=== PATIENT | male | born 1945 | race African-American/Black ===

== ENCOUNTER 2016-07-01 05:28 | Emergency (ER) | payer OTHER ==
[~2016-07-01] VITALS: Ht 172.7 cm; Wt 101.2 kg
[~2016-07-01 05:28] MED LIST: AMLO5TAB2 PO; ASPI-482 PO; CARV25TA PO; DIGO125T PO; DOXY100T PO; HYDR-2762 PO; LOSA100T6 PO; NABU500T PO; PRED20TA PO; SIMV20TA3 PO; TRIA15CR3 TP; WARF5TAB7 PO
[2016-07-01 05:38] VITALS: BP 167/79
--- NOTE | 2016-07-01 06:39 | PHYS DOC ---
Past Medical History Past Medical History: A-Fib, CAD, CHF, COPD, Diabetes-Type II, High Cholesterol , Hypertension, Other Additional Past Medical Histor: BENIGN TUMOR LEFT EYE Past Surgical History: Coronary Bypass Surgery, Other Additional Past Surgical Histo: R lower leg skin biopsy, L knee dislocation repair Alcohol Use: None Drug Use: None Adult General Chief Complaint Chief Complaint: EYE PROBLEMS HPI HPI 71-year-old male presenting to the emergency department with chemosis of the lower part of his right conjunctiva. He reports this started approximately 24 hours ago. He denies any new foods. He does report scratching the bottom part of his eye. He reports his vision being the same. He has a benign tumor his left eye reports no changes in his left eye. Location right eye. Duration constant. No alleviating factors present. He does use a CPAP at night and reports the masks fits correctly. Review of systems is negative for chest pain shortness of breath nausea vomiting. All other review of systems is negative unless otherwise noted in history of present illness. Review of Systems Review of Systems SEE ABOVE. Allergies Allergies Allergies Coded Allergies Type Severity Reaction Last Updated Verified Iodinated Contrast Media - Oral and Adverse Reaction Intermediate "bumps on skin around IV site" 03/27/16 Yes Physical Exam Physical Exam Constitutional: Well developed, well nourished, no acute distress, non-toxic appearance. HENT: Normocephalic, atraumatic, bilateral external ears normal, oropharynx moist, no oral exudates, nose normal. [] Left eye shows what the patient reports to be chronic swelling of a benign tumor. Right Eye Exam Visual acuity: nl (subjective pt reports no changes) Visual meredith: nl External exam: no lacerations, erythema, swelling, exophthalmos, hordeolum, or blepharitis EOMI Pupil: Equal round and reactive to light Lids nl no edema, laceration, foreign bodies Conjunctiva patient has chemosis of the bottom part of the conjunctiva. Mild injection of the rest of the conjunctiva. Cornea, no foreign bodies Cardiovascular:Heart rate regular rhythm, no murmur [] Lungs & Thorax: Bilateral breath sounds clear to auscultation [] Abdomen: Bowel sounds normal, soft, no tenderness, no masses, no pulsatile masses. Skin: Warm, dry, no erythema, no rash. [] Back: No tenderness, no CVA tenderness. Extremities: No tenderness, no cyanosis, no clubbing, ROM intact, no edema. [] Neurologic: Alert and oriented X 3, normal motor function, normal sensory function, no focal deficits noted. [] Psychologic: Affect normal, judgement normal, mood normal. [] Current Patient Data Vital Signs Vital Signs Date Time Temp Pulse Resp B/P Pulse Ox O2 Delivery O2 Flow Rate FiO2 07/01/16 05:38 97.9 74 20 93 Room Air 97.9 EKG EKG [] Radiology/Procedures Radiology/Procedures [] Course & Med Decision Making Course & Med Decision Making Pertinent Labs and Imaging studies reviewed. (See chart for details) 71-year-old male presenting the emergency department with right eye chemosis. Patient reported visual acuity within normal limits. Otherwise normal exam. Likely chemosis secondary to his scratching of the eye however possible that his noninvasive positive pressure at night causing irritation to the inferior part of his conjunctiva. I recommend the patient be referred to our eye doctors for further evaluation workup and care in the outpatient setting. I recommend referral over the next 2-3 days. Dragon Disclaimer Dragon Disclaimer This electronic medical record was generated, in whole or in part, using a voice recognition dictation system. Departure Departure Impression: Primary Impression: Chemosis of conjunctiva Disposition: 01 HOME, SELF-CARE Condition: STABLE Referrals: CAROLANN PLATA Jr, MD (PCP) HERACLIO CEDEÑO MD 4-5 days eye doctor Patient Instructions: Eyedrops Additional Instructions: Thank you for allowing us to participate in your care today. Followup with our eye doctor Dr. Cedeño in 4-5 days if your symptoms do not improve. If you do not have a primary care provider you can ask for a list of our primary care providers. Return to the emergency department you have any new or concerning findings. This should be evaluated by the primary care physician and any necessary consulting services for continued management within a few days after discharge. Return to emergency room if you have any new or concerning symptoms including but not limited to fever, chills, nausea, vomiting, intractable pain, any new rashes, chest pain, shortness of air, uncontrolled bleeding, difficulty breathing, and/or vision loss. JORGE ALBERTO GUZMAN MD Jul 01, 2016 06:39
[2016-07-01] MEDS ORDERED: EYE-STREAM OPHTH SOLUTION 120 ML BOTTLE. ONE (06:52)
[2016-07-01] MEDS ORDERED: EYE-STREAM OPHTH SOLUTION 120 ML BOTTLE. OD ONE (07:15)
== END 2016-07-01 07:10 | disposition home or self-care (01) ==
LOC: ER 05:28
DX: H11.421 Conjunctival edema, right eye (principal); I25.10 Atherosclerotic heart disease of native coronary artery without angina pectoris; I11.0 Hypertensive heart disease with heart failure; I50.9 Heart failure, unspecified; E78.00 Pure hypercholesterolemia, unspecified; E11.9 Type 2 diabetes mellitus without complications; J44.9 Chronic obstructive pulmonary disease, unspecified; Z95.1 Presence of aortocoronary bypass graft; Z91.041 Radiographic dye allergy status
CPT/HCPCS: 99282

== ENCOUNTER → 2016-11-27 | Outpatient (CLI) | payer OTHER ==
--- NOTE | 2016-11-27 17:07 | RAD ---
PA and lateral chest radiographs 11/27/2016 Clinical history: CHF and hypertension. Diabetes. Coronary artery disease. PA and two lateral digital radiographs of the chest were obtained. Comparison study is dated 03/27/2016. The patient is status post CABG procedure. The cardiac silhouette is mildly enlarged. The thoracic aorta is tortuous. No acute pulmonary infiltrate is seen. No pneumothorax is noted. Blunting of both costophrenic angles is seen which could reflect very small bilateral pleural effusions. Degenerative changes are seen involving the thoracic spine. Impression: Cardiomegaly with probable very small bilateral pleural effusions. No acute pulmonary infiltrate is seen.
== END | disposition home or self-care (01) ==
LOC: RAD 16:06
PROVIDERS: ATTEND Internal Medicine Cardiovascular Disease
DX: I11.0 Hypertensive heart disease with heart failure (principal); I50.9 Heart failure, unspecified; E11.9 Type 2 diabetes mellitus without complications; I25.10 Atherosclerotic heart disease of native coronary artery without angina pectoris
CPT/HCPCS: 71020

== ENCOUNTER 2017-01-22 18:07 | Inpatient (IN) | payer OTHER, MEDICARE ==
[~2017-01-22] VITALS: Ht 172.7 cm; Wt 101.2 kg
[2017-01-22] MEDS ORDERED: FUROSEMIDE 40 MG/4 ML VIAL. IVP ONE (18:30)
--- NOTE | 2017-01-22 18:32 | EKG ---
[facility] [address] [place] [address] Test Date: 2017-01-22 Test Time: 18:16:42 Pat Name: SUDHIR NICOLE Department: Room: Gender: M Psychology Intern: : 1945 Requested By: DAVIDSON MILES Order Number: [id number] Reading MD: Measurements Intervals [place] Rate: 73 P: AL: QRS: -62 QRSD: 126 T: 148 QT: 410 QTc: 456 Interpretive Statements ATRIAL FIBRILLATION VENTRICULAR PREMATURE COMPLEX(ES) ABNORMAL LEFT AXIS DEVIATION LOW LIMB LEAD VOLTAGE LEFT BUNDLE BRANCH BLOCK RI6.01 Unconfirmed report No previous ECG available for comparison
[2017-01-22 18:42] LABS: BASO % 1 % (0-3); EOS % 3 % (0-3); HEMATOCRIT 46.8 % (39.0-53.0); HEMOGLOBIN 14.8 g/dL (13.0-17.5); LYMPH # 0.9 x10^3/uL (1.0-4.8); LYMPH % 12 % (24-48); MEAN CORPUSCULAR HEMOGLOBIN 28 pg (25-35); MEAN CORPUSCULAR HGB CONC 32 g/dL (31-37); MEAN CORPUSCULAR VOLUME 87 fL (79-100); MONO % 8 % (0-9); NEUT % 76 % (31-73); PLATELET COUNT 146 x10^3/uL (140-400); RED BLOOD COUNT 5.37 x10^6/uL (4.30-5.70); RED CELL DISTRIBUTION WIDTH 16.3 % (11.5-14.5); WHITE BLOOD COUNT 6.9 x10^3/uL (4.0-11.0)
[2017-01-22 18:52] LABS: PROTHROMBIN TIME PATIENT 40.2 SEC (11.7-14.0)
[2017-01-22 18:58] LABS: CREATININE 0.9 mg/dL (0.7-1.3); GFR 101.2; POTASSIUM 3.7 mmol/L (3.5-5.1)
[2017-01-22 19:04] LABS: ALBUMIN 3.8 g/dL (3.4-5.0); ALBUMIN/GLOBULIN RATIO 0.8 (1.0-1.7); MAGNESIUM 2.1 mg/dL (1.8-2.4); TOTAL BILIRUBIN 1.3 mg/dL (0.2-1.0); TOTAL PROTEIN 8.3 g/dL (6.4-8.2)
[2017-01-22 19:22] LABS: INR 4.5 (0.8-1.1)
--- NOTE | 2017-01-22 20:31 | PHYS DOC ---
Past Medical History Past Medical History: A-Fib, CAD, CHF, COPD, Diabetes-Type II, High Cholesterol , Hypertension, MT, Other Additional Past Medical Histor: BENIGN TUMOR LEFT EYE,SLEEP APNEA Past Surgical History: Coronary Bypass Surgery, Other Additional Past Surgical Histo: R lower leg skin biopsy, L knee dislocation repair Additional Information: 0.5 PPD Alcohol Use: None Drug Use: None Adult General Chief Complaint Chief Complaint: SHORTNESS OF BREATH HPI HPI Patient is a 71 year old male presenting to the emergency department for evaluation of worsening shortness of breath and weight gain and not feeling well over the past several weeks. Reportedly he has gained approximately 22 pounds and he is feeling much more short of breath even at his baseline oxygen of 3 L he is hypoxic. He went to the urgent care and reportedly his oxygen tank was out of oxygen. Denies any pain fevers chills nausea vomiting but he does admit that his legs are quite swollen. He is nontoxic mildly short of breath with normal vital signs except for his hypoxia. Review of Systems Review of Systems Constitutional: Denies fever or chills [] Eyes: Denies change in visual acuity, redness, or eye pain [] HENT: Denies nasal congestion or sore throat [] Respiratory: Denies cough. + shortness of breath [] Cardiovascular: No additional information not addressed in HPI [] GI: Denies abdominal pain, nausea, vomiting, bloody stools or diarrhea [] : Denies dysuria or hematuria [] Musculoskeletal: Denies back pain or joint pain [] Integument: Denies rash or skin lesions [] Neurologic: Denies headache, focal weakness or sensory changes [] Current Medications Current Medications Current Medications Medications (Trade) Dose Ordered Sig/[facility] Start Time Stop Time Status Last Admin Dose Admin Furosemide (Lasix) 40 mg 1X ONCE 01/22/17 18:30 01/22/17 18:31 DC 01/22/17 19:12 40 MG Allergies Allergies Allergies Coded Allergies Type Severity Reaction Last Updated Verified Iodinated Contrast- Oral and IV Dye Adverse Reaction Intermediate "bumps on skin around IV site" 03/27/16 Yes Physical Exam Physical Exam Constitutional: Well developed, well nourished, no acute distress, non-toxic appearance. [] HENT: Normocephalic, atraumatic, bilateral external ears normal, oropharynx moist, no oral exudates, nose normal. [] Eyes: PERRLA, EOMI, conjunctiva normal, no discharge. [] Neck: Normal range of motion, no tenderness, supple, no stridor. [] Cardiovascular:Heart rate regular rhythm, no murmur [] Lungs & Thorax: Bilateral breath sounds diminished with crackles at the bases Abdomen: Bowel sounds normal, soft, no tenderness, no masses, no pulsatile masses. [] Skin: Warm, dry, no erythema, no rash. [] Back: No tenderness, no CVA tenderness. [] Extremities: No tenderness, no cyanosis, no clubbing, ROM intact, 3+ edema. [] Neurologic: Alert and oriented X 3, normal motor function, normal sensory function, no focal deficits noted. [] Current Patient Data Vital Signs Vital Signs Date Time Temp Pulse Resp B/P (MAP) Pulse Ox O2 Delivery O2 Flow Rate FiO2 01/22/17 18:20 98.4 67 26 134/67 (89) 88 Nasal Cannula 3.0 98.4 Lab Values Laboratory Tests Test 01/22/17 18:30 White Blood Count 6.9 x10^3/uL (4.0-11.0) Red Blood Count 5.37 x10^6/uL (4.30-5.70) Hemoglobin 14.8 g/dL (13.0-17.5) Hematocrit 46.8 % (39.0-53.0) Mean Corpuscular Volume 87 fL (79-100) Mean Corpuscular Hemoglobin 28 pg (25-35) Mean Corpuscular Hemoglobin Concent 32 g/dL (31-37) Red Cell Distribution Width 16.3 % (11.5-14.5) H Platelet Count 146 x10^3/uL (140-400) Neutrophils (%) (Auto) 76 % (31-73) H Lymphocytes (%) (Auto) 12 % (24-48) L Monocytes (%) (Auto) 8 % (0-9) Eosinophils (%) (Auto) 3 % (0-3) Basophils (%) (Auto) 1 % (0-3) Neutrophils # (Auto) 5.3 x10^3uL (1.8-7.7) Lymphocytes # (Auto) 0.9 x10^3/uL (1.0-4.8) L Monocytes # (Auto) 0.6 x10^3/uL (0.0-1.1) Eosinophils # (Auto) 0.2 x10^3/uL (0.0-0.7) Basophils # (Auto) 0.0 x10^3/uL (0.0-0.2) Prothrombin Time 40.2 SEC (11.7-14.0) H Prothrombin Time INR 4.5 (0.8-1.1) *H PTT 72 SEC (24-38) H Sodium Level 139 mmol/L (136-145) Potassium Level 3.7 mmol/L (3.5-5.1) Chloride Level 104 mmol/L (98-107) Carbon Dioxide Level 30 mmol/L (21-32) Anion Gap 5 (6-14) L Blood Urea Nitrogen 11 mg/dL (8-26) Creatinine 0.9 mg/dL (0.7-1.3) Estimated GFR (Cockcroft-Gault) 101.2 BUN/Creatinine Ratio 12 (6-20) Glucose Level 88 mg/dL (70-99) Calcium Level 9.0 mg/dL (8.5-10.1) Magnesium Level 2.1 mg/dL (1.8-2.4) Total Bilirubin 1.3 mg/dL (0.2-1.0) H Aspartate Amino Transferase (AST) 22 U/L (15-37) Alanine Aminotransferase (ALT) 21 U/L (16-63) Alkaline Phosphatase 93 U/L (46-116) Troponin I Quantitative 0.018 ng/mL (0.000-0.055) ZV-Hoz-Z-Type Natriuretic Peptide 2125 pg/mL (0-124) H Total Protein 8.3 g/dL (6.4-8.2) H Albumin 3.8 g/dL (3.4-5.0) Albumin/Globulin Ratio 0.8 (1.0-1.7) L Laboratory Tests 01/22/17 18:30 Laboratory Tests 01/22/17 18:30 EKG EKG Atrial fibrillation at a rate of 73 with left axis deviation no obvious ST elevation or depression and flattened T waves diffusely. Radiology/Procedures Radiology/Procedures Chest x-ray shows normal mediastinum, large heart size with no obvious free air pneumothorax or opacity but does appear to have some vascular congestion. Course & Med Decision Making Course & Med Decision Making Patient is suffering from a CHF exacerbation. He is nontoxic-appearing but is hypoxic and likely needs some further treatment and evaluation along with diuresis. Will admit for further treatment. Dragon Disclaimer Dragon Disclaimer This electronic medical record was generated, in whole or in part, using a voice recognition dictation system. Departure Departure Impression: Primary Impression: CHF exacerbation Additional Impression: Respiratory failure with hypoxia Disposition: ADMITTED INPATIENT Admitting Physician: Rajani Amezcua Condition: STABLE Referrals: CAROLANN PLATA Jr, MD (PCP) Problem Qualifiers Primary Impression: CHF exacerbation Congestive heart failure type: unspecified congestive heart failure type Qualified Codes: I50.9 - Heart failure, unspecified DAVIDSON MILES DO Jan 22, 2017 20:31
[2017-01-22 21:07] VITALS: BP 132/63
[2017-01-22] MEDS ORDERED: ALBUTEROL SULFATE 2.5 MG/3 ML NEBU. NEB PRN (21:30)
[2017-01-22] MEDS ORDERED: DEXTROSE 50% 25 GM / 50ML DISP.SYRIN. IV PRN (21:30)
[2017-01-22 23:00] VITALS: BP 137/62
[2017-01-23 03:00] VITALS: BP 153/61
[2017-01-23 07:00] VITALS: BP 139/76
[2017-01-23] MEDS: IPRATRPIUM/ALBUTEROL 0.5/2.5MG 3 ML NEBU. NEB SCH ×4 (07:17→19:30)
[2017-01-23] MEDS: INSULIN ASPART 300 UNITS/3 ML INSULN.PEN SQ SCH ×3 (08:00→17:00)
--- NOTE | 2017-01-23 08:16 | RAD ---
PORTABLE CHEST 1V Clinical Indication: SOA Comparison: Chest radiograph dated 11/27/2016 Findings: Stable lung volume. Bibasilar heterogenous air space opacities. Pulmonary vascular indistinctness. Small bilateral pleural effusions. No pneumothorax. Stable cardiomegaly. The great vessels of the thorax are stable. CABG. Prior median sternotomy. No acute osseous abnormality. IMPRESSION: 1. Bibasilar heterogenous air space opacities. Although findings could relate to atelectasis, pulmonary edema or an infectious process cannot be excluded. Recommend continued radiographic follow-up to resolution. 2. Small bilateral pleural effusions. 3. Stable cardiomegaly.
[2017-01-23] MEDS ORDERED: INFLUENZA VAX SCREEN BY RX. MC ONE (09:00)
[2017-01-23] MEDS ORDERED: FLU VACC QS2017-18 (36MOS+)/PF 0.5 ML SYRINGE. VAX IM ONE (09:00)
[2017-01-23 11:00] VITALS: BP 100/47
[2017-01-23] MEDS ORDERED: DEXTROSE 50% 25 GM / 50ML DISP.SYRIN. IV PRN (12:15)
[2017-01-23] MEDS ORDERED: HYDROcodone/APAP 7.5/325MG 1 TAB TABLET PO PRN (12:15)
[2017-01-23] MEDS ORDERED: LOSARTAN POTASSIUM 50 MG TABLET. PO SCH (13:00)
[2017-01-23] MEDS ORDERED: amLODIPine BESYLATE 5 MG TABLET PO SCH (13:00)
[2017-01-23] MEDS ORDERED: DIGOXIN 125 MCG TABLET. PO SCH (13:00)
[2017-01-23] MEDS ORDERED: ASPIRIN ENTERIC COATED 81 MG TABLET.DR. PO SCH (13:00)
[2017-01-23] MEDS ORDERED: FUROSEMIDE 40 MG TABLET. PO SCH (14:00)
--- NOTE | 2017-01-23 14:58 | PDOC2 ---
CARDIAC CONSULT DATE OF CONSULT Date of Consult DATE: 01/23/17 TIME: 14:45 REASON FOR CONSULT Reason for Consult: CHF REFERRING PHYSICIAN Referring Physician: Dr. Amezcua SOURCE Source: Chart review, Patient HISTORY OF PRESENT ILLNESS HISTORY OF PRESENT ILLNESS This is a 71 yo male, with a history of CAD s/p CABG and chronic systolic/ diastolic HF, who presented with complaints of shortness of breath. Patient reports SOA has been present the last couple of weeks; progressively worsening. Associated with LE edema. Has had significant [place] with limited distances. Approximately 2 months ago, had LE edema and "water on his lungs." Was started on diuretic therapy by PCP, Dr. Lazcano, which improved symptoms for a period of time. Continues to take Lasix but fluid has begun to re-accumulate. PAST MEDICAL HISTORY Past Medical History Cardiovascular: AFIB, CAD (s/p CABG), CHF, HTN, NC, Hyperlipidemia Pulmonary: COPD, Pneumonia, Other ([place] with CPAP) GI: No pertinent hx Heme/Onc: No pertinent hx Hepatobiliary: No pertinent hx Psych: No pertinent hx Musculoskeletal: Osteoarthritis Infectious disease: No pertinent hx ENT: No pertinent hx Renal/: No pertinent hx Endocrine: Diabetes PAST SURGICAL HISTORY Past Surgical History CABG, Other (left knee surgery) FAMILY HISTORY Family History: Diabetes, Heart Disease, Hypertension SOCIAL HISTORY Smoke: <1 pack per day ALCOHOL: none Drugs: None Lives: Alone CURRENT MEDICATIONS CURRENT MEDICATIONS Current Medications Medications (Trade) Dose Ordered Sig/[place]obi Route PRN Reason Start Time Stop Time Status Last Admin Dose Admin Furosemide (Lasix) 40 mg 1X ONCE IVP 01/22/17 18:30 01/22/17 18:31 DC 01/22/17 19:12 Albuterol/ Ipratropium (Duoneb) 3 ml RTQID NEB 01/23/17 08:00 01/23/17 11:12 Albuterol Sulfate (Ventolin Neb Soln) 2.5 mg PRN Q2HRS PRN NEB SHORTNESS OF BREATH 01/22/17 21:30 01/22/17 21:51 Influenza Virus Vaccine Quadrival (Fluarix Quad [id number] Syringe) 0.5 ml ONCE ONCE VAX IM 01/23/17 09:00 01/23/17 09:04 DC 01/23/17 10:31 Warfarin Sodium (Coumadin Per Pharmacy) 1 each PRN DAILY PRN MC SEE COMMENTS 01/23/17 12:15 01/23/17 13:25 ALLERGIES ALLERGIES: Coded Allergies: Iodinated Contrast- Oral and IV Dye (Verified Adverse Reaction, Intermediate, "bumps on skin around IV site", 03/27/16) ROS Review of System 14 point ROS conducted with pertinent positives noted above in HPI. PHYSICAL EXAM PHYSICAL EXAM General: Alert, Oriented X3, Cooperative HEENT: Atraumatic, Mucous membr. moist/pink Lungs: Clear to auscultation, Other (bibasilar crackles) Heart: Normal S1, Normal S2, Other (IRR, tele AFIB) Abdomen: Soft, non-tender. distended Extremities: Other (1-2+ bilateral LE edema) Skin: No breakdown, No significant lesion, Other (chronic venous stasis changes of bilateral LE) Neuro: Normal speech, Sensation intact Psych/Mental Status: Mental status NL, Mood NL MUSCULOSKELETAL: Osteoarthritic changes both hands VITALS VITALS Vital Signs Date Time Temp Pulse Resp B/P (MAP) Pulse Ox O2 Delivery O2 Flow Rate FiO2 01/23/17 11:13 Nasal Cannula 3.0 01/23/17 11:00 96.6 76 22 100/47 (64) 91 96.6 LABS Lab: Laboratory Tests Test 01/22/17 18:30 01/22/17 21:23 01/23/17 07:11 01/23/17 10:57 White Blood Count 6.9 x10^3/uL (4.0-11.0) Red Blood Count 5.37 x10^6/uL (4.30-5.70) Hemoglobin 14.8 g/dL (13.0-17.5) Hematocrit 46.8 % (39.0-53.0) Mean Corpuscular Volume 87 fL (79-100) Mean Corpuscular Hemoglobin 28 pg (25-35) Mean Corpuscular Hemoglobin Concent 32 g/dL (31-37) Red Cell Distribution Width 16.3 % (11.5-14.5) Platelet Count 146 x10^3/uL (140-400) Neutrophils (%) (Auto) 76 % (31-73) Lymphocytes (%) (Auto) 12 % (24-48) Monocytes (%) (Auto) 8 % (0-9) Eosinophils (%) (Auto) 3 % (0-3) Basophils (%) (Auto) 1 % (0-3) Neutrophils # (Auto) 5.3 x10^3uL (1.8-7.7) Lymphocytes # (Auto) 0.9 x10^3/uL (1.0-4.8) Monocytes # (Auto) 0.6 x10^3/uL (0.0-1.1) Eosinophils # (Auto) 0.2 x10^3/uL (0.0-0.7) Basophils # (Auto) 0.0 x10^3/uL (0.0-0.2) Prothrombin Time 40.2 SEC (11.7-14.0) Prothromb Time International Ratio 4.5 (0.8-1.1) Activated Partial Thromboplast Time 72 SEC (24-38) Sodium Level 139 mmol/L (136-145) Potassium Level 3.7 mmol/L (3.5-5.1) Chloride Level 104 mmol/L (98-107) Carbon Dioxide Level 30 mmol/L (21-32) Anion Gap 5 (6-14) Blood Urea Nitrogen 11 mg/dL (8-26) Creatinine 0.9 mg/dL (0.7-1.3) Estimated GFR (Cockcroft-Gault) 101.2 BUN/Creatinine Ratio 12 (6-20) Glucose Level 88 mg/dL (70-99) Calcium Level 9.0 mg/dL (8.5-10.1) Magnesium Level 2.1 mg/dL (1.8-2.4) Total Bilirubin 1.3 mg/dL (0.2-1.0) Aspartate Amino Transf (AST/SGOT) 22 U/L (15-37) Alanine Aminotransferase (ALT/SGPT) 21 U/L (16-63) Alkaline Phosphatase 93 U/L (46-116) Troponin I Quantitative 0.018 ng/mL (0.000-0.055) QA-Yim-K-Type Natriuretic Peptide 2125 pg/mL (0-124) Total Protein 8.3 g/dL (6.4-8.2) Albumin 3.8 g/dL (3.4-5.0) Albumin/Globulin Ratio 0.8 (1.0-1.7) Glucose (Fingerstick) 76 mg/dL (70-99) 67 mg/dL (70-99) 105 mg/dL (70-99) ECHOCARDIOGRAM ECHOCARDIOGRAM <Conclusion> The Ejection Fraction is 45-50%. There is mild global hypokinesis of the left ventricle. Septal motion consistent with conduction abnormality. Tissue Doppler imaging reveals moderate left ventricular diastolic dysfunction. Doppler and Color-flow revealed mild mitral regurgitation. Doppler and Color Flow revealed mild tricuspid regurgitation. There is moderate- severe pulmonary hypertension. The PA pressure was estimated at 60 mmHg. DATE: 03/28/16 0957 STRESS TEST STRESS TEST 1. Regadenoson cardioisotope stress test showed moderate sized inferior and inferoapical wall infarction without any significant ischemia. 2. Inferior wall hypokinesis with ejection fraction calculated at 42%. 3. Low to intermediate risk for cardiac events. DATE: 03/31/16920 ASSESSMENT/PLAN ASSESSMENT/PLAN 1. Acute on chronic systolic/diastolic HF; LVEF 45-50% 03/2016 2. CAD s/p CABG (2004) 3. Chronic AFIB; chronic anticoagulation with warfarin; INR 4.5 4. Hypertension; controlled 5. Hyperlipidemia 6. Diabetes, II 7. Tobaccoism Recommendations Check lipids Continue diuresis with monitoring of renal function. Add potassium Obtain echo to assess LV function/presence of new WMA Resume secondary prevention measures Rate controlled with BB and dig. Hold warfarin given supratherapeutic INR Discussed/encouraged smoking cessation Consider further ischemic evaluation Further recommendations pending diagnostics Problems: GREGG SAM APRN Jan 23, 2017 14:58
[2017-01-23 15:00] VITALS: BP 138/76
[2017-01-23] MEDS ORDERED: DOCUSATE SODIUM 100 MG CAPSULE. PO PRN (15:15)
[2017-01-23] MEDS ORDERED: ONDANSETRON PF 4 MG/2 ML VIAL. IV PRN (15:15)
[2017-01-23] MEDS ORDERED: hydrALAZINE 20 MG/ML VIAL. IVP PRN (15:15)
[2017-01-23] MEDS ORDERED: ACETAMINOPHEN 325 MG TABLET. PO PRN (15:15)
[2017-01-23] MEDS ORDERED: MORPHINE SULFATE 2 MG/ML DISP.SYRIN. IV PRN (15:15)
[2017-01-23] MEDS ORDERED: traMADol 50 MG TABLET PO PRN (15:15)
--- NOTE | 2017-01-23 15:16 | PDOC1 ---
History and Physical Date of Admission Date of Admission 01/23/17 Identification/Chief Complaint Chief Complaint sob Problems: Source Source: Chart review, Patient History of Present Illness History of Present Illness HPI HPI Patient is a 71 year old male presenting to the emergency department for evaluation of worsening shortness of breath and weight gain x1 month. pt was here 03/2016 , was found EF 42%, MPI ok. he had h/o CAD POST CABG. he said he was on diuretics recently, lasix 40mg daily, but cont having bl leg edema, and weight gain 25 lbs within a month. Exertional sob, when walking from bedroom to living room, ok to lie in bed flat sleeping. only home o2 at night at 3L. on CPAP. cough more, with white sputum ,sometimes yellowish. no fever, chills, chest pain, N/V, diarrhea. got lasix x1 in ER, bl leg edema better. on NC 3 L now. Past Medical History Cardiovascular: AFIB, CAD, CHF, HTN, ME, Hyperlipidemia Pulmonary: COPD, Pneumonia, Other GI: No pertinent hx Heme/Onc: No pertinent hx Hepatobiliary: No pertinent hx Psych: No pertinent hx Infectious disease: No pertinent hx Renal/: No pertinent hx Endocrine: Diabetes Past Surgical History Past Surgical History: CABG, Other Family History Family History: Diabetes, Heart Disease, Hypertension Social History Smoke: <1 pack per day ALCOHOL: none Drugs: None Current Problem List Problem List Problems Medical Problems: (1) Respiratory failure with hypoxia Status: Acute Current Medications Current Medications Current Medications Medications (Trade) Dose Ordered Sig/Tobi Start Time Stop Time Status Last Admin Dose Admin Acetaminophen/ Hydrocodone Bitart (Lortab 7.5/325) 1 tab PRN BID PRN 01/23/17 12:15 Albuterol Sulfate (Ventolin Neb Soln) 2.5 mg PRN Q2HRS PRN 01/22/17 21:30 01/22/17 21:51 2.5 MG Albuterol/ Ipratropium (Duoneb) 3 ml RTQID 01/23/17 08:00 01/23/17 14:53 3 ML Amlodipine Besylate (Norvasc) 5 mg DAILY@1800 01/23/17 18:00 Aspirin (Ecotrin) 81 mg DAILY@1800 01/23/17 18:00 Carvedilol (Coreg) 25 mg BIDWMEALS@0600,1800 10/6/17 18:00 Dextrose (Dextrose 50%-Water Syringe) 12.5 gm PRN Q15MIN PRN 01/23/17 12:15 Cancel Digoxin (Lanoxin) 125 mcg DAILY@1800 01/23/17 18:00 Furosemide (Lasix) 40 mg Q12H 01/23/17 18:00 Influenza Virus Vaccine Quadrival (Fluarix Quad [id number] Syringe) 0.5 ml ONCE ONCE 01/23/17 09:00 01/23/17 09:04 DC 01/23/17 10:31 0.5 ML Info (Do NOT chart on this placeholder) 1 each 1X ONCE 01/23/17 09:00 01/23/17 09:01 UNV Insulin Aspart (NovoLOG) 0-9 UNITS TIDWMEALS 01/23/17 17:00 Cancel Losartan Potassium (Cozaar) 100 mg DAILY@1800 01/23/17 18:00 Simvastatin (Zocor) 20 mg DAILY@1800 01/23/17 18:00 Warfarin Sodium (Coumadin - No Dose Today) 1 each 1X WARF ONCE 01/23/17 16:00 01/23/17 16:01 Warfarin Sodium (Coumadin Per Pharmacy) 1 each PRN DAILY PRN 01/23/17 12:15 01/23/17 13:25 1 EACH Warfarin Sodium (Coumadin) 7.5 mg DAILY16 01/23/17 16:00 UNV Allergies Allergies Allergies Coded Allergies Type Severity Reaction Last Updated Verified Iodinated Contrast- Oral and IV Dye Adverse Reaction Intermediate "bumps on skin around IV site" 03/27/16 Yes ROS Review of System CONSTITUTIONAL: No fever or chills EYES: No recent changes SKIN: No rash or itching CARDIOVASCULAR: No chest pain, syncope, palpitations, or edema RESPIRATORY: No SOB or cough GASTROINTESTINAL: No nausea, vomiting or abdominal pain NEUROLOGICAL: No headaches or weakness ENDOCRINE: No cold or heat intolerance GENITOURINARY: No urgency or frequency of urination MUSCULOSKELETAL: No back pain or joint pain LYMPHATICS: No enlarged lymph nodes PSYCHIATRIC: No anxiety or depression Physical Exam Physical Exam GEN.: No apparent distress. Alert and oriented. HEENT: Head is normocephalic, atraumatic NECK: Supple. LUNGS: bl mild crackles HEART: RRR, S1, S2 present. Peripheral pulses intact ABDOMEN: Soft, nontender. Positive bowel sounds. EXTREMITIES: Without any cyanosis. bl leg 1+ edema NEUROLOGIC: Normal speech, normal tone PSYCHIATRIC: Normal affect, normal mood. SKIN: No ulcerations Vitals Vitals Vital Signs Date Time Temp Pulse Resp B/P (MAP) Pulse Ox O2 Delivery O2 Flow Rate FiO2 01/23/17 14:54 Nasal Cannula 3.0 01/23/17 11:00 96.6 76 22 100/47 (64) 91 96.6 Labs Labs Laboratory Tests Test 01/22/17 18:30 01/22/17 21:23 01/23/17 07:11 01/23/17 10:57 White Blood Count 6.9 x10^3/uL (4.0-11.0) Red Blood Count 5.37 x10^6/uL (4.30-5.70) Hemoglobin 14.8 g/dL (13.0-17.5) Hematocrit 46.8 % (39.0-53.0) Mean Corpuscular Volume 87 fL (79-100) Mean Corpuscular Hemoglobin 28 pg (25-35) Mean Corpuscular Hemoglobin Concent 32 g/dL (31-37) Red Cell Distribution Width 16.3 % (11.5-14.5) Platelet Count 146 x10^3/uL (140-400) Neutrophils (%) (Auto) 76 % (31-73) Lymphocytes (%) (Auto) 12 % (24-48) Monocytes (%) (Auto) 8 % (0-9) Eosinophils (%) (Auto) 3 % (0-3) Basophils (%) (Auto) 1 % (0-3) Neutrophils # (Auto) 5.3 x10^3uL (1.8-7.7) Lymphocytes # (Auto) 0.9 x10^3/uL (1.0-4.8) Monocytes # (Auto) 0.6 x10^3/uL (0.0-1.1) Eosinophils # (Auto) 0.2 x10^3/uL (0.0-0.7) Basophils # (Auto) 0.0 x10^3/uL (0.0-0.2) Prothrombin Time 40.2 SEC (11.7-14.0) Prothromb Time International Ratio 4.5 (0.8-1.1) Activated Partial Thromboplast Time 72 SEC (24-38) Sodium Level 139 mmol/L (136-145) Potassium Level 3.7 mmol/L (3.5-5.1) Chloride Level 104 mmol/L (98-107) Carbon Dioxide Level 30 mmol/L (21-32) Anion Gap 5 (6-14) Blood Urea Nitrogen 11 mg/dL (8-26) Creatinine 0.9 mg/dL (0.7-1.3) Estimated GFR (Cockcroft-Gault) 101.2 BUN/Creatinine Ratio 12 (6-20) Glucose Level 88 mg/dL (70-99) Calcium Level 9.0 mg/dL (8.5-10.1) Magnesium Level 2.1 mg/dL (1.8-2.4) Total Bilirubin 1.3 mg/dL (0.2-1.0) Aspartate Amino Transf (AST/SGOT) 22 U/L (15-37) Alanine Aminotransferase (ALT/SGPT) 21 U/L (16-63) Alkaline Phosphatase 93 U/L (46-116) Troponin I Quantitative 0.018 ng/mL (0.000-0.055) ZF-Wdf-B-Type Natriuretic Peptide 2125 pg/mL (0-124) Total Protein 8.3 g/dL (6.4-8.2) Albumin 3.8 g/dL (3.4-5.0) Albumin/Globulin Ratio 0.8 (1.0-1.7) Glucose (Fingerstick) 76 mg/dL (70-99) 67 mg/dL (70-99) 105 mg/dL (70-99) Laboratory Tests Test 01/22/17 18:30 01/22/17 21:23 01/23/17 07:11 01/23/17 10:57 White Blood Count 6.9 x10^3/uL (4.0-11.0) Red Blood Count 5.37 x10^6/uL (4.30-5.70) Hemoglobin 14.8 g/dL (13.0-17.5) Hematocrit 46.8 % (39.0-53.0) Mean Corpuscular Volume 87 fL (79-100) Mean Corpuscular Hemoglobin 28 pg (25-35) Mean Corpuscular Hemoglobin Concent 32 g/dL (31-37) Red Cell Distribution Width 16.3 % (11.5-14.5) Platelet Count 146 x10^3/uL (140-400) Neutrophils (%) (Auto) 76 % (31-73) Lymphocytes (%) (Auto) 12 % (24-48) Monocytes (%) (Auto) 8 % (0-9) Eosinophils (%) (Auto) 3 % (0-3) Basophils (%) (Auto) 1 % (0-3) Neutrophils # (Auto) 5.3 x10^3uL (1.8-7.7) Lymphocytes # (Auto) 0.9 x10^3/uL (1.0-4.8) Monocytes # (Auto) 0.6 x10^3/uL (0.0-1.1) Eosinophils # (Auto) 0.2 x10^3/uL (0.0-0.7) Basophils # (Auto) 0.0 x10^3/uL (0.0-0.2) Prothrombin Time 40.2 SEC (11.7-14.0) Prothromb Time International Ratio 4.5 (0.8-1.1) Activated Partial Thromboplast Time 72 SEC (24-38) Sodium Level 139 mmol/L (136-145) Potassium Level 3.7 mmol/L (3.5-5.1) Chloride Level 104 mmol/L (98-107) Carbon Dioxide Level 30 mmol/L (21-32) Anion Gap 5 (6-14) Blood Urea Nitrogen 11 mg/dL (8-26) Creatinine 0.9 mg/dL (0.7-1.3) Estimated GFR (Cockcroft-Gault) 101.2 BUN/Creatinine Ratio 12 (6-20) Glucose Level 88 mg/dL (70-99) Calcium Level 9.0 mg/dL (8.5-10.1) Magnesium Level 2.1 mg/dL (1.8-2.4) Total Bilirubin 1.3 mg/dL (0.2-1.0) Aspartate Amino Transf (AST/SGOT) 22 U/L (15-37) Alanine Aminotransferase (ALT/SGPT) 21 U/L (16-63) Alkaline Phosphatase 93 U/L (46-116) Troponin I Quantitative 0.018 ng/mL (0.000-0.055) SW-Zyo-E-Type Natriuretic Peptide 2125 pg/mL (0-124) Total Protein 8.3 g/dL (6.4-8.2) Albumin 3.8 g/dL (3.4-5.0) Albumin/Globulin Ratio 0.8 (1.0-1.7) Glucose (Fingerstick) 76 mg/dL (70-99) 67 mg/dL (70-99) 105 mg/dL (70-99) VTE Prophylaxis Ordered VTE Prophylaxis Devices: Yes VTE Pharmacological Prophylaxi: No Assessment/Plan Assessment/Plan dyspnea with acute hypoxic resp failure systolic CHF EXAcerbation copd with smoking PAFIB , chronic on warfarin h/o CAD post CABG DM2 HLD HTN 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
--- NOTE | 2017-01-23 15:34 | CARD ---
APPROVED REPORT EXAM: Two-dimensional and M-mode echocardiogram with Doppler and color Doppler. Other Information Quality : Good INDICATION Congestive Heart Failure 2D DIMENSIONS RVDd4.6 (2.9-3.5cm)Left Atrium(2D)6.2 (1.6-4.0cm) IVSd1.2 (0.7-1.1cm)Aortic Root(2D)2.7 (2.0-3.7cm) LVDd5.8 (3.9-5.9cm)LVOT Diameter2.2 (1.8-2.4cm) PWd1.1 (0.7-1.1cm)LVDs4.7 (2.5-4.0cm) FS (%) 18.9 %SV64.0 ml Aortic Valve AoV Peak Frederick.134.6cm/sAoV VTI29.0cm AO Peak GR.7.2mmHgLVOT Peak Frederick.82.1cm/s AO Mean GR.4mmHgAVA (VMAX)2.38cm2 SANTA (VTI)2.40cm2 Mitral Valve MV E Fkqtrfea403.3cm/sMV DECEL RDCH35sh MV A Iicgkesh70.6cm/sE/A Ratio2.6 Tricuspid Valve TR P. Ubxntpgo158nq/sRAP [id number] TR Peak Gr.09geScAKGO27lxLj Pulmonary Vein S1 Gphjucep68.1cm/sD2 Kaefmaip02.0cm/s LEFT VENTRICLE The Left Ventricle is borderline dilated. There is mild concentric left ventricular hypertrophy. Left ventricle systolic function is severely impaired. The Ejection Fraction is 25-30%. There is global h ypokinesis of the left ventricle. Transmitral Doppler flow pattern is a restrictive diastolic dysfunc tion. RIGHT VENTRICLE The right ventricle is mildly dilated. The right ventricular systolic function is normal. ATRIA The left atrium is moderately dilated. The right atrium is moderately dilated. The interatrial septum is intact with no evidence for an atrial septal defect or patent foramen ovale as noted on 2-D or Do ppler imaging. AORTIC VALVE The aortic valve is calcified but opens well. Doppler and Color Flow revealed no significant aortic r egurgitation. There is no significant aortic valvular stenosis. MITRAL VALVE The mitral valve is normal in structure and function. There is no evidence of mitral valve prolapse. There is no mitral valve stenosis. Doppler and Color-flow revealed mild mitral regurgitation. TRICUSPID VALVE The tricuspid valve is normal in structure and function. Doppler and Color Flow revealed mild tricusp id regurgitation. There is moderate pulmonary hypertension. The PA pressure was estimated at 50 mmHg. There is no tricuspid valve stenosis. PULMONIC VALVE The pulmonary valve is normal in structure and function. Doppler and Color Flow revealed trace to mil d pulmonic valvular regurgitation. There is no pulmonic valvular stenosis. GREAT VESSELS The aortic root is normal in size. The ascending aorta is normal in size. The IVC is dilated and katy apses >50% with inspiration. PERICARDIAL EFFUSION There is no evidence of significant pericardial effusion. Critical Notification Critical Value: No <Conclusion> The Left Ventricle is borderline dilated. Left ventricle systolic function is severely impaired. The Ejection Fraction is 25-30%. There is global hypokinesis of the left ventricle. There is mild concentric left ventricular hypertrophy. There is no significant aortic valvular stenosis. Doppler and Color Flow revealed no significant aortic regurgitation. Doppler and Color-flow revealed mild mitral regurgitation. Doppler and Color Flow revealed mild tricuspid regurgitation. There is moderate pulmonary hypertension. The PA pressure was estimated at 50 mmHg.
[2017-01-23] MEDS ORDERED: WARFARIN 7.5 MG TABLET. PO SCH (16:00)
[2017-01-23] MEDS ORDERED: POTASSIUM CHLORIDE 20 MEQ TABLET.ER. PO SCH (16:30)
[2017-01-23] MEDS ORDERED: INSULIN ASPART 300 UNITS/3 ML INSULN.PEN SQ SCH (17:00)
[2017-01-23] MEDS: DIGOXIN 125 MCG TABLET. PO SCH (17:44)
[2017-01-23] MEDS: amLODIPine BESYLATE 5 MG TABLET PO SCH (17:44)
[2017-01-23] MEDS: LOSARTAN POTASSIUM 50 MG TABLET. PO SCH (17:45)
[2017-01-23] MEDS: FUROSEMIDE 40 MG TABLET. PO SCH (17:45)
[2017-01-23] MEDS: ASPIRIN ENTERIC COATED 81 MG TABLET.DR. PO SCH (17:45)
[2017-01-23] MEDS: CARVEDILOL 12.5 MG TABLET. PO SCH (17:46)
[2017-01-23] MEDS ORDERED: SIMVASTATIN 20 MG TABLET PO SCH (18:00)
[2017-01-23 19:00] VITALS: BP 134/66
[2017-01-23] MEDS: SIMVASTATIN 20 MG TABLET PO SCH (21:04)
[2017-01-23 23:00] VITALS: BP 131/67
[2017-01-24 03:03] VITALS: BP 117/65
[2017-01-24] MEDS: CARVEDILOL 12.5 MG TABLET. PO SCH ×2 (05:46→17:33)
[2017-01-24] MEDS: FUROSEMIDE 40 MG TABLET. PO SCH (05:49)
[2017-01-24 06:23] LABS: BASO % 0 % (0-3); EOS % 3 % (0-3); HEMATOCRIT 45.2 % (39.0-53.0); HEMOGLOBIN 14.3 g/dL (13.0-17.5); LYMPH # 0.9 x10^3/uL (1.0-4.8); LYMPH % 16 % (24-48); MEAN CORPUSCULAR HEMOGLOBIN 28 pg (25-35); MEAN CORPUSCULAR HGB CONC 32 g/dL (31-37); MEAN CORPUSCULAR VOLUME 87 fL (79-100); MONO % 10 % (0-9); NEUT % 71 % (31-73); PLATELET COUNT 138 x10^3/uL (140-400); RED BLOOD COUNT 5.21 x10^6/uL (4.30-5.70); RED CELL DISTRIBUTION WIDTH 16.3 % (11.5-14.5); WHITE BLOOD COUNT 5.8 x10^3/uL (4.0-11.0)
[2017-01-24 07:00] VITALS: BP 116/57
[2017-01-24 07:09] LABS: CALCIUM 9.3 mg/dL (8.5-10.1); CREATININE 0.8 mg/dL (0.7-1.3); POTASSIUM 3.9 mmol/L (3.5-5.1)
[2017-01-24 07:14] LABS: PROTHROMBIN TIME PATIENT 36.3 SEC (11.7-14.0)
[2017-01-24 07:15] LABS: CHOLESTEROL/HDL RATIO 2.5
[2017-01-24] MEDS: IPRATRPIUM/ALBUTEROL 0.5/2.5MG 3 ML NEBU. NEB SCH ×4 (07:28→19:20)
[2017-01-24] MEDS: INSULIN ASPART 300 UNITS/3 ML INSULN.PEN SQ SCH ×3 (08:00→17:00)
[2017-01-24] MEDS ORDERED: POTASSIUM CHLORIDE 20 MEQ TABLET.ER. PO SCH (09:00)
--- NOTE | 2017-01-24 09:21 | PDOC ---
ELIAS HERNANDEZ EXPORT TRAFFIC DEPARTMENT MANAGER 01/24/17 0921: PROGRESS NOTES Subjective Subjective Denies dyspnea at rest, orthopnea or PND, denies chest pain. edema getting better. Objective Objective tele - atrial fibrillation with CVR, occasional prolonged R-R of up to 3 seconds noted last evening. Vital Signs Date Time Temp Pulse Resp B/P (MAP) Pulse Ox O2 Delivery O2 Flow Rate FiO2 01/24/17 07:37 Nasal Cannula 3.0 01/24/17 07:28 95 01/24/17 05:46 68 118/61 01/24/17 03:03 97.5 24 97.5 Physical Exam Abdomen: Normal bowel sounds, Soft, No tenderness Heart: Other (irregular rhythm, no gallops, clicks or rubs) Extremities: No cyanosis, Normal pulses, Other (trace to 1+ edema) Lungs: Other (decreased bases L>R) Neuro: Normal speech, Strength at 5/5 X4 ext Psych/Mental Status: Mental status NL, Mood NL Assessment Assessment Problems Medical Problems: (1) Respiratory failure with hypoxia Status: Acute 1. Acute on chronic systolic/diastolic HF; LVEF 45-50% 03/2016- continue beta wai, ARB and diuretic. good diuresis. clinically improved. 2. CAD s/p CABG (2004) - angina free. continue beta wai, aspirin, statin. 3. Chronic AFIB; chronic anticoagulation with warfarin; INR 4.0 today. CVR with occasional prolonged R-R up to 3.0 seconds. Check dig level, may need to decrease beta wai. Warfarin on hold. suggest 6 min walk for chronotropic response. Bradycardia may be contributing to HILLIARD. 4. Hypertension; controlled 5. Hyperlipidemia - continue statin, lipids controlled. 6. Diabetes, II - per PCP 7. Tobaccoism - cessation encouraged. Comment Review of Relevant I have reviewed the following items cynthia (where applicable) has been applied. Labs Laboratory Tests Test 01/22/17 18:30 01/22/17 21:23 01/23/17 07:11 01/23/17 10:57 White Blood Count 6.9 x10^3/uL (4.0-11.0) Red Blood Count 5.37 x10^6/uL (4.30-5.70) Hemoglobin 14.8 g/dL (13.0-17.5) Hematocrit 46.8 % (39.0-53.0) Mean Corpuscular Volume 87 fL (79-100) Mean Corpuscular Hemoglobin 28 pg (25-35) Mean Corpuscular Hemoglobin Concent 32 g/dL (31-37) Red Cell Distribution Width 16.3 % (11.5-14.5) Platelet Count 146 x10^3/uL (140-400) Neutrophils (%) (Auto) 76 % (31-73) Lymphocytes (%) (Auto) 12 % (24-48) Monocytes (%) (Auto) 8 % (0-9) Eosinophils (%) (Auto) 3 % (0-3) Basophils (%) (Auto) 1 % (0-3) Neutrophils # (Auto) 5.3 x10^3uL (1.8-7.7) Lymphocytes # (Auto) 0.9 x10^3/uL (1.0-4.8) Monocytes # (Auto) 0.6 x10^3/uL (0.0-1.1) Eosinophils # (Auto) 0.2 x10^3/uL (0.0-0.7) Basophils # (Auto) 0.0 x10^3/uL (0.0-0.2) Prothrombin Time 40.2 SEC (11.7-14.0) Prothromb Time International Ratio 4.5 (0.8-1.1) Activated Partial Thromboplast Time 72 SEC (24-38) Sodium Level 139 mmol/L (136-145) Potassium Level 3.7 mmol/L (3.5-5.1) Chloride Level 104 mmol/L (98-107) Carbon Dioxide Level 30 mmol/L (21-32) Anion Gap 5 (6-14) Blood Urea Nitrogen 11 mg/dL (8-26) Creatinine 0.9 mg/dL (0.7-1.3) Estimated GFR (Cockcroft-Gault) 101.2 BUN/Creatinine Ratio 12 (6-20) Glucose Level 88 mg/dL (70-99) Calcium Level 9.0 mg/dL (8.5-10.1) Magnesium Level 2.1 mg/dL (1.8-2.4) Total Bilirubin 1.3 mg/dL (0.2-1.0) Aspartate Amino Transf (AST/SGOT) 22 U/L (15-37) Alanine Aminotransferase (ALT/SGPT) 21 U/L (16-63) Alkaline Phosphatase 93 U/L (46-116) Troponin I Quantitative 0.018 ng/mL (0.000-0.055) IG-Ren-B-Type Natriuretic Peptide 2125 pg/mL (0-124) Total Protein 8.3 g/dL (6.4-8.2) Albumin 3.8 g/dL (3.4-5.0) Albumin/Globulin Ratio 0.8 (1.0-1.7) Glucose (Fingerstick) 76 mg/dL (70-99) 67 mg/dL (70-99) 105 mg/dL (70-99) Test 01/23/17 16:15 01/23/17 20:56 01/24/17 05:17 01/24/17 08:50 Glucose (Fingerstick) 89 mg/dL (70-99) 101 mg/dL (70-99) 116 mg/dL (70-99) White Blood Count 5.8 x10^3/uL (4.0-11.0) Red Blood Count 5.21 x10^6/uL (4.30-5.70) Hemoglobin 14.3 g/dL (13.0-17.5) Hematocrit 45.2 % (39.0-53.0) Mean Corpuscular Volume 87 fL (79-100) Mean Corpuscular Hemoglobin 28 pg (25-35) Mean Corpuscular Hemoglobin Concent 32 g/dL (31-37) Red Cell Distribution Width 16.3 % (11.5-14.5) Platelet Count 138 x10^3/uL (140-400) Neutrophils (%) (Auto) 71 % (31-73) Lymphocytes (%) (Auto) 16 % (24-48) Monocytes (%) (Auto) 10 % (0-9) Eosinophils (%) (Auto) 3 % (0-3) Basophils (%) (Auto) 0 % (0-3) Neutrophils # (Auto) 4.1 x10^3uL (1.8-7.7) Lymphocytes # (Auto) 0.9 x10^3/uL (1.0-4.8) Monocytes # (Auto) 0.6 x10^3/uL (0.0-1.1) Eosinophils # (Auto) 0.2 x10^3/uL (0.0-0.7) Basophils # (Auto) 0.0 x10^3/uL (0.0-0.2) Prothrombin Time 36.3 SEC (11.7-14.0) Prothromb Time International Ratio 4.0 (0.8-1.1) Sodium Level 146 mmol/L (136-145) Potassium Level 3.9 mmol/L (3.5-5.1) Chloride Level 106 mmol/L (98-107) Carbon Dioxide Level 35 mmol/L (21-32) Anion Gap 5 (6-14) Blood Urea Nitrogen 9 mg/dL (8-26) Creatinine 0.8 mg/dL (0.7-1.3) Estimated GFR (Cockcroft-Gault) 116.0 Glucose Level 90 mg/dL (70-99) Calcium Level 9.3 mg/dL (8.5-10.1) Triglycerides Level 52 mg/dL (0-150) Cholesterol Level 96 mg/dL (0-200) LDL Cholesterol, Calculated 48 mg/dL (0-100) VLDL Cholesterol, Calculated 10 mg/dL (0-40) Non-HDL Cholesterol Calculated 58 mg/dL (0-129) HDL Cholesterol 38 mg/dL (40-60) Cholesterol/HDL Ratio 2.5 Laboratory Tests Test 01/23/17 10:57 01/23/17 16:15 01/23/17 20:56 01/24/17 05:17 Glucose (Fingerstick) 105 mg/dL (70-99) 89 mg/dL (70-99) 101 mg/dL (70-99) White Blood Count 5.8 x10^3/uL (4.0-11.0) Red Blood Count 5.21 x10^6/uL (4.30-5.70) Hemoglobin 14.3 g/dL (13.0-17.5) Hematocrit 45.2 % (39.0-53.0) Mean Corpuscular Volume 87 fL (79-100) Mean Corpuscular Hemoglobin 28 pg (25-35) Mean Corpuscular Hemoglobin Concent 32 g/dL (31-37) Red Cell Distribution Width 16.3 % (11.5-14.5) Platelet Count 138 x10^3/uL (140-400) Neutrophils (%) (Auto) 71 % (31-73) Lymphocytes (%) (Auto) 16 % (24-48) Monocytes (%) (Auto) 10 % (0-9) Eosinophils (%) (Auto) 3 % (0-3) Basophils (%) (Auto) 0 % (0-3) Neutrophils # (Auto) 4.1 x10^3uL (1.8-7.7) Lymphocytes # (Auto) 0.9 x10^3/uL (1.0-4.8) Monocytes # (Auto) 0.6 x10^3/uL (0.0-1.1) Eosinophils # (Auto) 0.2 x10^3/uL (0.0-0.7) Basophils # (Auto) 0.0 x10^3/uL (0.0-0.2) Prothrombin Time 36.3 SEC (11.7-14.0) Prothromb Time International Ratio 4.0 (0.8-1.1) Sodium Level 146 mmol/L (136-145) Potassium Level 3.9 mmol/L (3.5-5.1) Chloride Level 106 mmol/L (98-107) Carbon Dioxide Level 35 mmol/L (21-32) Anion Gap 5 (6-14) Blood Urea Nitrogen 9 mg/dL (8-26) Creatinine 0.8 mg/dL (0.7-1.3) Estimated GFR (Cockcroft-Gault) 116.0 Glucose Level 90 mg/dL (70-99) Calcium Level 9.3 mg/dL (8.5-10.1) Triglycerides Level 52 mg/dL (0-150) Cholesterol Level 96 mg/dL (0-200) LDL Cholesterol, Calculated 48 mg/dL (0-100) VLDL Cholesterol, Calculated 10 mg/dL (0-40) Non-HDL Cholesterol Calculated 58 mg/dL (0-129) HDL Cholesterol 38 mg/dL (40-60) Cholesterol/HDL Ratio 2.5 Test 01/24/17 08:50 Glucose (Fingerstick) 116 mg/dL (70-99) Medications Current Medications Furosemide (Lasix) 40 mg 1X ONCE IVP Last administered on 01/22/17t 19:12; Start 01/22/17 at 18:30; Stop 01/22/17 at 18:31; Status DC Albuterol/ Ipratropium (Duoneb) 3 ml RTQID NEB Last administered on 01/24/17 07:28; Start 01/23/17 at 08:00 Albuterol Sulfate (Ventolin Neb Soln) 2.5 mg PRN Q2HRS PRN NEB SHORTNESS OF BREATH Last administered on 01/22/17 21:51; Start 01/22/17 at 21:30 Insulin Aspart (NovoLOG) 0-9 UNITS TIDWMEALS SQ ; Start 01/23/17 at 08:00 Dextrose (Dextrose 50%-Water Syringe) 12.5 gm PRN Q15MIN PRN IV SEE COMMENTS; Start 01/22/17 at 21:30 Info (Do NOT chart on this placeholder) 1 each 1X ONCE MC ; Start 01/23/17 at 09:00; Stop 01/23/17 at 09:01; Status UNV Influenza Virus Vaccine Quadrival (Fluarix Quad [id number] Syringe) 0.5 ml ONCE ONCE VAX IM Last administered on 01/23/17 10:31; Start 01/23/17 at 09:00; Stop 01/23/17 at 09:04; Status DC Amlodipine Besylate (Norvasc) 5 mg DAILY PO ; Start 01/23/17 at 13:00; Status Cancel Aspirin (Ecotrin) 81 mg DAILY PO ; Start 01/23/17 at 13:00; Status Cancel Digoxin (Lanoxin) 125 mcg DAILY PO ; Start 01/23/17 at 13:00; Status Cancel Acetaminophen/ Hydrocodone Bitart (Lortab 7.5/325) 1 tab PRN BID PRN PO PAIN; Start 01/23/17 at 12:15 Simvastatin (Zocor) 20 mg DAILY@1800 PO ; Start 01/23/17 at 18:00; Stop at 18:35; Status DC Warfarin Sodium (Coumadin) 7.5 mg DAILY16 PO ; Start 01/23/17 at 16:00; Status UNV Carvedilol (Coreg) 25 mg BIDWMEALS@0600,1800 PO Last administered on 01/24/17 05:46; Start 01/23/17 at 18:00 Losartan Potassium (Cozaar) 100 mg DAILY PO ; Start 01/23/17 at 13:00; Status Cancel Furosemide (Lasix) 40 mg BID92 PO ; Start 01/23/17 at 14:00; Status Cancel Warfarin Sodium (Coumadin Per Pharmacy) 1 each PRN DAILY PRN MC SEE COMMENTS Last administered on 01/23/17 13:25; Start 01/23/17 at 12:15 Insulin Aspart (NovoLOG) 0-9 UNITS TIDWMEALS SQ ; Start 01/23/17 at 17:00; Status Cancel Dextrose (Dextrose 50%-Water Syringe) 12.5 gm PRN Q15MIN PRN IV SEE COMMENTS; Start 01/23/17 at 12:15; Status Cancel Warfarin Sodium (Coumadin - No Dose Today) 1 each 1X WARF ONCE MC Last administered on 01/23/17 16:00; Start 01/23/17 at 16:00; Stop 01/23/17 at 16:01 ; Status DC Amlodipine Besylate (Norvasc) 5 mg DAILY@1800 PO Last administered on 17:44; Start 01/23/17 at 18:00 Aspirin (Ecotrin) 81 mg DAILY@1800 PO Last administered on 01/23/17 17:45; Start 01/23/17 at 18:00 Digoxin (Lanoxin) 125 mcg DAILY@1800 PO Last administered on 01/23/17 17:44; Start 01/23/17 at 18:00 Losartan Potassium (Cozaar) 100 mg DAILY@1800 PO Last administered on 17:45; Start 01/23/17 at 18:00 Furosemide (Lasix) 40 mg Q12H PO Last administered on 01/23/17 17:45; Start 01/23/17 at 18:00 Acetaminophen (Tylenol) 650 mg PRN Q6HRS PRN PO FEVER; Start 01/23/17 at 15:15 Ondansetron HCl (Zofran) 4 mg PRN Q6HRS PRN IV NAUSEA/VOMITING 1ST CHOICE; Start 01/23/17 at 15:15 Morphine Sulfate 2 mg PRN Q2HR PRN IV PAIN SEVERE; Start 01/23/17 at 15:15 Tramadol HCl (Ultram) 50 mg PRN Q6HRS PRN PO PAIN MILD TO MOD; Start 01/23/17 at 15:15 Hydralazine HCl (Apresoline) 10 mg PRN Q4HRS PRN IVP ELEVATED BP, SEE COMMENTS ; Start 01/23/17 at 15:15 Docusate Sodium (Colace) 100 mg PRN DAILY PRN PO CONSTIPATION; Start 01/23/17 at 15:15 Potassium Chloride (Klor-Con) 20 meq DAILYWBKFT PO Last administered on 17:43; Start 01/23/17 at 16:30; Stop 01/24/17 at 09:05; Status DC Simvastatin (Zocor) 20 mg QHS PO Last administered on 01/23/17 21:04; Start 01/23/17 at 21:00 Potassium Chloride (Klor-Con) 20 meq DAILY PO ; Start 01/24/17 at 18:00; Status UNV Active Scripts Active Reported Amlodipine Besylate 5 Mg Tablet 5 Mg PO DAILY Digoxin 125 Mcg Tablet 125 Mcg PO DAILY Losartan Potassium 100 Mg Tablet 100 Mg PO DAILY Warfarin Sodium 5 Mg Tablet 7.5 Mg PO DAILY EXCEPT TUES & SAT: 5 mg Coreg (Carvedilol) 25 Mg Tablet 25 Mg PO BIDWMEALS Hydrocodone-Apap 7.5-325 (Hydrocodone Bit/Acetaminophen) 1 Each Tablet 1 Tab PO BID PRN Simvastatin 20 Mg Tablet 20 Mg PO HS Aspir 81 (Aspirin) 81 Mg Tablet.dr 81 Mg PO DAILY Vitals/I & O Vital Sign - Last 24 Hours 01/23/17 01/23/17 01/23/17 01/23/17 11:00 11:13 14:54 15:00 Temp 96.6 97.7 96.6 97.7 Pulse 76 96 Resp 22 20 B/P (MAP) 100/47 (64) 138/76 (96) Pulse Ox 91 91 O2 Delivery Nasal Cannula Nasal Cannula Nasal Cannula Room Air O2 Flow Rate 3.0 3.0 3.0 01/23/17 01/23/17 01/23/17 01/23/17 17:44 17:44 17:45 17:46 Pulse 96 96 96 96 B/P (MAP) 138/76 138/76 138/76 138/76 01/23/17 01/23/17 01/23/17 01/23/17 19:00 19:31 19:32 22:37 Temp 98.1 98.1 Pulse 66 Resp 24 B/P (MAP) 134/66 (88) Pulse Ox 90 92 91 O2 Delivery Room Air Nasal Cannula Nasal Cannula BiPAP/CPAP O2 Flow Rate 3.0 3.0 01/23/17 01/24/17 01/24/17 01/24/17 23:00 03:03 05:46 07:28 Temp 96.4 97.5 96.4 97.5 Pulse 57 63 68 Resp 24 24 B/P (MAP) 131/67 (88) 117/65 (82) 118/61 Pulse Ox 91 92 95 O2 Delivery Room Air Room Air Nasal Cannula O2 Flow Rate 3.0 01/24/17 07:37 O2 Delivery Nasal Cannula O2 Flow Rate 3.0 MARCELINA BLANCO MD 01/24/17 1836: PROGRESS NOTES Comment Review of Relevant Pt. seen and examined. Agree with above [employer] note Will follow. ELIAS HERNANDEZ APRN Jan 24, 2017 09:21 MARCELINA BLANCO MD Jan 24, 2017 18:36
[2017-01-24 10:45] VITALS: BP 119/53
--- NOTE | 2017-01-24 14:45 | PDOC ---
PROGRESS NOTES Chief Complaint Chief Complaint SOB, weight gain ASSESSMENT AND PLAN 1. CHF exacerbation: systolic (EF 42%). declines bid PO or IV. discussed with him need for add.l dosing as his home dose is clearly not sufficient at this time. he agrees. 2. CAD: hx CABG 3. PAF: currently rate controlled, on eva side 4. OAF: on warferin 5. DM2: well controlled off meds, ISS only 6. COPD: nebs, suppl O2 7. CAMERON: on CPAP at [facility] 8. Tobaccoism: 9. Morbid obesity: BMI 38 10. L eye tumor: benign, congenital History of Present Illness History of Present Illness feels ok, but still some SOB. declined lasix PO and IV Vitals Vitals Vital Signs Date Time Temp Pulse Resp B/P (MAP) Pulse Ox O2 Delivery O2 Flow Rate FiO2 01/24/17 11:05 93 Nasal Cannula 3.0 01/24/17 10:45 98.0 65 19 119/53 (75) 98.0 Physical Exam General: Alert, Oriented X3, Cooperative, No acute distress Heart: Regular rate, Other (irregular rhythm, no gallops, clicks or rubs) Lungs: Wheezing, Other Abdomen: Normal bowel sounds, Soft, No tenderness Extremities: No edema Skin: No rashes Labs LABS Laboratory Tests Test 01/23/17 16:15 01/23/17 20:56 01/24/17 05:00 01/24/17 05:17 Glucose (Fingerstick) 89 mg/dL (70-99) 101 mg/dL (70-99) Digoxin Level 0.7 ng/mL (0.9-2.0) Digoxin Last Dose Date 01/23/17 Digoxin Last Dose Time 1800 White Blood Count 5.8 x10^3/uL (4.0-11.0) Red Blood Count 5.21 x10^6/uL (4.30-5.70) Hemoglobin 14.3 g/dL (13.0-17.5) Hematocrit 45.2 % (39.0-53.0) Mean Corpuscular Volume 87 fL (79-100) Mean Corpuscular Hemoglobin 28 pg (25-35) Mean Corpuscular Hemoglobin Concent 32 g/dL (31-37) Red Cell Distribution Width 16.3 % (11.5-14.5) Platelet Count 138 x10^3/uL (140-400) Neutrophils (%) (Auto) 71 % (31-73) Lymphocytes (%) (Auto) 16 % (24-48) Monocytes (%) (Auto) 10 % (0-9) Eosinophils (%) (Auto) 3 % (0-3) Basophils (%) (Auto) 0 % (0-3) Neutrophils # (Auto) 4.1 x10^3uL (1.8-7.7) Lymphocytes # (Auto) 0.9 x10^3/uL (1.0-4.8) Monocytes # (Auto) 0.6 x10^3/uL (0.0-1.1) Eosinophils # (Auto) 0.2 x10^3/uL (0.0-0.7) Basophils # (Auto) 0.0 x10^3/uL (0.0-0.2) Prothrombin Time 36.3 SEC (11.7-14.0) Prothromb Time International Ratio 4.0 (0.8-1.1) Sodium Level 146 mmol/L (136-145) Potassium Level 3.9 mmol/L (3.5-5.1) Chloride Level 106 mmol/L (98-107) Carbon Dioxide Level 35 mmol/L (21-32) Anion Gap 5 (6-14) Blood Urea Nitrogen 9 mg/dL (8-26) Creatinine 0.8 mg/dL (0.7-1.3) Estimated GFR (Cockcroft-Gault) 116.0 Glucose Level 90 mg/dL (70-99) Calcium Level 9.3 mg/dL (8.5-10.1) Triglycerides Level 52 mg/dL (0-150) Cholesterol Level 96 mg/dL (0-200) LDL Cholesterol, Calculated 48 mg/dL (0-100) VLDL Cholesterol, Calculated 10 mg/dL (0-40) Non-HDL Cholesterol Calculated 58 mg/dL (0-129) HDL Cholesterol 38 mg/dL (40-60) Cholesterol/HDL Ratio 2.5 Test 01/24/17 08:50 01/24/17 11:30 Glucose (Fingerstick) 116 mg/dL (70-99) 92 mg/dL (70-99) LESLIE GALLEGOS MD Jan 24, 2017 14:45
[2017-01-24 15:00] VITALS: BP 125/67
[2017-01-24] MEDS: FUROSEMIDE 20 MG/2 ML VIAL. IVP SCH (15:00)
[2017-01-24] MEDS: DIGOXIN 125 MCG TABLET. PO SCH (17:33)
[2017-01-24] MEDS: LOSARTAN POTASSIUM 50 MG TABLET. PO SCH (17:34)
[2017-01-24] MEDS: ASPIRIN ENTERIC COATED 81 MG TABLET.DR. PO SCH (17:34)
[2017-01-24] MEDS: POTASSIUM CHLORIDE 20 MEQ TABLET.ER. PO SCH (17:35)
[2017-01-24] MEDS: amLODIPine BESYLATE 5 MG TABLET PO SCH (17:35)
[2017-01-24 19:00] VITALS: BP 140/56
[2017-01-24] MEDS: SIMVASTATIN 20 MG TABLET PO SCH (20:46)
[2017-01-24 23:00] VITALS: BP 135/70
[2017-01-25 03:00] VITALS: BP 140/78
[2017-01-25] MEDS: CARVEDILOL 12.5 MG TABLET. PO SCH ×2 (05:13→17:10)
[2017-01-25 07:00] VITALS: BP 122/64
[2017-01-25] MEDS: INSULIN ASPART 300 UNITS/3 ML INSULN.PEN SQ SCH ×3 (08:00→17:00)
[2017-01-25] MEDS: FUROSEMIDE 20 MG/2 ML VIAL. IVP SCH ×2 (08:14→13:53)
[2017-01-25] MEDS: IPRATRPIUM/ALBUTEROL 0.5/2.5MG 3 ML NEBU. NEB SCH ×5 (08:56→20:29)
--- NOTE | 2017-01-25 09:07 | PDOC ---
PROGRESS NOTES Chief Complaint Chief Complaint SOB, weight gain ASSESSMENT AND PLAN 1. CHF exacerbation: systolic (EF 42%). improving. D/w Dr Berman. prob diet induced (eats predominantly fast food). rpt CXR in AM 2. CAD: hx CABG 3. PAF: currently rate controlled, on eva side 4. OAF: on warferin 5. DM2: well controlled off meds, ISS only 6. COPD: nebs, suppl O2 7. CAMERON: on CPAP at [facility] 8. Tobaccoism: encouraged to stop 9. Morbid obesity: BMI 38 10. L eye tumor: benign, congenital History of Present Illness History of Present Illness feels better, breathing easier. no pain Vitals Vitals Vital Signs Date Time Temp Pulse Resp B/P (MAP) Pulse Ox O2 Delivery O2 Flow Rate FiO2 01/25/17 08:59 98 Nasal Cannula 3.0 01/25/17 07:00 97.9 73 18 122/64 (83) 97.9 Physical Exam General: Alert, Oriented X3, Cooperative, No acute distress Heart: Regular rate (irreg rhythm) Lungs: Clear, Other Abdomen: Normal bowel sounds, Soft, No tenderness Extremities: No edema Skin: No rashes Labs LABS Laboratory Tests Test 01/24/17 11:30 01/24/17 17:11 01/24/17 20:38 01/25/17 07:31 Glucose (Fingerstick) 92 mg/dL (70-99) 109 mg/dL (70-99) 91 mg/dL (70-99) 74 mg/dL (70-99) LESLIE GALLEGOS MD Jan 25, 2017 09:07
--- NOTE | 2017-01-25 10:45 | PDOC ---
CARDIOLOGY PROGRESS NOTE SUBJECTIVE: No chest pain. mild dyspnea today. Denies any syncope or palpitations OBJECTIVE: Vital SIgns: Vital Signs Date Time Temp Pulse Resp B/P (MAP) Pulse Ox O2 Delivery O2 Flow Rate FiO2 01/25/17 08:59 98 Nasal Cannula 3.0 01/25/17 07:00 97.9 73 18 122/64 (83) 97.9 I & O -2.3 L Objective: GEN.: No apparent distress. Alert and oriented. HEENT: Head is normocephalic, atraumatic NECK: Supple. LUNGS: much improved in aeration. HEART: RRR, S1, S2 present. Peripheral pulses intact ABDOMEN: Soft, nontender. Positive bowel sounds. EXTREMITIES: Without any cyanosis. NEUROLOGIC: Normal speech, normal tone PSYCHIATRIC: Normal affect, normal mood. SKIN: No ulcerations CURRENT MEDICATIONS: Current Medications Medications (Trade) Dose Ordered Sig/Tobi Start Time Stop Time Status Last Admin Dose Admin Acetaminophen (Tylenol) 650 mg PRN Q6HRS PRN 01/23/17 15:15 Acetaminophen/ Hydrocodone Bitart (Lortab 7.5/325) 1 tab PRN BID PRN 01/23/17 12:15 Albuterol Sulfate (Ventolin Neb Soln) 2.5 mg PRN Q2HRS PRN 01/22/17 21:30 01/22/17 21:51 2.5 MG Albuterol/ Ipratropium (Duoneb) 3 ml RTQID 01/23/17 08:00 01/25/17 08:56 3 ML Amlodipine Besylate (Norvasc) 5 mg DAILY@1800 01/23/17 18:00 01/24/17 17:35 5 MG Aspirin (Ecotrin) 81 mg DAILY@1800 01/23/17 18:00 01/24/17 17:34 81 MG Carvedilol (Coreg) 25 mg BIDWMEALS@0600,1800 01/23/17 18:00 01/25/17 05:13 25 MG Dextrose (Dextrose 50%-Water Syringe) 12.5 gm PRN Q15MIN PRN 01/23/17 12:15 Cancel Digoxin (Lanoxin) 125 mcg DAILY@1800 01/23/17 18:00 01/23/17 17:44 125 MCG Docusate Sodium (Colace) 100 mg PRN DAILY PRN 01/23/17 15:15 Furosemide (Lasix) 20 mg BID92 01/24/17 15:00 01/25/17 08:14 20 MG Hydralazine HCl (Apresoline) 10 mg PRN Q4HRS PRN 01/23/17 15:15 Influenza Virus Vaccine Quadrival (Fluarix Quad [id number] Syringe) 0.5 ml ONCE ONCE 01/23/17 09:00 01/23/17 09:04 DC 01/23/17 10:31 0.5 ML Info (Do NOT chart on this placeholder) 1 each 1X ONCE 01/23/17 09:00 01/23/17 09:01 UNV Insulin Aspart (NovoLOG) 0-9 UNITS TIDWMEALS 01/23/17 17:00 Cancel Losartan Potassium (Cozaar) 100 mg DAILY@1800 01/23/17 18:00 01/24/17 17:34 100 MG Morphine Sulfate 2 mg PRN Q2HR PRN 01/23/17 15:15 Ondansetron HCl (Zofran) 4 mg PRN Q6HRS PRN 01/23/17 15:15 Potassium Chloride (Klor-Con) 20 meq DAILYWSUP 01/24/17 18:00 01/24/17 17:35 20 MEQ Simvastatin (Zocor) 20 mg QHS 01/23/17 21:00 01/24/17 20:46 20 MG Tramadol HCl (Ultram) 50 mg PRN Q6HRS PRN 01/23/17 15:15 Warfarin Sodium (Coumadin - No Dose Today) 1 each 1X WARF ONCE 01/24/17 16:00 01/24/17 16:01 DC 01/24/17 16:00 1 EACH Warfarin Sodium (Coumadin Per Pharmacy) 1 each PRN DAILY PRN 01/23/17 12:15 01/24/17 13:00 1 EACH Warfarin Sodium (Coumadin) 7.5 mg DAILY16 01/23/17 16:00 UNV ASSESSMENT: 1. Chronic atrial fibrillation 2. Diastolic and systolic heart failure - acute on chronic - compensated now 3. HTN 4. Dyslipidemia Problems: PLAN: 1. Continue present medical therapy. Nuc scan last year with fixed defect, echo on 01/2017 with moderate LV dysfunction. 2. Check BMP, if Na ok, then give afternoon lasix, otherwise hold. Continue present meds otherwise. Will follow. MARCELINA BLANCO MD Jan 25, 2017 10:45
[2017-01-25 11:00] VITALS: BP 116/60
[2017-01-25 11:33] LABS: INR 2.5 (0.8-1.1); PROTHROMBIN TIME PATIENT 25.1 SEC (11.7-14.0)
[2017-01-25 15:00] VITALS: BP 131/78
[2017-01-25] MEDS ORDERED: WARFARIN 5 MG TABLET. PO ONE (16:00)
[2017-01-25] MEDS: LOSARTAN POTASSIUM 50 MG TABLET. PO SCH (17:09)
[2017-01-25] MEDS: DIGOXIN 125 MCG TABLET. PO SCH (17:09)
[2017-01-25] MEDS: POTASSIUM CHLORIDE 20 MEQ TABLET.ER. PO SCH (17:11)
[2017-01-25] MEDS: ASPIRIN ENTERIC COATED 81 MG TABLET.DR. PO SCH (17:12)
[2017-01-25] MEDS: amLODIPine BESYLATE 5 MG TABLET PO SCH (17:12)
[2017-01-25 19:00] VITALS: BP 113/54
[2017-01-25] MEDS: SIMVASTATIN 20 MG TABLET PO SCH (20:23)
[2017-01-25 23:00] VITALS: BP 122/70
[2017-01-26 03:00] VITALS: BP 138/81
[2017-01-26 03:51] LABS: BASO # 0.1 x10^3/uL (0.0-0.2); BASO % 1 % (0-3); EOS % 4 % (0-3); HEMATOCRIT 45.6 % (39.0-53.0); HEMOGLOBIN 14.3 g/dL (13.0-17.5); LYMPH # 0.8 x10^3/uL (1.0-4.8); LYMPH % 13 % (24-48); MEAN CORPUSCULAR HEMOGLOBIN 28 pg (25-35); MEAN CORPUSCULAR HGB CONC 32 g/dL (31-37); MEAN CORPUSCULAR VOLUME 87 fL (79-100); MONO % 11 % (0-9); NEUT % 72 % (31-73); PLATELET COUNT 131 x10^3/uL (140-400); RED BLOOD COUNT 5.22 x10^6/uL (4.30-5.70); RED CELL DISTRIBUTION WIDTH 16.4 % (11.5-14.5); WHITE BLOOD COUNT 6.5 x10^3/uL (4.0-11.0)
[2017-01-26 03:57] LABS: PROTHROMBIN TIME PATIENT 21.6 SEC (11.7-14.0)
[2017-01-26 04:05] LABS: CALCIUM 9.4 mg/dL (8.5-10.1); CREATININE 0.9 mg/dL (0.7-1.3); GFR 101.2; MAGNESIUM 2.1 mg/dL (1.8-2.4); POTASSIUM 3.7 mmol/L (3.5-5.1)
[2017-01-26] MEDS: CARVEDILOL 12.5 MG TABLET. PO SCH ×2 (06:00→17:55)
[2017-01-26 07:00] VITALS: BP 125/62
[2017-01-26] MEDS: IPRATRPIUM/ALBUTEROL 0.5/2.5MG 3 ML NEBU. NEB SCH ×4 (07:46→19:24)
[2017-01-26] MEDS: INSULIN ASPART 300 UNITS/3 ML INSULN.PEN SQ SCH ×3 (08:00→17:00)
--- NOTE | 2017-01-26 09:04 | RAD ---
Indication difficulty breathing. Cough. A single view of the chest was obtained and is compared to an examination 4 days earlier. There is unchanged mild cardiomegaly. Patchy opacities in the lungs, seen on the previous examination, suggesting congestive heart failure appear minimally improved. There is volume loss at the left lung base likely reflecting atelectasis. This finding is unchanged. There is a small left pleural effusion appearing similar. A new finding in the chest is not seen. IMPRESSION: Stable enlargement of the cardiac silhouette. Changes of mild congestive heart failure, seen previously, appear minimally improved. Volume loss at the left lung base likely reflecting atelectasis appears similar. Small left pleural effusion appearing similar
[2017-01-26] MEDS: FUROSEMIDE 20 MG/2 ML VIAL. IVP SCH ×2 (09:05→14:28)
[2017-01-26 11:00] VITALS: BP 139/75
--- NOTE | 2017-01-26 12:38 | PDOC ---
PROGRESS NOTES Chief Complaint Chief Complaint SOB, weight gain ASSESSMENT AND PLAN 1. CHF exacerbation: systolic (EF 42%). improving. prob diet induced ( eats predominantly fast food). rpt CXR with minimal improvement. O2 needs by 6 min walk still above baseline. cont current trgimen. monitor labs 2. CAD: hx CABG 3. PAF: currently rate controlled, on eva side 4. OAF: on warferin 5. DM2: well controlled off meds, ISS only 6. COPD: nebs, suppl O2 7. CAMERON: on CPAP at [facility] 8. Tobaccoism: encouraged to stop 9. Morbid obesity: BMI 38 10. L eye tumor: benign, congenital History of Present Illness History of Present Illness feels better, breathing easier. no pain Vitals Vitals Vital Signs Date Time Temp Pulse Resp B/P (MAP) Pulse Ox O2 Delivery O2 Flow Rate FiO2 01/26/17 12:27 90 Nasal Cannula 3.0 01/26/17 11:00 98.1 62 20 139/75 (96) 98.1 Physical Exam General: Alert, Oriented X3, Cooperative, No acute distress Heart: Regular rate (irreg rhythm) Lungs: Crackles (R), Other Abdomen: Normal bowel sounds, Soft, No tenderness Extremities: No edema Skin: No rashes Labs LABS Laboratory Tests Test 01/25/17 16:37 01/25/17 20:10 01/26/17 03:20 01/26/17 07:42 Glucose (Fingerstick) 94 mg/dL (70-99) 111 mg/dL (70-99) 83 mg/dL (70-99) White Blood Count 6.5 x10^3/uL (4.0-11.0) Red Blood Count 5.22 x10^6/uL (4.30-5.70) Hemoglobin 14.3 g/dL (13.0-17.5) Hematocrit 45.6 % (39.0-53.0) Mean Corpuscular Volume 87 fL (79-100) Mean Corpuscular Hemoglobin 28 pg (25-35) Mean Corpuscular Hemoglobin Concent 32 g/dL (31-37) Red Cell Distribution Width 16.4 % (11.5-14.5) Platelet Count 131 x10^3/uL (140-400) Neutrophils (%) (Auto) 72 % (31-73) Lymphocytes (%) (Auto) 13 % (24-48) Monocytes (%) (Auto) 11 % (0-9) Eosinophils (%) (Auto) 4 % (0-3) Basophils (%) (Auto) 1 % (0-3) Neutrophils # (Auto) 4.7 x10^3uL (1.8-7.7) Lymphocytes # (Auto) 0.8 x10^3/uL (1.0-4.8) Monocytes # (Auto) 0.7 x10^3/uL (0.0-1.1) Eosinophils # (Auto) 0.2 x10^3/uL (0.0-0.7) Basophils # (Auto) 0.1 x10^3/uL (0.0-0.2) Prothrombin Time 21.6 SEC (11.7-14.0) Prothromb Time International Ratio 2.0 (0.8-1.1) Sodium Level 143 mmol/L (136-145) Potassium Level 3.7 mmol/L (3.5-5.1) Chloride Level 105 mmol/L (98-107) Carbon Dioxide Level 34 mmol/L (21-32) Anion Gap 4 (6-14) Blood Urea Nitrogen 13 mg/dL (8-26) Creatinine 0.9 mg/dL (0.7-1.3) Estimated GFR (Cockcroft-Gault) 101.2 Glucose Level 99 mg/dL (70-99) Calcium Level 9.4 mg/dL (8.5-10.1) Magnesium Level 2.1 mg/dL (1.8-2.4) Test 01/26/17 12:11 Glucose (Fingerstick) 80 mg/dL (70-99) LESLIE GALLEGOS MD Jan 26, 2017 12:38
[2017-01-26 15:21] VITALS: BP 134/61
[2017-01-26] MEDS ORDERED: WARFARIN 5 MG TABLET. PO ONE (16:00)
[2017-01-26] MEDS: LOSARTAN POTASSIUM 50 MG TABLET. PO SCH (17:55)
[2017-01-26] MEDS: POTASSIUM CHLORIDE 20 MEQ TABLET.ER. PO SCH (17:56)
[2017-01-26] MEDS: amLODIPine BESYLATE 5 MG TABLET PO SCH (17:56)
[2017-01-26] MEDS: ASPIRIN ENTERIC COATED 81 MG TABLET.DR. PO SCH (17:56)
[2017-01-26] MEDS: DIGOXIN 125 MCG TABLET. PO SCH (17:57)
--- NOTE | 2017-01-26 18:09 | PDOC ---
PROGRESS NOTES Subjective Subjective The patient is feeling mildly better. Objective Objective Vital Signs Date Time Temp Pulse Resp B/P (MAP) Pulse Ox O2 Delivery O2 Flow Rate FiO2 01/26/17 17:57 64 134/61 01/26/17 16:05 Nasal Cannula 3.0 01/26/17 15:21 97.8 91 97.8 01/26/17 11:00 20 Intake and Output 01/27/17 07:00 Output Total 1200 ml Balance -1200 ml Output Urine Total 1200 ml Physical Exam Abdomen: Normal bowel sounds Heart: Other (irregularly irregular) General: mild distress Lungs: Other (mildly decreased breath sounds) Assessment Assessment ASSESSMENT: 1. Chronic atrial fibrillation. Rate control medications and monitoring. 2. Diastolic and systolic heart failure - acute on chronic - compensated now. Continue medical treatment. 3. HTN. Better control. 4. Dyslipidemia. Statin medications. Comment Review of Relevant I have reviewed the following items cynthia (where applicable) has been applied. Labs Laboratory Tests Test 01/24/17 20:38 01/25/17 07:31 01/25/17 11:06 01/25/17 11:23 Glucose (Fingerstick) 91 mg/dL (70-99) 74 mg/dL (70-99) 91 mg/dL (70-99) Prothrombin Time 25.1 SEC (11.7-14.0) Prothromb Time International Ratio 2.5 (0.8-1.1) Test 01/25/17 16:37 01/25/17 20:10 01/26/17 03:20 01/26/17 07:42 Glucose (Fingerstick) 94 mg/dL (70-99) 111 mg/dL (70-99) 83 mg/dL (70-99) White Blood Count 6.5 x10^3/uL (4.0-11.0) Red Blood Count 5.22 x10^6/uL (4.30-5.70) Hemoglobin 14.3 g/dL (13.0-17.5) Hematocrit 45.6 % (39.0-53.0) Mean Corpuscular Volume 87 fL (79-100) Mean Corpuscular Hemoglobin 28 pg (25-35) Mean Corpuscular Hemoglobin Concent 32 g/dL (31-37) Red Cell Distribution Width 16.4 % (11.5-14.5) Platelet Count 131 x10^3/uL (140-400) Neutrophils (%) (Auto) 72 % (31-73) Lymphocytes (%) (Auto) 13 % (24-48) Monocytes (%) (Auto) 11 % (0-9) Eosinophils (%) (Auto) 4 % (0-3) Basophils (%) (Auto) 1 % (0-3) Neutrophils # (Auto) 4.7 x10^3uL (1.8-7.7) Lymphocytes # (Auto) 0.8 x10^3/uL (1.0-4.8) Monocytes # (Auto) 0.7 x10^3/uL (0.0-1.1) Eosinophils # (Auto) 0.2 x10^3/uL (0.0-0.7) Basophils # (Auto) 0.1 x10^3/uL (0.0-0.2) Prothrombin Time 21.6 SEC (11.7-14.0) Prothromb Time International Ratio 2.0 (0.8-1.1) Sodium Level 143 mmol/L (136-145) Potassium Level 3.7 mmol/L (3.5-5.1) Chloride Level 105 mmol/L (98-107) Carbon Dioxide Level 34 mmol/L (21-32) Anion Gap 4 (6-14) Blood Urea Nitrogen 13 mg/dL (8-26) Creatinine 0.9 mg/dL (0.7-1.3) Estimated GFR (Cockcroft-Gault) 101.2 Glucose Level 99 mg/dL (70-99) Calcium Level 9.4 mg/dL (8.5-10.1) Magnesium Level 2.1 mg/dL (1.8-2.4) Test 01/26/17 12:11 01/26/17 17:36 Glucose (Fingerstick) 80 mg/dL (70-99) 109 mg/dL (70-99) Laboratory Tests Test 01/25/17 20:10 01/26/17 03:20 01/26/17 07:42 01/26/17 12:11 Glucose (Fingerstick) 111 mg/dL (70-99) 83 mg/dL (70-99) 80 mg/dL (70-99) White Blood Count 6.5 x10^3/uL (4.0-11.0) Red Blood Count 5.22 x10^6/uL (4.30-5.70) Hemoglobin 14.3 g/dL (13.0-17.5) Hematocrit 45.6 % (39.0-53.0) Mean Corpuscular Volume 87 fL (79-100) Mean Corpuscular Hemoglobin 28 pg (25-35) Mean Corpuscular Hemoglobin Concent 32 g/dL (31-37) Red Cell Distribution Width 16.4 % (11.5-14.5) Platelet Count 131 x10^3/uL (140-400) Neutrophils (%) (Auto) 72 % (31-73) Lymphocytes (%) (Auto) 13 % (24-48) Monocytes (%) (Auto) 11 % (0-9) Eosinophils (%) (Auto) 4 % (0-3) Basophils (%) (Auto) 1 % (0-3) Neutrophils # (Auto) 4.7 x10^3uL (1.8-7.7) Lymphocytes # (Auto) 0.8 x10^3/uL (1.0-4.8) Monocytes # (Auto) 0.7 x10^3/uL (0.0-1.1) Eosinophils # (Auto) 0.2 x10^3/uL (0.0-0.7) Basophils # (Auto) 0.1 x10^3/uL (0.0-0.2) Prothrombin Time 21.6 SEC (11.7-14.0) Prothromb Time International Ratio 2.0 (0.8-1.1) Sodium Level 143 mmol/L (136-145) Potassium Level 3.7 mmol/L (3.5-5.1) Chloride Level 105 mmol/L (98-107) Carbon Dioxide Level 34 mmol/L (21-32) Anion Gap 4 (6-14) Blood Urea Nitrogen 13 mg/dL (8-26) Creatinine 0.9 mg/dL (0.7-1.3) Estimated GFR (Cockcroft-Gault) 101.2 Glucose Level 99 mg/dL (70-99) Calcium Level 9.4 mg/dL (8.5-10.1) Magnesium Level 2.1 mg/dL (1.8-2.4) Test 01/26/17 17:36 Glucose (Fingerstick) 109 mg/dL (70-99) Medications Current Medications Furosemide (Lasix) 40 mg 1X ONCE IVP Last administered on 01/22/17 19:12; Start 01/22/17 at 18:30; Stop 01/22/17 at 18:31; Status DC Albuterol/ Ipratropium (Duoneb) 3 ml RTQID NEB Last administered on 01/26/17 16:04; Start 01/23/17 at 08:00 Albuterol Sulfate (Ventolin Neb Soln) 2.5 mg PRN Q2HRS PRN NEB SHORTNESS OF BREATH Last administered on 01/22/17 21:51; Start 01/22/17 at 21:30 Insulin Aspart (NovoLOG) 0-9 UNITS TIDWMEALS SQ ; Start 01/23/17 at 08:00 Dextrose (Dextrose 50%-Water Syringe) 12.5 gm PRN Q15MIN PRN IV SEE COMMENTS; Start 01/22/17 at 21:30 Info (Do NOT chart on this placeholder) 1 each 1X ONCE MC ; Start 01/23/17 at 09:00; Stop 01/23/17 at 09:01; Status UNV Influenza Virus Vaccine Quadrival (Fluarix Quad [id number] Syringe) 0.5 ml ONCE ONCE VAX IM Last administered on 01/23/17 10:31; Start 01/23/17 at 09:00; Stop 01/23/17 at 09:04; Status DC Amlodipine Besylate (Norvasc) 5 mg DAILY PO ; Start 01/23/17 at 13:00; Status Cancel Aspirin (Ecotrin) 81 mg DAILY PO ; Start 01/23/17 at 13:00; Status Cancel Digoxin (Lanoxin) 125 mcg DAILY PO ; Start 01/23/17 at 13:00; Status Cancel Acetaminophen/ Hydrocodone Bitart (Lortab 7.5/325) 1 tab PRN BID PRN PO PAIN; Start 01/23/17 at 12:15 Simvastatin (Zocor) 20 mg DAILY@1800 PO ; Start 01/23/17 at 18:00; Stop at 18:35; Status DC Warfarin Sodium (Coumadin) 7.5 mg DAILY16 PO ; Start 01/23/17 at 16:00; Status UNV Carvedilol (Coreg) 25 mg BIDWMEALS@0600,1800 PO Last administered on 01/26/17 17:55; Start 01/23/17 at 18:00 Losartan Potassium (Cozaar) 100 mg DAILY PO ; Start 01/23/17 at 13:00; Status Cancel Furosemide (Lasix) 40 mg BID92 PO ; Start 01/23/17 at 14:00; Status Cancel Warfarin Sodium (Coumadin Per Pharmacy) 1 each PRN DAILY PRN MC SEE COMMENTS Last administered on 01/26/17 12:09; Start 01/23/17 at 12:15 Insulin Aspart (NovoLOG) 0-9 UNITS TIDWMEALS SQ ; Start 01/23/17 at 17:00; Status Cancel Dextrose (Dextrose 50%-Water Syringe) 12.5 gm PRN Q15MIN PRN IV SEE COMMENTS; Start 01/23/17 at 12:15; Status Cancel Warfarin Sodium (Coumadin - No Dose Today) 1 each 1X WARF ONCE MC Last administered on 01/23/17 16:00; Start 01/23/17 at 16:00; Stop 01/23/17 at 16:01 ; Status DC Amlodipine Besylate (Norvasc) 5 mg DAILY@1800 PO Last administered on 17:56; Start 01/23/17 at 18:00 Aspirin (Ecotrin) 81 mg DAILY@1800 PO Last administered on 01/26/17 17:56; Start 01/23/17 at 18:00 Digoxin (Lanoxin) 125 mcg DAILY@1800 PO Last administered on 01/26/17 17:57; Start 01/23/17 at 18:00 Losartan Potassium (Cozaar) 100 mg DAILY@1800 PO Last administered on 17:55; Start 01/23/17 at 18:00 Furosemide (Lasix) 40 mg Q12H PO Last administered on 01/23/17 17:45; Start 01/23/17 at 18:00; Stop 01/24/17 at 14:47; Status DC Acetaminophen (Tylenol) 650 mg PRN Q6HRS PRN PO FEVER; Start 01/23/17 at 15:15 Ondansetron HCl (Zofran) 4 mg PRN Q6HRS PRN IV NAUSEA/VOMITING 1ST CHOICE; Start 01/23/17 at 15:15 Morphine Sulfate 2 mg PRN Q2HR PRN IV PAIN SEVERE; Start 01/23/17 at 15:15 Tramadol HCl (Ultram) 50 mg PRN Q6HRS PRN PO PAIN MILD TO MOD; Start 01/23/17 at 15:15 Hydralazine HCl (Apresoline) 10 mg PRN Q4HRS PRN IVP ELEVATED BP, SEE COMMENTS ; Start 01/23/17 at 15:15 Docusate Sodium (Colace) 100 mg PRN DAILY PRN PO CONSTIPATION; Start 01/23/17 at 15:15 Potassium Chloride (Klor-Con) 20 meq DAILYWBKFT PO Last administered on 17:43; Start 01/23/17 at 16:30; Stop 01/24/17 at 09:05; Status DC Simvastatin (Zocor) 20 mg QHS PO Last administered on 01/25/17 20:23; Start 01/23/17 at 21:00 Potassium Chloride (Klor-Con) 20 meq DAILY PO ; Start 01/24/17 at 09:00; Stop 01/24/17 at 09:32; Status DC Potassium Chloride (Klor-Con) 20 meq DAILYWSUP PO Last administered on 17:56; Start 01/24/17 at 18:00 Warfarin Sodium (Coumadin - No Dose Today) 1 each 1X WARF ONCE MC Last administered on 01/24/17 16:00; Start 01/24/17 at 16:00; Stop 01/24/17 at 16:01 ; Status DC Furosemide (Lasix) 20 mg BID92 IVP Last administered on 01/26/17 14:28; Start 01/24/17 at 15:00 Warfarin Sodium (Coumadin - No Dose Today) 1 each 1X WARF ONCE MC ; Start 01/25 at 16:00; Stop 01/25/17 at 16:01; Status Cancel Warfarin Sodium (Coumadin) 5 mg 1X WARF ONCE PO Last administered on 17:11; Start 01/25/17 at 16:00; Stop 01/25/17 at 16:01; Status DC Warfarin Sodium (Coumadin) 5 mg 1X WARF ONCE PO Last administered on 17:56; Start 01/26/17 at 16:00; Stop 01/26/17 at 16:01; Status DC Active Scripts Active Reported Amlodipine Besylate 5 Mg Tablet 5 Mg PO DAILY Digoxin 125 Mcg Tablet 125 Mcg PO DAILY Losartan Potassium 100 Mg Tablet 100 Mg PO DAILY Warfarin Sodium 5 Mg Tablet 7.5 Mg PO DAILY EXCEPT TUES & SAT: 5 mg Coreg (Carvedilol) 25 Mg Tablet 25 Mg PO BIDWMEALS Hydrocodone-Apap 7.5-325 (Hydrocodone Bit/Acetaminophen) 1 Each Tablet 1 Tab PO BID PRN Simvastatin 20 Mg Tablet 20 Mg PO HS Aspir 81 (Aspirin) 81 Mg Tablet.dr 81 Mg PO DAILY Vitals/I & O Vital Sign - Last 24 Hours 01/25/17 01/25/17 01/25/17 01/25/17 19:00 20:00 20:30 23:00 Temp 98.2 98.5 98.2 98.5 Pulse 74 67 Resp 18 21 B/P (MAP) 113/54 (73) 122/70 (87) Pulse Ox 97 88 O2 Delivery Nasal Cannula Nasal Cannula Nasal Cannula Nasal Cannula O2 Flow Rate 3.0 3.0 3.0 3.0 01/26/17 01/26/17 01/26/17 01/26/17 03:00 06:00 07:00 07:39 Temp 98.5 98.6 98.5 98.6 Pulse 58 54 60 Resp 21 18 B/P (MAP) 138/81 (100) 125/62 (83) Pulse Ox 90 90 90 O2 Delivery Nasal Cannula Nasal Cannula Nasal Cannula O2 Flow Rate 3.0 3.0 3.0 01/26/17 01/26/17 01/26/17 01/26/17 08:10 11:00 12:27 15:21 Temp 98.1 97.8 98.1 97.8 Pulse 62 64 Resp 20 B/P (MAP) 139/75 (96) 134/61 (85) Pulse Ox 95 90 91 O2 Delivery Nasal Cannula Nasal Cannula Nasal Cannula Room Air O2 Flow Rate 3.0 3.0 3.0 01/26/17 01/26/17 01/26/17 01/26/17 16:05 17:55 17:55 17:56 Pulse 64 64 64 B/P (MAP) 134/61 134/61 134/61 O2 Delivery Nasal Cannula O2 Flow Rate 3.0 01/26/17 17:57 Pulse 64 B/P (MAP) 134/61 Intake and Output 01/26/17 01/26/17 01/27/17 15:00 23:00 07:00 Output Total 1200 ml Balance -1200 ml HIREN ROMAN MD Jan 26, 2017 18:09
[2017-01-26 19:00] VITALS: BP 110/61
[2017-01-26] MEDS: SIMVASTATIN 20 MG TABLET PO SCH (22:19)
[2017-01-26 23:00] VITALS: BP 115/54
[2017-01-27 03:00] VITALS: BP 123/70
[2017-01-27 04:53] LABS: BASO % 1 % (0-3); EOS % 4 % (0-3); HEMATOCRIT 44.1 % (39.0-53.0); LYMPH # 1.1 x10^3/uL (1.0-4.8); LYMPH % 18 % (24-48); MEAN CORPUSCULAR HEMOGLOBIN 27 pg (25-35); MEAN CORPUSCULAR HGB CONC 32 g/dL (31-37); MEAN CORPUSCULAR VOLUME 86 fL (79-100); MONO % 12 % (0-9); NEUT % 66 % (31-73); PLATELET COUNT 123 x10^3/uL (140-400); RED BLOOD COUNT 5.11 x10^6/uL (4.30-5.70); WHITE BLOOD COUNT 6.2 x10^3/uL (4.0-11.0)
[2017-01-27 05:11] LABS: INR 1.9 (0.8-1.1); PROTHROMBIN TIME PATIENT 20.3 SEC (11.7-14.0)
[2017-01-27 05:55] LABS: CALCIUM 9.8 mg/dL (8.5-10.1); CREATININE 0.8 mg/dL (0.7-1.3); MAGNESIUM 2.3 mg/dL (1.8-2.4); POTASSIUM 3.9 mmol/L (3.5-5.1)
[2017-01-27] MEDS: CARVEDILOL 12.5 MG TABLET. PO SCH ×2 (06:04→17:29)
[2017-01-27 06:05] VITALS: BP 119/52
[2017-01-27] MEDS: INSULIN ASPART 300 UNITS/3 ML INSULN.PEN SQ SCH ×3 (08:00→17:00)
[2017-01-27] MEDS: FUROSEMIDE 20 MG/2 ML VIAL. IVP SCH ×2 (08:47→17:32)
[2017-01-27] MEDS: IPRATRPIUM/ALBUTEROL 0.5/2.5MG 3 ML NEBU. NEB SCH ×3 (09:32→15:11)
[2017-01-27 11:00] VITALS: BP 112/55
--- NOTE | 2017-01-27 13:37 | PDOC ---
ANASTACIA PARR PATENT EXAMINER 01/27/17 1337: CARDIO Progress Notes Date and Time Date of Service 01/27/2017 Time of Evaluation 1310 Vitals Vitals Vital Signs Date Time Temp Pulse Resp B/P (MAP) Pulse Ox O2 Delivery O2 Flow Rate FiO2 01/27/17 11:20 92 Nasal Cannula 3.0 01/27/17 11:00 98.0 56 20 112/55 (74) 98.0 Weight Weight [ ] Input and Output Intake and Output Intake and Output 01/28/17 07:00 Intake Total 740 ml Balance 740 ml Intake Oral 740 ml Laboratory Labs Laboratory Tests Test 01/26/17 17:36 01/26/17 21:30 01/27/17 04:30 01/27/17 07:28 Glucose (Fingerstick) 109 mg/dL (70-99) 110 mg/dL (70-99) 93 mg/dL (70-99) White Blood Count 6.2 x10^3/uL (4.0-11.0) Red Blood Count 5.11 x10^6/uL (4.30-5.70) Hemoglobin 14.0 g/dL (13.0-17.5) Hematocrit 44.1 % (39.0-53.0) Mean Corpuscular Volume 86 fL (79-100) Mean Corpuscular Hemoglobin 27 pg (25-35) Mean Corpuscular Hemoglobin Concent 32 g/dL (31-37) Red Cell Distribution Width 16.0 % (11.5-14.5) Platelet Count 123 x10^3/uL (140-400) Neutrophils (%) (Auto) 66 % (31-73) Lymphocytes (%) (Auto) 18 % (24-48) Monocytes (%) (Auto) 12 % (0-9) Eosinophils (%) (Auto) 4 % (0-3) Basophils (%) (Auto) 1 % (0-3) Neutrophils # (Auto) 4.1 x10^3uL (1.8-7.7) Lymphocytes # (Auto) 1.1 x10^3/uL (1.0-4.8) Monocytes # (Auto) 0.7 x10^3/uL (0.0-1.1) Eosinophils # (Auto) 0.3 x10^3/uL (0.0-0.7) Basophils # (Auto) 0.0 x10^3/uL (0.0-0.2) Prothrombin Time 20.3 SEC (11.7-14.0) Prothromb Time International Ratio 1.9 (0.8-1.1) Sodium Level 143 mmol/L (136-145) Potassium Level 3.9 mmol/L (3.5-5.1) Chloride Level 105 mmol/L (98-107) Carbon Dioxide Level 33 mmol/L (21-32) Anion Gap 5 (6-14) Blood Urea Nitrogen 16 mg/dL (8-26) Creatinine 0.8 mg/dL (0.7-1.3) Estimated GFR (Cockcroft-Gault) 116.0 Glucose Level 102 mg/dL (70-99) Calcium Level 9.8 mg/dL (8.5-10.1) Magnesium Level 2.3 mg/dL (1.8-2.4) Test 01/27/17 11:08 Glucose (Fingerstick) 92 mg/dL (70-99) Physical Exam HEENT: Neck Supple W Full Motion Chest: Symmetric LUNGS: Other (basilar crackles) Heart: S1S2, irregularly irregular (AFIB) Abdomen: Soft N/T Extremities: No Calf Tenderness Neurology: alert, oriented, follow commands Assessment Assessment 1. Chronic atrial fibrillation. Rate control medications and monitoring. HR lowest in the 40s. Consistent 50-60s. 2. Acute on chronic systolic/diastolic CHF: EF now at 25-30% 3. HTN. controlled 4. HLP 5. CAD: CABG in the past. CP free Recommendations 1. Possible tachy-eva syndrome. No pauses. Will arrange for event monitor. 2. Decrease coreg and DC Dig. Continue with coumadin for stroke prevention. 3. Will consider for ischemic w/u with significant changes to his EF. 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 HIREN ROMAN MD 01/27/17 5356: CARDIO Progress Notes Assessment Assessment Patient seen and examined Chronic atrial fibrillation. Episodes of decreased heart rate overnight. We will decrease Coreg and hold digoxin as noted above. We'll consider outpatient monitoring. Possibly early sick sinus syndrome. Acute on chronic systolic heart failure. Ejection fraction of 25-30%. Improved on diuresis. Controlled hypertension. History of coronary artery bypass surgery. No chest pain. Decreased ejection fraction as above. We'll continue present medications. Probable future ischemic evaluation probably with MPI testing. ANASTACIA PARR APRN Jan 27, 2017 13:37 HIREN ROMAN MD Jan 27, 2017 17:11
--- NOTE | 2017-01-27 14:32 | PDOC ---
PROGRESS NOTES Chief Complaint Chief Complaint SOB, weight gain ASSESSMENT AND PLAN 1. CHF exacerbation: systolic (EF 42%). improving. prob diet induced ( eats predominantly fast food). rpt CXR with minimal improvement. O2 needs by 6 min walk still above baseline. cont current regimen. monitor labs 2. CAD: hx CABG 3. PAF: currently rate controlled, on eva side. meds adjusted as per cardiology 4. OAF: on warferin 5. DM2: well controlled off meds, ISS only 6. COPD: nebs, suppl O2 7. CAMERON: on CPAP at [facility] 8. Tobaccoism: encouraged to stop 9. Morbid obesity: BMI 38 10. L eye tumor: benign, congenital 11. DISPO: home today History of Present Illness History of Present Illness feels better, breathing easier. no pain Vitals Vitals Vital Signs Date Time Temp Pulse Resp B/P (MAP) Pulse Ox O2 Delivery O2 Flow Rate FiO2 01/27/17 11:20 92 Nasal Cannula 3.0 01/27/17 11:00 98.0 56 20 112/55 (74) 98.0 Physical Exam General: Alert, Oriented X3, Cooperative, No acute distress Heart: Other (irregularly irregular) Lungs: Clear Abdomen: Normal bowel sounds, Soft, No tenderness Extremities: No edema Skin: No rashes Labs LABS Laboratory Tests Test 01/26/17 17:36 01/26/17 21:30 01/27/17 04:30 01/27/17 07:28 Glucose (Fingerstick) 109 mg/dL (70-99) 110 mg/dL (70-99) 93 mg/dL (70-99) White Blood Count 6.2 x10^3/uL (4.0-11.0) Red Blood Count 5.11 x10^6/uL (4.30-5.70) Hemoglobin 14.0 g/dL (13.0-17.5) Hematocrit 44.1 % (39.0-53.0) Mean Corpuscular Volume 86 fL (79-100) Mean Corpuscular Hemoglobin 27 pg (25-35) Mean Corpuscular Hemoglobin Concent 32 g/dL (31-37) Red Cell Distribution Width 16.0 % (11.5-14.5) Platelet Count 123 x10^3/uL (140-400) Neutrophils (%) (Auto) 66 % (31-73) Lymphocytes (%) (Auto) 18 % (24-48) Monocytes (%) (Auto) 12 % (0-9) Eosinophils (%) (Auto) 4 % (0-3) Basophils (%) (Auto) 1 % (0-3) Neutrophils # (Auto) 4.1 x10^3uL (1.8-7.7) Lymphocytes # (Auto) 1.1 x10^3/uL (1.0-4.8) Monocytes # (Auto) 0.7 x10^3/uL (0.0-1.1) Eosinophils # (Auto) 0.3 x10^3/uL (0.0-0.7) Basophils # (Auto) 0.0 x10^3/uL (0.0-0.2) Prothrombin Time 20.3 SEC (11.7-14.0) Prothromb Time International Ratio 1.9 (0.8-1.1) Sodium Level 143 mmol/L (136-145) Potassium Level 3.9 mmol/L (3.5-5.1) Chloride Level 105 mmol/L (98-107) Carbon Dioxide Level 33 mmol/L (21-32) Anion Gap 5 (6-14) Blood Urea Nitrogen 16 mg/dL (8-26) Creatinine 0.8 mg/dL (0.7-1.3) Estimated GFR (Cockcroft-Gault) 116.0 Glucose Level 102 mg/dL (70-99) Calcium Level 9.8 mg/dL (8.5-10.1) Magnesium Level 2.3 mg/dL (1.8-2.4) Test 01/27/17 11:08 Glucose (Fingerstick) 92 mg/dL (70-99) LESLIE GALLEGOS MD Jan 27, 2017 14:32
[2017-01-27 15:00] VITALS: BP 100/56
[2017-01-27] MEDS ORDERED: WARFARIN 6 MG TABLET. PO ONE (16:00)
[2017-01-27] MEDS: POTASSIUM CHLORIDE 20 MEQ TABLET.ER. PO SCH (17:27)
[2017-01-27] MEDS: ASPIRIN ENTERIC COATED 81 MG TABLET.DR. PO SCH (17:28)
[2017-01-27] MEDS: amLODIPine BESYLATE 5 MG TABLET PO SCH (17:28)
[2017-01-27 17:30] VITALS: BP 100/56
[2017-01-27] MEDS: DIGOXIN 125 MCG TABLET. PO SCH (17:30)
[2017-01-27] MEDS: LOSARTAN POTASSIUM 50 MG TABLET. PO SCH (17:30)
--- NOTE | 2017-01-29 00:22 | DS ---
DATE OF DISCHARGE: 01/27/2017 CHIEF COMPLAINT: Shortness of breath. HOSPITAL COURSE: The patient is a 71-year-old gentleman who presented to the Emergency Room with worsening shortness of breath and weight gain over the past month. He had a previous history of systolic CHF with workup in March 2016 and he was therefore admitted with CHF exacerbation. This was treated with IV Lasix with excellent diuresis. Renal function remained completely stable during his admission. Cardiology was following as well and recommendations for followup on an outpatient basis were given. He was discharged on the with stable labs and improved respiratory effort although still hypoxic and O2 dependent by a 6-minute walk. The patient does have home oxygen at home, which he typically uses at night. DISCHARGE DIAGNOSIS: Congestive heart failure exacerbation. DISCHARGE DISPOSITION: To home. DISCHARGE CONDITION: Improved. DISCHARGE MEDICATIONS: Please refer to MAR. DISCHARGE INSTRUCTIONS: The patient will follow up with Cardiology and his PCP within the next month. LESLIE GALLEGOS MD DR: TOM/nts JOB#: [id number] / [id number] CAROLANN Arredondo MD
== END 2017-01-27 19:41 | disposition home or self-care (01) | DRG 291 ==
LOC: ER 18:07 → 5 NORTH 19:00 → 5 SOUTH 01-25 10:33
PROVIDERS: ADMIT Internal Medicine; ATTEND Internal Medicine
DX: I11.0 Hypertensive heart disease with heart failure (principal); J96.01 Acute respiratory failure with hypoxia; I50.43 Acute on chronic combined systolic (congestive) and diastolic (congestive) heart failure; E66.01 Morbid (severe) obesity due to excess calories; G47.33 Obstructive sleep apnea (adult) (pediatric); Z68.38 Body mass index [BMI] 38.0-38.9, adult; M19.90 Unspecified osteoarthritis, unspecified site; E11.9 Type 2 diabetes mellitus without complications; E78.00 Pure hypercholesterolemia, unspecified; E78.5 Hyperlipidemia, unspecified; F17.210 Nicotine dependence, cigarettes, uncomplicated; I25.10 Atherosclerotic heart disease of native coronary artery without angina pectoris; I48.0 Paroxysmal atrial fibrillation; I48.2 Chronic atrial fibrillation; J44.9 Chronic obstructive pulmonary disease, unspecified; R79.1 Abnormal coagulation profile; Z79.01 Long term (current) use of anticoagulants; Z95.1 Presence of aortocoronary bypass graft; Z82.49 Family history of ischemic heart disease and other diseases of the circulatory system; Z83.3 Family history of diabetes mellitus; Z91.041 Radiographic dye allergy status
CPT/HCPCS: 36415; 71010; 71020; 80048; 80053; 80061; 80162; 82962; 83735; 83880; 84484; 85025; 85610; 85730; 90686; 93005; 93306; 94250; 94620; 94640; 94660; 94760; J1940; J7613; J7620; 99285-25

== ENCOUNTER → 2018-09-15 | Outpatient (CLI) | payer OTHER ==
[~2018-09-15] MED LIST changes: +AMLO5TAB10 PO; -AMLO5TAB2 PO; -HYDR-2762 PO; +HYDR-2765 PO; +LOSA100T14 PO; -LOSA100T6 PO; +WARF-31 PO; -WARF5TAB7 PO
--- NOTE | 2018-09-15 15:45 | RAD ---
Low-dose CT of the chest, 09/15/2018: HISTORY: Lung cancer screening, 50 pack-year smoker Noncontrast scans were obtained utilizing a low-dose technique. Emphysematous changes are present in the lungs. There are scattered linear parenchymal scars. There is mild streaky and reticular dependent pulmonary opacities in both lungs compatible with atelectasis and/or scarring. A calcified granuloma is present medially in the right apex. There is a 7 mm noncalcified pulmonary nodule in the lingular region of the left upper lobe. It lies adjacent to what appears to be a partial accessory fissure. It is best demonstrated on image 163 of series #2. No other pulmonary mass or dense consolidation is seen. There is no evidence of pleural fluid. There has been a previous median sternotomy. There is moderate calcific plaquing of the thoracic aorta and its branches without evidence of aneurysm. Moderate coronary artery calcifications are present. The heart is generally enlarged. No mediastinal adenopathy is seen. Moderate multilevel degenerative changes are present in the spine. IMPRESSION: 1. Emphysema with parenchymal scarring. 2. 7 mm noncalcified left upper lobe pulmonary nodule. Six-month CT follow-up is suggested. Lung RADS category 3. 3. Cardiomegaly with moderate coronary artery disease. PQRS Compliance Statement: One or more of the following individualized dose reduction techniques were utilized for this examination: 1. Automated exposure control 2. Adjustment of the mA and/or kV according to patient size 3. Use of iterative reconstruction technique Electronically signed by: Anthony Corbin MD (09/15/2018 3:42 PM) [facility]
== END | disposition home or self-care (01) ==
LOC: CT 14:12
PROVIDERS: ATTEND Internal Medicine
DX: Z12.2 Encounter for screening for malignant neoplasm of respiratory organs (principal); J43.9 Emphysema, unspecified; J98.4 Other disorders of lung; J84.10 Pulmonary fibrosis, unspecified; R91.1 Solitary pulmonary nodule; I70.0 Atherosclerosis of aorta; I25.10 Atherosclerotic heart disease of native coronary artery without angina pectoris; I51.7 Cardiomegaly; F17.210 Nicotine dependence, cigarettes, uncomplicated
CPT/HCPCS: G0297

== ENCOUNTER → 2019-06-27 | Outpatient (CLI) | payer MEDICARE, OTHER ==
[2019-03-18 14:19] VITALS: BP 139/80
[~2019-06-27] MED LIST changes: -DIGO125T PO; +DIGO125T3 PO; +FURO40TA4 PO; +IPRA3AMP29 NEB; +METO-239 PO; +SACU1TAB PO; +SIMV20TA18 PO; -SIMV20TA3 PO; +WARF7.5T45 PO
--- NOTE | 2019-06-27 14:28 | CARD ---
MR#: [id number] Date of Study: 06/27/2019 Ordering Physician: HIREN ROMAN, Referring Physician: HIREN ROMAN, Tech: Katt Stroud [facility] APPROVED REPORT EXAM: Two-dimensional and M-mode echocardiogram with Doppler and color Doppler. Other Information Quality : Good INDICATION Ischemic Cardiomyopathy, Hx: CABG 2D DIMENSIONS RVDd3.3 (2.9-3.5cm)Left Atrium(2D)6.2 (1.6-4.0cm) IVSd1.3 (0.7-1.1cm)Aortic Root(2D)2.6 (2.0-3.7cm) LVDd5.6 (3.9-5.9cm)LVOT Diameter2.3 (1.8-2.4cm) PWd1.2 (0.7-1.1cm)LVDs4.9 (2.5-4.0cm) FS (%) 13.7 %SV44.8 ml LVEF(%)28.8 (>50%) Aortic Valve AoV Peak Frederick.106.1cm/sAoV VTI22.7cm AO Peak GR.4.5mmHgLVOT Peak Frederick.62.0cm/s AO Mean GR.3mmHgAVA (VMAX)2.35cm2 SANTA (VTI)2.40cm2 Mitral Valve MV E Zpitdsoa970.1cm/sMV DECEL RNUH261dz MV A Scljhwkp84.2cm/sE/A Ratio5.5 Tricuspid Valve TR P. Hsqimlzt879gp/sRAP ZLLBCGVD8aiJf TR Peak Gr.20xsVzKIDV21ahJp Pulmonary Vein S1 Mtgomtkq58.9cm/sD2 Fjsukgui29.4cm/s LEFT VENTRICLE The left ventricle is normal size. There is mild to moderate concentric left ventricular hypertrophy. Left ventricle systolic function is severely impaired. The Ejection Fraction is 20-25%. There is sev ere global hypokinesis of the left ventricle. Septal motion consistent with post-operative state. RIGHT VENTRICLE The right ventricle is moderately dilated. Systolic function is mildly reduced. ATRIA The left atrium is severely dilated. The interatrial septum is intact with no evidence for an atrial septal defect or patent foramen ovale as noted on 2-D or Doppler imaging. AORTIC VALVE The aortic valve is mildly thickened but opens well. Doppler and Color Flow revealed no significant a ortic regurgitation. There is no significant aortic valvular stenosis. MITRAL VALVE The mitral valve is calcified but opens well. There is no evidence of mitral valve prolapse. There is no mitral valve stenosis. Doppler and Color-flow revealed trace mitral regurgitation. TRICUSPID VALVE The tricuspid valve is normal in structure and function. Doppler and Color Flow revealed mild tricusp id regurgitation. There is moderate-severe pulmonary hypertension. The PA pressure was estimated at 6 3 mmHg. There is no tricuspid valve stenosis. PULMONIC VALVE The pulmonary valve is normal in structure and function. Doppler and Color Flow revealed trace pulmon ic valvular regurgitation. There is no pulmonic valvular stenosis. GREAT VESSELS The aortic root is normal in size. The ascending aorta is normal in size. The IVC is normal in size a nd collapses >50% with inspiration. PERICARDIAL EFFUSION There is no evidence of significant pericardial effusion. Critical Notification Critical Value: No <Conclusion> Left ventricle systolic function is severely impaired. The Ejection Fraction is 20-25%. The left atrium is severely dilated. Trace mitral regurgitation. Mild tricuspid regurgitation. The PA pressure was estimated at 63 mmHg. There is no evidence of significant pericardial effusion. Signed by : Calixto Matson, Electronically Approved : 06/27/2019 14:27:53
== END ==
LOC: ECHO 13:02
PROVIDERS: ATTEND Internal Medicine Cardiovascular Disease
DX: I08.1 Rheumatic disorders of both mitral and tricuspid valves (principal); I11.9 Hypertensive heart disease without heart failure; I25.5 Ischemic cardiomyopathy
CPT/HCPCS: 93306

== ENCOUNTER → 2020-05-17 | Outpatient (CLI) | payer OTHER ==
[2019-03-18 14:19] VITALS: BP 139/80
[~2020-05-17] MED LIST changes: +AMLO-186 PO; -AMLO5TAB10 PO; -NABU500T PO; +NABU500T7 PO
--- NOTE | 2020-05-17 18:08 | KCIC ---
CLINICAL HISTORY: Reason: Lung cancer screening, smoker of 50 yrs. COPD / Spl. Instructions: / Histo ry: COMPARISON: 09/15/2018 TECHNIQUE: Noncontrast helical low-dose CT chest per standard departmental prot ocol. PQRS compliance statement - One or more of the following individualized dose reduction techniques wer e utilized for this study: 1. Automated exposure control 2. Adjustment of the mA and/or kV according to patient size 3. Use of iterative reconstruction technique FINDINGS: Lung screening specific (LUNG-RADS): 7 mm left lower lobe lung nodule (series 4 image 165), stable. C alcified granuloma right upper lobe. A few 2-to 3 mm right upper lobe and middle lobe lung nodules ar e stable. Potentially significant incidental findings (LUNG-RADS category S): Coronary artery calcifications ar e seen. Heart is mildly enlarged. Emphysematous changes are seen bilaterally. Other incidental findings: No pleural effusion or pneumothorax. Mild bilateral gynecomastia. RECOMMENDATIONS/ IMPRESSION: 1. LUNG-RADS category: 2. Recommend 12 month low-dose CT per ACR guidelines. 7 mm left lower lobe wyatt g nodule. 2. LUNG-RADS category S: Coronary artery calcifications. Emphysematous changes bilaterally. 3. Other incidental findings as above. Electronically signed by: Rj Villafuerte MD (05/17/2020 6:06 PM) [facility]
--- NOTE | 2020-05-17 23:50 | KCIC ---
CT abdomen and pelvis without contrast: Reason for examination: Generalized abdominal pain and bloating for 4 to 5 months. Helical images were obtained through the abdomen pelvis with no intravenous or oral contrast administ ered. Reconstruction was performed in sagittal and coronal planes. Exposure: One or more of the following individualized dose reduction techniques were utilized for thi s examination: 1. Automated exposure control 2. Adjustment of the mA and/or kV according to patient size 3. Use of iterative reconstruction technique. There is some linear atelectasis at the right lung base. The heart size is enlarged with no pericardi al effusion. No abnormality seen at the liver, spleen, adrenal glands or pancreas. There is cholelithiasis. The ab dominal aorta and inferior vena cava show no acute abnormality. No abnormality seen at the appendix. The colon shows no diverticulosis, diverticulitis or colitis. The small intestinal tract shows no abn ormal dilatation, wall thickening or obstruction. There is a small hiatal hernia. The stomach shows n o other abnormalities. No abnormality seen at the duodenum. The kidneys show a small 4 mm nonobstruct ing calculus at the upper pole of the right kidney. There vascular calcifications in the renal arteri es. No renal masses or hydronephrosis are seen. There is no obstructive uropathy. No abnormality seen at the bladder, prostate gland or seminal vesicles. No free fluid or free air see n in the abdomen or pelvis. There are degenerative changes in the spine. There is also vacuum phenome non at the sacroiliac joints bilaterally. No acute bony abnormality seen. IMPRESSION: Linear atelectasis at the right lung base. Stable cardiomegaly. Cholelithiasis. Small hiatal hernia. 4 mm nonobstructing calculus at the upper pole of the right kidney. Bilateral renal arterial calcification. Degenerative spondylosis. Electronically signed by: Shannon Solo MD (05/17/2020 11:48 PM) [facility]
== END ==
LOC: KCIC CT 12:17
PROVIDERS: ATTEND Family Medicine
DX: Z12.2 Encounter for screening for malignant neoplasm of respiratory organs (principal); R91.1 Solitary pulmonary nodule; R14.0 Abdominal distension (gaseous); N20.0 Calculus of kidney; J98.11 Atelectasis; I51.7 Cardiomegaly; K80.20 Calculus of gallbladder without cholecystitis without obstruction; K46.9 Unspecified abdominal hernia without obstruction or gangrene; N62 Hypertrophy of breast; F17.210 Nicotine dependence, cigarettes, uncomplicated
CPT/HCPCS: 71271; 74176

== ENCOUNTER 2021-07-15 13:11 | Inpatient (IN) | payer MEDICARE, BC ==
[~2021-07-15] VITALS: Ht 172.7 cm; Wt 101.4 kg
[~2021-07-15 13:11] MED LIST changes: +NABU500T11 PO; -NABU500T7 PO
[2021-07-15] MEDS ORDERED: FUROSEMIDE 40 MG/4 ML VIAL. IVP ONE ×2 (13:30→18:00)
[2021-07-15] MEDS ORDERED: NITROGLYCERIN OINT 1 GM PACKET. TP ONE (13:30)
--- NOTE | 2021-07-15 14:03 | RAD ---
EXAMINATION: Chest radiograph. VIEWS: Single AP view of the chest COMPARISON: CT chest from 05/09/2020 and chest radiograph dating back to 03/14/2019 INDICATION:76 years, Male, congestive heart failure. FINDINGS: Enlarged cardiomediastinal silhouette with poststernotomy changes. Slightly increased interstitial re ticulations Similar prominent central pulmonary vasculature. Patchy left perihilar and bibasilar opac ities, left greater than right. No pneumothorax. Possible small left pleural effusion. No pneumothora x. No acute osseous process. IMPRESSION: 1. Similar enlarged cardiomediastinal silhouette. 2. Pulmonary findings favor moderate interstitial pulmonary edema. Superimposed infiltrate cannot be excluded. 3. Possible small left pleural effusion. Electronically signed by: Joe Albert DO (07/15/2021 2:00 PM) [id number]
[2021-07-15 14:04] LABS: BASO % 1 % (0-3); EOS # 0.1 x10^3/uL (0.0-0.7); EOS % 2 % (0-3); HEMOGLOBIN 15.2 g/dL (13.0-17.5); LYMPH # 0.9 x10^3/uL (1.0-4.8); LYMPH % 17 % (24-48); MEAN CORPUSCULAR HEMOGLOBIN 27 pg (25-35); MEAN CORPUSCULAR HGB CONC 32 g/dL (31-37); MEAN CORPUSCULAR VOLUME 87 fL (79-100); MONO # 0.4 x10^3/uL (0.0-1.1); MONO % 7 % (0-9); NEUT % 74 % (31-73); PLATELET COUNT 123 x10^3/uL (140-400); RED BLOOD COUNT 5.54 x10^6/uL (4.30-5.70); RED CELL DISTRIBUTION WIDTH 16.1 % (11.5-14.5); WHITE BLOOD COUNT 5.4 x10^3/uL (4.0-11.0)
[2021-07-15 14:12] LABS: PROTHROMBIN TIME PATIENT 52.7 SEC (11.7-14.0)
[2021-07-15 14:13] LABS: BASE EXCESS ABG 4 mmol/L (-3-3); HCO3 ABG 31 mmol/L (21-28); PCO2 ABG 58 mmHg (35-46); PO2 ABG 68 mmHg (65-108); SAT O2 ABG 92 % (92-99)
[2021-07-15 14:21] LABS: FIO2 ABG 40
--- NOTE | 2021-07-15 15:41 | EKG ---
[facility] [address] [place] [address] Test Date: 2021-07-15 Test Time: 13:18:18 Pat Name: SUDHIR NICOLE Department: Room: Gender: M Publicity Person: : 1945 Requested By: ALEX MATHIAS Order Number: [id number] Reading MD: Calixto Matson Measurements Intervals Varina Rate: 95 P: DE: QRS: -94 QRSD: 134 T: 146 QT: 392 QTc: 496 Interpretive Statements ATRIAL FIBRILLATION VENTRICULAR PREMATURE COMPLEX(ES) LOW LIMB LEAD VOLTAGE NON SPECIFIC INTRAVENTRICULAR BLOCK Electronically Signed On 07-20-2021 21:51:54 CDT by Calixto Matson
[2021-07-15 15:46] LABS: CREATININE 1.1 mg/dL (0.7-1.3); GFR 79.2
[2021-07-15 15:51] LABS: ALBUMIN 3.5 g/dL (3.4-5.0); ALBUMIN/GLOBULIN RATIO 0.8 (1.0-1.7); MAGNESIUM 1.6 mg/dL (1.8-2.4); TOTAL BILIRUBIN 1.2 mg/dL (0.2-1.0)
[2021-07-15] MEDS ORDERED: ACETAMINOPHEN 325 MG TABLET. PO PRN (16:15)
[2021-07-15] MEDS ORDERED: fentaNYL PF VIAL 100 MCG/2 ML VIAL IVP PRN (16:15)
[2021-07-15] MEDS ORDERED: ONDANSETRON PF 4 MG/2 ML VIAL. IVP PRN ×2 (16:15→16:45)
[2021-07-15] MEDS ORDERED: POTASSIUM CHLORIDE 20 MEQ TABLET.ER. PO ONE (16:45)
[2021-07-15] MEDS ORDERED: 0.9 % SODIUM CHLORIDE 10 ML DISP.SYRIN. IV PRN (16:45)
[2021-07-15] MEDS ORDERED: CALCIUM CARBONATE 500 MG TAB.CHEW PO PRN (16:45)
[2021-07-15] MEDS ORDERED: oxyCODONE/APAP 5/325 1 TAB TABLET PO PRN (16:45)
[2021-07-15] MEDS ORDERED: MAGNESIUM SULFATE 2GM 50 ML IV ONE (17:00)
--- NOTE | 2021-07-15 17:17 | ED.ADGEN ---
Past Medical History Past Medical History: A-Fib, CAD, CHF, COPD, Diabetes-Type II, High Cholesterol, Hypertension, OR, Other Additional Past Medical Histor: BENIGN TUMOR LEFT EYE,SLEEP APNEA;CPAP @ 10L O2 AT [facility],[place] Past Surgical History: Coronary Bypass Surgery, Other Additional Past Surgical Histo: R lower leg skin biopsy, L knee dislocation repair Smoking Status: Current Every Day Smoker Additional Information: 0.5 PPD Alcohol Use: None Drug Use: None General Adult EDM: Chief Complaint: SHORTNESS OF BREATH HPI: HPI: Patient is a 76 year old male brought in by EMS from his primary care physician's office. Patient was going to see them because he had worsening shortness of breath over the past month with increased cough. On arrival there he was noted to be 74% on room air. Patient wears CPAP at night but does not w ear oxygen during the day. Patient has a history of CHF, COPD, and still smokes cigarettes. He was given a DuoNeb and a IM shot of Solu-Medrol in the office prior to arrival. Patient is currently satting in the mid 90s on 4 L nasal cannula. Review of Systems: Review of Systems: All other systems within normal limits except for as noted in the HPI Current Medications: Current Medications Medications (Trade) Dose Ordered Sig/Tobi Start Time Stop Time Status Last Admin Dose Admin Acetaminophen (Tylenol) 650 mg PRN Q6HRS PRN 07/15/21 16:45 Albuterol/ Ipratropium (Duoneb) 3 ml RTQID 07/15/21 20:00 Calcium Carbonate/ Glycine (Tums) 500 mg PRN Q3HRS PRN 07/15/21 16:45 Fentanyl Citrate (Fentanyl 2ml Vial) 50 mcg PRN Q1HR PRN 07/15/21 16:15 07/16/21 16:14 Furosemide (Lasix) 40 mg DAILY 07/16/21 09:00 Magnesium Sulfate 50 ml @ 25 mls/hr 1X ONCE 07/15/21 17:00 07/15/21 18:59 Metoprolol Succinate (Toprol Xl) 25 mg DAILY 07/16/21 09:00 Nitroglycerin (Nitro-Bid Oint) 1 inch 1X ONCE 07/15/21 13:30 07/15/21 13:31 DC 07/15/21 14:46 1 INCH Ondansetron HCl (Zofran) 4 mg PRN Q6HRS PRN 07/15/21 16:45 Oxycodone/ Acetaminophen (Percocet 5/325) 2 tab PRN Q4HRS PRN 07/15/21 16:45 Potassium Chloride (Klor-Con) 40 meq 1X ONCE 07/15/21 16:45 07/15/21 16:46 DC Sacubitril/ Valsartan (Entresto 24 Mg-26 Mg) 1 tab BID 07/15/21 21:00 Senna/Docusate Sodium (Senna Plus) 1 tab BID 07/15/21 21:00 Simvastatin (Zocor) 20 mg HS 07/15/21 21:00 Sodium Chloride (Normal Saline Flush) 3 ml QSHIFT PRN 07/15/21 16:45 Warfarin Sodium (Coumadin - No Dose Today) 1 each 1X WARF ONCE 07/16/21 16:00 07/16/21 16:01 Warfarin Sodium (Coumadin Per Pharmacy) 1 each PRN DAILY PRN 07/15/21 16:45 Allergies: Allergies: Allergies Coded Allergies Type Severity Reaction Last Updated Verified Iodinated Contrast Media Adverse Reaction Intermediate "bumps on skin around IV site" 03/27/16 Yes Physical Exam: PE: Constitutional: Well developed, well nourished, no acute distress, non-toxic appearance. [] HENT: Normocephalic, atraumatic, bilateral external ears normal, nose normal. [] Eyes: Right pupil equal reactive, blind in left eye Neck: No rigidity, supple, no stridor. [] Cardiovascular: Regular rhythm rhythm, brisk cap refill [] Lungs & Thorax: Bilateral diffuse crackles, mild tachypnea, no accessory muscle Abdomen: Soft, nondistended. Skin: Warm, dry, no erythema, no rash. [] Back: Unremarkable Extremities: No deformities, range of motion grossly intact, no lower extremity edema [] Neurologic: Alert and oriented X 3, no focal deficits noted. [] Psychologic: Affect normal, judgement normal, mood normal. [] Current Patient Data: Labs: Laboratory Tests Test 07/15/21 13:19 07/15/21 13:34 07/15/21 15:10 O2 Saturation 92 % (92-99) Arterial Blood pH 7.35 (7.35-7.45) Arterial Blood pCO2 at Patient Temp 58 mmHg (35-46) H Arterial Blood pO2 at Patient Temp 68 mmHg (65-108) Arterial Blood HCO3 31 mmol/L (21-28) H Arterial Blood Base Excess 4 mmol/L (-3-3) H FiO2 40 White Blood Count 5.4 x10^3/uL (4.0-11.0) Red Blood Count 5.54 x10^6/uL (4.30-5.70) Hemoglobin 15.2 g/dL (13.0-17.5) Hematocrit 48.0 % (39.0-53.0) Mean Corpuscular Volume 87 fL (79-100) Mean Corpuscular Hemoglobin 27 pg (25-35) Mean Corpuscular Hemoglobin Concent 32 g/dL (31-37) Red Cell Distribution Width 16.1 % (11.5-14.5) H Platelet Count 123 x10^3/uL (140-400) L Neutrophils (%) (Auto) 74 % (31-73) H Lymphocytes (%) (Auto) 17 % (24-48) L Monocytes (%) (Auto) 7 % (0-9) Eosinophils (%) (Auto) 2 % (0-3) Basophils (%) (Auto) 1 % (0-3) Neutrophils # (Auto) 4.0 x10^3/uL (1.8-7.7) Lymphocytes # (Auto) 0.9 x10^3/uL (1.0-4.8) L Monocytes # (Auto) 0.4 x10^3/uL (0.0-1.1) Eosinophils # (Auto) 0.1 x10^3/uL (0.0-0.7) Basophils # (Auto) 0.0 x10^3/uL (0.0-0.2) Prothrombin Time 52.7 SEC (11.7-14.0) H Prothrombin Time INR 6.1 (0.8-1.1) *H Sodium Level 142 mmol/L (136-145) Potassium Level 3.0 mmol/L (3.5-5.1) L Chloride Level 102 mmol/L (98-107) Carbon Dioxide Level 28 mmol/L (21-32) Anion Gap 12 (6-14) Blood Urea Nitrogen 15 mg/dL (8-26) Creatinine 1.1 mg/dL (0.7-1.3) Estimated GFR (Cockcroft-Gault) 79.2 BUN/Creatinine Ratio 14 (6-20) Glucose Level 94 mg/dL (70-99) Lactic Acid Level 1.2 mmol/L (0.4-2.0) Calcium Level 9.0 mg/dL (8.5-10.1) Phosphorus Level 3.0 mg/dL (2.6-4.7) Magnesium Level 1.6 mg/dL (1.8-2.4) L Total Bilirubin 1.2 mg/dL (0.2-1.0) H Aspartate Amino Transferase (AST) 16 U/L (15-37) Alanine Aminotransferase (ALT) 8 U/L (16-63) L Alkaline Phosphatase 68 U/L (46-116) Troponin I High Sensitivity 27 ng/L (4-75) ZK-Are-E-Type Natriuretic Peptide 7180 pg/mL (0-124) H Total Protein 8.0 g/dL (6.4-8.2) Albumin 3.5 g/dL (3.4-5.0) Albumin/Globulin Ratio 0.8 (1.0-1.7) L Laboratory Tests 07/15/21 13:34 Laboratory Tests 07/15/21 15:10 Vital Signs: Vital Signs Date Time Temp Pulse Resp B/P (MAP) Pulse Ox O2 Delivery O2 Flow Rate FiO2 07/15/21 16:33 94 07/15/21 15:48 86 124/78 (93) BiPAP/CPAP 07/15/21 13:11 97.1 24 4.0 97.1 EKG: EKG: Irregularly irregular rhythm, heart rate 95 bpm, no STEMI [] Heart Score: C/O Chest Pain: No HEART Score for Chest Pain: HEART Score for Chest Pain Response (Comments) Value History Moderately Suspicious 1 ECG Nonspecific Repolarizatio 1 Age > 65 2 Risk Factors >3 Risk Factors or Hx CAD 2 Troponin < Normal Limit 0 Total 6 Risk Factors: Risk Factors: DM, Current or recent (<one month) smoker, HTN, HLP, family hist ory of CAD, obesity. Risk Scores: Score 0 - 3: 2.5% MACE over next 6 weeks - Discharge Home Score 4 - 6: 20.3% MACE over next 6 weeks - Admit for Clinical Observation Score 7 - 10: 72.7% MACE over next 6 weeks - Early Invasive Strategies Radiology/Procedures: Radiology/Procedures: [facility] [address] [place] [address] IMAGING REPORT Signed PATIENT: SUDHIR NICOLE ACCOUNT: [id number] : 1945 LOCATION: ER AGE: 76 SEX: M EXAM STATUS: PRE ER ORD. PHYSICIAN: ALEX MATHIAS MD REASON: chf PROCEDURE: CHEST AP ONLY EXAMINATION: Chest radiograph. VIEWS: Single AP view of the chest COMPARISON: CT chest from 05/09/2020 and chest radiograph dating back to 03/14/2019 INDICATION:76 years, Male, congestive heart failure. FINDINGS: Enlarged cardiomediastinal silhouette with poststernotomy changes. Slightly increased interstitial reticulations Similar prominent central pulmonary vasculature. Patchy left perihilar and bibasilar opacities, left greater than right. No pneumothorax. Possible small left pleural effusion. No pneumothorax. No acute osseous process. IMPRESSION: 1. Similar enlarged cardiomediastinal silhouette. 2. Pulmonary findings favor moderate interstitial pulmonary edema. Superimposed infiltrate cannot be excluded. 3. Possible small left pleural effusion. Electronically signed by: Babatunde Albert DO (07/15/2021 2:00 PM) [id number] DICTATED and SIGNED BY: BABATUNDE ALBERT DO DATE: 07/15/21 1351 [] Course & Med Decision Making: Course & Med Decision Making Pertinent Labs and Imaging studies reviewed. (See chart for details) [] Dragon Disclaimer: Rosmery Disclaimer: This electronic medical record was generated, in whole or in part, using a voice recognition dictation system. Departure Departure Impression: Primary Impression: CHF exacerbation Disposition: HOME / SELF CARE / HOMELESS Admitting Physician: STEPH Condition: GUARDED Referrals: DUNIA SHRESTHA MD (PCP) ALEX MATHIAS MD Jul 15, 2021 17:17
--- NOTE | 2021-07-15 17:54 | PDOC1 ---
History and Physical Date of Service: DOS: DATE: 07/15/21 TIME: 17:45 Chief Complaint: Chief Complain: Shortness of breath History of Present Illness: HPI: Patient is 76-year-old -Citizen Of [place] male who presented to the emergency room today due to worsening shortness of breath. Patient was at his PCP today and was found to be saturating 74% on room air. States that has been having worsening shortness of breath for the past month or so. Also having cough nonproductive. He was given a breathing treatment IV steroids and sent here On presentation here he required being placed on BiPAP due to hypoxia. When I was able to evaluate him in the emergency room he was resting in bed definitely appears fluid overloaded. Previous echo shows 20-25% EF. 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 Will try to obtain these records. Given 40 IV Lasix in ER with good response. Will give another dose tonight. He is on home warfarin for A. fib but INR notably elevated Patient was denying any sort of headache chest pain abdominal pain dysuria. He does have a benign left eye tumor that has had his entire life Past Medical/Surgical History: PMH/PSH: Past Medical History: A-Fib, CAD, CHF, COPD, Diabetes-Type II, High Cholesterol, Hypertension, SC Additional Past Medical Histor: BENIGN TUMOR LEFT EYE,SLEEP APNEA;CPAP @ 10L O2 AT [facility], Past Surgical History: Coronary Bypass Surgery Additional Past Surgical Histo: R lower leg skin biopsy, L knee dislocation repair Smoking Status: Current Every Day Smoker Additional Information: 0.5 PPD Alcohol Use: None Drug Use: None Allergies: Allergies: Coded Allergies: Iodinated Contrast Media (Verified Adverse Reaction, Intermediate, "bumps on skin around IV site", 03/27/16) Family History: Family History: Hypertension Current Medications: Current Medications Current Medications Furosemide (Lasix) 40 mg 1X ONCE IVP Last administered on 07/15/21at 14:49; Start 07/15/21 at 13:30; Stop 07/15/21 at 13:31; Status DC Nitroglycerin (Nitro-Bid Oint) 1 inch 1X ONCE TP Last administered on 07/15/21at 14:46; Start 07/15/21 at 13:30; Stop 07/15/21 at 13:31; Status DC Ondansetron HCl (Zofran) 4 mg PRN Q8HRS PRN IVP NAUSEA/VOMITING; Start 07/15/21 at 16:15; Stop 07/15/21 at 16:49; Status DC Fentanyl Citrate (Fentanyl 2ml Vial) 50 mcg PRN Q1HR PRN IVP PAIN; Start 07/15/21 at 16:15; Stop 07/16/21 at 16:14 Acetaminophen (Tylenol) 650 mg PRN Q4HRS PRN PO FEVER > 100.3'F; Start 07/15/21 at 16:15; Stop 07/16/21 at 16:14 Potassium Chloride (Klor-Con) 40 meq 1X ONCE PO ; Start 07/15/21 at 16:45; Stop 07/15/21 at 16:46; Status DC Magnesium Sulfate 50 ml @ 25 mls/hr 1X ONCE IV ; Start 07/15/21 at 17:00; Stop 07/15/21 at 18:59 Acetaminophen (Tylenol) 650 mg PRN Q6HRS PRN PO Headaches, Temp > 101.5'; Start 07/15/21 at 16:45 Ondansetron HCl (Zofran) 4 mg PRN Q6HRS PRN IVP NAUSEA/VOMITING; Start 07/15/21 at 16:45 Calcium Carbonate/ Glycine (Tums) 500 mg PRN Q3HRS PRN PO HEARTBURN / GAS; Start 07/15/21 at 16:45 Sodium Chloride (Normal Saline Flush) 3 ml QSHIFT PRN IV AFTER MEDS AND BLOOD DRAWS; Start 07/15/21 at 16:45 Oxycodone/ Acetaminophen (Percocet 5/325) 1 tab PRN Q4HRS PRN PO MILD PAIN, 1ST CHOICE; Start 07/15/21 at 16:45 Oxycodone/ Acetaminophen (Percocet 5/325) 2 tab PRN Q4HRS PRN PO MODERATE PAIN, SEVERE PAIN; Start 07/15/21 at 16:45 Senna/Docusate Sodium (Senna Plus) 1 tab BID PO ; Start 07/15/21 at 21:00 Furosemide (Lasix) 40 mg DAILY PO ; Start 07/16/21 at 09:00 Albuterol/ Ipratropium (Duoneb) 3 ml RTQID NEB ; Start 07/15/21 at 20:00 Metoprolol Succinate (Toprol Xl) 25 mg DAILY PO ; Start 07/16/21 at 09:00 Sacubitril/ Valsartan (Entresto 24 Mg-26 Mg) 1 tab BID PO ; Start 07/15/21 at 21:00 Simvastatin (Zocor) 20 mg HS PO ; Start 07/15/21 at 21:00 Warfarin Sodium (Coumadin Per Pharmacy) 1 each PRN DAILY PRN MC SEE COMMENTS; Start 07/15/21 at 16:45 Warfarin Sodium (Coumadin - No Dose Today) 1 each 1X WARF ONCE MC ; Start at 16:00; Stop 07/16/21 at 16:01 Active Scripts Active Entresto 24 mg-26 mg Tablet (Sacubitril/Valsartan) 1 Each Tablet 1 Tab PO BID 30 Days Metoprolol Succinate ( Xl ) (Metoprolol Succinate) 25 Mg Tab.er.24h 25 Mg PO DAILY 30 Days Doxycycline Hyclate 100 Mg Tablet 100 Mg PO BID 4 Days Duoneb 0.5-3(2.5) Mg/3 Ml (Albuterol/Ipratropium) 3 Ml Ampul.neb 3 Ml NEB RTQID 30 Days Reported Warfarin Sodium 7.5 Mg Tablet 7.5 Mg PO [id number] Warfarin Sodium 5 Mg Tablet 5 Mg PO [id number] Furosemide 40 Mg Tablet 40 Mg PO DAILY Simvastatin 20 Mg Tablet 20 Mg PO HS Aspir 81 (Aspirin) 81 Mg Tablet.dr 81 Mg PO DAILY ROS: Review of Systems Review of System Unless noted in HPI 14 point review of systems was negative Physical Exam: Vital Signs: Vital Signs Date Time Temp Pulse Resp B/P (MAP) Pulse Ox O2 Delivery O2 Flow Rate FiO2 07/15/21 16:33 94 07/15/21 15:48 86 124/78 (93) BiPAP/CPAP 07/15/21 13:11 97.1 24 4.0 97.1 Physcial Exam: GEN: No apparent distress. Alert and oriented HEENT: Normal cephalic, atraumatic, external auditory canals are patent EYES: Left eye with ptosis due to tumor MUSCULOSKELETAL: Well developed , well nourished, good range of motion ENDOCRINE: No thyromegaly was palpated LYMPHATICS: No cervical chain or axillary nodes were noted HEMATOPOIETIC: No bruising NECK: Supple, no JVD, no thyromegaly was noted LUNGS: Clear to auscultation in all lung meredith without rhonchi or wheezing HEART: RRR, S!, S2 present. Peripheral pulses intact, no obvious murmurs noted ABDOMEN: Soft, nontender. Positive bowel sounds, no organomegaly, normal bowel sounds EXTREMITIES: Bilateral lower extremity pitting edema NEUROLOGIC: Normal speech and tone. A&O x 3, moves all extremities, no obvious focal deficits PSYCHIATRIC: Normal affect, normal mood. Stable SKIN: No ulcerations or rashes, good skin turgor, no jaundice VASCULAR: Good capillary refill, neurovascular bundle appears to be intact Labs: Labs: Laboratory Tests Test 07/15/21 13:19 07/15/21 13:34 07/15/21 15:10 07/15/21 16:25 O2 Saturation 92 % (92-99) Arterial Blood pH 7.35 (7.35-7.45) Arterial Blood pCO2 at Patient Temp 58 mmHg (35-46) Arterial Blood pO2 at Patient Temp 68 mmHg (65-108) Arterial Blood HCO3 31 mmol/L (21-28) Arterial Blood Base Excess 4 mmol/L (-3-3) FiO2 40 White Blood Count 5.4 x10^3/uL (4.0-11.0) Red Blood Count 5.54 x10^6/uL (4.30-5.70) Hemoglobin 15.2 g/dL (13.0-17.5) Hematocrit 48.0 % (39.0-53.0) Mean Corpuscular Volume 87 fL (79-100) Mean Corpuscular Hemoglobin 27 pg (25-35) Mean Corpuscular Hemoglobin Concent 32 g/dL (31-37) Red Cell Distribution Width 16.1 % (11.5-14.5) Platelet Count 123 x10^3/uL (140-400) Neutrophils (%) (Auto) 74 % (31-73) Lymphocytes (%) (Auto) 17 % (24-48) Monocytes (%) (Auto) 7 % (0-9) Eosinophils (%) (Auto) 2 % (0-3) Basophils (%) (Auto) 1 % (0-3) Neutrophils # (Auto) 4.0 x10^3/uL (1.8-7.7) Lymphocytes # (Auto) 0.9 x10^3/uL (1.0-4.8) Monocytes # (Auto) 0.4 x10^3/uL (0.0-1.1) Eosinophils # (Auto) 0.1 x10^3/uL (0.0-0.7) Basophils # (Auto) 0.0 x10^3/uL (0.0-0.2) Prothrombin Time 52.7 SEC (11.7-14.0) Prothromb Time International Ratio 6.1 (0.8-1.1) Sodium Level 142 mmol/L (136-145) Potassium Level 3.0 mmol/L (3.5-5.1) Chloride Level 102 mmol/L (98-107) Carbon Dioxide Level 28 mmol/L (21-32) Anion Gap 12 (6-14) Blood Urea Nitrogen 15 mg/dL (8-26) Creatinine 1.1 mg/dL (0.7-1.3) Estimated GFR (Cockcroft-Gault) 79.2 BUN/Creatinine Ratio 14 (6-20) Glucose Level 94 mg/dL (70-99) Lactic Acid Level 1.2 mmol/L (0.4-2.0) Calcium Level 9.0 mg/dL (8.5-10.1) Phosphorus Level 3.0 mg/dL (2.6-4.7) Magnesium Level 1.6 mg/dL (1.8-2.4) Total Bilirubin 1.2 mg/dL (0.2-1.0) Aspartate Amino Transf (AST/SGOT) 16 U/L (15-37) Alanine Aminotransferase (ALT/SGPT) 8 U/L (16-63) Alkaline Phosphatase 68 U/L (46-116) Troponin I High Sensitivity 27 ng/L (4-75) 24 ng/L (4-75) VN-Uxk-C-Type Natriuretic Peptide 7180 pg/mL (0-124) Total Protein 8.0 g/dL (6.4-8.2) Albumin 3.5 g/dL (3.4-5.0) Albumin/Globulin Ratio 0.8 (1.0-1.7) Laboratory Tests Test 07/15/21 13:19 07/15/21 13:34 07/15/21 15:10 07/15/21 16:25 O2 Saturation 92 % (92-99) Arterial Blood pH 7.35 (7.35-7.45) Arterial Blood pCO2 at Patient Temp 58 mmHg (35-46) Arterial Blood pO2 at Patient Temp 68 mmHg (65-108) Arterial Blood HCO3 31 mmol/L (21-28) Arterial Blood Base Excess 4 mmol/L (-3-3) FiO2 40 White Blood Count 5.4 x10^3/uL (4.0-11.0) Red Blood Count 5.54 x10^6/uL (4.30-5.70) Hemoglobin 15.2 g/dL (13.0-17.5) Hematocrit 48.0 % (39.0-53.0) Mean Corpuscular Volume 87 fL (79-100) Mean Corpuscular Hemoglobin 27 pg (25-35) Mean Corpuscular Hemoglobin Concent 32 g/dL (31-37) Red Cell Distribution Width 16.1 % (11.5-14.5) Platelet Count 123 x10^3/uL (140-400) Neutrophils (%) (Auto) 74 % (31-73) Lymphocytes (%) (Auto) 17 % (24-48) Monocytes (%) (Auto) 7 % (0-9) Eosinophils (%) (Auto) 2 % (0-3) Basophils (%) (Auto) 1 % (0-3) Neutrophils # (Auto) 4.0 x10^3/uL (1.8-7.7) Lymphocytes # (Auto) 0.9 x10^3/uL (1.0-4.8) Monocytes # (Auto) 0.4 x10^3/uL (0.0-1.1) Eosinophils # (Auto) 0.1 x10^3/uL (0.0-0.7) Basophils # (Auto) 0.0 x10^3/uL (0.0-0.2) Prothrombin Time 52.7 SEC (11.7-14.0) Prothromb Time International Ratio 6.1 (0.8-1.1) Sodium Level 142 mmol/L (136-145) Potassium Level 3.0 mmol/L (3.5-5.1) Chloride Level 102 mmol/L (98-107) Carbon Dioxide Level 28 mmol/L (21-32) Anion Gap 12 (6-14) Blood Urea Nitrogen 15 mg/dL (8-26) Creatinine 1.1 mg/dL (0.7-1.3) Estimated GFR (Cockcroft-Gault) 79.2 BUN/Creatinine Ratio 14 (6-20) Glucose Level 94 mg/dL (70-99) Lactic Acid Level 1.2 mmol/L (0.4-2.0) Calcium Level 9.0 mg/dL (8.5-10.1) Phosphorus Level 3.0 mg/dL (2.6-4.7) Magnesium Level 1.6 mg/dL (1.8-2.4) Total Bilirubin 1.2 mg/dL (0.2-1.0) Aspartate Amino Transf (AST/SGOT) 16 U/L (15-37) Alanine Aminotransferase (ALT/SGPT) 8 U/L (16-63) Alkaline Phosphatase 68 U/L (46-116) Troponin I High Sensitivity 27 ng/L (4-75) 24 ng/L (4-75) UA-Nxb-M-Type Natriuretic Peptide 7180 pg/mL (0-124) Total Protein 8.0 g/dL (6.4-8.2) Albumin 3.5 g/dL (3.4-5.0) Albumin/Globulin Ratio 0.8 (1.0-1.7) Assessment/Plan Assessment/Plan Acute on chronic systolic congestive heart failure exacerbation. History A. fib CAD type 2 diabetes hypertension hyperlipidemia -Presented with a month long history worsening shortness of breath. Hypoxic at PCPs office today sent here for further work-up -Good response with 40 IV Lasix in ER. Give another dose tonight and have it scheduled for the morning -Cardiology consult due to severe heart failure. Most recent echo in 2019 shows 20 to 25% EF -Echo ordered -Continue BiPAP and wean as tolerated. He is on CPAP overnight -INR of 6. Warfarin per pharmacy -Other home meds resumed as indicated -Cardiac diet fluid restriction. 25 minutes advance care planning Justifications for Admission Other Justification LIILYA OLIVA MD Jul 15, 2021 17:54
[2021-07-15 18:04] LABS: HYALINE CASTS, URINE MODERATE /HPF
[2021-07-15 18:05] LABS: BACTERIA,URINE 0 /HPF (0-FEW)
[2021-07-15] MEDS: IPRATRPIUM/ALBUTEROL 0.5/2.5MG 3 ML NEBU. NEB SCH (19:40)
[2021-07-15 22:00] VITALS: BP 114/74
[2021-07-15] MEDS: SENNOSIDES/DOCUSATE 8.6/50MG TABLET. PO SCH (22:18)
[2021-07-15] MEDS: SACUBITRIL/VALSARTAN 24/26MG TABLET. PO SCH (22:19)
[2021-07-15] MEDS: SIMVASTATIN 20 MG TABLET PO SCH (22:19)
--- NOTE | 2021-07-15 22:59 | NUR ---
Admit from ER Hold to [facility] room 662 via [facility]. Transferred from [facility] to bed with 3 person lift. A/O x 4. Reports he drove self to Doctor's office for c/o SOA x 1 month. Transferred from office to ER via EMS. Lasix 40mg x 2 given in ER. SOA much better. BiPap at bedside. Patient on 3L NC on admit to the floor. Able to speak in full sentences. Orientated to room and call light. Reviewed POC. Verbalized understanding. Patient's compliant with BiPap. Wears c-pap at home.
[2021-07-16 03:05] VITALS: BP 115/68
[2021-07-16 05:57] LABS: BASO % 0 % (0-3); EOS % 0 % (0-3); HEMATOCRIT 49.7 % (39.0-53.0); HEMOGLOBIN 15.6 g/dL (13.0-17.5); LYMPH # 0.5 x10^3/uL (1.0-4.8); LYMPH % 16 % (24-48); MEAN CORPUSCULAR HEMOGLOBIN 27 pg (25-35); MEAN CORPUSCULAR HGB CONC 31 g/dL (31-37); MEAN CORPUSCULAR VOLUME 87 fL (79-100); MONO % 1 % (0-9); NEUT # 2.8 x10^3/uL (1.8-7.7); NEUT % 82 % (31-73); PLATELET COUNT 122 x10^3/uL (140-400); RED BLOOD COUNT 5.69 x10^6/uL (4.30-5.70); RED CELL DISTRIBUTION WIDTH 16.2 % (11.5-14.5); WHITE BLOOD COUNT 3.4 x10^3/uL (4.0-11.0)
[2021-07-16 06:12] LABS: ALBUMIN/GLOBULIN RATIO 0.7 (1.0-1.7); CALCIUM 8.7 mg/dL (8.5-10.1); CREATININE 1.1 mg/dL (0.7-1.3); GFR 79.2; POTASSIUM 3.6 mmol/L (3.5-5.1); TOTAL BILIRUBIN 1.1 mg/dL (0.2-1.0); TOTAL PROTEIN 7.3 g/dL (6.4-8.2)
[2021-07-16 07:00] VITALS: BP 112/70
[2021-07-16] MEDS ORDERED: PERFLUTREN PROTEIN-A MICROSPHR 0.22 MG/ML 3 ML VIAL. IV ONE (07:00)
[2021-07-16] MEDS: IPRATRPIUM/ALBUTEROL 0.5/2.5MG 3 ML NEBU. NEB SCH ×4 (07:32→20:00)
[2021-07-16] MEDS: SENNOSIDES/DOCUSATE 8.6/50MG TABLET. PO SCH ×2 (09:00→19:54)
[2021-07-16] MEDS ORDERED: METOPROLOL SUCC 24HR ER 25 MG TAB.ER.24H. PO SCH (09:00)
[2021-07-16] MEDS: FUROSEMIDE 40 MG TABLET. PO SCH (09:37)
[2021-07-16] MEDS: SACUBITRIL/VALSARTAN 24/26MG TABLET. PO SCH ×2 (09:37→19:53)
[2021-07-16] MEDS ORDERED: FUROSEMIDE 40 MG/4 ML VIAL. IVP ONE (10:45)
[2021-07-16] MEDS ORDERED: DIGOXIN IV 500 MCG/2 ML AMPUL. IV ONE (10:45)
--- NOTE | 2021-07-16 10:52 | PDOC2 ---
ANASTACIA PARR ASSISTANT RESEARCH SCIENTIST 07/16/21 1052: CARDIAC CONSULT DATE OF CONSULT Date of Consult DATE: 07/16/21 TIME: 10:13 REASON FOR CONSULT Reason for Consult: CHF REFERRING PHYSICIAN Referring Physician: macho SOURCE Source: Chart review, Patient HISTORY OF PRESENT ILLNESS HISTORY OF PRESENT ILLNESS This is a pleasant 76 yo male admitted for complains of shortness of breath particularly with exertion.. No chest pain or palpitations. He went to his PCPs office and was told to go to ED. No nausea vomiting or diarrhea and no recent antibiotics. He has been having bloated. Reports compliance with his meds and has not ran out of medications and he does takes lasix at home. He has been compliant with fluid restriction but he does not cook and eat processed foods. He has not been using his CPAP regularly because it makes his nose stuff up. Denies any dizziness or any recent injury. No orthopnea or significnat leg swelling. Upon admission he was in AFIB RVR and exacerbated CHF. 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 Renal/: No pertinent hx Endocrine: Diabetes PAST SURGICAL HISTORY Past Surgical History CABG, Other (left knee surgery) FAMILY HISTORY Family History Diabetes, Heart Disease, Hypertension SOCIAL HISTORY Social History Smoke: <1 pack per day ALCOHOL: none Drugs: None Lives: with Family CURRENT MEDICATIONS CURRENT MEDICATIONS Current Medications Medications (Trade) Dose Ordered Sig/Tobi Route PRN Reason Start Time Stop Time Status Last Admin Dose Admin Furosemide (Lasix) 40 mg 1X ONCE IVP 07/15/21 13:30 07/15/21 13:31 DC 07/15/21 14:49 Nitroglycerin (Nitro-Bid Oint) 1 inch 1X ONCE TP 07/15/21 13:30 07/15/21 13:31 DC 07/15/21 14:46 Potassium Chloride (Klor-Con) 40 meq 1X ONCE PO 07/15/21 16:45 07/15/21 16:46 DC 07/15/21 18:03 Magnesium Sulfate 50 ml @ 25 mls/hr 1X ONCE IV 07/15/21 17:00 07/15/21 18:59 DC 07/15/21 18:03 Senna/Docusate Sodium (Senna Plus) 1 tab BID PO 07/15/21 21:00 07/15/21 22:18 Furosemide (Lasix) 40 mg DAILY PO 07/16/21 09:00 07/16/21 09:37 Albuterol/ Ipratropium (Duoneb) 3 ml RTQID NEB 07/15/21 20:00 07/16/21 07:32 Metoprolol Succinate (Toprol Xl) 25 mg DAILY PO 07/16/21 09:00 07/16/21 09:37 Sacubitril/ Valsartan (Entresto 24 Mg-26 Mg) 1 tab BID PO 07/15/21 21:00 07/16/21 09:37 Simvastatin (Zocor) 20 mg HS PO 07/15/21 21:00 07/15/21 22:19 Furosemide (Lasix) 40 mg 1X ONCE IVP 07/15/21 18:00 07/15/21 18:01 DC 07/15/21 18:08 ALLERGIES ALLERGIES: Coded Allergies: Iodinated Contrast Media (Verified Adverse Reaction, Intermediate, "bumps on skin around IV site", 03/27/16) ROS Review of System 14 point ROS evaluated with pertinent positives noted per HPI PHYSICAL EXAM General: Alert, Oriented X3, Cooperative, No acute distress HEENT: Atraumatic, Mucous membr. moist/pink, Other (blind left eye) Lungs: Other (basilar crackles) Heart: Other (AFIB RVR, distant heart sounds) Abdomen: Soft, Other (obese) Extremities: No cyanosis, Other (trace LE edema) Skin: No breakdown, No significant lesion Neuro: Normal speech, Sensation intact Psych/Mental Status: Mental status NL, Mood NL MUSCULOSKELETAL: Osteoarthritic changes both hands VITALS/I&O VITALS/I&O: Vital Signs Date Time Temp Pulse Resp B/P (MAP) Pulse Ox O2 Delivery O2 Flow Rate FiO2 07/16/21 09:37 98 112/70 07/16/21 08:00 Nasal Cannula 3.0 07/16/21 07:32 95 07/16/21 07:00 97.1 20 97.1 I & O 3/07/15/21 07/16/21 15:00 23:00 07:00 Intake Total 0 ml 0 ml Output Total 0 ml 0 ml Balance 0 ml 0 ml LABS Lab: Laboratory Tests Test 07/15/21 13:19 07/15/21 13:34 07/15/21 15:10 07/15/21 16:25 O2 Saturation 92 % (92-99) Arterial Blood pH 7.35 (7.35-7.45) Arterial Blood pCO2 at Patient Temp 58 mmHg (35-46) H Arterial Blood pO2 at Patient Temp 68 mmHg (65-108) Arterial Blood HCO3 31 mmol/L (21-28) H Arterial Blood Base Excess 4 mmol/L (-3-3) H FiO2 40 White Blood Count 5.4 x10^3/uL (4.0-11.0) Red Blood Count 5.54 x10^6/uL (4.30-5.70) Hemoglobin 15.2 g/dL (13.0-17.5) Hematocrit 48.0 % (39.0-53.0) Mean Corpuscular Volume 87 fL (79-100) Mean Corpuscular Hemoglobin 27 pg (25-35) Mean Corpuscular Hemoglobin Concent 32 g/dL (31-37) Red Cell Distribution Width 16.1 % (11.5-14.5) H Platelet Count 123 x10^3/uL (140-400) L Neutrophils (%) (Auto) 74 % (31-73) H Lymphocytes (%) (Auto) 17 % (24-48) L Monocytes (%) (Auto) 7 % (0-9) Eosinophils (%) (Auto) 2 % (0-3) Basophils (%) (Auto) 1 % (0-3) Neutrophils # (Auto) 4.0 x10^3/uL (1.8-7.7) Lymphocytes # (Auto) 0.9 x10^3/uL (1.0-4.8) L Monocytes # (Auto) 0.4 x10^3/uL (0.0-1.1) Eosinophils # (Auto) 0.1 x10^3/uL (0.0-0.7) Basophils # (Auto) 0.0 x10^3/uL (0.0-0.2) Prothrombin Time 52.7 SEC (11.7-14.0) H Prothrombin Time INR 6.1 (0.8-1.1) *H Sodium Level 142 mmol/L (136-145) Potassium Level 3.0 mmol/L (3.5-5.1) L Chloride Level 102 mmol/L (98-107) Carbon Dioxide Level 28 mmol/L (21-32) Anion Gap 12 (6-14) Blood Urea Nitrogen 15 mg/dL (8-26) Creatinine 1.1 mg/dL (0.7-1.3) Estimated GFR (Cockcroft-Gault) 79.2 BUN/Creatinine Ratio 14 (6-20) Glucose Level 94 mg/dL (70-99) Lactic Acid Level 1.2 mmol/L (0.4-2.0) Calcium Level 9.0 mg/dL (8.5-10.1) Phosphorus Level 3.0 mg/dL (2.6-4.7) Magnesium Level 1.6 mg/dL (1.8-2.4) L Total Bilirubin 1.2 mg/dL (0.2-1.0) H Aspartate Amino Transferase (AST) 16 U/L (15-37) Alanine Aminotransferase (ALT) 8 U/L (16-63) L Alkaline Phosphatase 68 U/L (46-116) Troponin I High Sensitivity 27 ng/L (4-75) 24 ng/L (4-75) UT-Dvm-T-Type Natriuretic Peptide 7180 pg/mL (0-124) H Total Protein 8.0 g/dL (6.4-8.2) Albumin 3.5 g/dL (3.4-5.0) Albumin/Globulin Ratio 0.8 (1.0-1.7) L Test 07/15/21 17:20 07/16/21 04:50 Urine Collection Type Unknown Urine Color (Auto) Yellow Urine Turbidity Clear Urine pH (Auto) 6.0 (<5.0-8.0) Urine Specific [place] 1.013 (1.000-1.030) Urine Protein (Auto) 30 mg/dL (Negative) Urine Glucose (Auto)(UA) Negative mg/dL (Negative) Urine Ketones (Auto) Negative mg/dL (Negative) Urine Blood (Auto) Small (Negative) Urine Nitrite Negative (Negative) Urine Bilirubin (Auto) Negative (Negative) Urine Urobilinogen (Auto) 8 mg/dL (Normal) Urine Leukocyte Esterase (Auto) Negative (Negative) Urine RBC 6-10 /HPF (0-2) Urine WBC 1-4 /HPF (0-4) Urine Squamous Epithelial Cells Few /LPF Urine Bacteria 0 /HPF (0-FEW) Urine Hyaline Casts Moderate /HPF Urine Mucus Slight /LPF White Blood Count 3.4 x10^3/uL (4.0-11.0) L Red Blood Count 5.69 x10^6/uL (4.30-5.70) Hemoglobin 15.6 g/dL (13.0-17.5) Hematocrit 49.7 % (39.0-53.0) Mean Corpuscular Volume 87 fL (79-100) Mean Corpuscular Hemoglobin 27 pg (25-35) Mean Corpuscular Hemoglobin Concent 31 g/dL (31-37) Red Cell Distribution Width 16.2 % (11.5-14.5) H Platelet Count 122 x10^3/uL (140-400) L Neutrophils (%) (Auto) 82 % (31-73) H Lymphocytes (%) (Auto) 16 % (24-48) L Monocytes (%) (Auto) 1 % (0-9) Eosinophils (%) (Auto) 0 % (0-3) Basophils (%) (Auto) 0 % (0-3) Neutrophils # (Auto) 2.8 x10^3/uL (1.8-7.7) Lymphocytes # (Auto) 0.5 x10^3/uL (1.0-4.8) L Monocytes # (Auto) 0.0 x10^3/uL (0.0-1.1) Eosinophils # (Auto) 0.0 x10^3/uL (0.0-0.7) Basophils # (Auto) 0.0 x10^3/uL (0.0-0.2) Sodium Level 144 mmol/L (136-145) Potassium Level 3.6 mmol/L (3.5-5.1) Chloride Level 103 mmol/L (98-107) Carbon Dioxide Level 31 mmol/L (21-32) Anion Gap 10 (6-14) Blood Urea Nitrogen 17 mg/dL (8-26) Creatinine 1.1 mg/dL (0.7-1.3) Estimated GFR (Cockcroft-Gault) 79.2 BUN/Creatinine Ratio 15 (6-20) Glucose Level 117 mg/dL (70-99) H Calcium Level 8.7 mg/dL (8.5-10.1) Total Bilirubin 1.1 mg/dL (0.2-1.0) H Aspartate Amino Transferase (AST) 13 U/L (15-37) L Alanine Aminotransferase (ALT) 6 U/L (16-63) L Alkaline Phosphatase 58 U/L (46-116) Total Protein 7.3 g/dL (6.4-8.2) Albumin 3.0 g/dL (3.4-5.0) L Albumin/Globulin Ratio 0.7 (1.0-1.7) L Laboratory Tests 07/15/21 13:34 07/16/21 04:50 Laboratory Tests 07/15/21 15:10 07/16/21 04:50 ECHOCARDIOGRAM ECHOCARDIOGRAM <Conclusion> Left ventricle systolic function is severely impaired. The Ejection Fraction is 20-25%. The left atrium is severely dilated. Trace mitral regurgitation. Mild tricuspid regurgitation. The PA pressure was estimated at 63 mmHg. There is no evidence of significant pericardial effusion. DATE: 06/27/19 1423 ASSESSMENT/PLAN ASSESSMENT/PLAN 1. Acute on chronic hypoxic respiratory failure with CHF/COPD exacerbation and AFIB RVR. Poor compliance with home CPAP 2. AFIB RVR: chronic by history 3. Acute on chronic HFrEF: NYHA2 4. HTN: controlled 5. HLP 6. ICM 7. CAD: Past CABG Recommendations 1. Lasix therapy. Replace Bipap 2. TTE, TSH, FLP, Mg 3. He has not been seen in our office since 12/2019. If EF remains low then will consider for outpt YEAST STACKER-D placement. Continue rate control with toprol. Dig IV x1. INR at 6.1 on coumadin. Will repeat INR 4. Smoking cessation. Continue with HF optimization. 5. Will consider for outpt ischemic workup HIREN ROMAN MD 07/16/21 1711: CARDIAC CONSULT ASSESSMENT/PLAN ASSESSMENT/PLAN Patient seen and examined He is feeling mildly better post initial treatment. I agree with our nurse practitioners assessment and plan. Acute on chronic hypoxic respiratory failure with CHF/COPD exacerbation and AFIB RVR. Poor compliance with home CPAP. Continuing present medical treatment including Lasix. Pulmonary evaluation. Recheck echo. AFIB RVR: chronic by history. Additional digoxin given. INR severely elevated 6.1. Holding Coumadin and monitoring INR. Acute on chronic HFrEF: NYHA2. History of decreased ejection fraction. Echo pending. HTN: controlled HLP ICM CAD: Past CABG ANASTACIA PARR APRN Jul 16, 2021 10:52 HIREN ROMAN MD Jul 16, 2021 17:11
[2021-07-16 11:00] VITALS: BP 104/58
--- NOTE | 2021-07-16 11:46 | PDOC ---
[employer] PROGRESS NOTE Date of Service DOS: DATE: 07/16/21 TIME: 11:45 Chief Complaint Chief Complaint Acute on chronic hypoxic respiratory failure with CHF/COPD exacerbation and AFIB RVR. Poor compliance with home CPAP AFIB RVR - with chronic afib Acute on chronic HFrEF Ischemic cardiomyopathy EF 25-30% historically ?COPD Diabetes Dyperlipidemia Hypertension Benign tumor of the left eye CAMERON - CPAP at home Thrombocytopenia Leukopenia FEN - History of Present Illness History of Present Illness Mr Olea is a 76yo male w/ PMHx cardiomyopathy with an EF of 25%-30%, history of ongoing tobaccoism, suspect underlying COPD, obesity, history of CAMERON, on home CPAP with O2 bleed in 3L, left eye tumor, AFib, Coronary artery disease, type 2 diabetes, dyslipidemia and hypertension who p/w worsening shortness of breath to ED on 07/15/2021 at the behest of his PCP when he was found to be saturating 74% on room air. States that has been having worsening shortness of breath for the past month or so. Also having cough nonproductive. He was given a breathing treatment IV steroids and sent here On presentation here he required being placed on BiPAP due to hypoxia. Given 40 IV Lasix in ER with brisk diuresis. He is on home warfarin for A. fib but INR notably elevated Patient was denying any sort of headache chest pain abdominal pain dysuria. 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 Still having shortness of breath and abdominal distention. Given 40 mg of IV Lasix and has had no urine output over the past 8 hours. Had difficulty tolerating BiPAP at 18/4 felt his ears popping. Normally he is on CPAP 10 cm of H2O. Seen bedside his O2 saturations were 89% on 6 L/min of O2. A. fib is a little better rate controlled. Was given digoxin Vitals/I&O Vitals/I&O: Vital Signs Date Time Temp Pulse Resp B/P (MAP) Pulse Ox O2 Delivery O2 Flow Rate FiO2 07/16/21 11:20 94 112/70 07/16/21 10:45 95 07/16/21 08:00 Nasal Cannula 3.0 07/16/21 07:00 97.1 20 97.1 I & O 07/15/21 07/15/21 07/16/21 15:00 23:00 07:00 Intake Total 0 ml 0 ml Output Total 0 ml 0 ml Balance 0 ml 0 ml Physical Exam General: Alert, Oriented X3, Cooperative, No acute distress Heart: Other (AFIB RVR, distant heart sounds) Lungs: Clear Abdomen: Soft, Other (obese) Extremities: No cyanosis, Other (trace LE edema) Skin: No breakdown, No significant lesion Labs Labs: Laboratory Tests Test 07/15/21 13:19 07/15/21 13:34 07/15/21 15:10 07/15/21 16:25 O2 Saturation 92 % (92-99) Arterial Blood pH 7.35 (7.35-7.45) Arterial Blood pCO2 at Patient Temp 58 mmHg (35-46) Arterial Blood pO2 at Patient Temp 68 mmHg (65-108) Arterial Blood HCO3 31 mmol/L (21-28) Arterial Blood Base Excess 4 mmol/L (-3-3) FiO2 40 White Blood Count 5.4 x10^3/uL (4.0-11.0) Red Blood Count 5.54 x10^6/uL (4.30-5.70) Hemoglobin 15.2 g/dL (13.0-17.5) Hematocrit 48.0 % (39.0-53.0) Mean Corpuscular Volume 87 fL (79-100) Mean Corpuscular Hemoglobin 27 pg (25-35) Mean Corpuscular Hemoglobin Concent 32 g/dL (31-37) Red Cell Distribution Width 16.1 % (11.5-14.5) Platelet Count 123 x10^3/uL (140-400) Neutrophils (%) (Auto) 74 % (31-73) Lymphocytes (%) (Auto) 17 % (24-48) Monocytes (%) (Auto) 7 % (0-9) Eosinophils (%) (Auto) 2 % (0-3) Basophils (%) (Auto) 1 % (0-3) Neutrophils # (Auto) 4.0 x10^3/uL (1.8-7.7) Lymphocytes # (Auto) 0.9 x10^3/uL (1.0-4.8) Monocytes # (Auto) 0.4 x10^3/uL (0.0-1.1) Eosinophils # (Auto) 0.1 x10^3/uL (0.0-0.7) Basophils # (Auto) 0.0 x10^3/uL (0.0-0.2) Prothrombin Time 52.7 SEC (11.7-14.0) Prothromb Time International Ratio 6.1 (0.8-1.1) Sodium Level 142 mmol/L (136-145) Potassium Level 3.0 mmol/L (3.5-5.1) Chloride Level 102 mmol/L (98-107) Carbon Dioxide Level 28 mmol/L (21-32) Anion Gap 12 (6-14) Blood Urea Nitrogen 15 mg/dL (8-26) Creatinine 1.1 mg/dL (0.7-1.3) Estimated GFR (Cockcroft-Gault) 79.2 BUN/Creatinine Ratio 14 (6-20) Glucose Level 94 mg/dL (70-99) Lactic Acid Level 1.2 mmol/L (0.4-2.0) Calcium Level 9.0 mg/dL (8.5-10.1) Phosphorus Level 3.0 mg/dL (2.6-4.7) Magnesium Level 1.6 mg/dL (1.8-2.4) Total Bilirubin 1.2 mg/dL (0.2-1.0) Aspartate Amino Transf (AST/SGOT) 16 U/L (15-37) Alanine Aminotransferase (ALT/SGPT) 8 U/L (16-63) Alkaline Phosphatase 68 U/L (46-116) Troponin I High Sensitivity 27 ng/L (4-75) 24 ng/L (4-75) MC-Nkd-F-Type Natriuretic Peptide 7180 pg/mL (0-124) Total Protein 8.0 g/dL (6.4-8.2) Albumin 3.5 g/dL (3.4-5.0) Albumin/Globulin Ratio 0.8 (1.0-1.7) Test 07/15/21 17:20 07/16/21 04:50 Urine Collection Type Unknown Urine Color (Auto) Yellow Urine Turbidity Clear Urine pH (Auto) 6.0 (<5.0-8.0) Urine Specific [place] 1.013 (1.000-1.030) Urine Protein (Auto) 30 mg/dL (Negative) Urine Glucose (Auto)(UA) Negative mg/dL (Negative) Urine Ketones (Auto) Negative mg/dL (Negative) Urine Blood (Auto) Small (Negative) Urine Nitrite Negative (Negative) Urine Bilirubin (Auto) Negative (Negative) Urine Urobilinogen (Auto) 8 mg/dL (Normal) Urine Leukocyte Esterase (Auto) Negative (Negative) Urine RBC 6-10 /HPF (0-2) Urine WBC 1-4 /HPF (0-4) Urine Squamous Epithelial Cells Few /LPF Urine Bacteria 0 /HPF (0-FEW) Urine Hyaline Casts Moderate /HPF Urine Mucus Slight /LPF White Blood Count 3.4 x10^3/uL (4.0-11.0) Red Blood Count 5.69 x10^6/uL (4.30-5.70) Hemoglobin 15.6 g/dL (13.0-17.5) Hematocrit 49.7 % (39.0-53.0) Mean Corpuscular Volume 87 fL (79-100) Mean Corpuscular Hemoglobin 27 pg (25-35) Mean Corpuscular Hemoglobin Concent 31 g/dL (31-37) Red Cell Distribution Width 16.2 % (11.5-14.5) Platelet Count 122 x10^3/uL (140-400) Neutrophils (%) (Auto) 82 % (31-73) Lymphocytes (%) (Auto) 16 % (24-48) Monocytes (%) (Auto) 1 % (0-9) Eosinophils (%) (Auto) 0 % (0-3) Basophils (%) (Auto) 0 % (0-3) Neutrophils # (Auto) 2.8 x10^3/uL (1.8-7.7) Lymphocytes # (Auto) 0.5 x10^3/uL (1.0-4.8) Monocytes # (Auto) 0.0 x10^3/uL (0.0-1.1) Eosinophils # (Auto) 0.0 x10^3/uL (0.0-0.7) Basophils # (Auto) 0.0 x10^3/uL (0.0-0.2) Sodium Level 144 mmol/L (136-145) Potassium Level 3.6 mmol/L (3.5-5.1) Chloride Level 103 mmol/L (98-107) Carbon Dioxide Level 31 mmol/L (21-32) Anion Gap 10 (6-14) Blood Urea Nitrogen 17 mg/dL (8-26) Creatinine 1.1 mg/dL (0.7-1.3) Estimated GFR (Cockcroft-Gault) 79.2 BUN/Creatinine Ratio 15 (6-20) Glucose Level 117 mg/dL (70-99) Calcium Level 8.7 mg/dL (8.5-10.1) Total Bilirubin 1.1 mg/dL (0.2-1.0) Aspartate Amino Transf (AST/SGOT) 13 U/L (15-37) Alanine Aminotransferase (ALT/SGPT) 6 U/L (16-63) Alkaline Phosphatase 58 U/L (46-116) Total Protein 7.3 g/dL (6.4-8.2) Albumin 3.0 g/dL (3.4-5.0) Albumin/Globulin Ratio 0.7 (1.0-1.7) Comment Review of Relevant I have reviewed the following items cynthia (where applicable) has been applied. Medications: Current Medications Medications (Trade) Dose Ordered Sig/Tobi Route PRN Reason Start Time Stop Time Status Last Admin Dose Admin Furosemide (Lasix) 40 mg 1X ONCE IVP 07/15/21 13:30 07/15/21 13:31 DC 07/15/21 14:49 Nitroglycerin (Nitro-Bid Oint) 1 inch 1X ONCE TP 07/15/21 13:30 07/15/21 13:31 DC 07/15/21 14:46 Potassium Chloride (Klor-Con) 40 meq 1X ONCE PO 07/15/21 16:45 07/15/21 16:46 DC 07/15/21 18:03 Magnesium Sulfate 50 ml @ 25 mls/hr 1X ONCE IV 07/15/21 17:00 07/15/21 18:59 DC 07/15/21 18:03 Senna/Docusate Sodium (Senna Plus) 1 tab BID PO 07/15/21 21:00 07/15/21 22:18 Furosemide (Lasix) 40 mg DAILY PO 07/16/21 09:00 07/16/21 09:37 Albuterol/ Ipratropium (Duoneb) 3 ml RTQID NEB 07/15/21 20:00 07/16/21 11:43 Metoprolol Succinate (Toprol Xl) 25 mg DAILY PO 07/16/21 09:00 07/16/21 09:37 Sacubitril/ Valsartan (Entresto 24 Mg-26 Mg) 1 tab BID PO 07/15/21 21:00 07/16/21 09:37 Simvastatin (Zocor) 20 mg HS PO 07/15/21 21:00 07/15/21 22:19 Furosemide (Lasix) 40 mg 1X ONCE IVP 07/15/21 18:00 07/15/21 18:01 DC 07/15/21 18:08 Digoxin (Lanoxin) 250 mcg 1X ONCE IV 07/16/21 10:45 07/16/21 10:46 DC 07/16/21 11:20 Furosemide (Lasix) 40 mg 1X ONCE IVP 07/16/21 10:45 07/16/21 10:46 DC 07/16/21 11:20 Justifications for Admission Other Justification LILIYA SANCHES MD Jul 16, 2021 11:46
[2021-07-16 11:52] LABS: MAGNESIUM 2.1 mg/dL (1.8-2.4)
[2021-07-16 11:56] LABS: CHOLESTEROL/HDL RATIO 2.9
[2021-07-16 12:17] LABS: PROTHROMBIN TIME PATIENT 73.2 SEC (11.7-14.0)
--- NOTE | 2021-07-16 14:19 | NUR ---
SS following for discharge planning. SS reviewed pt chart and discussed with pt RN. Pt is from home and is currently requiring oxygen at six liters nasal canula and BIPAP PRN. COVID19 test pending. Pt has no home oxygen. Cardiology following. ECHO ordered. SS will continue to follow for discharge planning.
[2021-07-16 15:00] VITALS: BP 97/56
--- NOTE | 2021-07-16 15:22 | NUR ---
Pharmacy Warfarin Dosing Note S:Pharmacy consulted to assist with anticoagulation therapy, target INR: 2 - 3 O:SUDHIR NICOLE is a 76 year old M with Atrial Fibrillation LABS: Last INR: 9.2 Last HGB: 15.6 Last HCT: 49.7 Last PLT: 122 A:INR of 9.2 is above desired range. Target range for this patient is: 2 - 3 P: HOLD warfarin dose today Bridge Therapy: None Next INR due 07/17/21 Pharmacy anticoagulation service will continue to follow. JERMAIN MAURICIO [facility], 07/16/21 [id number]
[2021-07-16] MEDS: MULTIVITAMIN with MINERAL TABLET. PO SCH (15:47)
--- NOTE | 2021-07-16 16:02 | CARD ---
MR#: [id number] Date of Study: 07/16/2021 Ordering Physician: LILIYA OLIVA, Referring Physician: LILIYA OLIVA, Tech: Lynne Mendez [facility] APPROVED REPORT EXAM: Two-dimensional and M-mode echocardiogram with Doppler and color Doppler. Other Information Quality : AverageHR: 100bpm Rhythm : Tachycardia INDICATION COPD Dyspnea RISK FACTORS Hypertension Obesity Hyperlipidemia Diabetes 2D DIMENSIONS Left Atrium(2D)4.7 (1.6-4.0cm)IVSd0.8 (0.7-1.1cm) Aortic Root(2D)3.1 (2.0-3.7cm)LVDd5.9 (3.9-5.9cm) LVOT Diameter2.1 (1.8-2.4cm)PWd0.9 (0.7-1.1cm) LVDs5.1 (2.5-4.0cm)FS (%) 13.8 % SV50.7 mlLVEF(%)29.1 (>50%) Aortic Valve AoV Peak Frederick.143.3cm/sAoV VTI27.9cm AO Peak GR.8.2mmHgLVOT Peak [place].83.1cm/s AO Mean GR.4mmHgAVA (VMAX)1.92cm2 Pulmonary Valve PV Peak Thomcihj348.4cm/s Tricuspid Valve TR P. [id number]/sTR Peak Gr.53mmHg LEFT VENTRICLE The Left Ventricle is mildly dilated. There is normal left ventricular wall thickness. The ejection f raction is severely impaired. EF 30-35% There is severe global hypokinesis of the left ventricle. Tra nsmitral Doppler flow pattern is Grade II-pseudonormal filling dynamics. RIGHT VENTRICLE The right ventricle is moderate to severely dilated. The right ventricle is mildly hypertrophied. RV Systolic function is mildly to moderately reduced. ATRIA The left atrium is severely dilated. The right atrium is severely dilated. The interatrial septum is intact with no evidence for an atrial septal defect or patent foramen ovale as noted on 2-D or Dopple r imaging. AORTIC VALVE The aortic valve is normal in structure and function. Doppler and Color Flow revealed no significant aortic regurgitation. There is no significant aortic valvular stenosis. MITRAL VALVE The mitral valve is normal in structure and function. There is no evidence of mitral valve prolapse. There is no mitral valve stenosis. Doppler and Color-flow revealed mild mitral regurgitation. TRICUSPID VALVE The tricuspid valve is normal in structure and function. Doppler and Color Flow revealed trace tricus pid regurgitation. Estimated PAP 67 mmHg. There is no tricuspid valve stenosis. PULMONIC VALVE Doppler and Color Flow revealed trace pulmonic valvular regurgitation. There is no pulmonic valvular stenosis. GREAT VESSELS The aortic root is normal in size. The ascending aorta is normal in size. The IVC is dilated and katy apses <50% with inspiration. PERICARDIAL EFFUSION There is no evidence of significant pericardial effusion. Critical Notification Critical Value: No <Conclusion> The ejection fraction is severely impaired. EF 30-35% There is severe global hypokinesis of the left ventricle. The right ventricle is moderate to severely dilated. Doppler and Color Flow revealed trace tricuspid regurgitation. Estimated PAP 67 mmHg. Signed by : Jaime Berman, Electronically Approved : 07/16/2021 16:01:51
[2021-07-16 19:51] VITALS: BP 95/56
[2021-07-16] MEDS: SIMVASTATIN 20 MG TABLET PO SCH (19:53)
[2021-07-16 23:12] VITALS: BP 82/53
[2021-07-17] VITALS (18 sets, daily range): BP systolic 60–112; BP diastolic 31–61
[2021-07-17 05:04] LABS: PROTHROMBIN TIME PATIENT 74.7 SEC (11.7-14.0)
[2021-07-17 05:16] LABS: CALCIUM 8.8 mg/dL (8.5-10.1); CREATININE 2.1 mg/dL (0.7-1.3); GFR 37.5; MAGNESIUM 2.3 mg/dL (1.8-2.4); POTASSIUM 3.5 mmol/L (3.5-5.1)
[2021-07-17] MEDS: IPRATRPIUM/ALBUTEROL 0.5/2.5MG 3 ML NEBU. NEB SCH ×4 (08:31→21:00)
[2021-07-17] MEDS: SENNOSIDES/DOCUSATE 8.6/50MG TABLET. PO SCH ×3 (09:00→20:58)
[2021-07-17] MEDS: FUROSEMIDE 40 MG TABLET. PO SCH (09:00)
[2021-07-17] MEDS: MULTIVITAMIN with MINERAL TABLET. PO SCH (10:05)
[2021-07-17] MEDS: ACETAMINOPHEN 325 MG TABLET. PO PRN (11:12)
--- NOTE | 2021-07-17 11:26 | NUR ---
SS following up with discharge planning. SS reviewed pt chart and discussed with pt RN. Pt is currently requiring oxygen at six liters nasal canula and BIPAP PRN. COVID19 test pending. Cardiology following. SS will continue to follow for discharge planning.
[2021-07-17] MEDS ORDERED: POTASSIUM CHLORIDE 20 MEQ TABLET.ER. PO ONE (11:45)
--- NOTE | 2021-07-17 11:45 | PDOC ---
ANASTACIA PARR MINING HELPER 07/17/21 1145: CARDIO Progress Notes Date and Time Date of Service 07/17/2021 Time of Evaluation 1100 Subjective Subjective: No Chest Pain, No shortness of breath, No Palpitations Vitals Vitals Vital Signs Date Time Temp Pulse Resp B/P (MAP) Pulse Ox O2 Delivery O2 Flow Rate FiO2 07/17/21 10:48 96.8 82 20 87/61 (70) 95 Nasal Cannula 5.0 96.8 Weight Weight [ ] Input and Output Intake and Output Intake and Output 07/17/21 07:00 Intake Total 1370 ml Output Total 720 ml Balance 650 ml Intake Oral 1370 ml Output Urine Total 720 ml Laboratory Labs Laboratory Tests Test 07/16/21 11:34 07/17/21 03:50 Prothrombin Time 73.2 SEC (11.7-14.0) 74.7 SEC (11.7-14.0) Prothromb Time International Ratio 9.2 (0.8-1.1) 9.5 (0.8-1.1) Sodium Level 141 mmol/L (136-145) Potassium Level 3.5 mmol/L (3.5-5.1) Chloride Level 103 mmol/L (98-107) Carbon Dioxide Level 35 mmol/L (21-32) Anion Gap 3 (6-14) Blood Urea Nitrogen 31 mg/dL (8-26) Creatinine 2.1 mg/dL (0.7-1.3) Estimated GFR (Cockcroft-Gault) 37.5 Glucose Level 89 mg/dL (70-99) Calcium Level 8.8 mg/dL (8.5-10.1) Magnesium Level 2.3 mg/dL (1.8-2.4) Microbiology Micro Microbiology 07/15/21 Blood Culture - Preliminary, Resulted NO GROWTH AFTER 1 DAY Physical Exam HEENT: Neck Supple W Full Motion Chest: Symmetric LUNGS: Other (diminished bases) Heart: irregularly irregular (AFIB ) Abdomen: Other (obese) Extremities: Other (trace LE edema) Neurology: alert, oriented, follow commands Assessment Assessment 1. Acute on chronic hypoxic respiratory failure with CHF/COPD exacerbation and AFIB RVR. Poor compliance with home CPAP 2. AFIB RVR: chronic by history. rate controlled 3. Acute on chronic HFrEF: NYHA2, appears better 4. HTN: presently hypotensive 5. HLP 6. ICM: EF remains about the same at 30-35% 7. CAD: Past CABG 8. Coagulopathy: coumadin related. INR at 9.5 9. BILLY: suspect cardiorenal 10. PUI 11. Hypotension Recommendations 1. Hold entresto. Hold milrinone start with low BP. Hold toprol. If HR increases then will uutilize PRN digoxin. Bolus IV with NS. Check Hemogram 2. Continue secondary prevention measures 3. He has not been seen in our office since 12/2019. 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 Continue rate control with toprol if BP would support. 4. Stop coumadin and will start on eliquis when INR is below 2. Will recheck INR and will consider using Vit K pending hemogram 4. Smoking cessation. Continue with HF optimization. 5. Will consider for RHC as an inpt 6. Will consider for outpt ischemic workup. Justicifation of Admission Dx: Justifications for Admission: Justification of Admission Dx: Yes HIREN ROMAN MD 07/17/21 1322: CARDIO Progress Notes Other Comments Patient seen and examined I agree with our nurse practitioners assessment and plan. 1. Acute on chronic hypoxic respiratory failure with CHF/COPD exacerbation and AFIB RVR. Poor compliance with home CPAP 2. AFIB RVR: chronic by history. rate controlled 3. Acute on chronic HFrEF: NYHA2, appears better 4. HTN: presently hypotensive 5. HLP 6. ICM: EF remains about the same at 30-35% 7. CAD: Past CABG 8. Coagulopathy: coumadin related. INR at 9.5 9. BILLY: suspect cardiorenal 10. PUI 11. Hypotension Hold entresto. Hold milrinone start with low BP. Hold toprol. If HR increases then will utilize PRN digoxin. Bolus IV with NS. Check Hemogram He has not been seen in our office since 12/2019. 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 Continue rate control with toprol if BP would support. Stop coumadin and will start on eliquis when INR is below 2. Will recheck INR and will consider using Vit K pending hemogram Smoking cessation. Continue with HF optimization. Will consider for RHC Outpt ischemic workup. ANASTACIA PARR APRN Jul 17, 2021 11:45 HIREN ROMAN MD Jul 17, 2021 13:22
[2021-07-17] MEDS: MILRINONE 20MG/100ML PREMIX 100 ML IV PRN (11:49)
[2021-07-17] MEDS ORDERED: IV NORMAL SALINE 250ML 250 ML IV ONE ×2 (12:15→15:00)
[2021-07-17 13:08] LABS: HEMATOCRIT 46.7 % (39.0-53.0); HEMOGLOBIN 14.4 g/dL (13.0-17.5); RED BLOOD COUNT 5.26 x10^6/uL (4.30-5.70); RED CELL DISTRIBUTION WIDTH 16.5 % (11.5-14.5); WHITE BLOOD COUNT 8.2 x10^3/uL (4.0-11.0)
--- NOTE | 2021-07-17 13:32 | PDOC ---
[facility] PROGRESS NOTE Date of Service DOS: DATE: 07/17/21 TIME: 13:30 Chief Complaint Chief Complaint Acute on chronic hypoxic respiratory failure with CHF/COPD exacerbation and AFIB RVR. Poor compliance with home CPAP AFIB RVR - with chronic afib Acute on chronic HFrEF Ischemic cardiomyopathy EF 25-30% historically ?COPD Diabetes Dyperlipidemia Hypertension Benign tumor of the left eye CAMERON - CPAP at home Thrombocytopenia Leukopenia FEN - History of Present Illness History of Present Illness Mr Olea is a 76yo male w/ PMHx cardiomyopathy with an EF of 25%-30%, history of ongoing tobaccoism, suspect underlying COPD, obesity, history of CAMERON, on home CPAP with O2 bleed in 3L, left eye tumor, AFib, Coronary artery disease, type 2 diabetes, dyslipidemia and hypertension who p/w worsening shortness of breath to ED on 07/15/2021 at the behest of his PCP when he was found to be saturating 74% on room air. States that has been having worsening shortness of breath for the past month or so. Also having cough nonproductive. He was given a breathing treatment IV steroids and sent here On presentation here he required being placed on BiPAP due to hypoxia. Given 40 IV Lasix in ER with brisk diuresis. He is on home warfarin for A. fib but INR notably elevated Patient was denying any sort of headache chest pain abdominal pain dysuria. 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 Still having shortness of breath and abdominal distention. Given 40 mg of IV Lasix and has had no urine output over the past 8 hours. Had difficulty tolerating BiPAP at 18/4 felt his ears popping. Normally he is on CPAP 10 cm of H2O. Seen bedside his O2 saturations were 89% on 6 L/min of O2. A. fib is a little better rate controlled. Was given digoxin 07/17: INR 9.5, CR jumped to 2. Limited urine output blood pressure is low today. Discussed milrinone with cardiology. Will check renal ultrasound and consult nephrology for BILLY. Vitals/I&O Vitals/I&O: Vital Signs Date Time Temp Pulse Resp B/P (MAP) Pulse Ox O2 Delivery O2 Flow Rate FiO2 07/17/21 10:48 96.8 82 20 87/61 (70) 95 Nasal Cannula 5.0 96.8 I & O 07/16/21 07/16/21 07/17/21 15:00 23:00 07:00 Intake Total 420 ml 180 ml 770 ml Output Total 720 ml Balance 420 ml -540 ml 770 ml Physical Exam General: Alert, Oriented X3, Cooperative, No acute distress Heart: Other (AFIB RVR, distant heart sounds) Lungs: Clear Abdomen: Soft, Other (obese) Extremities: No cyanosis, Other (trace LE edema) Skin: No breakdown, No significant lesion Labs Labs: Laboratory Tests Test 07/17/21 03:50 White Blood Count 8.2 x10^3/uL (4.0-11.0) Red Blood Count 5.26 x10^6/uL (4.30-5.70) Hemoglobin 14.4 g/dL (13.0-17.5) Hematocrit 46.7 % (39.0-53.0) Mean Corpuscular Volume 89 fL (79-100) Mean Corpuscular Hemoglobin 27 pg (25-35) Mean Corpuscular Hemoglobin Concent 31 g/dL (31-37) Red Cell Distribution Width 16.5 % (11.5-14.5) Platelet Count 127 x10^3/uL (140-400) Prothrombin Time 74.7 SEC (11.7-14.0) Prothromb Time International Ratio 9.5 (0.8-1.1) Sodium Level 141 mmol/L (136-145) Potassium Level 3.5 mmol/L (3.5-5.1) Chloride Level 103 mmol/L (98-107) Carbon Dioxide Level 35 mmol/L (21-32) Anion Gap 3 (6-14) Blood Urea Nitrogen 31 mg/dL (8-26) Creatinine 2.1 mg/dL (0.7-1.3) Estimated GFR (Cockcroft-Gault) 37.5 Glucose Level 89 mg/dL (70-99) Calcium Level 8.8 mg/dL (8.5-10.1) Magnesium Level 2.3 mg/dL (1.8-2.4) Comment Review of Relevant I have reviewed the following items cynthia (where applicable) has been applied. Medications: Current Medications Medications (Trade) Dose Ordered Sig/Tobi Route PRN Reason Start Time Stop Time Status Last Admin Dose Admin Multivitamins (Thera M Plus) 1 tab DAILY PO 07/16/21 14:15 07/17/21 10:05 Milrinone Lactate/ Dextrose 100 ml @ 4.065 mls/ hr CONT PRN IV SEE I/O RECORD 07/17/21 11:45 07/17/21 11:49 Potassium Chloride (Klor-Con) 20 meq 1X ONCE PO 07/17/21 11:45 07/17/21 11:46 DC 07/17/21 11:49 Sodium Chloride 250 ml @ 250 mls/hr 1X ONCE IV 07/17/21 12:15 07/17/21 13:14 DC 07/17/21 12:20 Justifications for Admission Other Justification LILIYA SANCHES MD Jul 17, 2021 13:32
[2021-07-17] MEDS ORDERED: ALBUMIN HUMAN 5% 250 ML IV PRN (14:00)
[2021-07-17] MEDS ORDERED: PHYTONADIONE 10 MG/ML AMPUL. SQ ONE (15:00)
[2021-07-17] MEDS ORDERED: MIDODRINE 5 MG TABLET PO ONE (16:45)
--- NOTE | 2021-07-17 19:35 | RAD ---
EXAM: RENAL ULTRASOUND CLINICAL HISTORY: Acute renal insufficiency: COMPARISON: None available. TECHNIQUE: Ultrasound examination of the bilateral kidneys and urinary bladder was performed. FINDINGS: The right kidney measures 12.0 x 5.8 x 6.9 cm. The left kidney is not visualized due to bowel gas. Ur inary bladder is mildly distended. IMPRESSION: 1.The left kidney is not well-visualized due to bowel gas. 2. The visualized right kidney within normal limits. Electronically signed by: Bentley Rai MD (07/17/2021 7:33 PM) [id number]
--- NOTE | 2021-07-17 19:40 | NUR ---
Pt in bed assessment completed vss poc explained pt c/o discomfort with the Ingram Catheter.Will medicate pt and continue to monitor pt.Call light i n reach bed alarm set. Will resume care and continue to monitor pt.
[2021-07-17] MEDS: SIMVASTATIN 20 MG TABLET PO SCH (20:58)
[2021-07-17] MEDS: oxyCODONE/APAP 5/325 1 TAB TABLET PO PRN (20:59)
[2021-07-18] VITALS (22 sets, daily range): BP systolic 71–117; BP diastolic 37–96
[2021-07-18 05:13] LABS: HEMATOCRIT 47.9 % (39.0-53.0); HEMOGLOBIN 14.8 g/dL (13.0-17.5); RED BLOOD COUNT 5.36 x10^6/uL (4.30-5.70); RED CELL DISTRIBUTION WIDTH 16.4 % (11.5-14.5); WHITE BLOOD COUNT 8.7 x10^3/uL (4.0-11.0)
[2021-07-18 05:16] LABS: PROTHROMBIN TIME PATIENT 37.3 SEC (11.7-14.0)
[2021-07-18 05:48] LABS: CALCIUM 8.6 mg/dL (8.5-10.1); CREATININE 1.7 mg/dL (0.7-1.3); GFR 47.9; MAGNESIUM 2.3 mg/dL (1.8-2.4)
[2021-07-18] MEDS: IPRATRPIUM/ALBUTEROL 0.5/2.5MG 3 ML NEBU. NEB SCH ×4 (07:42→20:27)
[2021-07-18] MEDS: SENNOSIDES/DOCUSATE 8.6/50MG TABLET. PO SCH ×2 (08:12→21:39)
[2021-07-18] MEDS: MULTIVITAMIN with MINERAL TABLET. PO SCH (08:12)
[2021-07-18] MEDS: FUROSEMIDE 40 MG TABLET. PO SCH (08:12)
[2021-07-18] MEDS: ACETAMINOPHEN 325 MG TABLET. PO PRN (08:12)
--- NOTE | 2021-07-18 09:20 | PDOC2 ---
CONSULT Date of Consult Date of Consult DATE: 07/18/21 TIME: 09:20 Reason for Consult Reason for Consult: BILLY Identification/Chief Complaint Chief Complaint No complaints currently History of Present Illness Reason for Visit: Patient is 76-year-old -[place] male who presented to the emergency room on 07/15 due to worsening shortness of breath. Patient was at his PCP's and was found to be saturating 74% on room air. States that has been having worsening shortness of breath for the past month or so. Also having cough nonproductive. He was given a breathing treatment IV steroids and sent to the ER Denies chest pain. No N/V abdominal pain .No F/C Denies any urinary complaints, No dysuria, hematurtia. He states he may have passed kidney stone many years ago but is not sure . Murcia was placed yesterday as he was not voiding; BP's low at presentation as well . He pulled on his murcia per nursing report . 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 Denies any SOB . No N/V . On o2 by [place] On presentation here he required being placed on BiPAP due to hypoxia. Given 40 IV Lasix in ER and another another dose last tonight. Previous echo shows 20-25% EF. 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 He is on home warfarin for A. fib Past Medical History Cardiovascular: AFIB, CAD, CHF, HTN, NE, Hyperlipidemia Pulmonary: COPD, Pneumonia, Other GI: No pertinent hx Heme/Onc: No pertinent hx Hepatobiliary: No pertinent hx Psych: No pertinent hx Musculoskeletal: Osteoarthritis Infectious disease: No pertinent hx Renal/: No pertinent hx Endocrine: Diabetes Past Surgical History Past Surgical History: CABG, Other Family History Family History: Diabetes, Heart Disease, Hypertension Social History ALCOHOL: none Drugs: None Lives: with Family Current Medications Current Medications Current Medications Furosemide (Lasix) 40 mg 1X ONCE IVP Last administered on 07/15/21at 14:49; Start 07/15/21 at 13:30; Stop 07/15/21 at 13:31; Status DC Nitroglycerin (Nitro-Bid Oint) 1 inch 1X ONCE TP Last administered on 07/15/21at 14:46; Start 07/15/21 at 13:30; Stop 07/15/21 at 13:31; Status DC Ondansetron HCl (Zofran) 4 mg PRN Q8HRS PRN IVP NAUSEA/VOMITING; Start 07/15/21 at 16:15; Stop 07/15/21 at 16:49; Status DC Fentanyl Citrate (Fentanyl 2ml Vial) 50 mcg PRN Q1HR PRN IVP PAIN; Start 07/15/21 at 16:15; Stop 07/16/21 at 16:14; Status DC Acetaminophen (Tylenol) 650 mg PRN Q4HRS PRN PO FEVER > 100.3'F; Start 07/15/21 at 16:15; Stop 07/16/21 at 10:43; Status DC Potassium Chloride (Klor-Con) 40 meq 1X ONCE PO Last administered on 07/15/21at 18:03; Start 07/15/21 at 16:45; Stop 07/15/21 at 16:46; Status DC Magnesium Sulfate 50 ml @ 25 mls/hr 1X ONCE IV Last administered on 07/15/21at 18:03; Start 07/15/21 at 17:00; Stop 07/15/21 at 18:59; Status DC Acetaminophen (Tylenol) 650 mg PRN Q6HRS PRN PO Headaches, Temp > 101.5' Last administered on 07/18/21at 08:12; Start 07/15/21 at 16:45 Ondansetron HCl (Zofran) 4 mg PRN Q6HRS PRN IVP NAUSEA/VOMITING Last administe red on 07/16/21at 14:45; Start 07/15/21 at 16:45 Calcium Carbonate/ Glycine (Tums) 500 mg PRN Q3HRS PRN PO HEARTBURN / GAS; Sta rt 07/15/21 at 16:45 Sodium Chloride (Normal Saline Flush) 3 ml QSHIFT PRN IV AFTER MEDS AND BLOOD DRAWS; Start 07/15/21 at 16:45 Oxycodone/ Acetaminophen (Percocet 5/325) 1 tab PRN Q4HRS PRN PO MILD PAIN, 1ST CHOICE Last administered on 07/17/21at 20:59; Start 07/15/21 at 16:45 Oxycodone/ Acetaminophen (Percocet 5/325) 2 tab PRN Q4HRS PRN PO MODERATE PAIN, SEVERE PAIN; Start 07/15/21 at 16:45 Senna/Docusate Sodium (Senna Plus) 1 tab BID PO Last administered on 07/18/21at 08:12; Start 07/15/21 at 21:00 Furosemide (Lasix) 40 mg DAILY PO Last administered on 07/16/21at 09:37; Start 07/16/21 at 09:00 Albuterol/ Ipratropium (Duoneb) 3 ml RTQID NEB Last administered on 07/18/21at 07:42; Start 07/15/21 at 20:00 Metoprolol Succinate (Toprol Xl) 25 mg DAILY PO Last administered on 07/16/21at 09:37; Start 07/16/21 at 09:00; Stop 07/17/21 at 12:13; Status DC Sacubitril/ Valsartan (Entresto 24 Mg-26 Mg) 1 tab BID PO Last administered on 07/16/21at 19:53; Start 07/15/21 at 21:00; Stop 07/17/21 at 11:33; Status DC Simvastatin (Zocor) 20 mg HS PO Last administered on 07/17/21at 20:58; Start 07/15/21 at 21:00 Warfarin Sodium (Coumadin Per Pharmacy) 1 each PRN DAILY PRN MC SEE COMMENTS Last administered on 07/16/21at 15:21; Start 07/15/21 at 16:45; Stop 07/16/21 at 16:43; Status DC Warfarin Sodium (Coumadin - No Dose Today) 1 each 1X WARF ONCE MC ; Start 07/16/21 at 16:00; Stop 07/16/21 at 16:43; Status DC Furosemide (Lasix) 40 mg 1X ONCE IVP Last administered on 07/15/21at 18:08; Start 07/15/21 at 18:00; Stop 07/15/21 at 18:01; Status DC Perflutren Protein Type A Microsphe (Optison) 0.66 mg 1X ONCE IV ; Start 07/16/21 at 07:00; Stop 07/16/21 at 07:01; Status DC Digoxin (Lanoxin) 250 mcg 1X ONCE IV Last administered on 07/16/21at 11:20; Start 07/16/21 at 10:45; Stop 07/16/21 at 10:46; Status DC Furosemide (Lasix) 40 mg 1X ONCE IVP Last administered on 07/16/21at 11:20; Start 07/16/21 at 10:45; Stop 07/16/21 at 10:46; Status DC Multivitamins (Thera M Plus) 1 tab DAILY PO Last administered on 07/18/21at 08:12; Start 07/16/21 at 14:15 Milrinone Lactate/ Dextrose 100 ml @ 4.065 mls/ hr CONT PRN IV SEE I/O RECORD Last administered on 07/17/21at 11:49; Start 07/17/21 at 11:45 Potassium Chloride (Klor-Con) 20 meq 1X ONCE PO Last administered on 07/17/21at 11:49; Start 07/17/21 at 11:45; Stop 07/17/21 at 11:46; Status DC Sodium Chloride 250 ml @ 250 mls/hr 1X ONCE IV Last administered on 07/17/21at 12:20; Start 07/17/21 at 12:15; Stop 07/17/21 at 13:14; Status DC Albumin Human 250 ml @ 62.5 mls/hr 1X PRN IV HYPOTENSION Last administered on 07/17/21at 15:32; Start 07/17/21 at 14:00; Stop 07/17/21 at 18:00; Status DC Phytonadione (Vitamin K Ampule) 10 mg 1X ONCE SQ Last administered on 07/17/21at 15:19; Start 07/17/21 at 15:00; Stop 07/17/21 at 15:01; Status DC Sodium Chloride 250 ml @ 250 mls/hr 1X ONCE IV Last administered on 07/17/21at 16:05; Start 07/17/21 at 15:00; Stop 07/17/21 at 15:59; Status DC Midodrine (Proamatine) 10 mg 1X ONCE PO Last administered on 07/17/21at 16:49; Start 07/17/21 at 16:45; Stop 07/17/21 at 16:46; Status DC Active Scripts Active Entresto 24 mg-26 mg Tablet (Sacubitril/Valsartan) 1 Each Tablet 1 Tab PO BID 30 Days Metoprolol Succinate ( Xl ) (Metoprolol Succinate) 25 Mg Tab.er.24h 25 Mg PO DAILY 30 Days Doxycycline Hyclate 100 Mg Tablet 100 Mg PO BID 4 Days Duoneb 0.5-3(2.5) Mg/3 Ml (Albuterol/Ipratropium) 3 Ml Ampul.neb 3 Ml NEB RTQID 30 Days Reported Warfarin Sodium 7.5 Mg Tablet 7.5 Mg PO [id number] Warfarin Sodium 5 Mg Tablet 5 Mg PO [id number] Furosemide 40 Mg Tablet 40 Mg PO DAILY Simvastatin 20 Mg Tablet 20 Mg PO HS Aspir 81 (Aspirin) 81 Mg Tablet.dr 81 Mg PO DAILY Allergies Allergies: Coded Allergies: Iodinated Contrast Media (Verified Adverse Reaction, Intermediate, "bumps on skin around IV site", 03/27/16) ROS Review of System As per HPI, rest of the ros is negative Physical Exam Physical Exam GEN: No apparent distress. HEENT: Normal cephalic, atraumatic, OM moist, EYES: Left eye with ptosis due to tumor NECK: Supple, LUNGS: Clear to auscultation, Non labored , decreased at bases HEART: RRR, S!, S2 present. ABDOMEN: Soft, nontender. Positive bowel sounds,Obese EXTREMITIES: Bilateral lower extremity pitting edema NEUROLOGIC: Normal speech and tone. A&O x 3, moves all extremities, no obvious focal deficits PSYCHIATRIC: Normal affect, Stable SKIN: No ulcerations or rashes, Murcia since admission , No CVA or SP tenderness Vital Signs Vital Signs Date Time Temp Pulse Resp B/P (MAP) Pulse Ox O2 Delivery O2 Flow Rate FiO2 07/18/21 08:00 Nasal Cannula 3.5 07/18/21 07:44 93 07/18/21 07:00 97.9 93 16 104/62 (76) 97.9 Assessment & Plan BILLY - Vasomotor /Cardiorenal/ Hypotensive- BP was in 60's .Baseline Creat was normal at presentation, peaked at 2.0 , Non Oliguric currently , UOP marginal (as charted) has Murcia currently, Flush prn . Creat trending down. Renal US Unremarkable , Lk not visualized due to bowel gas Entresto held. Maintain hydration , Supportive care, avoid nephrotoxins Acute on chronic hypoxic respiratory failure with CHF/COPD exacerbation and AFIB RVR. AFIB RVR - with chronic afib Acute on chronic HFrEF Ischemic cardiomyopathy EF 30-35%. On Milrinone and PO Lasix. Defer to cardiology Diabetes Hypertension- Hypotensive since admission . 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 at home Thrombocytopenia Leukopenia Labs Labs Laboratory Tests Test 07/16/21 11:34 07/16/21 14:55 07/17/21 03:50 07/18/21 03:55 Prothrombin Time 73.2 SEC (11.7-14.0) 74.7 SEC (11.7-14.0) 37.3 SEC (11.7-14.0) Prothromb Time International Ratio 9.2 (0.8-1.1) 9.5 (0.8-1.1) 3.9 (0.8-1.1) Coronavirus (COVID-19)(PCR) Not detected (NOT DETECTD) White Blood Count 8.2 x10^3/uL (4.0-11.0) 8.7 x10^3/uL (4.0-11.0) Red Blood Count 5.26 x10^6/uL (4.30-5.70) 5.36 x10^6/uL (4.30-5.70) Hemoglobin 14.4 g/dL (13.0-17.5) 14.8 g/dL (13.0-17.5) Hematocrit 46.7 % (39.0-53.0) 47.9 % (39.0-53.0) Mean Corpuscular Volume 89 fL (79-100) 89 fL (79-100) Mean Corpuscular Hemoglobin 27 pg (25-35) 28 pg (25-35) Mean Corpuscular Hemoglobin Concent 31 g/dL (31-37) 31 g/dL (31-37) Red Cell Distribution Width 16.5 % (11.5-14.5) 16.4 % (11.5-14.5) Platelet Count 127 x10^3/uL (140-400) 107 x10^3/uL (140-400) Sodium Level 141 mmol/L (136-145) 144 mmol/L (136-145) Potassium Level 3.5 mmol/L (3.5-5.1) 4.0 mmol/L (3.5-5.1) Chloride Level 103 mmol/L (98-107) 105 mmol/L (98-107) Carbon Dioxide Level 35 mmol/L (21-32) 34 mmol/L (21-32) Anion Gap 3 (6-14) 5 (6-14) Blood Urea Nitrogen 31 mg/dL (8-26) 36 mg/dL (8-26) Creatinine 2.1 mg/dL (0.7-1.3) 1.7 mg/dL (0.7-1.3) Estimated GFR (Cockcroft-Gault) 37.5 47.9 Glucose Level 89 mg/dL (70-99) 101 mg/dL (70-99) Calcium Level 8.8 mg/dL (8.5-10.1) 8.6 mg/dL (8.5-10.1) Magnesium Level 2.3 mg/dL (1.8-2.4) 2.3 mg/dL (1.8-2.4) Laboratory Tests Test 07/18/21 03:55 White Blood Count 8.7 x10^3/uL (4.0-11.0) Red Blood Count 5.36 x10^6/uL (4.30-5.70) Hemoglobin 14.8 g/dL (13.0-17.5) Hematocrit 47.9 % (39.0-53.0) Mean Corpuscular Volume 89 fL (79-100) Mean Corpuscular Hemoglobin 28 pg (25-35) Mean Corpuscular Hemoglobin Concent 31 g/dL (31-37) Red Cell Distribution Width 16.4 % (11.5-14.5) Platelet Count 107 x10^3/uL (140-400) Prothrombin Time 37.3 SEC (11.7-14.0) Prothromb Time International Ratio 3.9 (0.8-1.1) Sodium Level 144 mmol/L (136-145) Potassium Level 4.0 mmol/L (3.5-5.1) Chloride Level 105 mmol/L (98-107) Carbon Dioxide Level 34 mmol/L (21-32) Anion Gap 5 (6-14) Blood Urea Nitrogen 36 mg/dL (8-26) Creatinine 1.7 mg/dL (0.7-1.3) Estimated GFR (Cockcroft-Gault) 47.9 Glucose Level 101 mg/dL (70-99) Calcium Level 8.6 mg/dL (8.5-10.1) Magnesium Level 2.3 mg/dL (1.8-2.4) Review All relevant outside records, renal labs, imaging studies, telemetry/EKG's were reviewed. Images Images EXAMINATION: Chest radiograph. VIEWS: Single AP view of the chest COMPARISON: CT chest from 05/09/2020 and chest radiograph dating back to 03/14/2019 INDICATION:76 years, Male, congestive heart failure. FINDINGS: Enlarged cardiomediastinal silhouette with poststernotomy changes. Slightly increased interstitial reticulations Similar prominent central pulmonary vasculature. Patchy left perihilar and bibasilar opacities, left greater than right. No pneumothorax. Possible small left pleural effusion. No pneumothorax. No acute osseous process. IMPRESSION: 1. Similar enlarged cardiomediastinal silhouette. 2. Pulmonary findings favor moderate interstitial pulmonary edema. Superimposed infiltrate cannot be excluded. 3. Possible small left pleural effusion. Electronically signed by: Joe Albert DO (07/15/2021 2:00 PM) [id number] EXAM: RENAL ULTRASOUND CLINICAL HISTORY: Acute renal insufficiency: COMPARISON: None available. TECHNIQUE: Ultrasound examination of the bilateral kidneys and urinary bladder was performed. FINDINGS: The right kidney measures 12.0 x 5.8 x 6.9 cm. The left kidney is not visualized due to bowel gas. Urinary bladder is mildly distended. IMPRESSION: 1.The left kidney is not well-visualized due to bowel gas. 2. The visualized right kidney within normal limits. Electronically signed by: Bentley Rai MD (07/17/2021 7:33 PM) [id number] BLU BLEVINS MD Jul 18, 2021 09:20
--- NOTE | 2021-07-18 11:10 | PDOC ---
CARDIO Progress Notes Date and Time Date of Service 07/18/2021 Time of Evaluation 1040 Subjective Subjective: No Chest Pain, No shortness of breath, No Palpitations Vitals Vitals Vital Signs Date Time Temp Pulse Resp B/P (MAP) Pulse Ox O2 Delivery O2 Flow Rate FiO2 07/18/21 09:41 92/55 (67) 07/18/21 08:00 Nasal Cannula 3.5 07/18/21 07:44 93 07/18/21 07:00 97.9 93 16 97.9 Weight Weight [ ] Input and Output Intake and Output Intake and Output 07/18/21 07:00 Intake Total 650 ml Output Total 725 ml Balance -75 ml Intake Oral 650 ml Output Urine Total 725 ml # Bowel Movements 1 Laboratory Labs Laboratory Tests Test 07/18/21 03:55 White Blood Count 8.7 x10^3/uL (4.0-11.0) Red Blood Count 5.36 x10^6/uL (4.30-5.70) Hemoglobin 14.8 g/dL (13.0-17.5) Hematocrit 47.9 % (39.0-53.0) Mean Corpuscular Volume 89 fL (79-100) Mean Corpuscular Hemoglobin 28 pg (25-35) Mean Corpuscular Hemoglobin Concent 31 g/dL (31-37) Red Cell Distribution Width 16.4 % (11.5-14.5) Platelet Count 107 x10^3/uL (140-400) Prothrombin Time 37.3 SEC (11.7-14.0) Prothromb Time International Ratio 3.9 (0.8-1.1) Sodium Level 144 mmol/L (136-145) Potassium Level 4.0 mmol/L (3.5-5.1) Chloride Level 105 mmol/L (98-107) Carbon Dioxide Level 34 mmol/L (21-32) Anion Gap 5 (6-14) Blood Urea Nitrogen 36 mg/dL (8-26) Creatinine 1.7 mg/dL (0.7-1.3) Estimated GFR (Cockcroft-Gault) 47.9 Glucose Level 101 mg/dL (70-99) Calcium Level 8.6 mg/dL (8.5-10.1) Magnesium Level 2.3 mg/dL (1.8-2.4) Microbiology Micro Microbiology 07/15/21 Blood Culture - Preliminary, Resulted NO GROWTH AFTER 2 DAYS Physical Exam HEENT: Neck Supple W Full Motion Chest: Symmetric LUNGS: Other (diminished bases with expiratory wheeze) Heart: irregularly irregular (AFIB ) Abdomen: Other (obese) Extremities: Other (2+ BLE edema) Neurology: alert, oriented, follow commands Assessment Assessment 1. Acute on chronic hypoxic respiratory failure with CHF/COPD exacerbation and AFIB RVR. Poor compliance with home CPAP 2. AFIB RVR: chronic by history. rate controlled 3. Acute on chronic HFrEF: NYHA2, appears better 4. HTN: presently hypotensive 5. HLP 6. ICM: EF remains about the same at 30-35% 7. CAD: Past CABG 8. Coagulopathy: coumadin related. INR down to 3.9 after Vit K 9. BILLY: suspect cardiorenal 10. Hypotension Recommendations 1. Entresto and toprol on hold due to low BP. His BP did improve and fluid bolus but remains in decompensated CHF. Transfer to ICU and would consider start of levophed if BP remains low after restart of milrinone and lasix. PCXR. dig IV x1 2. Continue secondary prevention measures 3. He has not been seen in our office since 12/2019. If EF remains low then will consider for outpt COUGAR HUNTER-D placement. Continue rate control with toprol if BP would support. 4. Stop coumadin and will start on eliquis when INR is below 2. Vit K today and will plan for RHC tomorrow. 5. Smoking cessation. Continue with HF optimization. 6. Will consider for outpt ischemic workup. Justicifation of Admission Dx: Justifications for Admission: Justification of Admission Dx: Yes ANASTACIA PARR APRN Jul 18, 2021 11:10
[2021-07-18] MEDS ORDERED: DIGOXIN IV 500 MCG/2 ML AMPUL. IV ONE ×2 (11:15→14:45)
--- NOTE | 2021-07-18 11:19 | PDOC ---
[facility] PROGRESS NOTE Date of Service DOS: DATE: 07/18/21 TIME: 11:13 Chief Complaint Chief Complaint Acute on chronic hypoxic respiratory failure with CHF/COPD exacerbation and AFIB RVR. Poor compliance with home CPAP AFIB RVR - with chronic afib Acute on chronic HFrEF Ischemic cardiomyopathy EF 25-30% historically ?COPD Diabetes Dyperlipidemia Hypertension Benign tumor of the left eye CAMERON - CPAP at home Thrombocytopenia Leukopenia FEN - History of Present Illness History of Present Illness Mr Olea is a 76yo male w/ PMHx cardiomyopathy with an EF of 25%-30%, history of ongoing tobaccoism, suspect underlying COPD, obesity, history of CAMERON, on home CPAP with O2 bleed in 3L, left eye tumor, AFib, Coronary artery disease, type 2 diabetes, dyslipidemia and hypertension who p/w worsening shortness of breath to ED on 07/15/2021 at the behest of his PCP when he was found to be saturating 74% on room air. States that has been having worsening shortness of breath for the past month or so. Also having cough nonproductive. He was given a breathing treatment IV steroids and sent here On presentation here he required being placed on BiPAP due to hypoxia. Given 40 IV Lasix in ER with brisk diuresis. He is on home warfarin for A. fib but INR notably elevated Patient was denying any sort of headache chest pain abdominal pain dysuria. 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 Still having shortness of breath and abdominal distention. Given 40 mg of IV Lasix and has had no urine output over the past 8 hours. Had difficulty tolerating BiPAP at 18/4 felt his ears popping. Normally he is on CPAP 10 cm of H2O. Seen bedside his O2 saturations were 89% on 6 L/min of O2. A. fib is a little better rate controlled. Was given digoxin 07/17: INR 9.5, CR jumped to 2. Limited urine output blood pressure is low today. Discussed milrinone with cardiology. Will check renal ultrasound and consult nephrology for BILLY. 07/18: Blood pressure responded to albumin and small fluid bolus. Creatinine improved to 1.7 now with good urine output. Mentating better. Still short of breath on O2. Discussed with cardiology consideration of right heart cath to assess fluid status and pulmonary artery pressure. Vitals/I&O Vitals/I&O: Vital Signs Date Time Temp Pulse Resp B/P (MAP) Pulse Ox O2 Delivery O2 Flow Rate FiO2 07/18/21 09:41 92/55 (67) 07/18/21 08:00 Nasal Cannula 3.5 07/18/21 07:44 93 07/18/21 07:00 97.9 93 16 97.9 I & O 07/17/21 07/17/21 07/18/21 15:00 23:00 07:00 Intake Total 0 ml 450 ml 200 ml Output Total 350 ml 375 ml Balance 0 ml 100 ml -175 ml Physical Exam General: Alert, Oriented X3, Cooperative, No acute distress Heart: Other (AFIB RVR, distant heart sounds) Lungs: Clear Abdomen: Soft, Other (obese) Extremities: No cyanosis, Other (trace LE edema) Skin: No breakdown, No significant lesion Labs Labs: Laboratory Tests Test 07/18/21 03:55 White Blood Count 8.7 x10^3/uL (4.0-11.0) Red Blood Count 5.36 x10^6/uL (4.30-5.70) Hemoglobin 14.8 g/dL (13.0-17.5) Hematocrit 47.9 % (39.0-53.0) Mean Corpuscular Volume 89 fL (79-100) Mean Corpuscular Hemoglobin 28 pg (25-35) Mean Corpuscular Hemoglobin Concent 31 g/dL (31-37) Red Cell Distribution Width 16.4 % (11.5-14.5) Platelet Count 107 x10^3/uL (140-400) Prothrombin Time 37.3 SEC (11.7-14.0) Prothromb Time International Ratio 3.9 (0.8-1.1) Sodium Level 144 mmol/L (136-145) Potassium Level 4.0 mmol/L (3.5-5.1) Chloride Level 105 mmol/L (98-107) Carbon Dioxide Level 34 mmol/L (21-32) Anion Gap 5 (6-14) Blood Urea Nitrogen 36 mg/dL (8-26) Creatinine 1.7 mg/dL (0.7-1.3) Estimated GFR (Cockcroft-Gault) 47.9 Glucose Level 101 mg/dL (70-99) Calcium Level 8.6 mg/dL (8.5-10.1) Magnesium Level 2.3 mg/dL (1.8-2.4) Comment Review of Relevant I have reviewed the following items cynthia (where applicable) has been applied. Medications: Current Medications Medications (Trade) Dose Ordered Sig/Tobi Route PRN Reason Start Time Stop Time Status Last Admin Dose Admin Milrinone Lactate/ Dextrose 100 ml @ 4.065 mls/ hr CONT PRN IV SEE I/O RECORD 07/17/21 11:45 07/17/21 11:49 Potassium Chloride (Klor-Con) 20 meq 1X ONCE PO 07/17/21 11:45 07/17/21 11:46 DC 07/17/21 11:49 Sodium Chloride 250 ml @ 250 mls/hr 1X ONCE IV 07/17/21 12:15 07/17/21 13:14 DC 07/17/21 12:20 Albumin Human 250 ml @ 62.5 mls/hr 1X PRN IV HYPOTENSION 07/17/21 14:00 07/17/21 18:00 DC 07/17/21 15:32 Phytonadione (Vitamin K Ampule) 10 mg 1X ONCE SQ 07/17/21 15:00 07/17/21 15:01 DC 07/17/21 15:19 Sodium Chloride 250 ml @ 250 mls/hr 1X ONCE IV 07/17/21 15:00 07/17/21 15:59 DC 07/17/21 16:05 Midodrine (Proamatine) 10 mg 1X ONCE PO 07/17/21 16:45 07/17/21 16:46 DC 07/17/21 16:49 Justifications for Admission Other Justification LILIYA SANCHES MD Jul 18, 2021 11:18
[2021-07-18] MEDS: MILRINONE 20MG/100ML PREMIX 100 ML IV PRN ×2 (11:37→16:30)
[2021-07-18] MEDS ORDERED: PHYTONADIONE 10 MG/ML AMPUL. SQ ONE (12:00)
[2021-07-18] MEDS ORDERED: NOREPINEPHRINE VIAL 8 MG in IV DEXTROSE 5% 250 ML IV PRN (12:30)
--- NOTE | 2021-07-18 12:59 | NUR ---
Report given to ICU, pt transferred from 662 to 108
--- NOTE | 2021-07-18 13:32 | NUR ---
attempted to contact patient's sister Lolita Moreira ([phone]) regarding pt's transfer from room 662 to room 108, but number is out of service
--- NOTE | 2021-07-18 13:41 | RAD ---
EXAM: CHEST ONE VIEW. HISTORY: Congestive heart failure. COMPARISON: 07/07/2021. FINDINGS: A frontal view of the chest is obtained. There are changes of coronary artery bypass grafti ng. Small bilateral pleural effusions appear slightly increased. Basilar atelectasis and mild pulmonary e cat are also mildly increased. There is no pneumothorax. The heart is moderately enlarged. There are atherosclerotic calcifications of the aorta. IMPRESSION: 1. Increased mild pulmonary edema and small bilateral pleural effusions. Electronically signed by: Pina Bennett MD (07/18/2021 1:38 PM) [id number]
--- NOTE | 2021-07-18 15:21 | NUR ---
SS following up with discharge planning. SS reviewed pt chart and discussed with pt RN. Pt is currently requiring oxygen at six liters nasal canula. COVID19 negative. Cardiology following. Milrinone drip. NPO. Levophed. Pt transferred to ICU 108. Not ready. SS will continue to follow for discharge planning.
[2021-07-18] MEDS ORDERED: PHENYLEPHRINE INJ 50 MG in IV NORMAL SALINE 250ML 250 ML IV ONE (16:15)
[2021-07-18] MEDS ORDERED: FUROSEMIDE 20 MG/2 ML VIAL. IVP ONE (16:15)
[2021-07-18] MEDS: SIMVASTATIN 20 MG TABLET PO SCH (21:39)
[2021-07-18] MEDS: oxyCODONE/APAP 5/325 1 TAB TABLET PO PRN (21:40)
[2021-07-19] VITALS (22 sets, daily range): BP systolic 85–146; BP diastolic 40–81
[2021-07-19 06:02] LABS: PROTHROMBIN TIME PATIENT 18.6 SEC (11.7-14.0)
[2021-07-19] MEDS: IPRATRPIUM/ALBUTEROL 0.5/2.5MG 3 ML NEBU. NEB SCH ×4 (07:31→19:53)
[2021-07-19] MEDS ORDERED: FUROSEMIDE 40 MG/4 ML VIAL. IVP ONE (08:15)
[2021-07-19] MEDS: PHENYLEPHRINE INJ 50 MG in IV NORMAL SALINE 250ML 250 ML IV PRN (08:35)
[2021-07-19] MEDS: MILRINONE 20MG/100ML PREMIX 100 ML IV PRN (08:37)
[2021-07-19] MEDS: SENNOSIDES/DOCUSATE 8.6/50MG TABLET. PO SCH ×2 (09:00→21:08)
[2021-07-19] MEDS: MULTIVITAMIN with MINERAL TABLET. PO SCH (09:00)
--- NOTE | 2021-07-19 09:18 | PDOC ---
DATE OF SERVICE DATE: 07/19/21 TIME: 09:17 SUBJECTIVE ROS Transferred to ICU, Hypotensive, on Pressor support OBJECTIVE Vital Signs Vital Signs Date Time Temp Pulse Resp B/P (MAP) Pulse Ox O2 Delivery O2 Flow Rate FiO2 07/19/21 08:35 95 BiPAP/CPAP 07/19/21 08:00 98.3 86 20 119/54 98.3 07/18/21 22:01 7.0 I & 0 Intake and Output 07/19/21 07:00 Intake Total 567.3 ml Output Total 2805 ml Balance -2237.7 ml Intake Oral 320 ml IV Total 247.3 ml Output Urine Total 2805 ml PHYSICAL EXAM Physical Exam GEN: No apparent distress. HEENT: Normal cephalic, atraumatic, OM moist, On o2 by NC EYES: Left eye with ptosis due to tumor NECK: Supple, LUNGS: Clear to auscultation, Non labored , decreased at bases HEART: RRR, S!, S2 present. ABDOMEN: Soft, nontender. Positive bowel sounds,Obese EXTREMITIES: Bilateral lower extremity pitting edema NEUROLOGIC: Normal speech and tone. A&O x 3, moves all extremities, no obvious focal deficits PSYCHIATRIC: Normal affect, Stable SKIN: No ulcerations or rashes, Ingram + , No CVA or SP tenderness DIAGNOSIS/ASSESSMENT Assessment & Plan BILLY - Vasomotor /Cardiorenal/ Hypotensive- BP was in 60's POA , Improved but BP's low again -on pressor support now . .Baseline Creat was normal at presentation, peaked at 2.0,trended down Cxr abnormal 07/18 ; Recd Lasix IV this am per cardiology . Labs pending today , Non Oliguric , good UOP . Maintain fluid balance , Supportive care, avoid nephrotoxins Hypotension - On pressor support Acute on chronic hypoxic respiratory failure with CHF/COPD exacerbation and AFIB RVR. AFIB RVR - with chronic afib Acute on chronic HFrEF Ischemic cardiomyopathy EF 30-35%. On Milrinone and PO Lasix. Recd IV Lasix .Scheduled for RHC later today . Cardiology managing Diabetes Hypertension- Hypotensive since admission . 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 at home Thrombocytopenia Leukopenia COMMENT/RELEVANT DATA Meds Current Medications Medications (Trade) Dose Ordered Sig/Tobi Start Time Stop Time Status Last Admin Dose Admin Acetaminophen (Tylenol) 650 mg PRN Q6HRS PRN 07/15/21 16:45 07/18/21 08:12 650 MG Albumin Human 250 ml @ 62.5 mls/hr 1X PRN 07/17/21 14:00 07/17/21 18:00 DC 07/17/21 15:32 62.5 MLS/HR Albuterol/ Ipratropium (Duoneb) 3 ml RTQID 07/15/21 20:00 07/19/21 07:31 3 ML Calcium Carbonate/ Glycine (Tums) 500 mg PRN Q3HRS PRN 07/15/21 16:45 Digoxin (Lanoxin) 500 mcg 1X ONCE 07/18/21 14:45 07/18/21 14:46 DC 07/18/21 14:45 500 MCG Fentanyl Citrate (Fentanyl 2ml Vial) 50 mcg PRN Q1HR PRN 07/15/21 16:15 07/16/21 16:14 DC Furosemide (Lasix) 40 mg 1X ONCE 07/19/21 08:15 07/19/21 08:28 DC 07/19/21 08:35 40 MG Lorazepam (Ativan Inj) 2 mg 1X ONCE 07/18/21 22:30 07/18/21 22:31 DC 07/18/21 22:43 2 MG Magnesium Sulfate 50 ml @ 25 mls/hr 1X ONCE 07/15/21 17:00 07/15/21 18:59 DC 07/15/21 18:03 25 MLS/HR Metoprolol Succinate (Toprol Xl) 25 mg DAILY 07/16/21 09:00 07/17/21 12:13 DC 07/16/21 09:37 25 MG Midodrine (Proamatine) 10 mg 1X ONCE 07/17/21 16:45 07/17/21 16:46 DC 07/17/21 16:49 10 MG Milrinone Lactate/ Dextrose 100 ml @ 4.065 mls/ hr CONT PRN 07/17/21 11:45 07/19/21 08:37 4.065 MLS/HR Multivitamins (Thera M Plus) 1 tab DAILY 07/16/21 14:15 07/18/21 08:12 1 TAB Nitroglycerin (Nitro-Bid Oint) 1 inch 1X ONCE 07/15/21 13:30 07/15/21 13:31 DC 07/15/21 14:46 1 INCH Norepinephrine Bitartrate 8 mg/ Dextrose 258 ml @ 21.188 mls/ hr CONT PRN 07/18/21 12:30 07/18/21 16:15 DC Ondansetron HCl (Zofran) 4 mg PRN Q6HRS PRN 07/15/21 16:45 07/16/21 14:45 4 MG Oxycodone/ Acetaminophen (Percocet 5/325) 2 tab PRN Q4HRS PRN 07/15/21 16:45 Perflutren Protein Type A Microsphe (Optison) 0.66 mg 1X ONCE 07/16/21 07:00 07/16/21 07:01 DC Phenylephrine HCl 50 mg/Sodium Chloride 255 ml @ 16.478 mls/ hr CONT PRN 07/19/21 08:00 07/19/21 08:35 6.591 MLS/HR Phytonadione (Vitamin K Ampule) 5 mg 1X ONCE 07/18/21 12:00 07/18/21 12:01 DC 07/18/21 11:37 5 MG Potassium Chloride (Klor-Con) 20 meq 1X ONCE 07/17/21 11:45 07/17/21 11:46 DC 07/17/21 11:49 20 MEQ Sacubitril/ Valsartan (Entresto 24 Mg-26 Mg) 1 tab BID 07/15/21 21:00 07/17/21 11:33 DC 07/16/21 19:53 1 TAB Senna/Docusate Sodium (Senna Plus) 1 tab BID 07/15/21 21:00 07/18/21 21:39 1 TAB Simvastatin (Zocor) 20 mg HS 07/15/21 21:00 07/18/21 21:39 20 MG Sodium Chloride 250 ml @ 250 mls/hr 1X ONCE 07/17/21 15:00 07/17/21 15:59 DC 07/17/21 16:05 250 MLS/HR Sodium Chloride (Normal Saline Flush) 3 ml QSHIFT PRN 07/15/21 16:45 Warfarin Sodium (Coumadin - No Dose Today) 1 each 1X WARF ONCE 07/16/21 16:00 07/16/21 16:43 DC Warfarin Sodium (Coumadin Per Pharmacy) 1 each PRN DAILY PRN 07/15/21 16:45 07/16/21 16:43 DC 07/16/21 15:21 1 EACH Lab Laboratory Tests Test 07/19/21 05:00 Prothrombin Time 18.6 SEC (11.7-14.0) Prothromb Time International Ratio 1.6 (0.8-1.1) Results All relevant outside records, renal labs, imaging studies, telemetry/EKG's were reviewed. Justicifation of Admission Dx: Justifications for Admission: Justification of Admission Dx: Yes BLU BLEVINS MD Jul 19, 2021 09:18
--- NOTE | 2021-07-19 09:54 | NUR ---
SS following up with discharge planning. SS reviewed pt chart and discussed with pt RN. Pt is currently requiring oxygen at four liters nasal canula and BIPAP HS. COVID19 negative. Pt has home oxygen. (Baseline 3 liters NC). Milrinone and Rupesh. Pt having right heart cath today. Not ready. SS will continue to follow for discharge planning.
[2021-07-19] MEDS ORDERED: IODIXANOL 320 MG/ML 100 ML VIAL. ONE (10:12)
[2021-07-19] MEDS ORDERED: LIDOCAINE 1% Multi-Dose 20 ML VIAL. ONE (10:12)
[2021-07-19] MEDS ORDERED: LIDOCAINE 2% Multi-Dose 20 ML VIAL. IJ ONE (11:45)
--- NOTE | 2021-07-19 13:56 | CARD ---
MR#: [id number] Date of Study: 07/19/2021 Ordering Physician: GREGG SAM, Referring Physician: GREGG SAM, Tech: RT Rachel(R) APPROVED REPORT Technologist: Lizy Luis RT(R) Nurse: Katie Liao RN Procedure(s) performed: fluoro time: 2.4min dose: 8gycm2 contrast:0 moderate sedation: none used RHC INDICATION The indication(s) include : dyspnea. CASE TECHNIQUE IV conscious sedation was used throughout procedure with appropriate monitoring and was performed in the presence of a registered nurse who was an independent trained observer other than the physician p erforming the procedure. During this case, Fluoroscopy and no contrast were used for imaging. Specime n(s) Removed: N/A Estimated Blood loss: 10 cc's. PROCEDURE NARRATIVE Clinical remission: 76-year-old male presents to the hospital in the setting of decompensated heart failure. He is broug ht to the catheterization laboratory for evaluation of his filling pressures and cardiac outputs. Procedure details: Under 1% lidocaine local anesthesia and ultrasound guidance a 8 Slovenian sheath was placed in the right brachial vein. Next, a 7.5 Slovenian PA catheter was advanced to the right heart chambers and pressure s and saturations were obtained. At case completion catheters and sheaths were removed and hemostasi s was achieved via manual compression Findings: RA 20 mmHg RV 74/11/19 pH 77/34/48 Wedge 25 mmHg PA saturation 59% Arterial saturation 90% Juni cardiac output 4.3, cardiac index 1.9 Conclusion 1. Acute biventricular pressure overload 2. Severe pulmonary hypertension, secondary to left heart failure 3. Low cardiac output Recommendations 1. Continue milrinone and diuretic therapy. Signed by : Jaime Berman, Electronically Approved : 07/19/2021 13:56:37
[2021-07-19] MEDS: FUROSEMIDE 40 MG/4 ML VIAL. IVP SCH (14:54)
--- NOTE | 2021-07-19 15:05 | PDOC ---
[facility] PROGRESS NOTE Date of Service DOS: DATE: 07/19/21 TIME: 15:02 Chief Complaint Chief Complaint Acute on chronic hypoxic respiratory failure with CHF/COPD exacerbation and AFIB RVR. Poor compliance with home CPAP AFIB RVR - with chronic afib Acute on chronic HFrEF Ischemic cardiomyopathy EF 25-30% historically ?COPD Diabetes Dyperlipidemia Hypertension Benign tumor of the left eye CAMERON - CPAP at home Thrombocytopenia Leukopenia FEN - History of Present Illness History of Present Illness Mr Olea is a 76yo male w/ PMHx cardiomyopathy with an EF of 25%-30%, history of ongoing tobaccoism, suspect underlying COPD, obesity, history of CAMERON, on home CPAP with O2 bleed in 3L, left eye tumor, AFib, Coronary artery disease, type 2 diabetes, dyslipidemia and hypertension who p/w worsening shortness of breath to ED on 07/15/2021 at the behest of his PCP when he was found to be saturating 74% on room air. States that has been having worsening shortness of breath for the past month or so. Also having cough nonproductive. He was given a breathing treatment IV steroids and sent here On presentation here he required being placed on BiPAP due to hypoxia. Given 40 IV Lasix in ER with brisk diuresis. He is on home warfarin for A. fib but INR notably elevated Patient was denying any sort of headache chest pain abdominal pain dysuria. 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 Still having shortness of breath and abdominal distention. Given 40 mg of IV Lasix and has had no urine output over the past 8 hours. Had difficulty tolerating BiPAP at 18/4 felt his ears popping. Normally he is on CPAP 10 cm of H2O. Seen bedside his O2 saturations were 89% on 6 L/min of O2. A. fib is a little better rate controlled. Was given digoxin 07/17: INR 9.5, CR jumped to 2. Limited urine output blood pressure is low today. Discussed milrinone with cardiology. Will check renal ultrasound and consult nephrology for BILLY. 07/18: Blood pressure responded to albumin and small fluid bolus. Creatinine improved to 1.7 now with good urine output. Mentating better. Still short of breath on O2. Discussed with cardiology consideration of right heart cath to assess fluid status and pulmonary artery pressure. 07/19: Patient transferred down to ICU. Afebrile, appears to be somewhat confused but conversive. He had right heart cath today that showed acute biventricular pressure overload, severe pulmonary hypertension secondary to left heart failure, and low cardiac output. He is recommending milrinone infusion and diuretics. Vitals/I&O Vitals/I&O: Vital Signs Date Time Temp Pulse Resp B/P (MAP) Pulse Ox O2 Delivery O2 Flow Rate FiO2 07/19/21 14:00 92 24 131/54 94 Nasal Cannula 3.0 07/19/21 12:00 98.2 98.2 I & O 07/18/21 07/18/21 07/19/21 15:00 23:00 07:00 Intake Total 354.3 ml 213 ml Output Total 525 ml 1480 ml 800 ml Balance -525 ml -1125.7 ml -587 ml Physical Exam General: Alert, Oriented X3, Cooperative, No acute distress Heart: Other (AFIB RVR, distant heart sounds) Lungs: Clear Abdomen: Soft, Other (obese) Extremities: No cyanosis, Other (trace LE edema) Skin: No breakdown, No significant lesion Labs Labs: Laboratory Tests Test 07/19/21 05:00 Prothrombin Time 18.6 SEC (11.7-14.0) Prothromb Time International Ratio 1.6 (0.8-1.1) Comment Review of Relevant I have reviewed the following items cynthia (where applicable) has been applied. Medications: Current Medications Medications (Trade) Dose Ordered Sig/Tobi Route PRN Reason Start Time Stop Time Status Last Admin Dose Admin Phenylephrine HCl 50 mg/Sodium Chloride 255 ml @ 16.677 mls/ hr 1X ONCE IV 07/18/21 16:15 07/19/21 07:28 DC 07/18/21 16:32 Furosemide (Lasix) 20 mg 1X ONCE IVP 07/18/21 16:15 07/18/21 16:16 DC 07/18/21 16:36 Lorazepam (Ativan Inj) 2 mg 1X ONCE IVP 07/18/21 22:30 07/18/21 22:31 DC 07/18/21 22:43 Phenylephrine HCl 50 mg/Sodium Chloride 255 ml @ 16.478 mls/ hr CONT PRN IV PER PROTOCOL 07/19/21 08:00 07/19/21 08:35 Furosemide (Lasix) 40 mg 1X ONCE IVP 07/19/21 08:15 07/19/21 08:28 DC 07/19/21 08:35 Lidocaine HCl (Lidocaine 2% 20ml Vial) 7 ml 1X ONCE IJ 07/19/21 11:45 07/19/21 11:46 DC 07/19/21 11:42 Heparin Sodium/ Sodium Chloride (HEPARIN for ARTERIAL LINE FLUSH) 1,000 unit 1X ONCE IART 07/19/21 11:45 07/19/21 11:47 DC 07/19/21 11:42 Furosemide (Lasix) 40 mg [id number] IVP 07/19/21 14:00 07/19/21 14:54 Justifications for Admission Other Justification THOMAS FORTE MD Jul 19, 2021 15:05
[2021-07-19] MEDS: oxyCODONE/APAP 5/325 1 TAB TABLET PO PRN ×2 (16:43→21:08)
[2021-07-19] MEDS: SIMVASTATIN 20 MG TABLET PO SCH (21:08)
--- NOTE | 2021-07-19 22:00 | NUR ---
PT FOUND OFF BIPAP AFTER HAVING BEEN PLACED ON IT JUST 2 HOURS PRIOR, FOR WORSENING HYPOXIA. SPO2 87% ON 4L NC
[2021-07-20] VITALS (20 sets, daily range): BP systolic 74–127; BP diastolic 39–83
[2021-07-20 04:35] LABS: CALCIUM 8.9 mg/dL (8.5-10.1); CREATININE 1.2 mg/dL (0.7-1.3); GFR 71.6; MAGNESIUM 1.9 mg/dL (1.8-2.4); POTASSIUM 3.6 mmol/L (3.5-5.1)
[2021-07-20] MEDS: IPRATRPIUM/ALBUTEROL 0.5/2.5MG 3 ML NEBU. NEB SCH ×4 (08:00→20:30)
[2021-07-20] MEDS: MULTIVITAMIN with MINERAL TABLET. PO SCH (09:00)
[2021-07-20] MEDS: SENNOSIDES/DOCUSATE 8.6/50MG TABLET. PO SCH ×2 (09:00→20:11)
[2021-07-20 09:30] LABS: BASE EXCESS ABG 9 mmol/L (-3-3); HCO3 ABG 35 mmol/L (21-28); PCO2 ABG 54 mmHg (35-46); PO2 ABG 72 mmHg (65-108); SAT O2 ABG 95 % (92-99)
[2021-07-20 09:31] LABS: FIO2 ABG 4.5L NC
[2021-07-20] MEDS: FUROSEMIDE 40 MG/4 ML VIAL. IVP SCH ×2 (09:42→15:07)
[2021-07-20] MEDS: MILRINONE 20MG/100ML PREMIX 100 ML IV PRN (10:54)
--- NOTE | 2021-07-20 10:56 | PDOC ---
PROGRESS NOTES Date of Service: DATE: 07/20/21 TIME: 10:56 Subjective Subjective Comfortable, no new complaints, on milrinone drip Objective Objective Vital Signs Date Time Temp Pulse Resp B/P (MAP) Pulse Ox O2 Delivery O2 Flow Rate FiO2 07/20/21 08:01 97 Nasal Cannula 4.5 07/20/21 07:00 88 20 98/63 07/20/21 04:00 98.1 98.1 Intake and Output 07/20/21 07:00 Intake Total 360 ml Output Total 2585 ml Balance -2225 ml Intake Oral 100 ml IV Total 260 ml Output Urine Total 2585 ml Physical Exam Abdomen: Soft, Other (obese) Heart: Other (AFIB RVR, distant heart sounds) Extremities: No cyanosis, Other (trace LE edema) General: Alert, Oriented X3, Cooperative, No acute distress HEENT: Atraumatic, Mucous membr. moist/pink, Other (blind left eye) Lungs: Other (basilar crackles) MUSCULOSKELETAL: Osteoarthritic changes both hands Neuro: Normal speech, Sensation intact Psych/Mental Status: Mental status NL, Mood NL Skin: No breakdown, No significant lesion Assessment Assessment 1. Acute on chronic hypoxic respiratory failure with CHF/COPD exacerbation and AFIB RVR. Poor compliance with home CPAP 2. AFIB RVR: chronic by history. rate controlled 3. Acute on chronic HFrEF: NYHA2, appears better 4. HTN: 5. HLP 6. ICM: EF remains about the same at 30-35% 7. CAD: Past CABG 8. Coagulopathy 9. BILLY: suspect cardiorenal 10. Hypotension Recommendations 1. Right heart cath showed elevated biventricular filling pressures 2. Continue milrione gtt and diuretics 3. Smoking cessation. Continue with HF optimization. 4. Will consider for outpt ischemic workup. Comment Review of Relevant I have reviewed the following items cynthia (where applicable) has been applied. Labs Laboratory Tests Test 07/20/21 03:45 07/20/21 08:10 Prothrombin Time 17.0 SEC (11.7-14.0) Prothromb Time International Ratio 1.4 (0.8-1.1) Sodium Level 144 mmol/L (136-145) Potassium Level 3.6 mmol/L (3.5-5.1) Chloride Level 103 mmol/L (98-107) Carbon Dioxide Level 36 mmol/L (21-32) Anion Gap 5 (6-14) Blood Urea Nitrogen 27 mg/dL (8-26) Creatinine 1.2 mg/dL (0.7-1.3) Estimated GFR (Cockcroft-Gault) 71.6 Glucose Level 72 mg/dL (70-99) Calcium Level 8.9 mg/dL (8.5-10.1) Magnesium Level 1.9 mg/dL (1.8-2.4) O2 Saturation 95 % (92-99) Arterial Blood pH 7.44 (7.35-7.45) Arterial Blood pCO2 at Patient Temp 54 mmHg (35-46) Arterial Blood pO2 at Patient Temp 72 mmHg (65-108) Arterial Blood HCO3 35 mmol/L (21-28) Arterial Blood Base Excess 9 mmol/L (-3-3) FiO2 4.5l nc Microbiology 07/15/21 Blood Culture - Preliminary, Resulted NO GROWTH AFTER 4 DAYS Medications Current Medications Furosemide (Lasix) 40 mg [id number] IVP Last administered on 07/20/21at 09:42; Start 07/19/21 at 14:00 Heparin Sodium/ Sodium Chloride (HEPARIN for ARTERIAL LINE FLUSH) 1,000 unit 1X ONCE IART Last administered on 07/19/21at 11:42; Start 07/19/21 at 11:45; Stop 07/19/21 at 11:47; Status DC Heparin Sodium/ Sodium Chloride (HEPARIN for ARTERIAL LINE FLUSH) 1,000 unit 1X ONCE IV ; Start 07/19/21 at 11:45; Stop 07/19/21 at 11:46; Status DC Lidocaine HCl (Lidocaine 2% 20ml Vial) 7 ml 1X ONCE IJ Last administered on 07/19/21at 11:42; Start 07/19/21 at 11:45; Stop 07/19/21 at 11:46; Status DC Lorazepam (Ativan Inj) 0.5 mg 1X ONCE IVP Last administered on 07/19/21at 21:50; Start 07/19/21 at 21:30; Stop 07/19/21 at 21:31; Status DC Olanzapine (ZyPREXA ZYDIS) 5 mg BID PO Last administered on 07/19/21at 21:08; Start 07/19/21 at 17:00 Vitals/I & O Vital Sign - Last 24 Hours 07/19/21 07/19/21 07/19/211/22 11:00 12:00 13:00 14:00 Temp 98.2 98.2 Pulse 95 89 93 92 Resp 24 B/P (MAP) 146/81 133/74 118/60 131/54 Pulse Ox 95 93 94 94 O2 Delivery Nasal Cannula Nasal Cannula Nasal Cannula Nasal Cannula O2 Flow Rate 4.0 3.0 3.0 3.0 07/19/21 07/19/21 07/19/21 07/19/21 15:00 16:00 16:01 16:43 Temp 98.4 98.4 Pulse 101 100 Resp B/P (MAP) 114/61 123/78 Pulse Ox 95 91 91 92 O2 Delivery Nasal Cannula Nasal Cannula Nasal Cannula Ventilator O2 Flow Rate 3.0 3.0 3.0 07/19/21 07/19/21 07/19/21 07/19/21 17:00 17:40 18:00 19:00 Pulse 113 118 124 Resp B/P (MAP) 125/54 91/58 110/65 Pulse Ox 93 90 89 87 O2 Delivery Nasal Cannula Nasal Cannula Nasal Cannula Nasal Cannula O2 Flow Rate 3.0 3.0 3.0 3.0 07/19/21 07/19/21 07/19/21 07/19/21 19:56 20:00 20:00 21:00 Temp 99.5 99.5 Pulse 120 118 Resp 30 30 B/P (MAP) 100/50 Pulse Ox 84 86 100 O2 Delivery Nasal Cannula Nasal Cannula Bi-pap Nasal Cannula O2 Flow Rate 3.0 3.0 3.0 07/19/21 07/19/21 07/19/21 07/19/21 21:05 21:38 22:00 23:00 Pulse 120 96 Resp 22 B/P (MAP) 108/50 Pulse Ox 91 88 87 O2 Delivery BiPAP/CPAP BiPAP/CPAP Nasal Cannula O2 Flow Rate 3.0 07/20/21 07/20/21 07/20/21 07/20/21 00:00 01:00 02:00 02:13 Temp 98.1 98.1 Pulse 104 106 120 Resp 27 B/P (MAP) 92/83 Pulse Ox 92 86 87 88 O2 Delivery Nasal Cannula Nasal Cannula Nasal Cannula Nasal Cannula O2 Flow Rate 4.0 4.0 4.0 4.0 07/20/21 07/20/21 07/20/21 07/20/21 03:00 04:00 04:06 05:00 Temp 98.1 98.1 Pulse 122 104 109 Resp 29 26 29 B/P (MAP) 97/39 Pulse Ox 88 87 93 88 O2 Delivery Nasal Cannula Nasal Cannula Nasal Cannula Nasal Cannula O2 Flow Rate 4.0 4.0 4.0 4.0 07/20/21 07/20/21 07/20/21 07/20/21 06:15 07:00 08:00 08:01 Pulse 108 88 Resp 27 20 B/P (MAP) 92/51 98/63 Pulse Ox 87 88 97 O2 Delivery Nasal Cannula Nasal Cannula Nasal Cannula Nasal Cannula O2 Flow Rate 4.0 4.5 4.5 4.5 Intake and Output 07/19/21 07/19/21 07/20/21 15:00 23:00 07:00 Intake Total 0 ml 100 ml 260 ml Output Total 1650 ml 775 ml 160 ml Balance -1650 ml -675 ml 100 ml LUISA PRATT MD Jul 20, 2021 10:56
[2021-07-20] MEDS ORDERED: HALOPERIDOL LACTATE 5 MG/ML VIAL. IVP ONE (12:45)
[2021-07-20] MEDS: oxyCODONE/APAP 5/325 1 TAB TABLET PO PRN ×3 (13:49→21:55)
--- NOTE | 2021-07-20 14:15 | PDOC ---
DATE OF SERVICE DATE: 07/20/21 TIME: 14:11 SUBJECTIVE ROS stable . Twin sister at bedside S/P Rt heart cath yesterday . OBJECTIVE Vital Signs Vital Signs Date Time Temp Pulse Resp B/P (MAP) Pulse Ox O2 Delivery O2 Flow Rate FiO2 07/20/21 13:49 21 86 Nasal Cannula 5.0 07/20/21 11:00 80 94/43 07/20/21 08:00 97.0 97.0 I & 0 Intake and Output 07/20/21 07:00 Intake Total 360 ml Output Total 2585 ml Balance -2225 ml Intake Oral 100 ml IV Total 260 ml Output Urine Total 2585 ml PHYSICAL EXAM Physical Exam GEN: No apparent distress. HEENT: Normal cephalic, atraumatic, OM moist, On o2 by NC EYES: Left eye with ptosis due to tumor NECK: Supple, LUNGS: Clear to auscultation, Non labored , decreased at bases HEART: RRR, S!, S2 present. ABDOMEN: Soft, nontender. Positive bowel sounds,Obese EXTREMITIES: Bilateral lower extremity pitting edema NEUROLOGIC: Normal speech and tone. A&O x 3, moves all extremities, no obvious focal deficits PSYCHIATRIC: Normal affect, Stable SKIN: No ulcerations or rashes, Ingram + , No CVA or SP tenderness DIAGNOSIS/ASSESSMENT Assessment & Plan BILLY - Vasomotor /Cardiorenal/ Hypotensive- BP was in 60's POA .Baseline Creat was normal at presentation, peaked at 2.0,trended down .Discussed with sister at bedside Diuresing well. On Lasix IV - RHC cw Vol overload. Card managing . Maintain fluid balance , Supportive care, avoid nephrotoxins Hypotension - On pressor support Acute on chronic hypoxic respiratory failure with CHF/COPD exacerbation and AFIB RVR. AFIB RVR - with chronic afib Acute on chronic HFrEF Ischemic cardiomyopathy EF 30-35%. On Milrinone RHC 07/19/21 - Acute biventricular pressure overload. Severe pulmonary hypertension, secondary to left heart failure. Low cardiac output. Milrinone and Diuretics per cardiology Diabetes Hypertension- Hypotensive since admission . 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 at home Thrombocytopenia Leukopenia COMMENT/RELEVANT DATA Meds Current Medications Medications (Trade) Dose Ordered Sig/Tobi Start Time Stop Time Status Last Admin Dose Admin Acetaminophen (Tylenol) 650 mg PRN Q6HRS PRN 07/15/21 16:45 07/18/21 08:12 650 MG Albumin Human 250 ml @ 62.5 mls/hr 1X PRN 07/17/21 14:00 07/17/21 18:00 DC 07/17/21 15:32 62.5 MLS/HR Albuterol/ Ipratropium (Duoneb) 3 ml RTQID 07/15/21 20:00 07/20/21 11:43 3 ML Calcium Carbonate/ Glycine (Tums) 500 mg PRN Q3HRS PRN 07/15/21 16:45 Digoxin (Lanoxin) 500 mcg 1X ONCE 07/18/21 14:45 07/18/21 14:46 DC 07/18/21 14:45 500 MCG Fentanyl Citrate (Fentanyl 2ml Vial) 50 mcg PRN Q1HR PRN 07/15/21 16:15 07/16/21 16:14 DC Furosemide (Lasix) 40 mg BID92 07/19/21 14:00 07/20/21 09:42 40 MG Haloperidol Lactate (Haldol Inj) 5 mg 1X ONCE 07/20/21 12:45 07/20/21 12:46 DC Heparin Sodium/ Sodium Chloride (HEPARIN for ARTERIAL LINE FLUSH) 1,000 unit 1X ONCE 07/19/21 11:45 07/19/21 11:47 DC 07/19/21 11:42 1,000 UNIT Iodixanol (Visipaque 320) 100 ml STK-MED ONCE 07/19/21 10:12 07/19/21 10:13 DC Lidocaine HCl (Lidocaine 1% 20ml Vial) 20 ml STK-MED ONCE 07/19/21 10:12 07/19/21 10:13 DC Lidocaine HCl (Lidocaine 2% 20ml Vial) 7 ml 1X ONCE 07/19/21 11:45 07/19/21 11:46 DC 07/19/21 11:42 7 ML Lorazepam (Ativan Inj) 0.5 mg 1X ONCE 07/19/21 21:30 07/19/21 21:31 DC 07/19/21 21:50 0.5 MG Magnesium Sulfate 50 ml @ 25 mls/hr 1X ONCE 07/15/21 17:00 07/15/21 18:59 DC 07/15/21 18:03 25 MLS/HR Metoprolol Succinate (Toprol Xl) 25 mg DAILY 07/16/21 09:00 07/17/21 12:13 DC 07/16/21 09:37 25 MG Midodrine (Proamatine) 10 mg 1X ONCE 07/17/21 16:45 07/17/21 16:46 DC 07/17/21 16:49 10 MG Milrinone Lactate/ Dextrose 100 ml @ 4.065 mls/ hr CONT PRN 07/17/21 11:45 07/20/21 10:54 4.065 MLS/HR Multivitamins (Thera M Plus) 1 tab DAILY 07/16/21 14:15 07/18/21 08:12 1 TAB Nitroglycerin (Nitro-Bid Oint) 1 inch 1X ONCE 07/15/21 13:30 07/15/21 13:31 DC 07/15/21 14:46 1 INCH Norepinephrine Bitartrate 8 mg/ Dextrose 258 ml @ 21.188 mls/ hr CONT PRN 07/18/21 12:30 07/18/21 16:15 DC Olanzapine (ZyPREXA ZYDIS) 5 mg BID 07/19/21 17:00 07/19/21 21:08 5 MG Ondansetron HCl (Zofran) 4 mg PRN Q6HRS PRN 07/15/21 16:45 07/16/21 14:45 4 MG Oxycodone/ Acetaminophen (Percocet 5/325) 2 tab PRN Q4HRS PRN 07/15/21 16:45 Perflutren Protein Type A Microsphe (Optison) 0.66 mg 1X ONCE 07/16/21 07:00 07/16/21 07:01 DC Phenylephrine HCl 50 mg/Sodium Chloride 255 ml @ 16.478 mls/ hr CONT PRN 07/19/21 08:00 07/19/21 08:35 6.591 MLS/HR Phytonadione (Vitamin K Ampule) 5 mg 1X ONCE 07/18/21 12:00 07/18/21 12:01 DC 07/18/21 11:37 5 MG Potassium Chloride (Klor-Con) 20 meq 1X ONCE 07/17/21 11:45 07/17/21 11:46 DC 07/17/21 11:49 20 MEQ Sacubitril/ Valsartan (Entresto 24 Mg-26 Mg) 1 tab BID 07/15/21 21:00 07/17/21 11:33 DC 07/16/21 19:53 1 TAB Senna/Docusate Sodium (Senna Plus) 1 tab BID 07/15/21 21:00 07/19/21 21:08 1 TAB Simvastatin (Zocor) 20 mg HS 07/15/21 21:00 07/19/21 21:08 20 MG Sodium Chloride 250 ml @ 250 mls/hr 1X ONCE 07/17/21 15:00 07/17/21 15:59 DC 07/17/21 16:05 250 MLS/HR Sodium Chloride (Normal Saline Flush) 3 ml QSHIFT PRN 07/15/21 16:45 Warfarin Sodium (Coumadin - No Dose Today) 1 each 1X WARF ONCE 07/16/21 16:00 07/16/21 16:43 DC Warfarin Sodium (Coumadin Per Pharmacy) 1 each PRN DAILY PRN 07/15/21 16:45 07/16/21 16:43 DC 07/16/21 15:21 1 EACH Lab Laboratory Tests Test 07/20/21 03:45 07/20/21 08:10 07/20/21 12:54 07/20/21 13:18 Prothrombin Time 17.0 SEC (11.7-14.0) Prothromb Time International Ratio 1.4 (0.8-1.1) Sodium Level 144 mmol/L (136-145) Potassium Level 3.6 mmol/L (3.5-5.1) Chloride Level 103 mmol/L (98-107) Carbon Dioxide Level 36 mmol/L (21-32) Anion Gap 5 (6-14) Blood Urea Nitrogen 27 mg/dL (8-26) Creatinine 1.2 mg/dL (0.7-1.3) Estimated GFR (Cockcroft-Gault) 71.6 Glucose Level 72 mg/dL (70-99) Calcium Level 8.9 mg/dL (8.5-10.1) Magnesium Level 1.9 mg/dL (1.8-2.4) O2 Saturation 95 % (92-99) Arterial Blood pH 7.44 (7.35-7.45) Arterial Blood pCO2 at Patient Temp 54 mmHg (35-46) Arterial Blood pO2 at Patient Temp 72 mmHg (65-108) Arterial Blood HCO3 35 mmol/L (21-28) Arterial Blood Base Excess 9 mmol/L (-3-3) FiO2 4.5l nc Glucose (Fingerstick) 60 mg/dL (70-99) 65 mg/dL (70-99) Results All relevant outside records, renal labs, imaging studies, telemetry/EKG's were reviewed. Justicifation of Admission Dx: Justifications for Admission: Justification of Admission Dx: Yes BLU BLEVINS MD Jul 20, 2021 14:15
--- NOTE | 2021-07-20 14:16 | PDOC ---
[employer] PROGRESS NOTE Date of Service DOS: DATE: 07/20/21 TIME: 14:10 Chief Complaint Chief Complaint Acute on chronic hypoxic respiratory failure with CHF/COPD exacerbation and AFIB RVR. Poor compliance with home CPAP AFIB RVR - with chronic afib Acute on chronic HFrEF Ischemic cardiomyopathy EF 25-30% historically ?COPD Diabetes Dyperlipidemia Hypertension Benign tumor of the left eye CAMERON - CPAP at home Thrombocytopenia Leukopenia FEN - History of Present Illness History of Present Illness Mr Olea is a 76yo male w/ PMHx cardiomyopathy with an EF of 25%-30%, history of ongoing tobaccoism, suspect underlying COPD, obesity, history of CAMERON, on home CPAP with O2 bleed in 3L, left eye tumor, AFib, Coronary artery disease, type 2 diabetes, dyslipidemia and hypertension who p/w worsening shortness of breath to ED on 07/15/2021 at the behest of his PCP when he was found to be saturating 74% on room air. States that has been having worsening shortness of breath for the past month or so. Also having cough nonproductive. He was given a breathing treatment IV steroids and sent here On presentation here he required being placed on BiPAP due to hypoxia. Given 40 IV Lasix in ER with brisk diuresis. He is on home warfarin for A. fib but INR notably elevated Patient was denying any sort of headache chest pain abdominal pain dysuria. 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 Still having shortness of breath and abdominal distention. Given 40 mg of IV Lasix and has had no urine output over the past 8 hours. Had difficulty tolerating BiPAP at 18/4 felt his ears popping. Normally he is on CPAP 10 cm of H2O. Seen bedside his O2 saturations were 89% on 6 L/min of O2. A. fib is a little better rate controlled. Was given digoxin 07/17: INR 9.5, CR jumped to 2. Limited urine output blood pressure is low today. Discussed milrinone with cardiology. Will check renal ultrasound and consult nephrology for BILLY. 07/18: Blood pressure responded to albumin and small fluid bolus. Creatinine improved to 1.7 now with good urine output. Mentating better. Still short of breath on O2. Discussed with cardiology consideration of right heart cath to assess fluid status and pulmonary artery pressure. 07/19: Patient transferred down to ICU. Afebrile, appears to be somewhat confused but conversive. He had right heart cath today that showed acute biventricular pressure overload, severe pulmonary hypertension secondary to left heart failure, and low cardiac output. He is recommending milrinone infusion and diuretics. 07/20: Patient seen in ICU. Afebrile. He is still quite encephalopathic, but easily redirected. Uncertain etiology given dramatic change from admission, but likely hypoxic encephalopathy. Continue milrinone infusion and Lasix. 30 minutes critical care time spent reviewing charts, reviewing labs, and discussion with RN. Vitals/I&O Vitals/I&O: Vital Signs Date Time Temp Pulse Resp B/P (MAP) Pulse Ox O2 Delivery O2 Flow Rate FiO2 07/20/21 13:49 21 86 Nasal Cannula 5.0 07/20/21 11:00 80 94/43 07/20/21 08:00 97.0 97.0 I & O 07/19/21 07/19/21 07/20/21 15:00 23:00 07:00 Intake Total 0 ml 100 ml 260 ml Output Total 1650 ml 775 ml 160 ml Balance -1650 ml -675 ml 100 ml Physical Exam General: Alert, Oriented X3, Cooperative, No acute distress Heart: Other (AFIB RVR, distant heart sounds) Lungs: Clear Abdomen: Soft, Other (obese) Extremities: No cyanosis, Other (trace LE edema) Skin: No breakdown, No significant lesion Labs Labs: Laboratory Tests Test 07/20/21 03:45 07/20/21 08:10 07/20/21 12:54 07/20/21 13:18 Prothrombin Time 17.0 SEC (11.7-14.0) Prothromb Time International Ratio 1.4 (0.8-1.1) Sodium Level 144 mmol/L (136-145) Potassium Level 3.6 mmol/L (3.5-5.1) Chloride Level 103 mmol/L (98-107) Carbon Dioxide Level 36 mmol/L (21-32) Anion Gap 5 (6-14) Blood Urea Nitrogen 27 mg/dL (8-26) Creatinine 1.2 mg/dL (0.7-1.3) Estimated GFR (Cockcroft-Gault) 71.6 Glucose Level 72 mg/dL (70-99) Calcium Level 8.9 mg/dL (8.5-10.1) Magnesium Level 1.9 mg/dL (1.8-2.4) O2 Saturation 95 % (92-99) Arterial Blood pH 7.44 (7.35-7.45) Arterial Blood pCO2 at Patient Temp 54 mmHg (35-46) Arterial Blood pO2 at Patient Temp 72 mmHg (65-108) Arterial Blood HCO3 35 mmol/L (21-28) Arterial Blood Base Excess 9 mmol/L (-3-3) FiO2 4.5l nc Glucose (Fingerstick) 60 mg/dL (70-99) 65 mg/dL (70-99) Comment Review of Relevant I have reviewed the following items cynthia (where applicable) has been applied. Medications: Current Medications Medications (Trade) Dose Ordered Sig/Tobi Route PRN Reason Start Time Stop Time Status Last Admin Dose Admin Olanzapine (ZyPREXA ZYDIS) 5 mg BID PO 07/19/21 17:00 07/19/21 21:08 Lorazepam (Ativan Inj) 0.5 mg 1X ONCE IVP 07/19/21 21:30 07/19/21 21:31 DC 07/19/21 21:50 Justifications for Admission Other Justification THOMAS FORTE MD Jul 20, 2021 14:15
--- NOTE | 2021-07-20 15:27 | NUR ---
Pharmacy Warfarin Dosing Note S: Pharmacy consulted to assist with anticoagulation therapy. Admitted with INR of 6.1 due to patient self-discontinuing a multivitamin/vitamin K tablet about 2 weeks [employer]. O: SUDHIR NICOLE is a 76 year old M with a h/o Atrial Fibrillation. Admit INR of 6.1. LABS: Last INR: 1.4 Last HGB: 14.8 Last HCT: 47.9 Last PLT: 107 Last dose of Hold given on at Vitamin K given: 10 mg sub-q (07/17), 5 mg sub-q (07/18) A:INR of 1.4 is below desired range of 2 - 3. Resume warfarin today. P: Warfarin dose: 4 mg Today at 1600 Bridge Therapy: None Next INR due 07/21/21 Pharmacy anticoagulation service will continue to follow. JERMAIN MAURICIO [facility], 07/20/21 [id number]
[2021-07-20] MEDS ORDERED: WARFARIN 4 MG TABLET. PO ONE (16:00)
[2021-07-20] MEDS: PHENYLEPHRINE INJ 50 MG in IV NORMAL SALINE 250ML 250 ML IV PRN (17:02)
[2021-07-20] MEDS: SIMVASTATIN 20 MG TABLET PO SCH (20:11)
[2021-07-21] VITALS (14 sets, daily range): BP systolic 80–124; BP diastolic 38–80
[2021-07-21] MEDS: oxyCODONE/APAP 5/325 1 TAB TABLET PO PRN ×2 (02:40→19:56)
[2021-07-21 04:55] LABS: PROTHROMBIN TIME PATIENT 16.8 SEC (11.7-14.0)
[2021-07-21 05:45] LABS: CALCIUM 8.6 mg/dL (8.5-10.1); GFR 88.4; POTASSIUM 3.4 mmol/L (3.5-5.1)
[2021-07-21] MEDS: IPRATRPIUM/ALBUTEROL 0.5/2.5MG 3 ML NEBU. NEB SCH ×4 (07:38→20:00)
--- NOTE | 2021-07-21 08:15 | PDOC ---
PROGRESS NOTES Date of Service: DATE: 07/21/21 TIME: 08:15 Subjective Subjective On BiPAP, more alert today Objective Objective Vital Signs Date Time Temp Pulse Resp B/P (MAP) Pulse Ox O2 Delivery O2 Flow Rate FiO2 07/21/21 07:39 96 Nasal Cannula 3.0 07/21/21 06:00 82 13 100/65 07/21/21 04:00 98.2 98.2 Intake and Output 07/21/21 07:00 Intake Total 339 ml Output Total 2175 ml Balance -1836 ml Intake Oral 200 ml IV Total 139 ml Other 0 ml Output Urine Total 2175 ml Physical Exam Abdomen: Soft, Other (obese) Heart: Other (AFIB RVR, distant heart sounds) Extremities: No cyanosis, Other (trace LE edema) General: Alert, Oriented X3, Cooperative, No acute distress HEENT: Atraumatic, Mucous membr. moist/pink, Other (blind left eye) Lungs: Other (basilar crackles) MUSCULOSKELETAL: Osteoarthritic changes both hands Neuro: Normal speech, Sensation intact Psych/Mental Status: Mental status NL, Mood NL Skin: No breakdown, No significant lesion Assessment Assessment 1. Acute on chronic hypoxic respiratory failure with CHF/COPD exacerbation and AFIB RVR. Presently needing BiPAP 2. AFIB RVR: chronic by history. rate controlled 3. Acute on chronic HFrEF: NYHA2, appears better 4. HTN: 5. HLP 6. ICM: EF remains about the same at 30-35% 7. CAD: Past CABG 8. Coagulopathy 9. BILLY: suspect cardiorenal 10. Hypotension Recommendations 1. Right heart cath showed elevated biventricular filling pressures 2. Diuresing well with milrione gtt for inotropic support and laxis IV 3. Smoking cessation. Continue with HF optimization. 4. Will consider for outpt ischemic workup. Comment Review of Relevant I have reviewed the following items cynthia (where applicable) has been applied. Labs Laboratory Tests Test 07/20/21 12:54 07/20/21 13:18 07/21/21 04:30 Glucose (Fingerstick) 60 mg/dL (70-99) 65 mg/dL (70-99) Prothrombin Time 16.8 SEC (11.7-14.0) Prothromb Time International Ratio 1.4 (0.8-1.1) Sodium Level 144 mmol/L (136-145) Potassium Level 3.4 mmol/L (3.5-5.1) Chloride Level 102 mmol/L (98-107) Carbon Dioxide Level 38 mmol/L (21-32) Anion Gap 4 (6-14) Blood Urea Nitrogen 21 mg/dL (8-26) Creatinine 1.0 mg/dL (0.7-1.3) Estimated GFR (Cockcroft-Gault) 88.4 Glucose Level 63 mg/dL (70-99) Calcium Level 8.6 mg/dL (8.5-10.1) Microbiology 07/15/21 Blood Culture - Final, Complete NO GROWTH AFTER 5 DAYS Medications Current Medications Haloperidol Lactate (Haldol Inj) 5 mg 1X ONCE IVP ; Start 07/20/21 at 12:45; Stop 07/20/21 at 12:46; Status DC Warfarin Sodium (Coumadin Per Pharmacy) 1 each PRN DAILY PRN MC SEE COMMENTS Last administered on 07/20/21at 15:27; Start 07/20/21 at 15:30 Warfarin Sodium (Coumadin) 4 mg 1X WARF ONCE PO Last administered on 07/20/21at 16:39; Start 07/20/21 at 16:00; Stop 07/20/21 at 16:01; Status DC Vitals/I & O Vital Sign - Last 24 Hours 07/20/21 07/20/21 07/20/21 07/20/21 09:00 10:00 11:00 11:43 Pulse 96 86 80 Resp B/P (MAP) 121/59 74/59 94/43 Pulse Ox 95 97 98 94 O2 Delivery Nasal Cannula Nasal Cannula Nasal Cannula Nasal Cannula O2 Flow Rate 4.5 4.0 2.0 3.0 07/20/21 07/20/21 07/20/21 07/20/21 12:00 13:00 13:49 14:00 Temp 97.9 97.9 Pulse 108 102 93 Resp B/P (MAP) 119/69 100/49 127/51 Pulse Ox 88 84 86 85 O2 Delivery Nasal Cannula Nasal Cannula Nasal Cannula Nasal Cannula O2 Flow Rate 4.5 5.0 5.0 5.0 07/20/21 07/20/21 07/20/21 07/20/21 14:19 15:00 16:00 16:22 Temp 97.8 97.8 Pulse 85 84 Resp 24 20 18 B/P (MAP) 93/50 94/58 Pulse Ox 90 100 100 95 O2 Delivery Nasal Cannula Nasal Cannula Nasal Cannula Nasal Cannula O2 Flow Rate 5.0 5.0 5.0 07/20/21 07/20/21 07/20/21 07/20/21 17:00 17:56 18:00 18:26 Pulse 93 88 Resp 24 23 25 20 B/P (MAP) 92/64 105/46 Pulse Ox 87 90 94 97 O2 Delivery Nasal Cannula Nasal Cannula Nasal Cannula Nasal Cannula O2 Flow Rate 5.0 5.0 5.0 5.0 07/20/21 07/20/21 07/20/21 07/20/21 19:00 20:00 20:00 20:32 Temp 98.4 98.4 Pulse 120 B/P (MAP) 104/54 94/58 Pulse Ox 92 O2 Delivery Nasal Cannula Nasal Cannula Nasal Cannula Nasal Cannula O2 Flow Rate 5.0 5.0 4.5 5.0 07/20/21 07/20/21 07/20/21 07/20/21 21:00 22:00 22:30 23:00 Pulse 114 108 96 Resp 29 23 B/P (MAP) 97/65 99/53 Pulse Ox 87 92 93 92 O2 Delivery Nasal Cannula Nasal Cannula BiPAP/CPAP Nasal Cannula O2 Flow Rate 5.0 5.0 5.0 07/21/21 07/21/21 07/21/21 07/21/21 00:00 01:00 02:00 03:00 Temp 98.0 98.0 Pulse 86 86 82 106 Resp 23 20 15 25 B/P (MAP) 104/44 107/54 Pulse Ox 93 98 87 88 O2 Delivery Nasal Cannula Nasal Cannula Nasal Cannula Nasal Cannula O2 Flow Rate 5.0 4.0 4.0 4.0 07/21/21 07/21/21 07/21/21 07/21/21 04:00 05:00 06:00 07:39 Temp 98.2 98.2 Pulse 84 86 82 Resp 15 17 13 B/P (MAP) 89/50 100/65 Pulse Ox 98 97 96 96 O2 Delivery Nasal Cannula Nasal Cannula Nasal Cannula Nasal Cannula O2 Flow Rate 4.0 4.0 3.0 3.0 Intake and Output 07/20/21 07/20/21 07/21/21 15:00 23:00 07:00 Intake Total 0 ml 239 ml 100 ml Output Total 1105 ml 825 ml 245 ml Balance -1105 ml -586 ml -145 ml LUISA PRATT MD Jul 21, 2021 08:15
--- NOTE | 2021-07-21 11:53 | PDOC ---
[employer] PROGRESS NOTE Date of Service DOS: DATE: 07/21/21 TIME: 11:50 Chief Complaint Chief Complaint Acute on chronic hypoxic respiratory failure with CHF/COPD exacerbation and AFIB RVR. Poor compliance with home CPAP Hypoxic encephalopathy AFIB RVR - with chronic afib Acute on chronic HFrEF Ischemic cardiomyopathy EF 25-30% historically ?COPD Diabetes Dyperlipidemia Hypertension Benign tumor of the left eye CAMERON - CPAP at home Thrombocytopenia Leukopenia FEN - History of Present Illness History of Present Illness Mr Olea is a 76yo male w/ PMHx cardiomyopathy with an EF of 25%-30%, history of ongoing tobaccoism, suspect underlying COPD, obesity, history of CAMERON, on home CPAP with O2 bleed in 3L, left eye tumor, AFib, Coronary artery disease, type 2 diabetes, dyslipidemia and hypertension who p/w worsening shortness of breath to ED on 07/15/2021 at the behest of his PCP when he was found to be saturating 74% on room air. States that has been having worsening shortness of breath for the past month or so. Also having cough nonproductive. He was given a breathing treatment IV steroids and sent here On presentation here he required being placed on BiPAP due to hypoxia. Given 40 IV Lasix in ER with brisk diuresis. He is on home warfarin for A. fib but INR notably elevated Patient was denying any sort of headache chest pain abdominal pain dysuria. 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 Still having shortness of breath and abdominal distention. Given 40 mg of IV Lasix and has had no urine output over the past 8 hours. Had difficulty tolerating BiPAP at 18/4 felt his ears popping. Normally he is on CPAP 10 cm of H2O. Seen bedside his O2 saturations were 89% on 6 L/min of O2. A. fib is a little better rate controlled. Was given digoxin 07/17: INR 9.5, CR jumped to 2. Limited urine output blood pressure is low today. Discussed milrinone with cardiology. Will check renal ultrasound and consult nephrology for BILLY. 07/18: Blood pressure responded to albumin and small fluid bolus. Creatinine improved to 1.7 now with good urine output. Mentating better. Still short of breath on O2. Discussed with cardiology consideration of right heart cath to assess fluid status and pulmonary artery pressure. 07/19: Patient transferred down to ICU. Afebrile, appears to be somewhat confused but conversive. He had right heart cath today that showed acute biventricular pressure overload, severe pulmonary hypertension secondary to left heart failure, and low cardiac output. He is recommending milrinone infusion and diuretics. 07/20: Patient seen in ICU. Afebrile. He is still quite encephalopathic, but easily redirected. Uncertain etiology given dramatic change from admission, but likely hypoxic encephalopathy. Continue milrinone infusion and Lasix. 30 minutes critical care time spent reviewing charts, reviewing labs, and discussion with RN. 07/21: Patient seen and evaluated in ICU. His mentation has improved significantly since yesterday. Patient nurse reports that he wore BiPAP overnight, and encouraged continued use. CBG 63 this morning; replete and recheck. INR 1.4; on warfarin for atrial fibrillation. Discussed pharmacy bridging with Lovenox until INR 23. He still remains on milrinone and Lasix. Critical care time 30 minutes spent reviewing charts, reviewing labs, and di scussion with RN. Vitals/I&O Vitals/I&O: Vital Signs Date Time Temp Pulse Resp B/P (MAP) Pulse Ox O2 Delivery O2 Flow Rate FiO2 07/21/21 11:25 94 Nasal Cannula 3.0 07/21/21 06:00 82 13 100/65 07/21/21 04:00 98.2 98.2 I & O 07/20/21 07/20/21 07/21/21 15:00 23:00 07:00 Intake Total 0 ml 239 ml 100 ml Output Total 1105 ml 825 ml 245 ml Balance -1105 ml -586 ml -145 ml Physical Exam General: Alert, Oriented X3, Cooperative, No acute distress Heart: Other (AFIB RVR, distant heart sounds) Lungs: Clear Abdomen: Soft, Other (obese) Extremities: No cyanosis, Other (trace LE edema) Skin: No breakdown, No significant lesion Labs Labs: Laboratory Tests Test 07/20/21 12:54 07/20/21 13:18 07/21/21 04:30 Glucose (Fingerstick) 60 mg/dL (70-99) 65 mg/dL (70-99) Prothrombin Time 16.8 SEC (11.7-14.0) Prothromb Time International Ratio 1.4 (0.8-1.1) Sodium Level 144 mmol/L (136-145) Potassium Level 3.4 mmol/L (3.5-5.1) Chloride Level 102 mmol/L (98-107) Carbon Dioxide Level 38 mmol/L (21-32) Anion Gap 4 (6-14) Blood Urea Nitrogen 21 mg/dL (8-26) Creatinine 1.0 mg/dL (0.7-1.3) Estimated GFR (Cockcroft-Gault) 88.4 Glucose Level 63 mg/dL (70-99) Calcium Level 8.6 mg/dL (8.5-10.1) Comment Review of Relevant I have reviewed the following items cynthia (where applicable) has been applied. Medications: Current Medications Medications (Trade) Dose Ordered Sig/Tobi Route PRN Reason Start Time Stop Time Status Last Admin Dose Admin Warfarin Sodium (Coumadin Per Pharmacy) 1 each PRN DAILY PRN MC SEE COMMENTS 07/20/21 15:30 07/20/21 15:27 Warfarin Sodium (Coumadin) 4 mg 1X WARF ONCE PO 07/20/21 16:00 07/20/21 16:01 DC 07/20/21 16:39 Justifications for Admission Other Justification THOMAS FORTE MD Jul 21, 2021 11:53
[2021-07-21] MEDS: MULTIVITAMIN with MINERAL TABLET. PO SCH (12:11)
[2021-07-21] MEDS: FUROSEMIDE 40 MG/4 ML VIAL. IVP SCH ×2 (12:11→16:05)
[2021-07-21] MEDS: ACETAMINOPHEN 325 MG TABLET. PO PRN (12:11)
[2021-07-21] MEDS: SENNOSIDES/DOCUSATE 8.6/50MG TABLET. PO SCH ×2 (12:13→19:55)
--- NOTE | 2021-07-21 12:20 | NUR ---
Pharmacy Warfarin Dosing Note S: Pharmacy consulted to assist with anticoagulation therapy O: SUDHIR NICOLE is a 76 year old M with Atrial Fibrillation LABS: Last INR: 1.4 Last HGB: 14.8 Last HCT: 47.9 Last PLT: 107 Last dose of 4 mg given on 07/20/21 at 1639 Vitamin K given: N A:INR of 1.4 is below desired range. Target range for this patient is: 2 - 3 P: Warfarin dose: 4 mg Today at 1600 Bridge Therapy: Enoxaparin 1 mg/kg q12h Next INR due 07/22/21 Pharmacy anticoagulation service will continue to follow. JERMAIN MAURICIO [facility], 07/21/21 [id number]
--- NOTE | 2021-07-21 12:37 | PDOC ---
DATE OF SERVICE DATE: 07/21/21 TIME: 12:35 SUBJECTIVE ROS stable, Mentation improved OBJECTIVE Vital Signs Vital Signs Date Time Temp Pulse Resp B/P (MAP) Pulse Ox O2 Delivery O2 Flow Rate FiO2 07/21/21 11:25 94 Nasal Cannula 3.0 07/21/21 06:00 82 13 100/65 07/21/21 04:00 98.2 98.2 I & 0 Intake and Output 07/21/21 07:00 Intake Total 339 ml Output Total 2175 ml Balance -1836 ml Intake Oral 200 ml IV Total 139 ml Other 0 ml Output Urine Total 2175 ml PHYSICAL EXAM Physical Exam GEN: No apparent distress. HEENT: Normal cephalic, atraumatic, OM moist, On o2 by NC EYES: Left eye with ptosis due to tumor NECK: Supple, LUNGS: Clear to auscultation, Non labored , decreased at bases HEART: RRR, S!, S2 present. ABDOMEN: Soft, nontender. Positive bowel sounds,Obese EXTREMITIES: Bilateral lower extremity pitting edema NEUROLOGIC: Normal speech and tone. A&O x 3, moves all extremities, no obvious focal deficits PSYCHIATRIC: Normal affect, Stable SKIN: No ulcerations or rashes, Ingram + , No CVA or SP tenderness DIAGNOSIS/ASSESSMENT Assessment & Plan BILLY - Resolved , CT scan unremarkable Kidneys and Bladder , UA unremarkable Suspected etiology ATN /Intravascular depletion/Pancreatitis . CT scan with IV contrast on 07/14. Mildly elevated CK at presentation , Improved . Supportive care, maintain fluid balance . Tachycardia - Consult cardiology HyperKalemia - Emergent dialysis 07/15 x1 . K normal today HypoNatremia- POA- resolved HypoPhos- replaced IV 07/17 on 07/18 . Normal today HypoCalcemia - 2/2 Pancreatitis. Normal now Edematous pancreatitis- c/o abdominal pain and tenderness . GI consulted Diffuse hepatic steatosis per GI COMMENT/RELEVANT DATA Meds Current Medications Medications (Trade) Dose Ordered Sig/Tobi Start Time Stop Time Status Last Admin Dose Admin Acetaminophen (Tylenol) 650 mg PRN Q6HRS PRN 07/15/21 16:45 07/21/21 12:11 650 MG Albumin Human 250 ml @ 62.5 mls/hr 1X PRN 07/17/21 14:00 07/17/21 18:00 DC 07/17/21 15:32 62.5 MLS/HR Albuterol/ Ipratropium (Duoneb) 3 ml RTQID 07/15/21 20:00 07/21/21 11:23 3 ML Calcium Carbonate/ Glycine (Tums) 500 mg PRN Q3HRS PRN 07/15/21 16:45 Digoxin (Lanoxin) 500 mcg 1X ONCE 07/18/21 14:45 07/18/21 14:46 DC 07/18/21 14:45 500 MCG Enoxaparin Sodium (Lovenox 80mg Syringe) 80 mg Q12HR 07/21/21 11:00 07/21/21 12:12 80 MG Fentanyl Citrate (Fentanyl 2ml Vial) 50 mcg PRN Q1HR PRN 07/15/21 16:15 07/16/21 16:14 DC Furosemide (Lasix) 40 mg [id number] 07/19/21 14:00 07/21/21 12:11 40 MG Haloperidol Lactate (Haldol Inj) 5 mg 1X ONCE 07/20/21 12:45 07/20/21 12:46 DC Heparin Sodium/ Sodium Chloride (HEPARIN for ARTERIAL LINE FLUSH) 1,000 unit 1X ONCE 07/19/21 11:45 07/19/21 11:47 DC 07/19/21 11:42 1,000 UNIT Iodixanol (Visipaque 320) 100 ml STK-MED ONCE 07/19/21 10:12 07/19/21 10:13 DC Lidocaine HCl (Lidocaine 1% 20ml Vial) 20 ml STK-MED ONCE 07/19/21 10:12 07/19/21 10:13 DC Lidocaine HCl (Lidocaine 2% 20ml Vial) 7 ml 1X ONCE 07/19/21 11:45 07/19/21 11:46 DC 07/19/21 11:42 7 ML Lorazepam (Ativan Inj) 0.5 mg 1X ONCE 07/19/21 21:30 07/19/21 21:31 DC 07/19/21 21:50 0.5 MG Magnesium Sulfate 50 ml @ 25 mls/hr 1X ONCE 07/15/21 17:00 07/15/21 18:59 DC 07/15/21 18:03 25 MLS/HR Metoprolol Succinate (Toprol Xl) 25 mg DAILY 07/16/21 09:00 07/17/21 12:13 DC 07/16/21 09:37 25 MG Midodrine (Proamatine) 10 mg 1X ONCE 07/17/21 16:45 07/17/21 16:46 DC 07/17/21 16:49 10 MG Milrinone Lactate/ Dextrose 100 ml @ 4.065 mls/ hr CONT PRN 07/17/21 11:45 07/20/21 10:54 4.065 MLS/HR Multivitamins (Thera M Plus) 1 tab DAILY 07/16/21 14:15 07/21/21 12:11 1 TAB Nitroglycerin (Nitro-Bid Oint) 1 inch 1X ONCE 07/15/21 13:30 07/15/21 13:31 DC 07/15/21 14:46 1 INCH Norepinephrine Bitartrate 8 mg/ Dextrose 258 ml @ 21.188 mls/ hr CONT PRN 07/18/21 12:30 07/18/21 16:15 DC Olanzapine (ZyPREXA ZYDIS) 5 mg BID 07/19/21 17:00 07/21/21 12:13 5 MG Ondansetron HCl (Zofran) 4 mg PRN Q6HRS PRN 07/15/21 16:45 07/16/21 14:45 4 MG Oxycodone/ Acetaminophen (Percocet 5/325) 2 tab PRN Q4HRS PRN 07/15/21 16:45 Perflutren Protein Type A Microsphe (Optison) 0.66 mg 1X ONCE 07/16/21 07:00 07/16/21 07:01 DC Phenylephrine HCl 50 mg/Sodium Chloride 255 ml @ 16.478 mls/ hr CONT PRN 07/19/21 08:00 07/20/21 17:02 7.58 MLS/HR Phytonadione (Vitamin K Ampule) 5 mg 1X ONCE 07/18/21 12:00 07/18/21 12:01 DC 07/18/21 11:37 5 MG Potassium Chloride (Klor-Con) 20 meq 1X ONCE 07/17/21 11:45 07/17/21 11:46 DC 07/17/21 11:49 20 MEQ Sacubitril/ Valsartan (Entresto 24 Mg-26 Mg) 1 tab BID 07/15/21 21:00 07/17/21 11:33 DC 07/16/21 19:53 1 TAB Senna/Docusate Sodium (Senna Plus) 1 tab BID 07/15/21 21:00 07/21/21 12:13 1 TAB Simvastatin (Zocor) 20 mg HS 07/15/21 21:00 07/20/21 20:11 20 MG Sodium Chloride 250 ml @ 250 mls/hr 1X ONCE 07/17/21 15:00 07/17/21 15:59 DC 07/17/21 16:05 250 MLS/HR Sodium Chloride (Normal Saline Flush) 3 ml QSHIFT PRN 07/15/21 16:45 Warfarin Sodium (Coumadin - No Dose Today) 1 each 1X WARF ONCE 07/16/21 16:00 07/16/21 16:43 DC Warfarin Sodium (Coumadin Per Pharmacy) 1 each PRN DAILY PRN 07/20/21 15:30 07/21/21 12:20 1 EACH Warfarin Sodium (Coumadin) 4 mg 1X WARF ONCE 07/21/21 16:00 07/21/21 16:01 Lab Laboratory Tests Test 07/20/21 12:54 07/20/21 13:18 07/21/21 04:30 Glucose (Fingerstick) 60 mg/dL (70-99) 65 mg/dL (70-99) Prothrombin Time 16.8 SEC (11.7-14.0) Prothromb Time International Ratio 1.4 (0.8-1.1) Sodium Level 144 mmol/L (136-145) Potassium Level 3.4 mmol/L (3.5-5.1) Chloride Level 102 mmol/L (98-107) Carbon Dioxide Level 38 mmol/L (21-32) Anion Gap 4 (6-14) Blood Urea Nitrogen 21 mg/dL (8-26) Creatinine 1.0 mg/dL (0.7-1.3) Estimated GFR (Cockcroft-Gault) 88.4 Glucose Level 63 mg/dL (70-99) Calcium Level 8.6 mg/dL (8.5-10.1) Results All relevant outside records, renal labs, imaging studies, telemetry/EKG's were reviewed. Justicifation of Admission Dx: Justifications for Admission: Justification of Admission Dx: Yes BLU BLEVINS MD Jul 21, 2021 12:37
[2021-07-21] MEDS: MILRINONE 20MG/100ML PREMIX 100 ML IV PRN (13:12)
[2021-07-21] MEDS ORDERED: WARFARIN 4 MG TABLET. PO ONE (16:00)
[2021-07-21] MEDS ORDERED: HALOPERIDOL LACTATE 5 MG/ML VIAL. IM ONE (17:45)
[2021-07-21] MEDS ORDERED: HALOPERIDOL LACTATE 5 MG/ML VIAL. IVP ONE (18:15)
[2021-07-21] MEDS: SIMVASTATIN 20 MG TABLET PO SCH (19:55)
[2021-07-22] VITALS (11 sets, daily range): BP systolic 79–123; BP diastolic 48–70
[2021-07-22] MEDS: POTASSIUM CHLORIDE 10MEQ 100 ML IV SCH ×4 (00:45→21:31)
[2021-07-22 04:38] LABS: HEMATOCRIT 42.2 % (39.0-53.0); HEMOGLOBIN 13.3 g/dL (13.0-17.5); RED BLOOD COUNT 4.77 x10^6/uL (4.30-5.70); RED CELL DISTRIBUTION WIDTH 15.9 % (11.5-14.5); WHITE BLOOD COUNT 5.4 x10^3/uL (4.0-11.0)
[2021-07-22 04:45] LABS: PROTHROMBIN TIME PATIENT 16.2 SEC (11.7-14.0)
[2021-07-22 05:04] LABS: CALCIUM 8.9 mg/dL (8.5-10.1); GFR 88.4; POTASSIUM 3.2 mmol/L (3.5-5.1)
[2021-07-22] MEDS: IPRATRPIUM/ALBUTEROL 0.5/2.5MG 3 ML NEBU. NEB SCH ×4 (07:47→20:51)
[2021-07-22] MEDS: FUROSEMIDE 40 MG/4 ML VIAL. IVP SCH ×2 (08:07→14:24)
[2021-07-22] MEDS: SENNOSIDES/DOCUSATE 8.6/50MG TABLET. PO SCH ×2 (08:07→20:33)
[2021-07-22] MEDS: MULTIVITAMIN with MINERAL TABLET. PO SCH (08:08)
--- NOTE | 2021-07-22 09:14 | PDOC ---
DATE OF SERVICE DATE: 07/22/21 TIME: 09:13 SUBJECTIVE ROS stable, OBJECTIVE Vital Signs Vital Signs Date Time Temp Pulse Resp B/P (MAP) Pulse Ox O2 Delivery O2 Flow Rate FiO2 07/22/21 09:01 98.0 84 115/62 96 Nasal Cannula 3.0 98.0 07/22/21 06:00 21 I & 0 Intake and Output 07/22/21 07:00 Intake Total 450 ml Output Total 1440 ml Balance -990 ml Intake Oral 450 ml Output Urine Total 1440 ml PHYSICAL EXAM Physical Exam GEN: No apparent distress. HEENT: Normal cephalic, atraumatic, OM moist, On o2 by NC EYES: Left eye with ptosis due to tumor NECK: Supple, LUNGS: Clear to auscultation, Non labored , decreased at bases HEART: RRR, S!, S2 present. ABDOMEN: Soft, nontender. Positive bowel sounds,Obese EXTREMITIES: Bilateral lower extremity pitting edema NEUROLOGIC: Normal speech and tone. A&O x 3, moves all extremities, no obvious focal deficits PSYCHIATRIC: Normal affect, Stable SKIN: No ulcerations or rashes, Ingram + , No CVA or SP tenderness DIAGNOSIS/ASSESSMENT Assessment & Plan DIAGNOSIS/ASSESSMENT Assessment & Plan BILLY - Vasomotor /Cardiorenal/ Hypotensive- BP was in 60's POA .Baseline Creat was normal at presentation, peaked at 2.0, Resolved Diuresing well. On Lasix IV - RHC cw Vol overload. Card managing . Maintain fluid balance , Supportive care, avoid nephrotoxins HyperNatremia- Mild encourage po water intake. Diuretics per cardiology Hypotension - required pressor support . BP improved Acute on chronic hypoxic respiratory failure with CHF/COPD exacerbation and AFIB RVR. AFIB RVR - with chronic afib Acute on chronic HFrEF Ischemic cardiomyopathy EF 30-35%. On Milrinone RHC 07/19/21 - Acute biventricular pressure overload. Severe pulmonary hypertension, secondary to left heart failure. Low cardiac output. Milrinone and Diuretics per cardiology Diabetes Hypertension- Hypotensive since admission . 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 at home Thrombocytopenia Leukopenia COMMENT/RELEVANT DATA Meds Current Medications Medications (Trade) Dose Ordered Sig/Tobi Start Time Stop Time Status Last Admin Dose Admin Acetaminophen (Tylenol) 650 mg PRN Q6HRS PRN 07/15/21 16:45 07/21/21 12:11 650 MG Albumin Human 250 ml @ 62.5 mls/hr 1X PRN 07/17/21 14:00 07/17/21 18:00 DC 07/17/21 15:32 62.5 MLS/HR Albuterol/ Ipratropium (Duoneb) 3 ml RTQID 07/15/21 20:00 07/21/21 20:00 3 ML Calcium Carbonate/ Glycine (Tums) 500 mg PRN Q3HRS PRN 07/15/21 16:45 Digoxin (Lanoxin) 500 mcg 1X ONCE 07/18/21 14:45 07/18/21 14:46 DC 07/18/21 14:45 500 MCG Enoxaparin Sodium (Lovenox 80mg Syringe) 80 mg Q12HR 07/21/21 11:00 07/22/21 08:07 80 MG Fentanyl Citrate (Fentanyl 2ml Vial) 50 mcg PRN Q1HR PRN 07/15/21 16:15 07/16/21 16:14 DC Furosemide (Lasix) 40 mg [id number] 07/19/21 14:00 07/22/21 08:07 40 MG Haloperidol Lactate (Haldol Inj) 5 mg 1X ONCE 07/21/21 18:15 07/21/21 18:16 DC 07/21/21 18:47 5 MG Heparin Sodium/ Sodium Chloride (HEPARIN for ARTERIAL LINE FLUSH) 1,000 unit 1X ONCE 07/19/21 11:45 07/19/21 11:47 DC 07/19/21 11:42 1,000 UNIT Iodixanol (Visipaque 320) 100 ml STK-MED ONCE 07/19/21 10:12 07/19/21 10:13 DC Lidocaine HCl (Lidocaine 1% 20ml Vial) 20 ml STK-MED ONCE 07/19/21 10:12 07/19/21 10:13 DC Lidocaine HCl (Lidocaine 2% 20ml Vial) 7 ml 1X ONCE 07/19/21 11:45 07/19/21 11:46 DC 07/19/21 11:42 7 ML Lorazepam (Ativan Inj) 0.5 mg 1X ONCE 07/19/21 21:30 07/19/21 21:31 DC 07/19/21 21:50 0.5 MG Magnesium Sulfate 50 ml @ 25 mls/hr 1X ONCE 07/15/21 17:00 3/28/22 18:59 DC 07/15/21 18:03 25 MLS/HR Metoprolol Succinate (Toprol Xl) 25 mg DAILY 07/16/21 09:00 07/17/21 12:13 DC 07/16/21 09:37 25 MG Midodrine (Proamatine) 10 mg 1X ONCE 07/17/21 16:45 07/17/21 16:46 DC 07/17/21 16:49 10 MG Milrinone Lactate/ Dextrose 100 ml @ 4.065 mls/ hr CONT PRN 07/17/21 11:45 07/21/21 13:12 4.065 MLS/HR Multivitamins (Thera M Plus) 1 tab DAILY 07/16/21 14:15 07/22/21 08:08 1 TAB Nitroglycerin (Nitro-Bid Oint) 1 inch 1X ONCE 07/15/21 13:30 07/15/21 13:31 DC 07/15/21 14:46 1 INCH Norepinephrine Bitartrate 8 mg/ Dextrose 258 ml @ 21.188 mls/ hr CONT PRN 07/18/21 12:30 07/18/21 16:15 DC Olanzapine (ZyPREXA ZYDIS) 5 mg BID 07/19/21 17:00 07/22/21 08:07 5 MG Ondansetron HCl (Zofran) 4 mg PRN Q6HRS PRN 07/15/21 16:45 07/16/21 14:45 4 MG Oxycodone/ Acetaminophen (Percocet 5/325) 2 tab PRN Q4HRS PRN 07/15/21 16:45 Perflutren Protein Type A Microsphe (Optison) 0.66 mg 1X ONCE 07/16/21 07:00 07/16/21 07:01 DC Phenylephrine HCl 50 mg/Sodium Chloride 255 ml @ 16.478 mls/ hr CONT PRN 07/19/21 08:00 07/20/21 17:02 7.58 MLS/HR Phytonadione (Vitamin K Ampule) 5 mg 1X ONCE 07/18/21 12:00 07/18/21 12:01 DC 07/18/21 11:37 5 MG Potassium Chloride (Klor-Con) 20 meq 1X ONCE 07/17/21 11:45 07/17/21 11:46 DC 07/17/21 11:49 20 MEQ Sacubitril/ Valsartan (Entresto 24 Mg-26 Mg) 1 tab BID 07/15/21 21:00 07/17/21 11:33 DC 07/16/21 19:53 1 TAB Senna/Docusate Sodium (Senna Plus) 1 tab BID 07/15/21 21:00 07/22/21 08:07 1 TAB Simvastatin (Zocor) 20 mg HS 07/15/21 21:00 07/21/21 19:55 20 MG Sodium Chloride 250 ml @ 250 mls/hr 1X ONCE 07/17/21 15:00 07/17/21 15:59 DC 07/17/21 16:05 250 MLS/HR Sodium Chloride (Normal Saline Flush) 3 ml QSHIFT PRN 07/15/21 16:45 Warfarin Sodium (Coumadin - No Dose Today) 1 each 1X WARF ONCE 07/16/21 16:00 07/16/21 16:43 DC Warfarin Sodium (Coumadin Per Pharmacy) 1 each PRN DAILY PRN 07/20/21 15:30 07/21/21 12:20 1 EACH Warfarin Sodium (Coumadin) 4 mg 1X WARF ONCE 07/21/21 16:00 07/21/21 16:01 DC 07/21/21 19:55 4 MG Lab Laboratory Tests Test 07/22/21 04:10 White Blood Count 5.4 x10^3/uL (4.0-11.0) Red Blood Count 4.77 x10^6/uL (4.30-5.70) Hemoglobin 13.3 g/dL (13.0-17.5) Hematocrit 42.2 % (39.0-53.0) Mean Corpuscular Volume 88 fL (79-100) Mean Corpuscular Hemoglobin 28 pg (25-35) Mean Corpuscular Hemoglobin Concent 31 g/dL (31-37) Red Cell Distribution Width 15.9 % (11.5-14.5) Platelet Count 98 x10^3/uL (140-400) Prothrombin Time 16.2 SEC (11.7-14.0) Prothromb Time International Ratio 1.3 (0.8-1.1) Sodium Level 146 mmol/L (136-145) Potassium Level 3.2 mmol/L (3.5-5.1) Chloride Level 103 mmol/L (98-107) Carbon Dioxide Level 37 mmol/L (21-32) Anion Gap 6 (6-14) Blood Urea Nitrogen 17 mg/dL (8-26) Creatinine 1.0 mg/dL (0.7-1.3) Estimated GFR (Cockcroft-Gault) 88.4 Glucose Level 69 mg/dL (70-99) Calcium Level 8.9 mg/dL (8.5-10.1) Results All relevant outside records, renal labs, imaging studies, telemetry/EKG's were reviewed. Justicifation of Admission Dx: Justifications for Admission: Justification of Admission Dx: Yes BLU BLEVINS MD Jul 22, 2021 09:14
--- NOTE | 2021-07-22 12:43 | PDOC ---
[employer] PROGRESS NOTE Date of Service DOS: DATE: 07/22/21 TIME: 12:41 Chief Complaint Chief Complaint Acute on chronic hypoxic respiratory failure with CHF/COPD exacerbation and AFIB RVR. Poor compliance with home CPAP Hypoxic encephalopathy AFIB RVR - with chronic afib Acute on chronic HFrEF Ischemic cardiomyopathy EF 25-30% historically ?COPD Diabetes Dyperlipidemia Hypertension Benign tumor of the left eye CAMERON - CPAP at home Thrombocytopenia Leukopenia History of Present Illness History of Present Illness 07/22/2021 Patient seen and examined in the ICU He is on a milrinone drip He is using as needed BiPAP at night Legally blind Discussed with RN Discussed with case management Chart reviewed Patient has Ingram to bedside Mr Olea is a 76yo male w/ PMHx cardiomyopathy with an EF of 25%-30%, history of ongoing tobaccoism, suspect underlying COPD, obesity, history of CAMERON, on home CPAP with O2 bleed in 3L, left eye tumor, AFib, Coronary artery disease, type 2 diabetes, dyslipidemia and hypertension who p/w worsening shortness of breath to ED on 07/15/2021 at the behest of his PCP when he was found to be saturating 74% on room air. States that has been having worsening shortness of breath for the past month or so. Also having cough nonproductive. He was given a breathing tr eatment IV steroids and sent here On presentation here he required being placed on BiPAP due to hypoxia. Given 40 IV Lasix in ER with brisk diuresis. He is on home warfarin for A. fib but INR notably elevated Patient was denying any sort of headache chest pain abdominal pain dysuria. 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 Still having shortness of breath and abdominal distention. Given 40 mg of IV Lasix and has had no urine output over the past 8 hours. Had difficulty tolerating BiPAP at 18/4 felt his ears popping. Normally he is on CPAP 10 cm of H2O. Seen bedside his O2 saturations were 89% on 6 L/min of O2. A. fib is a little better rate controlled. Was given digoxin 07/17: INR 9.5, CR jumped to 2. Limited urine output blood pressure is low today. Discussed milrinone with cardiology. Will check renal ultrasound and consult nephrology for BILLY. 07/18: Blood pressure responded to albumin and small fluid bolus. Creatinine improved to 1.7 now with good urine output. Mentating better. Still short of breath on O2. Discussed with cardiology consideration of right heart cath to assess fluid status and pulmonary artery pressure. 07/19: Patient transferred down to ICU. Afebrile, appears to be somewhat confused but conversive. He had right heart cath today that showed acute biventricular pressure overload, severe pulmonary hypertension secondary to left heart failure, and low cardiac output. He is recommending milrinone infusion and diuretics. 07/20: Patient seen in ICU. Afebrile. He is still quite encephalopathic, but easily redirected. Uncertain etiology given dramatic change from admission, but likely hypoxic encephalopathy. Continue milrinone infusion and Lasix. 30 minutes critical care time spent reviewing charts, reviewing labs, and di scussion with RN. 07/21: Patient seen and evaluated in ICU. His mentation has improved significantly since yesterday. Patient nurse reports that he wore BiPAP overnight, and encouraged continued use. CBG 63 this morning; replete and recheck. INR 1.4; on warfarin for atrial fibrillation. Discussed pharmacy bridging with Lovenox until INR 23. He still remains on milrinone and Lasix. Critical care time 30 minutes spent reviewing charts, reviewing labs, and discussion with RN. Vitals/I&O Vitals/I&O: Vital Signs Date Time Temp Pulse Resp B/P (MAP) Pulse Ox O2 Delivery O2 Flow Rate FiO2 07/22/21 10:52 84 16 96 07/22/21 09:01 98.0 115/62 Nasal Cannula 3.0 98.0 I & O 07/21/21 07/21/21 07/22/21 15:00 23:00 07:00 Intake Total 450 ml Output Total 465 ml 665 ml 310 ml Balance -465 ml -665 ml 140 ml Physical Exam General: Alert, Oriented X3, Cooperative, No acute distress Heart: Other (AFIB RVR, distant heart sounds) Lungs: Clear Abdomen: Soft, Other (obese) Extremities: No cyanosis, Other (trace LE edema) Skin: No breakdown, No significant lesion Labs Labs: Laboratory Tests Test 07/22/21 04:10 07/22/21 11:09 White Blood Count 5.4 x10^3/uL (4.0-11.0) Red Blood Count 4.77 x10^6/uL (4.30-5.70) Hemoglobin 13.3 g/dL (13.0-17.5) Hematocrit 42.2 % (39.0-53.0) Mean Corpuscular Volume 88 fL (79-100) Mean Corpuscular Hemoglobin 28 pg (25-35) Mean Corpuscular Hemoglobin Concent 31 g/dL (31-37) Red Cell Distribution Width 15.9 % (11.5-14.5) Platelet Count 98 x10^3/uL (140-400) Prothrombin Time 16.2 SEC (11.7-14.0) Prothromb Time International Ratio 1.3 (0.8-1.1) Sodium Level 146 mmol/L (136-145) Potassium Level 3.2 mmol/L (3.5-5.1) Chloride Level 103 mmol/L (98-107) Carbon Dioxide Level 37 mmol/L (21-32) Anion Gap 6 (6-14) Blood Urea Nitrogen 17 mg/dL (8-26) Creatinine 1.0 mg/dL (0.7-1.3) Estimated GFR (Cockcroft-Gault) 88.4 Glucose Level 69 mg/dL (70-99) Calcium Level 8.9 mg/dL (8.5-10.1) Glucose (Fingerstick) 75 mg/dL (70-99) Assessment and Plan Assessmemt and Plan Acute on chronic hypoxic respiratory failure with CHF/COPD exacerbation and AFIB RVR. Poor compliance with home CPAP Hypoxic encephalopathy AFIB RVR - with chronic afib Acute on chronic HFrEF Ischemic cardiomyopathy EF 25-30% historically ?COPD Diabetes Dyperlipidemia Hypertension Benign tumor of the left eye CAMERON - CPAP at home Thrombocytopenia Leukopenia Plan Transfer out of ICU Continue milrinone drip BiPAP at night Cardiac monitoring Home meds DVT prophylaxis Full code Trend labs Appreciate subspecialist input Long-term prognosis guarded Comment Review of Relevant I have reviewed the following items cynthia (where applicable) has been applied. Medications: Current Medications Medications (Trade) Dose Ordered Sig/Tobi Route PRN Reason Start Time Stop Time Status Last Admin Dose Admin Warfarin Sodium (Coumadin) 4 mg 1X WARF ONCE PO 07/21/21 16:00 07/21/21 16:01 DC 07/21/21 19:55 Haloperidol Lactate (Haldol Inj) 5 mg 1X ONCE IVP 07/21/21 18:15 07/21/21 18:16 DC 07/21/21 18:47 Justifications for Admission Other Justification ABIGAIL CHICAS III DO Jul 22, 2021 12:43
[2021-07-22] MEDS: MILRINONE 20MG/100ML PREMIX 100 ML IV PRN (14:24)
[2021-07-22] MEDS ORDERED: WARFARIN 5 MG TABLET. PO ONE (16:00)
--- NOTE | 2021-07-22 17:33 | PDOC ---
PROGRESS NOTES Date of Service DATE: 07/22/21 TIME: 17:31 Subjective Subjective Patient seen and examined Objective Objective Vital Signs Date Time Temp Pulse Resp B/P (MAP) Pulse Ox O2 Delivery O2 Flow Rate FiO2 07/22/21 15:57 100 Nasal Cannula 3.5 07/22/21 15:00 97.9 100 16 123/70 97.9 Intake and Output 07/22/21 07:00 Intake Total 450 ml Output Total 1440 ml Balance -990 ml Intake Oral 450 ml Output Urine Total 1440 ml Physical Exam Abdomen: Normal bowel sounds Heart: Other (Rate of 100.) General: mild distress Lungs: Other (Decreased breath sounds) Assessment Assessment 1. Acute on chronic hypoxic respiratory failure with CHF/COPD exacerbation and AFIB RVR. Presently needing BiPAP. Continuing present treatment. Followed by the pulmonary service. 2. AFIB RVR: chronic by history. rate controlled 3. Acute on chronic HFrEF: NYHA2, continues on milrinone and Lasix. Mild improvement. 4. HTN: 5. HLP 6. ICM: EF remains about the same at 30-35% 7. CAD: Past CABG. continue treatment as above. Outpatient ischemic evaluation. 8. Coagulopathy 9. BILLY: suspect cardiorenal 10. Hypotension Comment Review of Relevant I have reviewed the following items cynthia (where applicable) has been applied. Labs Laboratory Tests Test 07/21/21 04:30 07/22/21 04:10 07/22/21 11:09 Prothrombin Time 16.8 SEC (11.7-14.0) 16.2 SEC (11.7-14.0) Prothromb Time International Ratio 1.4 (0.8-1.1) 1.3 (0.8-1.1) Sodium Level 144 mmol/L (136-145) 146 mmol/L (136-145) Potassium Level 3.4 mmol/L (3.5-5.1) 3.2 mmol/L (3.5-5.1) Chloride Level 102 mmol/L (98-107) 103 mmol/L (98-107) Carbon Dioxide Level 38 mmol/L (21-32) 37 mmol/L (21-32) Anion Gap 4 (6-14) 6 (6-14) Blood Urea Nitrogen 21 mg/dL (8-26) 17 mg/dL (8-26) Creatinine 1.0 mg/dL (0.7-1.3) 1.0 mg/dL (0.7-1.3) Estimated GFR (Cockcroft-Gault) 88.4 88.4 Glucose Level 63 mg/dL (70-99) 69 mg/dL (70-99) Calcium Level 8.6 mg/dL (8.5-10.1) 8.9 mg/dL (8.5-10.1) White Blood Count 5.4 x10^3/uL (4.0-11.0) Red Blood Count 4.77 x10^6/uL (4.30-5.70) Hemoglobin 13.3 g/dL (13.0-17.5) Hematocrit 42.2 % (39.0-53.0) Mean Corpuscular Volume 88 fL (79-100) Mean Corpuscular Hemoglobin 28 pg (25-35) Mean Corpuscular Hemoglobin Concent 31 g/dL (31-37) Red Cell Distribution Width 15.9 % (11.5-14.5) Platelet Count 98 x10^3/uL (140-400) Glucose (Fingerstick) 75 mg/dL (70-99) Laboratory Tests Test 07/22/21 04:10 07/22/21 11:09 White Blood Count 5.4 x10^3/uL (4.0-11.0) Red Blood Count 4.77 x10^6/uL (4.30-5.70) Hemoglobin 13.3 g/dL (13.0-17.5) Hematocrit 42.2 % (39.0-53.0) Mean Corpuscular Volume 88 fL (79-100) Mean Corpuscular Hemoglobin 28 pg (25-35) Mean Corpuscular Hemoglobin Concent 31 g/dL (31-37) Red Cell Distribution Width 15.9 % (11.5-14.5) Platelet Count 98 x10^3/uL (140-400) Prothrombin Time 16.2 SEC (11.7-14.0) Prothromb Time International Ratio 1.3 (0.8-1.1) Sodium Level 146 mmol/L (136-145) Potassium Level 3.2 mmol/L (3.5-5.1) Chloride Level 103 mmol/L (98-107) Carbon Dioxide Level 37 mmol/L (21-32) Anion Gap 6 (6-14) Blood Urea Nitrogen 17 mg/dL (8-26) Creatinine 1.0 mg/dL (0.7-1.3) Estimated GFR (Cockcroft-Gault) 88.4 Glucose Level 69 mg/dL (70-99) Calcium Level 8.9 mg/dL (8.5-10.1) Glucose (Fingerstick) 75 mg/dL (70-99) Microbiology 07/15/21 Blood Culture - Final, Complete NO GROWTH AFTER 5 DAYS Medications Current Medications Furosemide (Lasix) 40 mg 1X ONCE IVP Last administered on 07/15/21at 14:49; Start 07/15/21 at 13:30; Stop 07/15/21 at 13:31; Status DC Nitroglycerin (Nitro-Bid Oint) 1 inch 1X ONCE TP Last administered on 07/15/21at 14:46; Start 07/15/21 at 13:30; Stop 07/15/21 at 13:31; Status DC Ondansetron HCl (Zofran) 4 mg PRN Q8HRS PRN IVP NAUSEA/VOMITING; Start 07/15/21 at 16:15; Stop 07/15/21 at 16:49; Status DC Fentanyl Citrate (Fentanyl 2ml Vial) 50 mcg PRN Q1HR PRN IVP PAIN; Start 07/15/21 at 16:15; Stop 07/16/21 at 16:14; Status DC Acetaminophen (Tylenol) 650 mg PRN Q4HRS PRN PO FEVER > 100.3'F; Start 07/15/21 at 16:15; Stop 07/16/21 at 10:43; Status DC Potassium Chloride (Klor-Con) 40 meq 1X ONCE PO Last administered on 07/15/21at 18:03; Start 07/15/21 at 16:45; Stop 07/15/21 at 16:46; Status DC Magnesium Sulfate 50 ml @ 25 mls/hr 1X ONCE IV Last administered on 07/15/21at 18:03; Start 07/15/21 at 17:00; Stop 07/15/21 at 18:59; Status DC Acetaminophen (Tylenol) 650 mg PRN Q6HRS PRN PO Headaches, Temp > 101.5' Last administered on 07/21/21at 12:11; Start 07/15/21 at 16:45 Ondansetron HCl (Zofran) 4 mg PRN Q6HRS PRN IVP NAUSEA/VOMITING Last administered on 07/16/21at 14:45; Start 07/15/21 at 16:45 Calcium Carbonate/ Glycine (Tums) 500 mg PRN Q3HRS PRN PO HEARTBURN / GAS; Start 07/15/21 at 16:45 Sodium Chloride (Normal Saline Flush) 3 ml QSHIFT PRN IV AFTER MEDS AND BLOOD DRAWS; Start 07/15/21 at 16:45 Oxycodone/ Acetaminophen (Percocet 5/325) 1 tab PRN Q4HRS PRN PO MILD PAIN, 1ST CHOICE Last administered on 07/21/21 19:56; Start 07/15/21 at 16:45 Oxycodone/ Acetaminophen (Percocet 5/325) 2 tab PRN Q4HRS PRN PO MODERATE PAIN, SEVERE PAIN; Start 07/15/21 at 16:45 Senna/Docusate Sodium (Senna Plus) 1 tab BID PO Last administered on 07/22/21 08:07; Start 07/15/21 at 21:00 Furosemide (Lasix) 40 mg DAILY PO Last administered on 07/16/21 09:37; Start 07/16/21 at 09:00; Stop 07/19/21 at 08:16; Status DC Albuterol/ Ipratropium (Duoneb) 3 ml RTQID NEB Last administered on 07/22/21 15:57; Start 07/15/21 at 20:00 Metoprolol Succinate (Toprol Xl) 25 mg DAILY PO Last administered on 07/16/21 09:37; Start 07/16/21 at 09:00; Stop 07/17/21 at 12:13; Status DC Sacubitril/ Valsartan (Entresto 24 Mg-26 Mg) 1 tab BID PO Last administered on 07/16/21 19:53; Start 07/15/21 at 21:00; Stop 07/17/21 at 11:33; Status DC Simvastatin (Zocor) 20 mg HS PO Last administered on 07/21/21 19:55; Start 07/15/21 at 21:00 Warfarin Sodium (Coumadin Per Pharmacy) 1 each PRN DAILY PRN MC SEE COMMENTS Last administered on 07/16/21at 15:21; Start 07/15/21 at 16:45; Stop 07/16/21 at 16:43; Status DC Warfarin Sodium (Coumadin - No Dose Today) 1 each 1X WARF ONCE MC ; Start 07/16/21 at 16:00; Stop 07/16/21 at 16:43; Status DC Furosemide (Lasix) 40 mg 1X ONCE IVP Last administered on 07/15/21at 18:08; Start 07/15/21 at 18:00; Stop 07/15/21 at 18:01; Status DC Perflutren Protein Type A Microsphe (Optison) 0.66 mg 1X ONCE IV ; Start 07/16/21 at 07:00; Stop 07/16/21 at 07:01; Status DC Digoxin (Lanoxin) 250 mcg 1X ONCE IV Last administered on 07/16/21 11:20; Start 07/16/21 at 10:45; Stop 07/16/21 at 10:46; Status DC Furosemide (Lasix) 40 mg 1X ONCE IVP Last administered on 07/16/21at 11:20; Start 07/16/21 at 10:45; Stop 07/16/21 at 10:46; Status DC Multivitamins (Thera M Plus) 1 tab DAILY PO Last administered on 07/22/21at 08:08; Start 07/16/21 at 14:15 Milrinone Lactate/ Dextrose 100 ml @ 4.065 mls/ hr CONT PRN IV SEE I/O RECORD Last administered on 07/22/21at 14:24; Start 07/17/21 at 11:45 Potassium Chloride (Klor-Con) 20 meq 1X ONCE PO Last administered on 07/17/21at 11:49; Start 07/17/21 at 11:45; Stop 07/17/21 at 11:46; Status DC Sodium Chloride 250 ml @ 250 mls/hr 1X ONCE IV Last administered on 07/17/21at 12:20; Start 07/17/21 at 12:15; Stop 07/17/21 at 13:14; Status DC Albumin Human 250 ml @ 62.5 mls/hr 1X PRN IV HYPOTENSION Last administered on 07/17/21at 15:32; Start 07/17/21 at 14:00; Stop 07/17/21 at 18:00; Status DC Phytonadione (Vitamin K Ampule) 10 mg 1X ONCE SQ Last administered on 07/17/21at 15:19; Start 07/17/21 at 15:00; Stop 07/17/21 at 15:01; Status DC Sodium Chloride 250 ml @ 250 mls/hr 1X ONCE IV Last administered on 07/17/21at 16:05; Start 07/17/21 at 15:00; Stop 07/17/21 at 15:59; Status DC Midodrine (Proamatine) 10 mg 1X ONCE PO Last administered on 07/17/21at 16:49; Start 07/17/21 at 16:45; Stop 07/17/21 at 16:46; Status DC Digoxin (Lanoxin) 250 mcg 1X ONCE IV ; Start 07/18/21 at 11:15; Stop 07/18/21 at 11:16; Status DC Phytonadione (Vitamin K Ampule) 5 mg 1X ONCE SQ Last administered on 07/18/21at 11:37; Start 07/18/21 at 12:00; Stop 07/18/21 at 12:01; Status DC Norepinephrine Bitartrate 8 mg/ Dextrose 258 ml @ 21.188 mls/ hr CONT PRN IV PER PROTOCOL; Start 07/18/21 at 12:30; Stop 07/18/21 at 16:15; Status DC Digoxin (Lanoxin) 500 mcg 1X ONCE IV Last administered on 07/18/21at 14:45; Start 07/18/21 at 14:45; Stop 07/18/21 at 14:46; Status DC Phenylephrine HCl 50 mg/Sodium Chloride 255 ml @ 16.677 mls/ hr 1X ONCE IV Last administered on 07/18/21at 16:32; Start 07/18/21 at 16:15; Stop 07/19/21 at 0 7:28; Status DC Furosemide (Lasix) 20 mg 1X ONCE IVP Last administered on 07/18/21at 16:36; Start 07/18/21 at 16:15; Stop 07/18/21 at 16:16; Status DC Lorazepam (Ativan Inj) 2 mg 1X ONCE IVP Last administered on 07/18/21at 22:43; Start 07/18/21 at 22:30; Stop 07/18/21 at 22:31; Status DC Phenylephrine HCl 50 mg/Sodium Chloride 255 ml @ 16.478 mls/ hr CONT PRN IV PER PROTOCOL Last administered on 07/20/21at 17:02; Start 07/19/21 at 08:00 Furosemide (Lasix) 40 mg 1X ONCE IVP Last administered on 07/19/21at 08:35; Start 07/19/21 at 08:15; Stop 07/19/21 at 08:28; Status DC Iodixanol (Visipaque 320) 100 ml STK-MED ONCE .ROUTE ; Start 07/19/21 at 10:12; Stop 07/19/21 at 10:13; Status DC Lidocaine HCl (Lidocaine 1% 20ml Vial) 20 ml STK-MED ONCE .ROUTE ; Start 07/19/21 at 10:12; Stop 07/19/21 at 10:13; Status DC Heparin Sodium/ Sodium Chloride 1,000 ml @ As Directed STK-MED ONCE .ROUTE ; Start 07/19/21 at 10:12; Stop 07/19/21 at 10:13; Status Cancel Lidocaine HCl (Lidocaine 2% 20ml Vial) 7 ml 1X ONCE IJ Last administered on 07/19/21at 11:42; Start 07/19/21 at 11:45; Stop 07/19/21 at 11:46; Status DC Heparin Sodium/ Sodium Chloride (HEPARIN for ARTERIAL LINE FLUSH) 1,000 unit 1X ONCE IV ; Start 07/19/21 at 11:45; Stop 07/19/21 at 11:46; Status DC Heparin Sodium/ Sodium Chloride (HEPARIN for ARTERIAL LINE FLUSH) 1,000 unit 1X ONCE IART Last administered on 07/19/21at 11:42; Start 07/19/21 at 11:45; Stop 07/19/21 at 11:47; Status DC Furosemide (Lasix) 40 mg [id number] IVP Last administered on 07/22/21at 14:24; Start 07/19/21 at 14:00 Olanzapine (ZyPREXA ZYDIS) 5 mg BID PO Last administered on 07/22/21at 08:07; Start 07/19/21 at 17:00 Lorazepam (Ativan Inj) 0.5 mg 1X ONCE IVP Last administered on 07/19/21at 21:50; Start 07/19/21 at 21:30; Stop 07/19/21 at 21:31; Status DC Haloperidol Lactate (Haldol Inj) 5 mg 1X ONCE IVP ; Start 07/20/21 at 12:45; Stop 07/20/21 at 12:46; Status DC Warfarin Sodium (Coumadin Per Pharmacy) 1 each PRN DAILY PRN MC SEE COMMENTS Last administered on 07/22/21at 10:09; Start 07/20/21 at 15:30 Warfarin Sodium (Coumadin) 4 mg 1X WARF ONCE PO Last administered on 07/20/21at 16:39; Start 07/20/21 at 16:00; Stop 07/20/21 at 16:01; Status DC Enoxaparin Sodium (Lovenox 80mg Syringe) 80 mg Q12HR SQ Last administered on 07/22/21at 08:07; Start 07/21/21 at 11:00 Warfarin Sodium (Coumadin) 4 mg 1X WARF ONCE PO Last administered on 07/21/21at 19:55; Start 07/21/21 at 16:00; Stop 07/21/21 at 16:01; Status DC Haloperidol Lactate (Haldol Inj) 5 mg 1X ONCE IM ; Start 07/21/21 at 17:45; Stop 07/21/21 at 18:01; Status DC Haloperidol Lactate (Haldol Inj) 5 mg 1X ONCE IVP Last administered on 07/21/21at 18:47; Start 07/21/21 at 18:15; Stop 07/21/21 at 18:16; Status DC Warfarin Sodium (Coumadin) 5 mg 1X WARF ONCE PO Last administered on 07/22/21at 16:39; Start 07/22/21 at 16:00; Stop 07/22/21 at 16:01; Status DC Potassium Chloride/Water 100 ml @ 100 mls/hr Q1H IV Last administered on 07/22/21at 16:40; Start 07/22/21 at 17:00; Stop 07/22/21 at 20:59 Active Scripts Active Entresto 24 mg-26 mg Tablet (Sacubitril/Valsartan) 1 Each Tablet 1 Tab PO BID 30 Days Metoprolol Succinate ( Xl ) (Metoprolol Succinate) 25 Mg Tab.er.24h 25 Mg PO DAILY 30 Days Doxycycline Hyclate 100 Mg Tablet 100 Mg PO BID 4 Days Duoneb 0.5-3(2.5) Mg/3 Ml (Albuterol/Ipratropium) 3 Ml Ampul.neb 3 Ml NEB RTQID 30 Days Reported Warfarin Sodium 7.5 Mg Tablet 7.5 Mg PO [id number] Warfarin Sodium 5 Mg Tablet 5 Mg PO [id number] Furosemide 40 Mg Tablet 40 Mg PO DAILY Simvastatin 20 Mg Tablet 20 Mg PO HS Aspir 81 (Aspirin) 81 Mg Tablet.dr 81 Mg PO DAILY Vitals/I & O Vital Sign - Last 24 Hours 07/21/21 07/21/21 07/21/21 07/21/21 19:00 20:00 20:00 20:26 Temp 98.0 98.0 Pulse 96 96 Resp 18 27 B/P (MAP) 106/66 Pulse Ox 93 88 95 O2 Delivery BiPAP/CPAP Nasal Cannula Nasal Cannula Nasal Cannula O2 Flow Rate 4.0 4.0 4.0 07/21/21 07/21/21 07/21/21 07/21/21 20:45 21:00 22:00 22:30 Pulse 100 104 Resp 20 25 B/P (MAP) 124/80 Pulse Ox 95 88 96 98 O2 Delivery BiPAP/CPAP Nasal Cannula BiPAP/CPAP BiPAP/CPAP O2 Flow Rate 4.0 07/21/21 07/22/21 07/22/21 07/22/21 23:00 00:00 01:00 02:00 Temp 97.8 97.8 Pulse 116 80 84 104 Resp 33 18 17 31 B/P (MAP) 112/67 79/48 99/64 107/59 Pulse Ox 90 87 88 88 O2 Delivery BiPAP/CPAP Nasal Cannula Nasal Cannula Nasal Cannula O2 Flow Rate 4.0 4.0 4.0 07/22/21 07/22/21 07/22/21 07/22/21 03:00 03:00 04:00 05:00 Temp 98.4 98.4 Pulse 100 94 96 Resp 32 30 17 B/P (MAP) 117/59 101/62 98/59 Pulse Ox 91 88 89 88 O2 Delivery BiPAP/CPAP BiPAP/CPAP Nasal Cannula Nasal Cannula O2 Flow Rate 4.0 4.0 07/22/21 07/22/21 07/22/21 07/22/21 06:00 08:00 09:01 10:52 Temp 98.0 98.0 Pulse 84 84 84 Resp 21 16 B/P (MAP) 112/62 115/62 Pulse Ox 96 96 96 O2 Delivery Nasal Cannula Nasal Cannula Nasal Cannula O2 Flow Rate 3.0 4.0 3.0 07/22/21 07/22/21 15:00 15:57 Temp 97.9 97.9 Pulse 100 Resp 16 B/P (MAP) 123/70 Pulse Ox 96 100 O2 Delivery Nasal Cannula Nasal Cannula O2 Flow Rate 3.0 3.5 Intake and Output 07/21/21 07/21/21 07/22/21 15:00 23:00 07:00 Intake Total 450 ml Output Total 465 ml 665 ml 310 ml Balance -465 ml -665 ml 140 ml Justifications for Admission Other Justification HIREN ROMAN MD Jul 22, 2021 17:33
[2021-07-22] MEDS: oxyCODONE/APAP 5/325 1 TAB TABLET PO PRN (20:39)
[2021-07-22] MEDS: SIMVASTATIN 20 MG TABLET PO SCH (21:27)
[2021-07-23 04:43] LABS: PROTHROMBIN TIME PATIENT 15.7 SEC (11.7-14.0)
[2021-07-23 07:00] VITALS: BP 122/55
[2021-07-23] MEDS: IPRATRPIUM/ALBUTEROL 0.5/2.5MG 3 ML NEBU. NEB SCH ×4 (08:11→19:36)
[2021-07-23] MEDS: MULTIVITAMIN with MINERAL TABLET. PO SCH (08:50)
[2021-07-23] MEDS: FUROSEMIDE 40 MG/4 ML VIAL. IVP SCH ×2 (08:50→14:14)
[2021-07-23] MEDS: SENNOSIDES/DOCUSATE 8.6/50MG TABLET. PO SCH ×2 (08:50→20:49)
[2021-07-23 09:26] LABS: CALCIUM 8.8 mg/dL (8.5-10.1); CREATININE 0.9 mg/dL (0.7-1.3); GFR 99.8; POTASSIUM 3.4 mmol/L (3.5-5.1)
[2021-07-23 09:31] LABS: BASO % 1 % (0-3); EOS # 0.1 x10^3/uL (0.0-0.7); EOS % 3 % (0-3); HEMATOCRIT 42.1 % (39.0-53.0); HEMOGLOBIN 13.1 g/dL (13.0-17.5); LYMPH # 0.7 x10^3/uL (1.0-4.8); LYMPH % 14 % (24-48); MEAN CORPUSCULAR HEMOGLOBIN 27 pg (25-35); MEAN CORPUSCULAR HGB CONC 31 g/dL (31-37); MEAN CORPUSCULAR VOLUME 88 fL (79-100); MONO # 0.5 x10^3/uL (0.0-1.1); MONO % 10 % (0-9); NEUT # 3.8 x10^3/uL (1.8-7.7); NEUT % 73 % (31-73); PLATELET COUNT 102 x10^3/uL (140-400); RED BLOOD COUNT 4.79 x10^6/uL (4.30-5.70); RED CELL DISTRIBUTION WIDTH 15.9 % (11.5-14.5)
--- NOTE | 2021-07-23 10:44 | PDOC ---
DATE OF SERVICE DATE: 07/23/21 TIME: 10:43 SUBJECTIVE ROS stable, OBJECTIVE Vital Signs Vital Signs Date Time Temp Pulse Resp B/P (MAP) Pulse Ox O2 Delivery O2 Flow Rate FiO2 07/23/21 08:12 98 Nasal Cannula 5.0 07/22/21 23:00 77 20 110/62 07/22/21 15:00 97.9 97.9 I & 0 Intake and Output 07/23/21 07:00 Intake Total 434 ml Output Total 2500 ml Balance -2066 ml Intake Oral 240 ml IV Total 194 ml Output Urine Total 2500 ml PHYSICAL EXAM Physical Exam GEN: No apparent distress. HEENT: Normal cephalic, atraumatic, OM moist, On o2 by NC EYES: Left eye with ptosis due to tumor NECK: Supple, LUNGS: Clear to auscultation, Non labored , decreased at bases HEART: RRR, S!, S2 present. ABDOMEN: Soft, nontender. Positive bowel sounds,Obese EXTREMITIES: Bilateral lower extremity pitting edema NEUROLOGIC: Normal speech and tone. A&O x 3, moves all extremities, no obvious focal deficits PSYCHIATRIC: Normal affect, Stable SKIN: No ulcerations or rashes, [place] + , No CVA or SP tenderness DIAGNOSIS/ASSESSMENT Assessment & Plan BILLY - Vasomotor /Cardiorenal/ Hypotensive- BP was in 60's POA .Baseline Creat was normal at presentation, peaked at 2.0, Resolved. Voiding trial before discharge if murcia removed On Lasix IV - RHC cw Vol overload. Card managing . Maintain fluid balance , Supportive care, avoid nephrotoxins HyperNatremia- Mild. Resolved Diuretics per cardiology Hypotension - required pressor support . BP improved Acute on chronic hypoxic respiratory failure with CHF/COPD exacerbation and AFIB RVR. AFIB RVR - with chronic afib Acute on chronic HFrEF Ischemic cardiomyopathy EF 30-35%. On Milrinone RHC 07/19/21 - Acute biventricular pressure overload. Severe pulmonary hypertension, secondary to left heart failure. Low cardiac output. Milrinone and Diuretics per cardiology Diabetes Hypertension- Hypotensive since admission . 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 at home Thrombocytopenia Leukopenia Will Sign off COMMENT/RELEVANT DATA Meds Current Medications Medications (Trade) Dose Ordered Sig/Tobi Start Time Stop Time Status Last Admin Dose Admin Acetaminophen (Tylenol) 650 mg PRN Q6HRS PRN 07/15/21 16:45 07/21/21 12:11 650 MG Albumin Human 250 ml @ 62.5 mls/hr 1X PRN 07/17/21 14:00 07/17/21 18:00 DC 07/17/21 15:32 62.5 MLS/HR Albuterol/ Ipratropium (Duoneb) 3 ml RTQID 07/15/21 20:00 07/23/21 08:11 3 ML Calcium Carbonate/ Glycine (Tums) 500 mg PRN Q3HRS PRN 07/15/21 16:45 Digoxin (Lanoxin) 500 mcg 1X ONCE 07/18/21 14:45 07/18/21 14:46 DC 07/18/21 14:45 500 MCG Enoxaparin Sodium (Lovenox 80mg Syringe) 80 mg Q12HR 07/21/21 11:00 07/23/21 08:51 80 MG Fentanyl Citrate (Fentanyl 2ml Vial) 50 mcg PRN Q1HR PRN 07/15/21 16:15 07/16/21 16:14 DC Furosemide (Lasix) 40 mg [id number] 07/19/21 14:00 07/23/21 08:50 40 MG Haloperidol Lactate (Haldol Inj) 5 mg 1X ONCE 07/21/21 18:15 07/21/21 18:16 DC 07/21/21 18:47 5 MG Heparin Sodium/ Sodium Chloride (HEPARIN for ARTERIAL LINE FLUSH) 1,000 unit 1X ONCE 07/19/21 11:45 07/19/21 11:47 DC 07/19/21 11:42 1,000 UNIT Iodixanol (Visipaque 320) 100 ml STK-MED ONCE 07/19/21 10:12 07/19/21 10:13 DC Lidocaine HCl (Lidocaine 1% 20ml Vial) 20 ml STK-MED ONCE 07/19/21 10:12 07/19/21 10:13 DC Lidocaine HCl (Lidocaine 2% 20ml Vial) 7 ml 1X ONCE 07/19/21 11:45 07/19/21 11:46 DC 07/19/21 11:42 7 ML Lorazepam (Ativan Inj) 0.5 mg 1X ONCE 07/19/21 21:30 07/19/21 21:31 DC 07/19/21 21:50 0.5 MG Magnesium Sulfate 50 ml @ 25 mls/hr 1X ONCE 07/15/21 17:00 07/15/21 18:59 DC 07/15/21 18:03 25 MLS/HR Metoprolol Succinate (Toprol Xl) 25 mg DAILY 07/16/21 09:00 07/17/21 12:13 DC 07/16/21 09:37 25 MG Midodrine (Proamatine) 10 mg 1X ONCE 07/17/21 16:45 07/17/21 16:46 DC 07/17/21 16:49 10 MG Milrinone Lactate/ Dextrose 100 ml @ 4.065 mls/ hr CONT PRN 07/17/21 11:45 07/22/21 14:24 4.065 MLS/HR Multivitamins (Thera M Plus) 1 tab DAILY 07/16/21 14:15 07/23/21 08:50 1 TAB Nitroglycerin (Nitro-Bid Oint) 1 inch 1X ONCE 07/15/21 13:30 07/15/21 13:31 DC 07/15/21 14:46 1 INCH Norepinephrine Bitartrate 8 mg/ Dextrose 258 ml @ 21.188 mls/ hr CONT PRN 07/18/21 12:30 07/18/21 16:15 DC Olanzapine (ZyPREXA ZYDIS) 5 mg BID 07/19/21 17:00 07/23/21 08:50 5 MG Ondansetron HCl (Zofran) 4 mg PRN Q6HRS PRN 07/15/21 16:45 07/16/21 14:45 4 MG Oxycodone/ Acetaminophen (Percocet 5/325) 2 tab PRN Q4HRS PRN 07/15/21 16:45 Perflutren Protein Type A Microsphe (Optison) 0.66 mg 1X ONCE 07/16/21 07:00 07/16/21 07:01 DC Phenylephrine HCl 50 mg/Sodium Chloride 255 ml @ 16.478 mls/ hr CONT PRN 07/19/21 08:00 07/20/21 17:02 7.58 MLS/HR Phytonadione (Vitamin K Ampule) 5 mg 1X ONCE 07/18/21 12:00 07/18/21 12:01 DC 07/18/21 11:37 5 MG Potassium Chloride/Water 100 ml @ 100 mls/hr Q1H 07/22/21 17:00 07/22/21 20:59 DC 07/22/21 00:45 100 MLS/HR Potassium Chloride (Klor-Con) 20 meq 1X ONCE 07/17/21 11:45 07/17/21 11:46 DC 07/17/21 11:49 20 MEQ Sacubitril/ Valsartan (Entresto 24 Mg-26 Mg) 1 tab BID 07/15/21 21:00 07/17/21 11:33 DC 07/16/21 19:53 1 TAB Senna/Docusate Sodium (Senna Plus) 1 tab BID 07/15/21 21:00 07/23/21 08:50 1 TAB Simvastatin (Zocor) 20 mg HS 07/15/21 21:00 07/22/21 21:27 20 MG Sodium Chloride 250 ml @ 250 mls/hr 1X ONCE 07/17/21 15:00 07/17/21 15:59 DC 07/17/21 16:05 250 MLS/HR Sodium Chloride (Normal Saline Flush) 3 ml QSHIFT PRN 07/15/21 16:45 Warfarin Sodium (Coumadin - No Dose Today) 1 each 1X WARF ONCE 07/16/21 16:00 07/16/21 16:43 DC Warfarin Sodium (Coumadin Per Pharmacy) 1 each PRN DAILY PRN 07/20/21 15:30 07/22/21 10:09 1 EACH Warfarin Sodium (Coumadin) 7.5 mg 1X WARF ONCE 07/23/21 16:00 07/23/21 16:01 Lab Laboratory Tests Test 07/22/21 11:09 07/23/21 03:55 Glucose (Fingerstick) 75 mg/dL (70-99) White Blood Count 6.0 x10^3/uL (4.0-11.0) Red Blood Count 4.79 x10^6/uL (4.30-5.70) Hemoglobin 13.1 g/dL (13.0-17.5) Hematocrit 42.1 % (39.0-53.0) Mean Corpuscular Volume 88 fL (79-100) Mean Corpuscular Hemoglobin 27 pg (25-35) Mean Corpuscular Hemoglobin Concent 31 g/dL (31-37) Red Cell Distribution Width 15.9 % (11.5-14.5) Platelet Count 102 x10^3/uL (140-400) Neutrophils (%) (Auto) 73 % (31-73) Lymphocytes (%) (Auto) 14 % (24-48) Monocytes (%) (Auto) 10 % (0-9) Eosinophils (%) (Auto) 3 % (0-3) Basophils (%) (Auto) 1 % (0-3) Neutrophils # (Auto) 3.8 x10^3/uL (1.8-7.7) Lymphocytes # (Auto) 0.7 x10^3/uL (1.0-4.8) Monocytes # (Auto) 0.5 x10^3/uL (0.0-1.1) Eosinophils # (Auto) 0.1 x10^3/uL (0.0-0.7) Basophils # (Auto) 0.0 x10^3/uL (0.0-0.2) Prothrombin Time 15.7 SEC (11.7-14.0) Prothromb Time International Ratio 1.3 (0.8-1.1) Sodium Level 144 mmol/L (136-145) Potassium Level 3.4 mmol/L (3.5-5.1) Chloride Level 102 mmol/L (98-107) Carbon Dioxide Level 38 mmol/L (21-32) Anion Gap 4 (6-14) Blood Urea Nitrogen 14 mg/dL (8-26) Creatinine 0.9 mg/dL (0.7-1.3) Estimated GFR (Cockcroft-Gault) 99.8 Glucose Level 64 mg/dL (70-99) Calcium Level 8.8 mg/dL (8.5-10.1) Results All relevant outside records, renal labs, imaging studies, telemetry/EKG's were reviewed. Justicifation of Admission Dx: Justifications for Admission: Justification of Admission Dx: Yes BLU BLEVINS MD Jul 23, 2021 10:44
[2021-07-23 11:00] VITALS: BP 132/59
[2021-07-23] MEDS ORDERED: POTASSIUM CHLORIDE 20 MEQ TABLET.ER. PO ONE (11:15)
--- NOTE | 2021-07-23 11:40 | NUR ---
Pharmacy Warfarin Dosing Note S:Pharmacy consulted to assist with anticoagulation therapy started with target INR: 2 -3 O:SUDHIR NICOLE is a 76 year old M with Atrial Fibrillation LABS: Last INR: 1.3 Last HGB: 13.1 Last HCT: 42.1 Last PLT: 102 Last dose of 5 mg given on 07/22/21 at 1639 Previous Regimen: Reported 5 mg Mo,Tu, We, Fr, Sat and 7.5 mg Sun, Thurs Vitamin K given: Y 10 mg SubQ on 07/18 and 5 mg SubQ on 07/18 Drug Interaction Changes: DC'd Interacting Drug Ongoing Drug Interactions: Dc'd Enoxaparin today A:INR of 1.3 is below desired range. Target range for this patient is: 2 -3 P: Warfarin dose: 7.5 mg Today at 1600 Bridge Therapy: None; Enoxaparin Dc'd today Next INR due 07/24/21 Pharmacy anticoagulation service will continue to follow. ISIDORO DANIELLE, [facility], 07/23/21 1145
--- NOTE | 2021-07-23 12:48 | PDOC ---
[employer] PROGRESS NOTE Date of Service DOS: DATE: 07/23/21 TIME: 12:47 Chief Complaint Chief Complaint Acute on chronic hypoxic respiratory failure with CHF/COPD exacerbation and AFIB RVR. Poor compliance with home CPAP Hypoxic encephalopathy AFIB RVR - with chronic afib Acute on chronic HFrEF Ischemic cardiomyopathy EF 25-30% historically ?COPD Diabetes Dyperlipidemia Hypertension Benign tumor of the left eye CAMERON - CPAP at home Thrombocytopenia Leukopenia History of Present Illness History of Present Illness 07/23/2021 Patient seen and examined in the ICU Chart reviewed Discussed with RN Discussed with case management Discussed with pharmacy Platelets running low I stopped his Lovenox Still on milrinone drip Seems to be partially blind 07/22/2021 Patient seen and examined in the ICU He is on a milrinone drip He is using as needed BiPAP at night Legally blind Discussed with RN Discussed with case management Chart reviewed Patient has Ingram to bedside Mr Olea is a 76yo male w/ PMHx cardiomyopathy with an EF of 25%-30%, history of ongoing tobaccoism, suspect underlying COPD, obesity, history of CAMERON, on home CPAP with O2 bleed in 3L, left eye tumor, AFib, Coronary artery disease, type 2 diabetes, dyslipidemia and hypertension who p/w worsening shortness of breath to ED on 07/15/2021 at the behest of his PCP when he was found to be saturating 74% on room air. States that has been having worsening shortness of breath for the past month or so. Also having cough nonproductive. He was given a breathing treatment IV steroids and sent here On presentation here he required being placed on BiPAP due to hypoxia. Given 40 IV Lasix in ER with brisk diuresis. He is on home warfarin for A. fib but INR notably elevated Patient was denying any sort of headache chest pain abdominal pain dysuria. 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 Still having shortness of breath and abdominal distention. Given 40 mg of IV Lasix and has had no urine output over the past 8 hours. Had difficulty tolerating BiPAP at 18/4 felt his ears popping . Normally he is on CPAP 10 cm of H2O. Seen bedside his O2 saturations were 89% on 6 L/min of O2. A. fib is a little better rate controlled. Was given digoxin 07/17: INR 9.5, CR jumped to 2. Limited urine output blood pressure is low today. Discussed milrinone with cardiology. Will check renal ultrasound and consult nephrology for BILLY. 07/18: Blood pressure responded to albumin and small fluid bolus. Creatinine improved to 1.7 now with good urine output. Mentating better. Still short of breath on O2. Discussed with cardiology consideration of right heart cath to assess fluid status and pulmonary artery pressure. 07/19: Patient transferred down to ICU. Afebrile, appears to be somewhat confused but conversive. He had right heart cath today that showed acute biventricular pressure overload, severe pulmonary hypertension secondary to left heart failure, and low cardiac output. He is recommending milrinone infusion and diuretics. 07/20: Patient seen in ICU. Afebrile. He is still quite encephalopathic, but easily redirected. Uncertain etiology given dramatic change from admission, but likely hypoxic encephalopathy. Continue milrinone infusion and Lasix. 30 minutes critical care time spent reviewing charts, reviewing labs, and discussion with RN. 07/21: Patient seen and evaluated in ICU. His mentation has improved significantly since yesterday. Patient nurse reports that he wore BiPAP overnight, and encouraged continued use. CBG 63 this morning; replete and recheck. INR 1.4; on warfarin for atrial fibrillation. Discussed pharmacy bridging with Lovenox until INR 23. He still remains on milrinone and Lasix. Critical care time 30 minutes spent reviewing charts, reviewing labs, and discussion with RN. Vitals/I&O Vitals/I&O: Vital Signs Date Time Temp Pulse Resp B/P (MAP) Pulse Ox O2 Delivery O2 Flow Rate FiO2 07/23/21 12:10 97 Nasal Cannula 5.0 07/23/21 11:00 97.7 83 20 132/59 97.7 I & O 07/22/21 07/22/21 07/23/21 15:00 23:00 07:00 Intake Total 143 ml 291 ml Output Total 1500 ml 850 ml 150 ml Balance -1500 ml -707 ml 141 ml Physical Exam General: mild distress Heart: Other (Rate of 100.) Lungs: Clear Abdomen: Normal bowel sounds Extremities: No cyanosis, Other (trace LE edema) Skin: No breakdown, No significant lesion Labs Labs: Laboratory Tests Test 07/23/21 03:55 White Blood Count 6.0 x10^3/uL (4.0-11.0) Red Blood Count 4.79 x10^6/uL (4.30-5.70) Hemoglobin 13.1 g/dL (13.0-17.5) Hematocrit 42.1 % (39.0-53.0) Mean Corpuscular Volume 88 fL (79-100) Mean Corpuscular Hemoglobin 27 pg (25-35) Mean Corpuscular Hemoglobin Concent 31 g/dL (31-37) Red Cell Distribution Width 15.9 % (11.5-14.5) Platelet Count 102 x10^3/uL (140-400) Neutrophils (%) (Auto) 73 % (31-73) Lymphocytes (%) (Auto) 14 % (24-48) Monocytes (%) (Auto) 10 % (0-9) Eosinophils (%) (Auto) 3 % (0-3) Basophils (%) (Auto) 1 % (0-3) Neutrophils # (Auto) 3.8 x10^3/uL (1.8-7.7) Lymphocytes # (Auto) 0.7 x10^3/uL (1.0-4.8) Monocytes # (Auto) 0.5 x10^3/uL (0.0-1.1) Eosinophils # (Auto) 0.1 x10^3/uL (0.0-0.7) Basophils # (Auto) 0.0 x10^3/uL (0.0-0.2) Prothrombin Time 15.7 SEC (11.7-14.0) Prothromb Time International Ratio 1.3 (0.8-1.1) Sodium Level 144 mmol/L (136-145) Potassium Level 3.4 mmol/L (3.5-5.1) Chloride Level 102 mmol/L (98-107) Carbon Dioxide Level 38 mmol/L (21-32) Anion Gap 4 (6-14) Blood Urea Nitrogen 14 mg/dL (8-26) Creatinine 0.9 mg/dL (0.7-1.3) Estimated GFR (Cockcroft-Gault) 99.8 Glucose Level 64 mg/dL (70-99) Calcium Level 8.8 mg/dL (8.5-10.1) Assessment and Plan Assessmemt and Plan Acute on chronic hypoxic respiratory failure with CHF/COPD exacerbation and AFIB RVR. 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 Comment Review of Relevant I have reviewed the following items cynthia (where applicable) has been applied. Medications: Current Medications Medications (Trade) Dose Ordered Sig/Tobi Route PRN Reason Start Time Stop Time Status Last Admin Dose Admin Warfarin Sodium (Coumadin) 5 mg 1X WARF ONCE PO 07/22/21 16:00 07/22/21 16:01 DC 07/22/21 16:39 Potassium Chloride/Water 100 ml @ 100 mls/hr Q1H IV 07/22/21 17:00 07/22/21 20:59 DC 07/22/21 00:45 Justifications for Admission Other Justification ABIGAIL CHICAS III DO Jul 23, 2021 12:48
--- NOTE | 2021-07-23 13:39 | PDOC ---
CARDIO Progress Notes Date and Time Date of Service 07/23/2021 Time of Evaluation 1320 Subjective Subjective: No Chest Pain, No shortness of breath, No Palpitations Vitals Vitals Vital Signs Date Time Temp Pulse Resp B/P (MAP) Pulse Ox O2 Delivery O2 Flow Rate FiO2 07/23/21 12:10 97 Nasal Cannula 5.0 07/23/21 11:00 97.7 83 20 132/59 97.7 Weight Weight [ ] Input and Output Intake and Output Intake and Output 07/23/21 07:00 Intake Total 434 ml Output Total 2500 ml Balance -2066 ml Intake Oral 240 ml IV Total 194 ml Output Urine Total 2500 ml Laboratory Labs Laboratory Tests Test 07/23/21 03:55 White Blood Count 6.0 x10^3/uL (4.0-11.0) Red Blood Count 4.79 x10^6/uL (4.30-5.70) Hemoglobin 13.1 g/dL (13.0-17.5) Hematocrit 42.1 % (39.0-53.0) Mean Corpuscular Volume 88 fL (79-100) Mean Corpuscular Hemoglobin 27 pg (25-35) Mean Corpuscular Hemoglobin Concent 31 g/dL (31-37) Red Cell Distribution Width 15.9 % (11.5-14.5) Platelet Count 102 x10^3/uL (140-400) Neutrophils (%) (Auto) 73 % (31-73) Lymphocytes (%) (Auto) 14 % (24-48) Monocytes (%) (Auto) 10 % (0-9) Eosinophils (%) (Auto) 3 % (0-3) Basophils (%) (Auto) 1 % (0-3) Neutrophils # (Auto) 3.8 x10^3/uL (1.8-7.7) Lymphocytes # (Auto) 0.7 x10^3/uL (1.0-4.8) Monocytes # (Auto) 0.5 x10^3/uL (0.0-1.1) Eosinophils # (Auto) 0.1 x10^3/uL (0.0-0.7) Basophils # (Auto) 0.0 x10^3/uL (0.0-0.2) Prothrombin Time 15.7 SEC (11.7-14.0) Prothromb Time International Ratio 1.3 (0.8-1.1) Sodium Level 144 mmol/L (136-145) Potassium Level 3.4 mmol/L (3.5-5.1) Chloride Level 102 mmol/L (98-107) Carbon Dioxide Level 38 mmol/L (21-32) Anion Gap 4 (6-14) Blood Urea Nitrogen 14 mg/dL (8-26) Creatinine 0.9 mg/dL (0.7-1.3) Estimated GFR (Cockcroft-Gault) 99.8 Glucose Level 64 mg/dL (70-99) Calcium Level 8.8 mg/dL (8.5-10.1) Microbiology Micro Microbiology 07/15/21 Blood Culture - Final, Complete NO GROWTH AFTER 5 DAYS Physical Exam HEENT: Neck Supple W Full Motion Chest: Symmetric LUNGS: Other (diminished ) Heart: irregularly irregular (AFIB ) Abdomen: Other (obese) Extremities: No Edema Neurology: alert, oriented, follow commands Assessment Assessment 1. Acute on chronic hypoxic respiratory failure with CHF/COPD exacerbation and AFIB RVR. Poor compliance with home CPAP 2. AFIB RVR: chronic by history. rate controlled 3. Acute on chronic HFrEF: NYHA2 RHC revealed Acute biventricular pressure overload/Severe pulmonary hypertension secondary to left heart failure/ Low cardiac output 4. HTN: controlled 5. HLP 6. ICM: EF remains about the same at 30-35% 7. CAD: Past CABG 8. Coagulopathy: coumadin related. 9. BILLY: cardiorenal, Cr back to baseline 10. Hypotension: better Recommendations 1. Entresto and toprol on hold due to prior low BP. Resume low dose toprol. Continue lasix therapy 2. Continue secondary prevention measures 3. He has not been seen in our office since 12/2019. If EF remains low then will consider for outpt HAM TRIMMER-D placement. 4. DC coumadin and start on eliquis 5. Smoking cessation. Continue with HF optimization. 6. Will consider for outpt ischemic workup. 7. Continue milrinone. SNU eval Justicifation of Admission Dx: Justifications for Admission: Justification of Admission Dx: Yes ANASTACIA PARR APRN Jul 23, 2021 13:39
[2021-07-23] MEDS ORDERED: METOPROLOL SUCC 24HR ER 25 MG TAB.ER.24H. PO ONE (14:15)
[2021-07-23 15:00] VITALS: BP 79/52
[2021-07-23] MEDS ORDERED: ANTI-COAG MONITOR BY PHARMACY. MC PRN (15:00)
[2021-07-23] MEDS ORDERED: WARFARIN 7.5 MG TABLET. PO ONE (16:00)
[2021-07-23] MEDS: MILRINONE 20MG/100ML PREMIX 100 ML IV PRN (16:35)
[2021-07-23 19:00] VITALS: BP 105/56
[2021-07-23] MEDS: SIMVASTATIN 20 MG TABLET PO SCH (20:49)
[2021-07-23] MEDS: APIXABAN 5 MG TABLET. PO SCH (20:49)
[2021-07-23] MEDS: oxyCODONE/APAP 5/325 1 TAB TABLET PO PRN (21:04)
[2021-07-23 23:00] VITALS: BP 82/48
[2021-07-23 23:45] VITALS: BP 86/50
[2021-07-23] MEDS ORDERED: IV NORMAL SALINE 1000ML BAG 1,000 ML IV SCH (23:45)
[2021-07-24] VITALS (17 sets, daily range): BP systolic 64–101; BP diastolic 41–53
[2021-07-24 05:17] LABS: PROTHROMBIN TIME PATIENT 16.7 SEC (11.7-14.0)
[2021-07-24] MEDS: IPRATRPIUM/ALBUTEROL 0.5/2.5MG 3 ML NEBU. NEB SCH ×4 (07:44→20:24)
[2021-07-24] MEDS: APIXABAN 5 MG TABLET. PO SCH ×2 (08:47→20:53)
[2021-07-24] MEDS: MULTIVITAMIN with MINERAL TABLET. PO SCH (08:47)
[2021-07-24] MEDS: SENNOSIDES/DOCUSATE 8.6/50MG TABLET. PO SCH ×2 (09:12→09:13)
[2021-07-24] MEDS: POTASSIUM CHLORIDE 20 MEQ TABLET.ER. PO SCH (09:13)
--- NOTE | 2021-07-24 10:43 | PDOC ---
CARDIO Progress Notes Date and Time Date of Service 07/24/2021 Time of Evaluation 0930 Subjective Subjective: No Chest Pain, No shortness of breath, No Palpitations, Other (sitting up) Vitals Vitals Vital Signs Date Time Temp Pulse Resp B/P (MAP) Pulse Ox O2 Delivery O2 Flow Rate FiO2 07/24/21 08:00 97.2 87 22 99/53 92 5.0 97.2 07/24/21 08:00 Room Air Weight Weight [ ] Input and Output Intake and Output Intake and Output 07/24/21 07:00 Intake Total 1281 ml Output Total 1250 ml Balance 31 ml IV Total 827 ml Other 454 ml Output Urine Total 1250 ml Laboratory Labs Laboratory Tests Test 07/24/21 04:30 Prothrombin Time 16.7 SEC (11.7-14.0) Prothromb Time International Ratio 1.4 (0.8-1.1) Potassium Level 3.3 mmol/L (3.5-5.1) Microbiology Micro Microbiology 07/15/21 Blood Culture - Final, Complete NO GROWTH AFTER 5 DAYS Physical Exam HEENT: Neck Supple W Full Motion Chest: Symmetric LUNGS: Other (diminished ) Heart: irregularly irregular (AFIB ) Abdomen: Other (obese) Extremities: No Edema Neurology: alert, oriented, follow commands Assessment Assessment 1. Acute on chronic hypoxic respiratory failure with CHF/COPD exacerbation and AFIB RVR. Poor compliance with home CPAP 2. AFIB RVR: chronic by history. rate controlled 3. Acute on chronic HFrEF: NYHA2 RHC revealed Acute biventricular pressure overload/Severe pulmonary hypertension secondary to left heart failure/ Low cardiac output 4. HTN: controlled 5. HLP 6. ICM: EF remains about the same at 30-35% 7. CAD: Past CABG 8. Coagulopathy: coumadin related. 9. BILLY: cardiorenal, Cr back to baseline 10. Hypotension: better Recommendations 1. Entresto on hold due to prior low BP. Continue toprol. Continue lasix therapy 2. Continue secondary prevention measures 3. He has not been seen in our office since 12/2019. If EF remains low then will consider for outpt SENIOR CASE MANAGER-D placement. 4. Continue eliquis for stroke prevention 5. Smoking cessation. Continue with HF optimization. 6. Will consider for outpt ischemic workup. 7. Continue milrinone. SNU eval Justicifation of Admission Dx: Justifications for Admission: Justification of Admission Dx: Yes ANASTACIA PARR RECORDS MANAGEMENT ASSISTANT Jul 24, 2021 10:43
[2021-07-24] MEDS ORDERED: POTASSIUM CHLORIDE 20 MEQ TABLET.ER. PO ONE (10:45)
[2021-07-24] MEDS: METOPROLOL SUCC 24HR ER 25 MG TAB.ER.24H. PO SCH (10:54)
[2021-07-24] MEDS: FUROSEMIDE 40 MG/4 ML VIAL. IVP SCH (10:57)
[2021-07-24 11:08] LABS: CALCIUM 8.5 mg/dL (8.5-10.1); CREATININE 1.2 mg/dL (0.7-1.3); GFR 71.6; MAGNESIUM 1.9 mg/dL (1.8-2.4); POTASSIUM 3.3 mmol/L (3.5-5.1)
--- NOTE | 2021-07-24 13:14 | PDOC ---
[facility] PROGRESS NOTE Date of Service DOS: DATE: 07/24/21 TIME: 13:12 Chief Complaint Chief Complaint Acute on chronic hypoxic respiratory failure with CHF/COPD exacerbation and AFIB RVR. Poor compliance with home CPAP Hypoxic encephalopathy AFIB RVR - with chronic afib Acute on chronic HFrEF Ischemic cardiomyopathy EF 25-30% historically ?COPD Diabetes Dyperlipidemia Hypertension Benign tumor of the left eye CAMERON - CPAP at home Thrombocytopenia Leukopenia History of Present Illness History of Present Illness 07/24/2021 Patient seen and examined in the ICU He is currently on a milrinone drip Ingram to bedside drainage Discussed with RN Chart reviewed 07/23/2021 Patient seen and examined in the ICU Chart reviewed Discussed with RN Discussed with case management Discussed with pharmacy Platelets running low I stopped his Lovenox Still on milrinone drip Seems to be partially blind 07/22/2021 Patient seen and examined in the ICU He is on a milrinone drip He is using as needed BiPAP at night Legally blind Discussed with RN Discussed with case management Chart reviewed Patient has Ingram to bedside Mr Olea is a 76yo male w/ PMHx cardiomyopathy with an EF of 25%-30%, history of ongoing tobaccoism, suspect underlying COPD, obesity, history of CAMERON, on home CPAP with O2 bleed in 3L, left eye tumor, AFib, Coronary artery disease, type 2 diabetes, dyslipidemia and hypertension who p/w worsening shortness of breath to ED on 07/15/2021 at the behest of his PCP when he was found to be saturating 74% on room air. States that has been having worsening shortness of breath for the past month or so. Also having cough nonproductive. He was given a breathing treatment IV steroids and sent here On presentation here he required being placed on BiPAP due to hypoxia. Given 40 IV Lasix in ER with brisk diuresis. He is on home warfarin for A. fib but INR notably elevated Patient was denying any sort of headache chest pain abdominal pain dysuria. 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 Still having shortness of breath and abdominal distention. Given 40 mg of IV Lasix and has had no urine output over the past 8 hours. Had difficulty tolerating BiPAP at 18/4 felt his ears popping. Normally he is on CPAP 10 cm of H2O. Seen bedside his O2 saturations were 89% on 6 L/min of O2. A. fib is a little better rate controlled. Was given digoxin 07/17: INR 9.5, CR jumped to 2. Limited urine output blood pressure is low to day. Discussed milrinone with cardiology. Will check renal ultrasound and consult nephrology for BILLY. 07/18: Blood pressure responded to albumin and small fluid bolus. Creatinine improved to 1.7 now with good urine output. Mentating better. Still short of breath on O2. Discussed with cardiology consideration of right heart cath to assess fluid status and pulmonary artery pressure. 07/19: Patient transferred down to ICU. Afebrile, appears to be somewhat confused but conversive. He had right heart cath today that showed acute biventricular pressure overload, severe pulmonary hypertension secondary to left heart failure, and low cardiac output. He is recommending milrinone infusion and diuretics. 07/20: Patient seen in ICU. Afebrile. He is still quite encephalopathic, but easily redirected. Uncertain etiology given dramatic change from admission, but likely hypoxic encephalopathy. Continue milrinone infusion and Lasix. 30 minutes critical care time spent reviewing charts, reviewing labs, and discussio n with RN. 07/21: Patient seen and evaluated in ICU. His mentation has improved significantly since yesterday. Patient nurse reports that he wore BiPAP overnight, and encouraged continued use. CBG 63 this morning; replete and recheck. INR 1.4; on warfarin for atrial fibrillation. Discussed pharmacy bridging with Lovenox until INR 23. He still remains on milrinone and Lasix. Critical care time 30 minutes spent reviewing charts, reviewing labs, and discussion with RN. Vitals/I&O Vitals/I&O: Vital Signs Date Time Temp Pulse Resp B/P (MAP) Pulse Ox O2 Delivery O2 Flow Rate FiO2 07/24/21 11:53 94 Nasal Cannula 2.5 07/24/21 11:00 97.6 102 24 101/53 97.6 I & O 07/23/21 07/23/21 07/24/21 14:59 22:59 06:59 Intake Total 454 ml 827 ml Output Total 1100 ml 150 ml Balance -646 ml 677 ml Physical Exam General: mild distress Heart: Other (Rate of 100.) Lungs: Clear Abdomen: Normal bowel sounds Extremities: No cyanosis, Other (trace LE edema) Skin: No breakdown, No significant lesion Labs Labs: Laboratory Tests Test 07/24/21 04:30 Prothrombin Time 16.7 SEC (11.7-14.0) Prothromb Time International Ratio 1.4 (0.8-1.1) Sodium Level 144 mmol/L (136-145) Potassium Level 3.3 mmol/L (3.5-5.1) Chloride Level 103 mmol/L (98-107) Carbon Dioxide Level 34 mmol/L (21-32) Anion Gap 7 (6-14) Blood Urea Nitrogen 17 mg/dL (8-26) Creatinine 1.2 mg/dL (0.7-1.3) Estimated GFR (Cockcroft-Gault) 71.6 Glucose Level 85 mg/dL (70-99) Calcium Level 8.5 mg/dL (8.5-10.1) Magnesium Level 1.9 mg/dL (1.8-2.4) Assessment and Plan Assessmemt and Plan Acute on chronic hypoxic respiratory failure with CHF/COPD exacerbation and AFIB RVR. 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 Comment Review of Relevant I have reviewed the following items cynthia (where applicable) has been applied. Medications: Current Medications Medications (Trade) Dose Ordered Sig/Tobi Route PRN Reason Start Time Stop Time Status Last Admin Dose Admin Metoprolol Succinate (Toprol Xl) 25 mg DAILY PO 07/24/21 09:00 07/24/21 10:54 Apixaban (Eliquis) 5 mg BID PO 07/23/21 21:00 07/24/21 08:47 Furosemide (Lasix) 40 mg DAILY IVP 07/24/21 09:00 07/24/21 10:57 Potassium Chloride (Klor-Con) 20 meq DAILYWBKFT PO 07/24/21 08:00 07/24/21 09:13 Info (Anti-Coagulation Monitoring By Pharmacy) 1 each PRN DAILY PRN MC PER PROTOCOL 07/23/21 15:00 07/23/21 15:02 Sodium Chloride 1,000 ml @ 100 mls/hr Q10H IV 07/23/21 23:45 07/23/21 23:47 Potassium Chloride (Klor-Con) 40 meq 1X ONCE PO 07/24/21 10:45 07/24/21 10:46 DC 07/24/21 10:54 Justifications for Admission Other Justification ABIGAIL CHICAS III DO Jul 24, 2021 13:14
[2021-07-24] MEDS: MILRINONE 20MG/100ML PREMIX 100 ML IV PRN (16:47)
[2021-07-24] MEDS: SIMVASTATIN 20 MG TABLET PO SCH (20:53)
[2021-07-25] VITALS: BP 102/64
[2021-07-25 03:00] VITALS: BP 101/62
[2021-07-25 06:35] LABS: PROTHROMBIN TIME PATIENT 17.8 SEC (11.7-14.0)
[2021-07-25 07:00] VITALS: BP 100/60
[2021-07-25] MEDS: IPRATRPIUM/ALBUTEROL 0.5/2.5MG 3 ML NEBU. NEB SCH ×4 (08:00→19:56)
[2021-07-25] MEDS: APIXABAN 5 MG TABLET. PO SCH ×2 (08:29→20:43)
[2021-07-25] MEDS: POTASSIUM CHLORIDE 20 MEQ TABLET.ER. PO SCH (08:29)
[2021-07-25] MEDS: MULTIVITAMIN with MINERAL TABLET. PO SCH (08:31)
[2021-07-25] MEDS: SENNOSIDES/DOCUSATE 8.6/50MG TABLET. PO SCH ×2 (08:31→20:43)
[2021-07-25] MEDS: METOPROLOL SUCC 24HR ER 25 MG TAB.ER.24H. PO SCH (08:31)
[2021-07-25] MEDS: FUROSEMIDE 40 MG/4 ML VIAL. IVP SCH (08:32)
--- NOTE | 2021-07-25 09:43 | PDOC ---
ANASTACIA PARR RETOUCHING OPERATOR 07/25/21 0943: CARDIO Progress Notes Date and Time Date of Service 07/25/2021 Time of Evaluation 0910 Subjective Subjective: No Chest Pain, No shortness of breath, No Palpitations Vitals Vitals Vital Signs Date Time Temp Pulse Resp B/P (MAP) Pulse Ox O2 Delivery O2 Flow Rate FiO2 07/25/21 08:31 84 100/60 07/25/21 08:04 92 Nasal Cannula 2.5 07/25/21 03:00 97.6 19 97.6 Weight Weight [ ] Input and Output Intake and Output Intake and Output 07/25/21 07:00 Intake Total 740 ml Output Total 250 ml Balance 490 ml Intake Oral 480 ml Other 260 ml Output Urine Total 250 ml Laboratory Labs Laboratory Tests Test 07/25/21 04:15 Prothrombin Time 17.8 SEC (11.7-14.0) Prothromb Time International Ratio 1.5 (0.8-1.1) Microbiology Micro Microbiology 07/15/21 Blood Culture - Final, Complete NO GROWTH AFTER 5 DAYS Physical Exam HEENT: Neck Supple W Full Motion Chest: Symmetric LUNGS: Other (diminished ) Heart: irregularly irregular (AFIB ) Abdomen: Other (obese) Extremities: No Edema Neurology: alert, oriented, follow commands Assessment Assessment 1. Acute on chronic hypoxic respiratory failure with CHF/COPD exacerbation and AFIB RVR. Poor compliance with home CPAP 2. AFIB RVR: chronic by history. rate controlled 3. Acute on chronic HFrEF: NYHA2 RHC revealed Acute biventricular pressure overload/Severe pulmonary hypertension secondary to left heart failure/ Low cardiac output 4. HTN: controlled 5. HLP 6. ICM: EF remains about the same at 30-35% compensated 7. CAD: Past CABG 8. Coagulopathy: coumadin related. 9. BILLY: cardiorenal, Cr back to baseline 10. Hypotension: better Recommendations 1. Entresto on hold due to prior low BP. Continue toprol. Continue lasix therapy 2. Continue secondary prevention measures 3. He has not been seen in our office since 12/2019. If EF remains low then will consider for outpt MATERIAL LIAISON-D placement. 4. Continue eliquis for stroke prevention 5. Smoking cessation. Continue with HF optimization. 6. Will consider for outpt ischemic workup. 7. Will DC milrinone.. SNU eval Justicifation of Admission Dx: Justifications for Admission: Justification of Admission Dx: Yes LUISA PRATT MD 07/25/214: CARDIO Progress Notes Assessment Assessment Patient seen and examined. Agree with COMPONENT LAB TECH's assessment and plan. Acute on chronic systolic HF better compensated AF permanent rate controlled Continue eliquis for stroke prophylaxis CAD s/p CABG stable Consider outpatient ischemic evaluation ANASTACIA PARR RETOUCHING OPERATOR Jul 25, 2021 09:43 LUISA PRATT MD Jul 25, 2021 21:54
--- NOTE | 2021-07-25 12:36 | PDOC ---
[facility] [facility] PROGRESS NOTE Date of Service DOS: DATE: 07/25/21 TIME: 12:35 Chief Complaint Chief Complaint Acute on chronic hypoxic respiratory failure with CHF/COPD exacerbation and AFIB RVR. Poor compliance with home CPAP Hypoxic encephalopathy AFIB RVR - with chronic afib Acute on chronic HFrEF Ischemic cardiomyopathy EF 25-30% historically ?COPD Diabetes Dyperlipidemia Hypertension Benign tumor of the left eye CAMERON - CPAP at home Thrombocytopenia Leukopenia History of Present Illness History of Present Illness 07/25/2021 Patient seen and examined in the ICU He is still on a milrinone drip Resting with NAD Discussed with case management Discussed with RN Chart reviewed He is tentatively accepted to go to [facility] sometime soon 07/24/2021 Patient seen and examined in the ICU He is currently on a milrinone drip Ingram to bedside drainage Discussed with RN Chart reviewed 07/23/2021 Patient seen and examined in the ICU Chart reviewed Discussed with RN Discussed with case management Discussed with pharmacy Platelets running low I stopped his Lovenox Still on milrinone drip Seems to be partially blind 07/22/2021 Patient seen and examined in the ICU He is on a milrinone drip He is using as needed BiPAP at night Legally blind Discussed with RN Discussed with case management Chart reviewed Patient has Ingram to bedside Mr Olea is a 76yo male w/ PMHx cardiomyopathy with an EF of 25%-30%, history of ongoing tobaccoism, suspect underlying COPD, obesity, history of CAMERON, on home CPAP with O2 bleed in 3L, left eye tumor, AFib, Coronary artery disease, type 2 diabetes, dyslipidemia and hypertension who p/w worsening shortness of breath to ED on 07/15/2021 at the behest of his PCP when he was found to be saturating 74% on room air. States that has been having worsening shortness of breath for the past month or so. Also having cough nonproductive. He was given a breathing treatment IV steroids and sent here On presentation here he required being placed on BiPAP due to hypoxia. Given 40 IV Lasix in ER with brisk diuresis. He is on home warfarin for A. fib but INR notably elevated Patient was denying any sort of headache chest pain abdominal pain dysuria. 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 Still having shortness of breath and abdominal distention. Given 40 mg of IV Lasix and has had no urine output over the past 8 hours. Had difficulty tolerating BiPAP at 18/4 felt his ears popping. Normally he is on CPAP 10 cm of H2O. Seen bedside his O2 saturations were 89% on 6 L/min of O2. A. fib is a little better rate controlled. Was given digoxin 07/17: INR 9.5, CR jumped to 2. Limited urine output blood pressure is low today. Discussed milrinone with cardiology. Will check renal ultrasound and consult nephrology for BILLY. 07/18: Blood pressure responded to albumin and small fluid bolus. Creatinine improved to 1.7 now with good urine output. Mentating better. Still short of breath on O2. Discussed with cardiology consideration of right heart cath to assess fluid status and pulmonary artery pressure. 07/19: Patient transferred down to ICU. Afebrile, appears to be somewhat confused but conversive. He had right heart cath today that showed acute biventricular pressure overload, severe pulmonary hypertension secondary to left heart failure, and low cardiac output. He is recommending milrinone infusion and diuretics. 07/20: Patient seen in ICU. Afebrile. He is still quite encephalopathic, but easily redirected. Uncertain etiology given dramatic change from admission, but likely hypoxic encephalopathy. Continue milrinone infusion and Lasix. 30 minutes critical care time spent reviewing charts, reviewing labs, and discussion with RN. 07/21: Patient seen and evaluated in ICU. His mentation has improved significantly since yesterday. Patient nurse reports that he wore BiPAP overnight, and encouraged continued use. CBG 63 this morning; replete and recheck. INR 1.4; on warfarin for atrial fibrillation. Discussed pharmacy bridging with Lovenox until INR 23. He still remains on milrinone and Lasix. Critical care time 30 minutes spent reviewing charts, reviewing labs, and discussion with RN. Vitals/I&O Vitals/I&O: Vital Signs Date Time Temp Pulse Resp B/P (MAP) Pulse Ox O2 Delivery O2 Flow Rate FiO2 07/25/21 11:52 94 Nasal Cannula 2.5 07/25/21 08:31 84 100/60 07/25/21 03:00 97.6 19 97.6 I & O 07/24/21 07/24/21 07/25/21 15:00 23:00 07:00 Intake Total 500 ml 240 ml Output Total 250 ml Balance 250 ml 240 ml Physical Exam General: mild distress Heart: Other (Rate of 100.) Lungs: Clear Abdomen: Normal bowel sounds Extremities: No cyanosis, Other (trace LE edema) Skin: No breakdown, No significant lesion Labs Labs: Laboratory Tests Test 07/25/21 04:15 Prothrombin Time 17.8 SEC (11.7-14.0) Prothromb Time International Ratio 1.5 (0.8-1.1) Assessment and Plan Assessmemt and Plan Acute on chronic hypoxic respiratory failure with CHF/COPD exacerbation and AFIB RVR. 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 Justifications for Admission Other Justification ABIGAIL CHICAS III DO Jul 25, 2021 12:36
[2021-07-25 15:00] VITALS: BP 112/55
--- NOTE | 2021-07-25 16:26 | NUR ---
SS following up with discharge planning. SS reviewed pt chart and discussed with pt RN. Pt is currently requiring oxygen at two and a half liters nasal canula. COVID19 PCR test pending for placement. Pt on IV Lasix and Milrinone drip. PT/OT recommended senior living unit. Pt accepted at [facility], ; fax [phone], pending insurance approval. SS will continue to follow for discharge planning.
[2021-07-25 19:00] VITALS: BP 104/64
[2021-07-25] MEDS: SIMVASTATIN 20 MG TABLET PO SCH (20:43)
[2021-07-25 23:00] VITALS: BP 112/65
[2021-07-26 03:00] VITALS: BP 125/72
[2021-07-26 05:52] LABS: CALCIUM 9.5 mg/dL (8.5-10.1); GFR 88.4; POTASSIUM 4.2 mmol/L (3.5-5.1)
[2021-07-26 06:04] LABS: PROTHROMBIN TIME PATIENT 16.8 SEC (11.7-14.0)
[2021-07-26 08:00] VITALS: BP 116/80
[2021-07-26] MEDS: IPRATRPIUM/ALBUTEROL 0.5/2.5MG 3 ML NEBU. NEB SCH ×4 (08:21→20:19)
[2021-07-26] MEDS: SENNOSIDES/DOCUSATE 8.6/50MG TABLET. PO SCH ×2 (08:41→20:46)
[2021-07-26] MEDS: FUROSEMIDE 40 MG/4 ML VIAL. IVP SCH (08:43)
[2021-07-26] MEDS: POTASSIUM CHLORIDE 20 MEQ TABLET.ER. PO SCH (08:44)
[2021-07-26] MEDS: METOPROLOL SUCC 24HR ER 25 MG TAB.ER.24H. PO SCH (08:44)
[2021-07-26] MEDS: MULTIVITAMIN with MINERAL TABLET. PO SCH (08:44)
[2021-07-26] MEDS: APIXABAN 5 MG TABLET. PO SCH ×2 (09:10→20:46)
--- NOTE | 2021-07-26 10:07 | PDOC ---
ANASTACIA PARR EMBOSSING PRESS OPERATOR 07/26/21 1007: CARDIO Progress Notes Date and Time Date of Service 07/26/2021 Time of Evaluation 0950 Subjective Subjective: No Chest Pain, No shortness of breath, No Palpitations Vitals Vitals Vital Signs Date Time Temp Pulse Resp B/P (MAP) Pulse Ox O2 Delivery O2 Flow Rate FiO2 07/26/21 08:44 77 116/80 07/26/21 08:23 Nasal Cannula 3.0 07/26/21 08:00 97.8 19 98 97.8 Weight Weight [ ] Input and Output Intake and Output Intake and Output 07/26/21 07:00 Intake Total 925 ml Output Total 2650 ml Balance -1725 ml Intake Oral 925 ml Output Urine Total 2650 ml Laboratory Labs Laboratory Tests Test 07/26/21 04:45 Prothrombin Time 16.8 SEC (11.7-14.0) Prothromb Time International Ratio 1.4 (0.8-1.1) Sodium Level 139 mmol/L (136-145) Potassium Level 4.2 mmol/L (3.5-5.1) Chloride Level 102 mmol/L (98-107) Carbon Dioxide Level 31 mmol/L (21-32) Anion Gap 6 (6-14) Blood Urea Nitrogen 16 mg/dL (8-26) Creatinine 1.0 mg/dL (0.7-1.3) Estimated GFR (Cockcroft-Gault) 88.4 Glucose Level 85 mg/dL (70-99) Calcium Level 9.5 mg/dL (8.5-10.1) Microbiology Micro Microbiology 07/15/21 Blood Culture - Final, Complete NO GROWTH AFTER 5 DAYS Physical Exam HEENT: Neck Supple W Full Motion Chest: Symmetric LUNGS: Other (diminished ) Heart: irregularly irregular (AFIB ) Abdomen: Other (obese) Extremities: No Edema Neurology: alert, oriented, follow commands Assessment Assessment 1. Acute on chronic hypoxic respiratory failure with CHF/COPD exacerbation and AFIB RVR. Poor compliance with home CPAP 2. AFIB RVR: chronic by history. rate controlled 3. Acute on chronic HFrEF: NYHA2 RHC revealed Acute biventricular pressure overload/Severe pulmonary hypertension secondary to left heart failure/ Low cardiac output 4. HTN: controlled 5. HLP 6. ICM: EF remains about the same at 30-35% compensated 7. CAD: Past CABG 8. Coagulopathy: coumadin related. 9. BILLY: cardiorenal, Cr back to baseline 10. Hypotension: resolved Recommendations 1. Will consider restarting entresto as an outpt. Losartan for now. Continue toprol. Continue lasix therapy. DC milrinone 2. Continue secondary prevention measures 3. He has not been seen in our office since 12/2019. If EF remains low then will consider for outpt ELECTRO MECHANICAL SOLAR TECHNICIAN-D placement. 4. Continue eliquis for stroke prevention 5. Smoking cessation. Continue with HF optimization. 6. Will consider for outpt ischemic workup. 7. awaiting SNU Justicifation of Admission Dx: Justifications for Admission: Justification of Admission Dx: Yes LUISA PRATT MD 07/26/216: CARDIO Progress Notes Assessment Assessment Patient seen and examined. Agree with CUSTOMER SUCCESS DIRECTOR's assessment and plan. Acute on chronic systolic HF better compensated AF permanent rate controlled Continue eliquis for stroke prophylaxis CAD s/p CABG stable Consider outpatient ischemic evaluation ANASTACIA PARR APRN Jul 26, 2021 10:07 LUISA PRATT MD Jul 26, 2021 22:16
[2021-07-26 10:42] VITALS: BP 106/82
[2021-07-26] MEDS ORDERED: SACUBITRIL/VALSARTAN 24/26MG TABLET. PO SCH (11:00)
--- NOTE | 2021-07-26 11:15 | NUR ---
SS following up with discharge planning. SS reviewed pt chart and discussed with pt RN. Pt is currently requiring oxygen at three liters nasal canula. COVID19 negative. PT/OT recommended senior care unit. Pt accepted at [facility], ; fax [phone], pending insurance approval from [facility]. SS will continue to follow for discharge planning. Addendum: 07/26/21 at 1652 by CORONA WISE SS COVID19 negative. Discharge orders received and sent to [facility] with clinical updates. Insurance authorization still pending at this time.
--- NOTE | 2021-07-26 11:30 | PDOC ---
[employer] PROGRESS NOTE Date of Service DOS: DATE: 07/26/21 TIME: 11:28 Chief Complaint Chief Complaint Acute on chronic hypoxic respiratory failure with CHF/COPD exacerbation and AFIB RVR. Poor compliance with home CPAP Hypoxic encephalopathy AFIB RVR - with chronic afib Acute on chronic HFrEF Ischemic cardiomyopathy EF 25-30% historically ?COPD Diabetes Dyperlipidemia Hypertension Benign tumor of the left eye CAMERON - CPAP at home Thrombocytopenia Leukopenia History of Present Illness History of Present Illness 07/26/2021 Patient seen and examined Discussed with RN Milrinone drip is off Discussed with case management We are hoping to discharge to [facility] nursing unit later today if his PCR Covid is negative 07/25/2021 Patient seen and examined in the ICU He is still on a milrinone drip Resting with NAD Discussed with case management Discussed with RN Chart reviewed He is tentatively accepted to go to [place] sometime soon 07/24/2021 Patient seen and examined in the ICU He is currently on a milrinone drip Ingrma to bedside drainage Discussed with RN Chart reviewed 07/23/2021 Patient seen and examined in the ICU Chart reviewed Discussed with RN Discussed with case management Discussed with pharmacy Platelets running low I stopped his Lovenox Still on milrinone drip Seems to be partially blind 07/22/2021 Patient seen and examined in the ICU He is on a milrinone drip He is using as needed BiPAP at night Legally blind Discussed with RN Discussed with case management Chart reviewed Patient has Ingram to bedside Mr Olea is a 76yo male w/ PMHx cardiomyopathy with an EF of 25%-30%, history of ongoing tobaccoism, suspect underlying COPD, obesity, history of CAMERON, on home CPAP with O2 bleed in 3L, left eye tumor, AFib, Coronary artery disease, type 2 diabetes, dyslipidemia and hypertension who p/w worsening shortness of breath to ED on 07/15/2021 at the behest of his PCP when he was found to be saturating 74% on room air. States that has been having worsening shortness of breath for the past month or so. Also having cough nonproductive. He was given a breathing treatment IV steroids and sent here On presentation here he required being placed on BiPAP due to hypoxia. Given 40 IV Lasix in ER with brisk diuresis. He is on home warfarin for A. fib but INR notably elevated Patient was denying any sort of headache chest pain abdominal pain dysuria. 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 Still having shortness of breath and abdominal distention. Given 40 mg of IV Lasix and has had no urine output over the past 8 hours. Had difficulty tolerating BiPAP at 18/4 felt his ears popping. Normally he is on CPAP 10 cm of H2O. Seen bedside his O2 saturations were 89% on 6 L/min of O2. A. fib is a little better rate controlled. Was given digoxin 07/17: INR 9.5, CR jumped to 2. Limited urine output blood pressure is low today. Discussed milrinone with cardiology. Will check renal ultrasound and consult nephrology for BILLY. 07/18: Blood pressure responded to albumin and small fluid bolus. Creatinine improved to 1.7 now with good urine output. Mentating better. Still short of breath on O2. Discussed with cardiology consideration of right heart cath to assess fluid status and pulmonary artery pressure. 07/19: Patient transferred down to ICU. Afebrile, appears to be somewhat confused but conversive. He had right heart cath today that showed acute biventricular pressure overload, severe pulmonary hypertension secondary to left heart failure, and low cardiac output. He is recommending milrinone infusion and diuretics. 07/20: Patient seen in ICU. Afebrile. He is still quite encephalopathic, but easily redirected. Uncertain etiology given dramatic change from admission, but likely hypoxic encephalopathy. Continue milrinone infusion and Lasix. 30 minutes critical care time spent reviewing charts, reviewing labs, and discussion with RN. 07/21: Patient seen and evaluated in ICU. His mentation has improved significantly since yesterday. Patient nurse reports that he wore BiPAP overnight, and encouraged continued use. CBG 63 this morning; replete and recheck. INR 1.4; on warfarin for atrial fibrillation. Discussed pharmacy bridging with Lovenox until INR 23. He still remains on milrinone and Lasix. Critical care time 30 minutes spent reviewing charts, reviewing labs, and discu ssion with RN. Vitals/I&O Vitals/I&O: Vital Signs Date Time Temp Pulse Resp B/P (MAP) Pulse Ox O2 Delivery O2 Flow Rate FiO2 07/26/21 10:42 97.7 73 18 106/82 (90) 97 Nasal Cannula 3.0 97.7 I & O 07/25/21 07/25/21 07/26/21 15:00 23:00 07:00 Intake Total 775 ml 150 ml Output Total 2400 ml 250 ml Balance -1625 ml -100 ml Physical Exam General: Alert, Other (Up in chair little confused) Heart: Regular rate Lungs: Clear Abdomen: Normal bowel sounds Extremities: No cyanosis, Other (trace LE edema) Skin: No breakdown, No significant lesion Labs Labs: Laboratory Tests Test 07/26/21 04:45 Prothrombin Time 16.8 SEC (11.7-14.0) Prothromb Time International Ratio 1.4 (0.8-1.1) Sodium Level 139 mmol/L (136-145) Potassium Level 4.2 mmol/L (3.5-5.1) Chloride Level 102 mmol/L (98-107) Carbon Dioxide Level 31 mmol/L (21-32) Anion Gap 6 (6-14) Blood Urea Nitrogen 16 mg/dL (8-26) Creatinine 1.0 mg/dL (0.7-1.3) Estimated GFR (Cockcroft-Gault) 88.4 Glucose Level 85 mg/dL (70-99) Calcium Level 9.5 mg/dL (8.5-10.1) Assessment and Plan Assessmemt and Plan Acute on chronic hypoxic respiratory failure with CHF/COPD exacerbation and AFIB RVR. 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 Justifications for Admission Other Justification ABIGAIL CHICAS III DO Jul 26, 2021 11:30
[2021-07-26] MEDS ORDERED: OXYC1TAB15 PO (11:33)
[2021-07-26] MEDS ORDERED: APIX5TAB PO (11:39)
[2021-07-26] MEDS ORDERED: POTA-121 PO (11:39)
[2021-07-26] MEDS ORDERED: OXYC-325 PO (11:39)
[2021-07-26] MEDS ORDERED: OLAN5TAB67 PO (11:39)
[2021-07-26] MEDS ORDERED: LOSA-73 PO (11:39)
--- NOTE | 2021-07-26 11:41 | SNU/HH DC ---
DISCHARGE ORDERS DISCHARGE INFORMATION: CONDITION ON DISCHARGE: Stable CODE STATUS: Code Status: Full ALF: SNF STAY <30 DAYS: Yes HOSPICE: HOSPICE: No HOSPICE EVAL & TREAT: No LTAC: ADMIT TO LTAC: No POST DISCHARGE ORDERS: ACTIVITY ORDERS: No restrictions, Activity as tolerated WEIGHT BEARING STATUS: No restrictions, As tolerated DIET AFTER DISCHARGE: Cardiac WOUND/INCISION CARE: No wound care needed CHECKS AFTER DISCHARGE: CHECKS AFTER DISCHARGE: Check blood press - daily, Check your Temp as needed, Weigh Yourself Daily TREATMENT/EQUIPMENT ORDERS: ADAPTIVE EQUIPMENT NEEDED: None RESPIRATORY EQUIPMENT NEEDED: Oxygen Physical Therapy For: Evalulation/Treatment Occupational Therapy For: Evaluation/Treatment Speech Language Pathology For: Evaluation/Treatment DISCHARGE MEDICATIONS: Home Meds Active Scripts Potassium Chloride (KLOR-CON M20) 20 Meq Tab.er.prt, 1 TAB PO DAILY for . for 30 Days, #30 TAB 0 Refills Prov:CASTLE,NIAL K III DO 07/26/21 Losartan Potassium (LOSARTAN POTASSIUM) 50 Mg Tablet, 25 MG PO DAILY for HYPERTENSION for 30 Days, #15 TAB Prov:CASTLE,NIAL K III DO 07/26/21 Apixaban (ELIQUIS) 5 Mg Tablet, 5 MG PO BID for . for 90 Days, #180 TAB Prov:CASTLE,NIAL K III DO 07/26/21 Olanzapine (OLANZAPINE) 5 Mg Tablet, 5 MG PO BID for . for 30 Days, #60 TAB Prov:CASTLE,NIAL K III DO 07/26/21 Oxycodone HCl/Acetaminophen (Percocet 5-325 mg Tablet) 1 Each Tablet, 1 TAB PO QIDPRN PRN for . MDD 4 Tablet(s) for 5 Days, #20 TAB 0 Refills Prov:CASTLE,NIAL K III DO 07/26/21 Sacubitril/Valsartan (Entresto 24 mg-26 mg Tablet) 1 Each Tablet, 1 TAB PO BID for CHF EF 30% for 30 Days, #60 TAB 2 Refills Prov:LILIYA SANCHES MD 03/18/19 Metoprolol Succinate (METOPROLOL SUCCINATE ( XL )) 25 Mg Tab.er.24h, 25 MG PO DAILY for CHF EF 30% for 30 Days, #30 TAB.SR 2 Refills Prov:LILIYA SANCHES MD 03/18/19 Doxycycline Hyclate (DOXYCYCLINE HYCLATE) 100 Mg Tablet, 100 MG PO BID for Pneumonia for 4 Days, #8 TAB Prov:LILIYA SANCHES MD 03/18/19 Ipratropium/Albuterol Sulfate (DUONEB 0.5-3(2.5) MG/3 ML) 3 Ml Ampul.neb, 3 ML NEB RTQID for COPD for 30 Days, #120 EACH 2 Refills Prov:LILIYA SANCHES MD 03/18/19 Reported Medications Warfarin Sodium (WARFARIN SODIUM) 7.5 Mg Tablet, 7.5 MG PO [id number], TAB 03/15/19 Warfarin Sodium (WARFARIN SODIUM) 5 Mg Tablet, 5 MG PO [id number], #30 TAB 03/15/19 Furosemide (FUROSEMIDE) 40 Mg Tablet, 40 MG PO DAILY for diuresis, TAB 03/15/19 Simvastatin (SIMVASTATIN) 20 Mg Tablet, 20 MG PO HS for FOR CHOLESTEROL, #30 TAB 0 Refills 03/27/16 Aspirin (ASPIR 81) 81 Mg Tablet., 81 MG PO DAILY, TAB 03/27/16 ABIGAIL CHICAS III DO Jul 26, 2021 11:41
--- NOTE | 2021-07-26 13:08 | SNU/HH DC ---
DISCHARGE ORDERS DISCHARGE INFORMATION: CONDITION ON DISCHARGE: Stable CODE STATUS: Code Status: Full USP: SNF STAY <30 DAYS: Yes HOSPICE: HOSPICE: No HOSPICE EVAL & TREAT: No LTAC: ADMIT TO LTAC: No POST DISCHARGE ORDERS: ACTIVITY ORDERS: No restrictions, Activity as tolerated WEIGHT BEARING STATUS: No restrictions, As tolerated DIET AFTER DISCHARGE: Cardiac WOUND/INCISION CARE: No wound care needed CHECKS AFTER DISCHARGE: CHECKS AFTER DISCHARGE: Check blood press - daily, Check your Temp as needed, Weigh Yourself Daily TREATMENT/EQUIPMENT ORDERS: ADAPTIVE EQUIPMENT NEEDED: None RESPIRATORY EQUIPMENT NEEDED: Oxygen Physical Therapy For: Evalulation/Treatment Occupational Therapy For: Evaluation/Treatment Speech Language Pathology For: Evaluation/Treatment DISCHARGE MEDICATIONS: Home Meds Active Scripts Potassium Chloride (KLOR-CON M20) 20 Meq Tab.er.prt, 1 TAB PO DAILY for . for 30 Days, #30 TAB 0 Refills Prov:CASTLE,NIAL K III DO 07/26/21 Apixaban (ELIQUIS) 5 Mg Tablet, 5 MG PO BID for . for 90 Days, #180 TAB Prov:CASTLE,NIAL K III DO 07/26/21 Olanzapine (OLANZAPINE) 5 Mg Tablet, 5 MG PO BID for . for 30 Days, #60 TAB Prov:CASTLE,NIAL K III DO 07/26/21 Oxycodone HCl/Acetaminophen (Percocet 5-325 mg Tablet) 1 Each Tablet, 1 TAB PO QIDPRN PRN for . MDD 4 Tablet(s) for 5 Days, #20 TAB 0 Refills Prov:CASTLE,NIAL K III DO 07/26/21 Sacubitril/Valsartan (Entresto 24 mg-26 mg Tablet) 1 Each Tablet, 1 TAB PO BID for CHF EF 30% for 30 Days, #60 TAB 2 Refills Prov:LILIYA SANCHES MD 03/18/19 Metoprolol Succinate (METOPROLOL SUCCINATE ( XL )) 25 Mg Tab.er.24h, 25 MG PO DAILY for CHF EF 30% for 30 Days, #30 TAB.SR 2 Refills Prov:LILIYA SANCHES MD 03/18/19 Doxycycline Hyclate (DOXYCYCLINE HYCLATE) 100 Mg Tablet, 100 MG PO BID for Pneumonia for 4 Days, #8 TAB Prov:LILIYA SANCHES MD 03/18/19 Ipratropium/Albuterol Sulfate (DUONEB 0.5-3(2.5) MG/3 ML) 3 Ml Ampul.neb, 3 ML NEB RTQID for COPD for 30 Days, #120 EACH 2 Refills Prov:LILIYA SANCHES MD 03/18/19 Reported Medications Furosemide (FUROSEMIDE) 40 Mg Tablet, 40 MG PO DAILY for diuresis, TAB 03/15/19 Simvastatin (SIMVASTATIN) 20 Mg Tablet, 20 MG PO HS for FOR CHOLESTEROL, #30 TAB 0 Refills 03/27/16 Aspirin (ASPIR 81) 81 Mg Tablet., 81 MG PO DAILY, TAB 03/27/16 ABIGAIL CHICAS III DO Jul 26, 2021 13:08
[2021-07-26 14:44] VITALS: BP 118/57
[2021-07-26 20:00] VITALS: BP 102/59
[2021-07-26] MEDS: SIMVASTATIN 20 MG TABLET PO SCH (20:46)
--- NOTE | 2021-07-26 21:54 | DS ---
DATE OF DISCHARGE: 07/26/2021 ADMISSION DIAGNOSES: 1. Multifactorial respiratory failure. 2. Hqast-qj-dvxrzsm systolic and diastolic heart failure. 3. Chronic obstructive pulmonary disease. 4. Atrial fibrillation with rapid ventricular response. 5. Ischemic cardiomyopathy with a 25%-30% ejection fraction. DISCHARGE DIAGNOSES: 1. Resolving respiratory failure. 2. Resolving vendf-lk-pylrdmf systolic congestive heart failure. 3. Resolving hypoxic encephalopathy. 4. Resolving atrial fibrillation with rapid ventricular response. 5. Ischemic cardiomyopathy. 6. Chronic obstructive pulmonary disease. 7. Diabetes. 8. Hypertension. 9. Hyperlipidemia. 10. Benign tumor of the left eye. 11. Obstructive sleep apnea. 12. Thrombocytopenia. 13. Leukopenia. HOSPITAL COURSE: The patient is a pleasant elderly male who presented with multifactorial respiratory failure. He was admitted. We diuresed him, consulted Cardiology and Nephrology. He actually had a cardiac cath, which showed severe pulmonary hypertension. He was placed on a milrinone drip and diuresed. Over the past few days, he slowly, but surely returned to his baseline, but is quite debilitated. Today, I saw and examined him. He is up in the chair. We plan to get him to [facility]. DISPOSITION: [facility]. ACTIVITY: As tolerated. DIET: Cardiac. DISCHARGE MEDICATIONS: Please see the MRAD. MEDICATIONS: Eliquis 5 b.i.d., losartan 25 a day, olanzapine 5 b.i.d., oxycodone 5 q.6, potassium 20 a day, aspirin 81 a day, doxycycline 100 b.i.d., Lasix 40 a day, albuterol, metoprolol 25 once a day, Entresto 24/ one b.i.d., simvastatin 20 a day, Coumadin. TOTAL TIME: 34 minutes. MELECIO/VICENTE/TONG DR: Candace TID: [id number]
[2021-07-26 23:00] VITALS: BP 81/43
[2021-07-27 03:00] VITALS: BP 108/63
[2021-07-27 07:00] VITALS: BP 116/63
--- NOTE | 2021-07-27 07:15 | PDOC ---
PROGRESS NOTES Date of Service: DATE: 07/27/21 TIME: 07:15 Subjective Subjective No new complaints Objective Objective Vital Signs Date Time Temp Pulse Resp B/P (MAP) Pulse Ox O2 Delivery O2 Flow Rate FiO2 07/27/21 03:00 97.9 66 24 108/63 (78) 93 BiPAP/CPAP 97.9 07/27/21 02:15 3.0 Intake and Output 07/27/21 07:00 Intake Total 880 ml Output Total 1825 ml Balance -945 ml Intake Oral 880 ml Output Urine Total 1825 ml Physical Exam Abdomen: Normal bowel sounds Heart: Regular rate Extremities: No cyanosis, Other (trace LE edema) General: Alert, Other (Up in chair little confused) HEENT: Atraumatic, Mucous membr. moist/pink, Other (blind left eye) Lungs: Other (Decreased breath sounds) MUSCULOSKELETAL: Osteoarthritic changes both hands Neuro: Normal speech, Sensation intact Psych/Mental Status: Mental status NL, Mood NL Skin: No breakdown, No significant lesion Assessment Assessment 1. Acute on chronic hypoxic respiratory failure with CHF/COPD exacerbation and AFIB RVR. Poor compliance with home CPAP 2. AFIB RVR: chronic by history. rate controlled 3. Acute on chronic HFrEF: NYHA2 RHC revealed Acute biventricular pressure overload/Severe pulmonary hypertension secondary to left heart failure/ Low cardiac output 4. HTN: controlled 5. HLP 6. ICM: EF remains about the same at 30-35% compensated 7. CAD: Past CABG 8. Coagulopathy: coumadin related. 9. BILLY: cardiorenal, Cr back to baseline 10. Hypotension: resolved Recommendations 1. Will consider restarting entresto as an outpt. Losartan for now. Continue toprol. Continue lasix therapy. DC milrinone 2. Continue secondary prevention measures 3. He has not been seen in our office since 12/2019. If EF remains low then will consider for outpt CONSERVATION TECHNICIAN-D placement. 4. Continue eliquis for stroke prevention 5. Smoking cessation. Continue with HF optimization. 6. Will consider for outpt ischemic workup. 7. awaiting SNU placement Comment Review of Relevant I have reviewed the following items cynthia (where applicable) has been applied. Labs Microbiology 07/15/21 Blood Culture - Final, Complete NO GROWTH AFTER 5 DAYS Medications Current Medications Losartan Potassium (Cozaar) 25 mg DAILY PO ; Start 07/27/21 at 09:00 Sacubitril/ Valsartan (Entresto 24 Mg-26 Mg) 1 tab BID PO ; Start 07/26/21 at 11:00; Stop 07/26/21 at 10:41; Status DC Vitals/I & O Vital Sign - Last 24 Hours 07/26/21 07/26/21 07/26/21 07/26/21 08:00 08:00 08:23 08:44 Temp 97.8 97.8 Pulse 77 77 Resp 19 B/P (MAP) 116/80 (92) 116/80 Pulse Ox 98 O2 Delivery Nasal Cannula Nasal Cannula Nasal Cannula O2 Flow Rate 3.0 3.0 3.0 07/26/21 07/26/21 07/26/21 07/26/21 10:42 12:08 14:44 16:03 Temp 97.7 97.8 97.7 97.8 Pulse 73 69 Resp 18 17 B/P (MAP) 106/82 (90) 118/57 (77) Pulse Ox 97 96 O2 Delivery Nasal Cannula Nasal Cannula Nasal Cannula Nasal Cannula O2 Flow Rate 3.0 3.0 3.0 3.0 07/26/21 07/26/21 07/26/21 07/26/21 19:00 20:00 20:00 20:21 Temp 97.6 97.6 Pulse 79 81 Resp 24 24 B/P (MAP) 102/59 (73) Pulse Ox 98 99 94 O2 Delivery Nasal Cannula Nasal Cannula Nasal Cannula Nasal Cannula O2 Flow Rate 3.0 3.0 3.0 3.0 07/26/21 07/26/21 07/27/21 07/27/21 23:00 23:50 01:30 02:15 Temp 97.8 97.8 Pulse 72 Resp 24 B/P (MAP) 81/43 (56) Pulse Ox 93 96 94 93 O2 Delivery Nasal Cannula BiPAP/CPAP BiPAP/CPAP Nasal Cannula O2 Flow Rate 3.0 3.0 07/27/21 03:00 Temp 97.9 97.9 Pulse 66 Resp 24 B/P (MAP) 108/63 (78) Pulse Ox 93 O2 Delivery BiPAP/CPAP Intake and Output 07/26/21 07/26/21 07/27/21 15:00 23:00 07:00 Intake Total 400 ml 480 ml Output Total 1575 ml 250 ml Balance -1175 ml 230 ml LUISA PRATT MD Jul 27, 2021 07:15
[2021-07-27] MEDS: IPRATRPIUM/ALBUTEROL 0.5/2.5MG 3 ML NEBU. NEB SCH ×4 (07:56→20:14)
[2021-07-27] MEDS: SENNOSIDES/DOCUSATE 8.6/50MG TABLET. PO SCH ×2 (09:00→19:11)
[2021-07-27] MEDS: MULTIVITAMIN with MINERAL TABLET. PO SCH (09:44)
[2021-07-27] MEDS: POTASSIUM CHLORIDE 20 MEQ TABLET.ER. PO SCH (09:44)
[2021-07-27] MEDS: APIXABAN 5 MG TABLET. PO SCH ×2 (09:44→20:51)
[2021-07-27] MEDS: FUROSEMIDE 40 MG/4 ML VIAL. IVP SCH (09:45)
[2021-07-27] MEDS: METOPROLOL SUCC 24HR ER 25 MG TAB.ER.24H. PO SCH (09:45)
[2021-07-27] MEDS: LOSARTAN POTASSIUM 25 MG TABLET. PO SCH (09:46)
--- NOTE | 2021-07-27 11:42 | PDOC ---
[employer] PROGRESS NOTE Date of Service DOS: DATE: 07/27/21 TIME: 11:42 Chief Complaint Chief Complaint Acute on chronic hypoxic respiratory failure with CHF/COPD exacerbation and AFIB RVR. Poor compliance with home CPAP Hypoxic encephalopathy AFIB RVR - with chronic afib Acute on chronic HFrEF Ischemic cardiomyopathy EF 25-30% historically ?COPD Diabetes Dyperlipidemia Hypertension Benign tumor of the left eye CAMERON - CPAP at home Thrombocytopenia Leukopenia History of Present Illness History of Present Illness 07/27/2021 Patient seen and examined Discussed with RN Chart reviewed We are still awaiting discharge to [place] 07/26/2021 Patient seen and examined Discussed with RN Milrinone drip is off Discussed with case management We are hoping to discharge to [place] halfway unit later today if his PCR Covid is negative 07/25/2021 Patient seen and examined in the ICU He is still on a milrinone drip Resting with NAD Discussed with case management Discussed with RN Chart reviewed He is tentatively accepted to go to [place] sometime soon 07/24/2021 Patient seen and examined in the ICU He is currently on a milrinone drip Ingram to bedside drainage Discussed with RN Chart reviewed 07/23/2021 Patient seen and examined in the ICU Chart reviewed Discussed with RN Discussed with case management Discussed with pharmacy Platelets running low I stopped his Lovenox Still on milrinone drip Seems to be partially blind 07/22/2021 Patient seen and examined in the ICU He is on a milrinone drip He is using as needed BiPAP at night Legally blind Discussed with RN Discussed with case management Chart reviewed Patient has Ingram to bedside Mr Olea is a 76yo male w/ PMHx cardiomyopathy with an EF of 25%-30%, history of ongoing tobaccoism, suspect underlying COPD, obesity, history of CAMERON, on home CPAP with O2 bleed in 3L, left eye tumor, AFib, Coronary artery disease, type 2 diabetes, dyslipidemia and hypertension who p/w worsening shortness of breath to ED on 07/15/2021 at the behest of his PCP when he was found to be saturating 74% on room air. States that has been having worsening shortness of breath for the past month or so. Also having cough nonproductive. He was given a breathing treatment IV steroids and sent here On presentation here he required being placed on BiPAP due to hypoxia. Given 40 IV Lasix in ER with brisk diuresis. He is on home warfarin for A. fib but INR notably elevated Patient was denying any sort of headache chest pain abdominal pain dysuria. 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 Still having shortness of breath and abdominal distention. Given 40 mg of IV Lasix and has had no urine output over the past 8 hours. Had difficulty tolerating BiPAP at 18/4 felt his ears popping. Normally he is on CPAP 10 cm of H2O. Seen bedside his O2 saturations were 89% on 6 L/min of O2. A. fib is a little better rate controlled. Was given digoxin 07/17: INR 9.5, CR jumped to 2. Limited urine output blood pressure is low today. Discussed milrinone with cardiology. Will check renal ultrasound and consult nephrology for IBLLY. 07/18: Blood pressure responded to albumin and small fluid bolus. Creatinine improved to 1.7 now with good urine output. Mentating better. Still short of breath on O2. Discussed with cardiology consideration of right heart cath to assess fluid status and pulmonary artery pressure. 07/19: Patient transferred down to ICU. Afebrile, appears to be somewhat confused but conversive. He had right heart cath today that showed acute biventricular pressure overload, severe pulmonary hypertension secondary to left heart failure, and low cardiac output. He is recommending milrinone infusion and diuretics. 07/20: Patient seen in ICU. Afebrile. He is still quite encephalopathic, but easily redirected. Uncertain etiology given dramatic change from admission, but likely hypoxic encephalopathy. Continue milrinone infusion and Lasix. 30 minutes critical care time spent reviewing charts, reviewing labs, and discussion with RN. 07/21: Patient seen and evaluated in ICU. His mentation has improved significant ly since yesterday. Patient nurse reports that he wore BiPAP overnight, and encouraged continued use. CBG 63 this morning; replete and recheck. INR 1.4; on warfarin for atrial fibrillation. Discussed pharmacy bridging with Lovenox until INR 23. He still remains on milrinone and Lasix. Critical care time 30 minutes spent reviewing charts, reviewing labs, and discussion with RN. Vitals/I&O Vitals/I&O: Vital Signs Date Time Temp Pulse Resp B/P (MAP) Pulse Ox O2 Delivery O2 Flow Rate FiO2 07/27/21 11:18 Nasal Cannula 3.0 07/27/21 09:46 62 116/63 07/27/21 07:00 97.7 20 94 97.7 I & O 07/26/21 07/26/21 07/27/21 15:00 23:00 07:00 Intake Total 400 ml 480 ml Output Total 1575 ml 250 ml Balance -1175 ml 230 ml Physical Exam General: Alert, Other (Up in chair little confused) Heart: Regular rate Lungs: Clear Abdomen: Normal bowel sounds Extremities: No cyanosis, Other (trace LE edema) Skin: No breakdown, No significant lesion Assessment and Plan Assessmemt and Plan Acute on chronic hypoxic respiratory failure with CHF/COPD exacerbation and AFIB RVR. 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 Medications: Current Medications Medications (Trade) Dose Ordered Sig/Tobi Route PRN Reason Start Time Stop Time Status Last Admin Dose Admin Losartan Potassium (Cozaar) 25 mg DAILY PO 07/27/21 09:00 07/27/21 09:46 Justifications for Admission Other Justification ABIGAIL CHICAS K III DO Jul 27, 2021 11:42
[2021-07-27 13:20] VITALS: BP 113/65
[2021-07-27 15:00] VITALS: BP 140/74
[2021-07-27 19:00] VITALS: BP 118/64
[2021-07-27] MEDS: SIMVASTATIN 20 MG TABLET PO SCH (20:51)
[2021-07-27 23:00] VITALS: BP 98/47
[2021-07-28 03:00] VITALS: BP 101/52
[2021-07-28 07:00] VITALS: BP 107/60
[2021-07-28] MEDS: IPRATRPIUM/ALBUTEROL 0.5/2.5MG 3 ML NEBU. NEB SCH ×4 (08:21→21:24)
[2021-07-28] MEDS: MULTIVITAMIN with MINERAL TABLET. PO SCH (08:41)
[2021-07-28] MEDS: FUROSEMIDE 40 MG/4 ML VIAL. IVP SCH (08:41)
[2021-07-28] MEDS: POTASSIUM CHLORIDE 20 MEQ TABLET.ER. PO SCH (08:41)
[2021-07-28] MEDS: APIXABAN 5 MG TABLET. PO SCH ×2 (08:42→20:22)
[2021-07-28] MEDS: METOPROLOL SUCC 24HR ER 25 MG TAB.ER.24H. PO SCH (08:42)
[2021-07-28] MEDS: SENNOSIDES/DOCUSATE 8.6/50MG TABLET. PO SCH ×2 (08:43→20:22)
[2021-07-28] MEDS: LOSARTAN POTASSIUM 25 MG TABLET. PO SCH (08:45)
--- NOTE | 2021-07-28 09:21 | PDOC ---
PROGRESS NOTES Date of Service: DATE: 07/28/21 TIME: 09:21 Subjective Subjective Denied any chest pain or shortness of breath. Waiting for SNF placement. Objective Objective Vital Signs Date Time Temp Pulse Resp B/P (MAP) Pulse Ox O2 Delivery O2 Flow Rate FiO2 07/28/21 08:45 68 107/60 07/28/21 08:21 Nasal Cannula 3.0 07/28/21 07:00 97.6 20 94 97.6 l Intake and Output 07/28/21 07:00 Intake Total 980 ml Output Total 1250 ml Balance -270 ml Intake Oral 980 ml Output Urine Total 1250 ml Physical Exam Abdomen: Normal bowel sounds Heart: Regular rate Extremities: No cyanosis, Other (trace LE edema) General: Alert, Other (Up in chair little confused) HEENT: Atraumatic, Mucous membr. moist/pink, Other (blind left eye) Lungs: Other (Decreased breath sounds) MUSCULOSKELETAL: Osteoarthritic changes both hands Neuro: Normal speech, Sensation intact Psych/Mental Status: Mental status NL, Mood NL Skin: No breakdown, No significant lesion Assessment Assessment 1. Acute on chronic hypoxic respiratory failure with CHF/COPD exacerbation and AFIB RVR. Poor compliance with home CPAP 2. AFIB RVR: chronic by history. rate controlled 3. Acute on chronic HFrEF: NYHA2 RHC revealed Acute biventricular pressure overload/Severe pulmonary hypertension secondary to left heart failure/ Low cardiac output 4. HTN: controlled 5. HLP 6. ICM: EF remains about the same at 30-35% compensated 7. CAD: Past CABG 8. Coagulopathy: coumadin related. 9. BILLY: cardiorenal, Cr back to baseline 10. Hypotension: resolved Recommendations 1. Will consider restarting entresto as an outpt. Losartan for now. Continue toprol. Continue lasix therapy. 2. Continue secondary prevention measures 3. He has not been seen in our office since 12/2019. If EF remains low then will consider for outpt CHEF ASSISTANT-D placement. 4. Continue eliquis for stroke prevention 5. Smoking cessation. Continue with HF optimization. 6. Will consider for outpt ischemic workup. 7. awaiting SNU placement Comment Review of Relevant I have reviewed the following items cynthia (where applicable) has been applied. Labs Microbiology 07/15/21 Blood Culture - Final, Complete NO GROWTH AFTER 5 DAYS Vitals/I & O Vital Sign - Last 24 Hours 07/27/21 07/27/21 07/27/21 07/27/21 09:45 09:46 11:00 11:18 Temp 97.9 97.9 Pulse 62 62 68 Resp 18 B/P (MAP) 116/63 116/63 Pulse Ox 94 O2 Delivery Nasal Cannula Nasal Cannula O2 Flow Rate 3.0 3.0 07/27/21 07/27/21 07/27/21 07/27/21 13:20 15:00 16:03 19:00 Temp 97.9 97.6 97.9 97.6 Pulse 72 90 87 Resp 22 18 24 B/P (MAP) 113/65 (81) 140/74 (96) 118/64 (82) Pulse Ox 95 94 93 O2 Delivery Nasal Cannula Nasal Cannula Nasal Cannula Nasal Cannula O2 Flow Rate 3.0 3.0 3.0 3.0 07/27/21 07/27/21 07/27/21 07/28/21 20:00 20:14 23:00 03:00 Temp 97.8 97.7 97.8 97.7 Pulse 68 69 Resp 24 B/P (MAP) 98/47 (64) 101/52 (68) Pulse Ox 92 92 O2 Delivery Nasal Cannula Nasal Cannula Nasal Cannula Nasal Cannula O2 Flow Rate 3.0 3.0 3.0 3.0 07/28/21 07/28/21 07/28/21 07/28/21 07:00 08:21 08:42 08:45 Temp 97.6 97.6 Pulse 67 73 68 Resp 20 B/P (MAP) 107/60 (76) 107/60 107/60 Pulse Ox 94 O2 Delivery Nasal Cannula Nasal Cannula O2 Flow Rate 3.0 3.0 Intake and Output 07/27/21 07/27/21 07/28/21 15:00 23:00 07:00 Intake Total 740 ml 240 ml Output Total 900 ml 350 ml Balance -160 ml -110 ml LUISA PRATT MD Jul 28, 2021 09:21
[2021-07-28 11:00] VITALS: BP 114/54
--- NOTE | 2021-07-28 14:55 | PDOC ---
[employer] PROGRESS NOTE Date of Service DOS: DATE: 07/28/21 TIME: 14:54 Chief Complaint Chief Complaint Acute on chronic hypoxic respiratory failure with CHF/COPD exacerbation and AFIB RVR. Poor compliance with home CPAP Hypoxic encephalopathy AFIB RVR - with chronic afib Acute on chronic HFrEF Ischemic cardiomyopathy EF 25-30% historically ?COPD Diabetes Dyperlipidemia Hypertension Benign tumor of the left eye CAMERON - CPAP at home Thrombocytopenia Leukopenia History of Present Illness History of Present Illness 07/28/2021 Patient seen and examined Discussed with RN Chart reviewed He is up in the chair more alert today We are awaiting discharge to [facility] 07/27/2021 Patient seen and examined Discussed with RN Chart reviewed We are still awaiting discharge to [facility] 07/26/2021 Patient seen and examined Discussed with RN Milrinone drip is off Discussed with case management We are hoping to discharge to [facility] snf unit later today if his PCR Covid is negative 07/25/2021 Patient seen and examined in the ICU He is still on a milrinone drip Resting with NAD Discussed with case management Discussed with RN Chart reviewed He is tentatively accepted to go to [facility] sometime soon 07/24/2021 Patient seen and examined in the ICU He is currently on a milrinone drip Ingram to bedside drainage Discussed with RN Chart reviewed 07/23/2021 Patient seen and examined in the ICU Chart reviewed Discussed with RN Discussed with case management Discussed with pharmacy Platelets running low I stopped his Lovenox Still on milrinone drip Seems to be partially blind 07/22/2021 Patient seen and examined in the ICU He is on a milrinone drip He is using as needed BiPAP at night Legally blind Discussed with RN Discussed with case management Chart reviewed Patient has Ingram to bedside Mr Olea is a 76yo male w/ PMHx cardiomyopathy with an EF of 25%-30%, history of ongoing tobaccoism, suspect underlying COPD, obesity, history of CAMERON, on home CPAP with O2 bleed in 3L, left eye tumor, AFib, Coronary artery disease, type 2 diabetes, dyslipidemia and hypertension who p/w worsening shortness of breath to ED on 07/15/2021 at the behest of his PCP when he was found to be saturating 74% on room air. States that has been having worsening shortness of breath for the past month or so. Also having cough nonproductive. He was given a breathing treatment IV steroids and sent here On presentation here he required being placed on BiPAP due to hypoxia. Given 40 IV Lasix in ER with brisk diuresis. He is on home warfarin for A. fib but INR notably elevated Patient was denying any sort of headache chest pain abdominal pain dysuria. 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 Still having shortness of breath and abdominal distention. Given 40 mg of IV Lasix and has had no urine output over the past 8 hours. Had difficulty tolerating BiPAP at 18/4 felt his ears popping. Normally he is on CPAP 10 cm of H2O. Seen bedside his O2 saturations were 89% on 6 L/min of O2. A. fib is a little better rate controlled. Was given digoxin 07/17: INR 9.5, CR jumped to 2. Limited urine output blood pressure is low today. Discussed milrinone with cardiology. Will check renal ultrasound and consult nephrology for BILLY. 07/18: Blood pressure responded to albumin and small fluid bolus. Creatinine improved to 1.7 now with good urine output. Mentating better. Still short of breath on O2. Discussed with cardiology consideration of right heart cath to assess fluid status and pulmonary artery pressure. 07/19: Patient transferred down to ICU. Afebrile, appears to be somewhat confused but conversive. He had right heart cath today that showed acute biventricular pressure overload, severe pulmonary hypertension secondary to left heart failure, and low cardiac output. He is recommending milrinone infusion and diuretics. 07/20: Patient seen in ICU. Afebrile. He is still quite encephalopathic, but easily redirected. Uncertain etiology given dramatic change from admission, but likely hypoxic encephalopathy. Continue milrinone infusion and Lasix. 30 minutes critical care time spent reviewing charts, reviewing labs, and discussion with RN. 07/21: Patient seen and evaluated in ICU. His mentation has improved significantly since yesterday. Patient nurse reports that he wore BiPAP overnight, and encouraged continued use. CBG 63 this morning; replete and recheck. INR 1.4; on warfarin for atrial fibrillation. Discussed pharmacy bridging with Lovenox until INR 23. He still remains on milrinone and Lasix. Critical care time 30 minutes spent reviewing charts, reviewing labs, and discussion with RN. Vitals/I&O Vitals/I&O: Vital Signs Date Time Temp Pulse Resp B/P (MAP) Pulse Ox O2 Delivery O2 Flow Rate FiO2 07/28/21 12:09 Nasal Cannula 3.0 07/28/21 11:00 97.9 73 18 114/54 (74) 94 97.9 I & O 07/27/21 07/27/21 07/28/21 15:00 23:00 07:00 Intake Total 740 ml 240 ml Output Total 900 ml 350 ml Balance -160 ml -110 ml Physical Exam General: Alert, Other (Up in chair little confused) Heart: Regular rate Lungs: Clear Abdomen: Normal bowel sounds Extremities: No cyanosis, Other (trace LE edema) Skin: No breakdown, No significant lesion Assessment and Plan Assessmemt and Plan Acute on chronic hypoxic respiratory failure with CHF/COPD exacerbation and AFIB RVR. 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 tomorrow morning For now continue the following; Continue Coumadin As needed BiPAP at night Cardiac monitoring PT OT Home meds DVT prophylaxis Full code Trend labs Appreciate subspecialist input Long-term prognosis guarded Comment Review of Relevant I have reviewed the following items cynthia (where applicable) has been applied. Justifications for Admission Other Justification ABIGAIL CHICAS III DO Jul 28, 2021 14:54
[2021-07-28 18:30] VITALS: BP 120/58
[2021-07-28 19:00] VITALS: BP 111/79
[2021-07-28] MEDS: SIMVASTATIN 20 MG TABLET PO SCH (20:22)
[2021-07-28 23:00] VITALS: BP 108/62
--- NOTE | 2021-07-29 03:11 | NUR ---
ATTEMPTED TO PLACE PT ON BIPAP AT 0005 AND AGAIN A 0200. PT NOT SLEEPING AND REFUSING BIPAP. WILL CONTINUE TO MONITOR.
[2021-07-29 08:00] VITALS: BP 114/74
[2021-07-29] MEDS: IPRATRPIUM/ALBUTEROL 0.5/2.5MG 3 ML NEBU. NEB SCH (08:59)
[2021-07-29] MEDS: FUROSEMIDE 40 MG/4 ML VIAL. IVP SCH (09:10)
[2021-07-29] MEDS: MULTIVITAMIN with MINERAL TABLET. PO SCH (09:10)
[2021-07-29] MEDS: SENNOSIDES/DOCUSATE 8.6/50MG TABLET. PO SCH (09:11)
[2021-07-29] MEDS: APIXABAN 5 MG TABLET. PO SCH (09:11)
[2021-07-29] MEDS: POTASSIUM CHLORIDE 20 MEQ TABLET.ER. PO SCH (09:11)
[2021-07-29] MEDS: LOSARTAN POTASSIUM 25 MG TABLET. PO SCH (09:14)
[2021-07-29 09:15] VITALS: BP 114/74
[2021-07-29] MEDS: METOPROLOL SUCC 24HR ER 25 MG TAB.ER.24H. PO SCH (09:15)
--- NOTE | 2021-07-29 09:53 | NUR ---
SS following up with discharge planning. SS reviewed pt chart and discussed with pt RN. Pt is currently requiring oxygen at three liters nasal canula. COVID19 negative. PT/OT recommended fpc unit. Pt accepted at [facility], ; fax [phone]. Insurance approved. Discharge orders sent to [facility]. Pt will discharge today and go to [facility] at 1200. [facility] to provide transportation. Pt, pt's RN, and pt's family notified.
--- NOTE | 2021-07-29 10:39 | PDOC ---
[employer] PROGRESS NOTE Date of Service DOS: DATE: 07/29/21 TIME: 10:38 Chief Complaint Chief Complaint Acute on chronic hypoxic respiratory failure with CHF/COPD exacerbation and AFIB RVR. Poor compliance with home CPAP Hypoxic encephalopathy AFIB RVR - with chronic afib Acute on chronic HFrEF Ischemic cardiomyopathy EF 25-30% historically ?COPD Diabetes Dyperlipidemia Hypertension Benign tumor of the left eye CAMERON - CPAP at home Thrombocytopenia Leukopenia History of Present Illness History of Present Illness 07/29/2021: Patient seen and evaluated bedside. He is much more alert and conversive than previous encounters. He will discharge to [facility] today. Greater than 30 minutes spent managing the discharge of this patient. 07/28/2021 Patient seen and examined Discussed with RN Chart reviewed He is up in the chair more alert today We are awaiting discharge to [facility] 07/27/2021 Patient seen and examined Discussed with RN Chart reviewed We are still awaiting discharge to [facility] 07/26/2021 Patient seen and examined Discussed with RN Milrinone drip is off Discussed with case management We are hoping to discharge to [facility] shelter unit later today if his PCR Covid is negative 07/25/2021 Patient seen and examined in the ICU He is still on a milrinone drip Resting with NAD Discussed with case management Discussed with RN Chart reviewed He is tentatively accepted to go to [facility] sometime soon 07/24/2021 Patient seen and examined in the ICU He is currently on a milrinone drip Ingram to bedside drainage Discussed with RN Chart reviewed 07/23/2021 Patient seen and examined in the ICU Chart reviewed Discussed with RN Discussed with case management Discussed with pharmacy Platelets running low I stopped his Lovenox Still on milrinone drip Seems to be partially blind 07/22/2021 Patient seen and examined in the ICU He is on a milrinone drip He is using as needed BiPAP at night Legally blind Discussed with RN Discussed with case management Chart reviewed Patient has Ingram to bedside Mr Olea is a 76yo male w/ PMHx cardiomyopathy with an EF of 25%-30%, history of ongoing tobaccoism, suspect underlying COPD, obesity, history of CAMERON, on home CPAP with O2 bleed in 3L, left eye tumor, AFib, Coronary artery disease, type 2 diabetes, dyslipidemia and hypertension who p/w worsening shortness of breath to ED on 07/15/2021 at the behest of his PCP when he was found to be saturating 74% on room air. States that has been having worsening shortness of breath for the past month or so. Also having cough nonproductive. He was given a breathing treatment IV steroids and sent here On presentation here he required being placed on BiPAP due to hypoxia. Given 40 IV Lasix in ER with brisk diuresis. He is on home warfarin for A. fib but INR notably elevated Patient was denying any sort of headache chest pain abdominal pain dysuria. 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 Still having shortness of breath and abdominal distention. Given 40 mg of IV Lasix and has had no urine output over the past 8 hours. Had difficulty tolerating BiPAP at 18/4 felt his ears popping. Normally he is on CPAP 10 cm of H2O. Seen bedside his O2 saturations were 89% on 6 L/min of O2. A. fib is a little better rate controlled. Was given digoxin 07/17: INR 9.5, CR jumped to 2. Limited urine output blood pressure is low today. Discussed milrinone with cardiology. Will check renal ultrasound and consult nephrology for BILLY. 07/18: Blood pressure responded to albumin and small fluid bolus. Creatinine improved to 1.7 now with good urine output. Mentating better. Still short of breath on O2. Discussed with cardiology consideration of right heart cath to assess fluid status and pulmonary artery pressure. 07/19: Patient transferred down to ICU. Afebrile, appears to be somewhat confused but conversive. He had right heart cath today that showed acute biventricular pressure overload, severe pulmonary hypertension secondary to left heart failure, and low cardiac output. He is recommending milrinone infusion and diuretics. 07/20: Patient seen in ICU. Afebrile. He is still quite encephalopathic, but easily redirected. Uncertain etiology given dramatic change from admission, but likely hypoxic encephalopathy. Continue milrinone infusion and Lasix. 30 minutes critical care time spent reviewing charts, reviewing labs, and discussion with RN. 07/21: Patient seen and evaluated in ICU. His mentation has improved significantly since yesterday. Patient nurse reports that he wore BiPAP overnight, and encouraged continued use. CBG 63 this morning; replete and re check. INR 1.4; on warfarin for atrial fibrillation. Discussed pharmacy bridging with Lovenox until INR 23. He still remains on milrinone and Lasix. Critical care time 30 minutes spent reviewing charts, reviewing labs, and discussion with RN. Vitals/I&O Vitals/I&O: Vital Signs Date Time Temp Pulse Resp B/P (MAP) Pulse Ox O2 Delivery O2 Flow Rate FiO2 07/29/21 09:15 80 114/74 07/29/21 08:59 95 Nasal Cannula 3.0 07/29/21 03:00 24 07/28/21 23:00 97.8 97.8 I & O 07/28/21 07/28/21 07/29/21 15:00 23:00 07:00 Intake Total 600 ml Output Total 1075 ml 200 ml Balance -475 ml -200 ml Physical Exam General: Alert, Other (Up in chair little confused) Heart: Regular rate Lungs: Clear Abdomen: Normal bowel sounds Extremities: No cyanosis, Other (trace LE edema) Skin: No breakdown, No significant lesion Comment Review of Relevant I have reviewed the following items cynthia (where applicable) has been applied. Justifications for Admission Other Justification THOMAS FORTE MD Jul 29, 2021 10:39
--- NOTE | 2021-07-29 10:59 | PDOC ---
GREGG SAM APRN 07/29/21 1059: CARDIO Progress Notes Date and Time Date of Service 07/29/21 Time of Evaluation 1100 Subjective Subjective: No Chest Pain, No shortness of breath, No Palpitations Vitals Vitals Vital Signs Date Time Temp Pulse Resp B/P (MAP) Pulse Ox O2 Delivery O2 Flow Rate FiO2 07/29/21 09:15 80 114/74 07/29/21 08:59 95 Nasal Cannula 3.0 07/29/21 08:00 97.8 25 97.8 Weight Weight [ ] Input and Output Intake and Output Intake and Output 07/29/21 07:00 Intake Total 600 ml Output Total 1275 ml Balance -675 ml Intake Oral 600 ml Output Urine Total 1275 ml Microbiology Micro Microbiology 07/15/21 Blood Culture - Final, Complete NO GROWTH AFTER 5 DAYS Physical Exam HEENT: Neck Supple W Full Motion Chest: Symmetric LUNGS: Other (diminished ) Heart: irregularly irregular (AFIB ) Abdomen: Other (obese) Extremities: No Edema Neurology: alert, oriented, follow commands Assessment Assessment 1. Acute on chronic hypoxic respiratory failure with CHF/COPD exacerbation and AFIB RVR. Poor compliance with home CPAP 2. AFIB RVR: chronic by history. rate now controlled 3. Acute on chronic HFrEF: RHC revealed acute biventricular pressure overload/severe pulmonary hypertension secondary to left heart failure/ low cardiac output 4. HTN: controlled 5. HLP 6. ICM: EF remains about the same at 30-35% compensated 7. CAD: Past CABG 8. Coagulopathy: coumadin related. 9. BILLY: cardiorenal, Cr back to baseline 10. Hypotension: resolved Recommendations HF optimization Losartan for now. Will consider restarting Entresto as an outpt. Continue Toprol and Lasix therapy. Secondary prevention measures Eliquis for stroke prevention Consider for outpt ischemic workup. Consider for outpt KIER HAND-D placement if EF remains low. Plans to transfer to SNU today Follow up in our office with Dr. Riojas as scheduled. Justicifation of Admission Dx: Justifications for Admission: Justification of Admission Dx: Yes LUISA PRATT MD 07/29/212038: CARDIO Progress Notes Assessment Assessment Patient seen and examined. Agree with MUD CLEANER OPERATOR's assessment and plan as stated above GREGG SAM APRN Jul 29, 2021 10:59 LUISA PRATT MD Jul 29, 2021 20:39
--- NOTE | 2021-07-29 12:00 | NUR ---
all belonging sent with patient on discharge to [facility] per transportstion wallet, phone and engineering lab technician hat jacket and clothes, shoes, cane
--- NOTE | 2021-08-05 16:45 | PDOC3 ---
Discharge Summary Visit Information Date of Admission: Jul 15, 2021 Date of Discharge: Jul 29, 2021 Brief Hospital Course Allergies Allergies Coded Allergies Type Severity Reaction Last Updated Verified Iodinated Contrast Media Adverse Reaction Intermediate "bumps on skin around IV site" 03/27/16 Yes Brief Hospital Course ADMIT DIAGNOSIS 1. Multifactorial respiratory failure. 2. Dsgyk-wv-harrzqq systolic and diastolic heart failure. 3. Chronic obstructive pulmonary disease. 4. Atrial fibrillation with rapid ventricular response. 5. Ischemic cardiomyopathy with a 25%-30% ejection fraction. DISCHARGE DIAGNOSES: 1. Resolving respiratory failure. 2. Resolving gvuud-ri-srycite systolic congestive heart failure. 3. Resolving hypoxic encephalopathy. 4. Resolving atrial fibrillation with rapid ventricular response. 5. Ischemic cardiomyopathy. 6. Chronic obstructive pulmonary disease. 7. Diabetes. 8. Hypertension. 9. Hyperlipidemia. 10. Benign tumor of the left eye. 11. Obstructive sleep apnea. 12. Thrombocytopenia. 13. Leukopenia. HOSPITAL COURSE: The patient is a pleasant elderly male who presented with multifactorial respiratory failure. He was admitted. We diuresed him, consulted Cardiology and Nephrology. He actually had a cardiac cath, which showed severe pulmonary hypertension. He was placed on a milrinone drip and diuresed. Over the past few days, he slowly, but surely returned to his baseline, but is quite debilitated. Today, I saw and examined him. He is up in the chair. Patient's discharge was held at 07/26/2021 because his fdc was unable to accept him at this time. He was stable to [facility] discharge on 07/29/2021. We plan to get him to [facility]. Discharge Information Condition at Discharge: Stable Disposition/Orders: D/C to Another Facility Scheduled Apixaban (Eliquis) 5 Mg Tablet, 5 MG PO BID for . for 90 Days, #180 Prescribed by: ABIGAIL CHICAS on 07/26/21 1139 Aspirin (Aspir 81) 81 Mg Tablet.dr, 81 MG PO DAILY, (Reported) Entered as Reported by: ZAYDA HO on 03/27/161955 Last Action: HELD on 07/15/21 1637 by LILIYA OLIVA MD Doxycycline Hyclate (Doxycycline Hyclate) 100 Mg Tablet, 100 MG PO BID for Pneumonia for 4 Days, #8 Prescribed by: LILIYA SANCHES MD on 03/18/191310 Last Action: HELD on 07/15/211636 by LILIYA OLIVA MD Furosemide (Furosemide) 40 Mg Tablet, 40 MG PO DAILY for diuresis, (Reported) Entered as Reported by: MAL SWENSON RN on 03/15/19 0524 Last Action: Continued on 07/15/211636 by LILIYA OLIVA MD Ipratropium/Albuterol Sulfate (Duoneb 0.5-3(2.5) Mg/3 Ml) 3 Ml Ampul.neb, 3 ML NEB RTQID for COPD for 30 Days, #120 Ref 2 Prescribed by: LILIYA SANCHES MD on 03/18/191310 Last Action: Continued on 07/15/211636 by LILIYA OLIVA MD Metoprolol Succinate (Metoprolol Succinate ( Xl )) 25 Mg Tab.er.24h, 25 MG PO DAILY for CHF EF 30% for 30 Days, #30 Ref 2 Prescribed by: LILIYA SANCHES MD on 03/18/191310 Last Action: Continued on 07/15/211636 by LILIYA OLIVA MD Olanzapine (Olanzapine) 5 Mg Tablet, 5 MG PO BID for . for 30 Days, #60 Prescribed by: ABIGAIL CHICAS on 07/26/21 1139 Potassium Chloride (Klor-Con M20) 20 Meq Tab.er.prt, 1 TAB PO DAILY for . for 30 Days, #30 Ref 0 Prescribed by: ABIGAIL CHICAS on 07/26/21 1139 Sacubitril/Valsartan (Entresto 24 mg-26 mg Tablet) 1 Each Tablet, 1 TAB PO BID for CHF EF 30% for 30 Days, #60 Ref 2 Prescribed by: LILIYA SANCHES MD on 03/18/191313 Last Action: Continued on 07/15/211636 by LILIYA OLIVA MD Simvastatin (Simvastatin) 20 Mg Tablet, 20 MG PO HS for FOR CHOLESTEROL, #30 Ref 0 (Reported) Entered as Reported by: ZAYDA HO on 03/27/161955 Last Action: Continued on 07/15/211636 by LILIYA OLIVA MD Scheduled PRN Oxycodone HCl/Acetaminophen (Percocet 5-325 mg Tablet) 1 Each Tablet, 1 TAB PO QIDPRN PRN for . MDD 4 Tablet(s) for 5 Days, #20 Ref 0 Prescribed by: ABIGAIL CHICAS on 07/26/21 1140 Justicifation of Admission Dx: Justifications for Admission: Justification of Admission Dx: Yes THOMAS FORTE MD Aug 05, 2021 16:45
== END 2021-07-29 12:00 | DRG 286 ==
LOC: ER 13:11 → ED HOLD 16:00 → 6 SOUTH 22:16 → 1 WEST ICU 07-18 12:38
PROVIDERS: ADMIT Student in an Organized Health Care Education/Training Program; ATTEND Student in an Organized Health Care Education/Training Program
PROC: 5A09357 Assistance with Respiratory Ventilation, Less than 24 Consecutive Hours, Continuous Positive Airway Pressure (ICD-10-PCS; 2021-07-15)
PROC: 5A09357 Assistance with Respiratory Ventilation, Less than 24 Consecutive Hours, Continuous Positive Airway Pressure (ICD-10-PCS; 2021-07-16)
PROC: 5A09357 Assistance with Respiratory Ventilation, Less than 24 Consecutive Hours, Continuous Positive Airway Pressure (ICD-10-PCS; 2021-07-17)
PROC: 5A09357 Assistance with Respiratory Ventilation, Less than 24 Consecutive Hours, Continuous Positive Airway Pressure (ICD-10-PCS; 2021-07-18)
PROC: B2111ZZ Fluoroscopy of Multiple Coronary Arteries using Low Osmolar Contrast (ICD-10-PCS; principal; 2021-07-19)
PROC: 4A023N6 Measurement of Cardiac Sampling and Pressure, Right Heart, Percutaneous Approach (ICD-10-PCS; 2021-07-19)
PROC: 5A09357 Assistance with Respiratory Ventilation, Less than 24 Consecutive Hours, Continuous Positive Airway Pressure (ICD-10-PCS; 2021-07-19)
PROC: 5A09357 Assistance with Respiratory Ventilation, Less than 24 Consecutive Hours, Continuous Positive Airway Pressure (ICD-10-PCS; 2021-07-20)
PROC: 5A09357 Assistance with Respiratory Ventilation, Less than 24 Consecutive Hours, Continuous Positive Airway Pressure (ICD-10-PCS; 2021-07-21)
PROC: 5A09357 Assistance with Respiratory Ventilation, Less than 24 Consecutive Hours, Continuous Positive Airway Pressure (ICD-10-PCS; 2021-07-22)
PROC: 5A09357 Assistance with Respiratory Ventilation, Less than 24 Consecutive Hours, Continuous Positive Airway Pressure (ICD-10-PCS; 2021-07-23)
PROC: 5A09357 Assistance with Respiratory Ventilation, Less than 24 Consecutive Hours, Continuous Positive Airway Pressure (ICD-10-PCS; 2021-07-25)
PROC: 5A09357 Assistance with Respiratory Ventilation, Less than 24 Consecutive Hours, Continuous Positive Airway Pressure (ICD-10-PCS; 2021-07-26)
PROC: 5A09357 Assistance with Respiratory Ventilation, Less than 24 Consecutive Hours, Continuous Positive Airway Pressure (ICD-10-PCS; 2021-07-27)
DX: I11.0 Hypertensive heart disease with heart failure (principal); J96.21 Acute and chronic respiratory failure with hypoxia; I50.43 Acute on chronic combined systolic (congestive) and diastolic (congestive) heart failure; K85.90 Acute pancreatitis without necrosis or infection, unspecified; N17.9 Acute kidney failure, unspecified; D68.9 Coagulation defect, unspecified; I48.20 Chronic atrial fibrillation, unspecified; J44.1 Chronic obstructive pulmonary disease with (acute) exacerbation; G93.1 Anoxic brain damage, not elsewhere classified; E87.1 Hypo-osmolality and hyponatremia; D69.6 Thrombocytopenia, unspecified; D72.819 Decreased white blood cell count, unspecified; E11.9 Type 2 diabetes mellitus without complications; E78.00 Pure hypercholesterolemia, unspecified; E78.5 Hyperlipidemia, unspecified; F17.210 Nicotine dependence, cigarettes, uncomplicated; G47.33 Obstructive sleep apnea (adult) (pediatric); H54.8 Legal blindness, as defined in USA; I25.10 Atherosclerotic heart disease of native coronary artery without angina pectoris; I25.5 Ischemic cardiomyopathy; I27.20 Pulmonary hypertension, unspecified; G47.30 Sleep apnea, unspecified; M19.90 Unspecified osteoarthritis, unspecified site; E66.9 Obesity, unspecified; I95.9 Hypotension, unspecified; E87.5 Hyperkalemia; E83.51 Hypocalcemia; R79.89 Other specified abnormal findings of blood chemistry; K76.0 Fatty (change of) liver, not elsewhere classified; Z20.822 Contact with and (suspected) exposure to COVID-19; Z82.49 Family history of ischemic heart disease and other diseases of the circulatory system; Z83.3 Family history of diabetes mellitus; Z87.442 Personal history of urinary calculi; Z95.1 Presence of aortocoronary bypass graft; I25.2 Old myocardial infarction; Z91.041 Radiographic dye allergy status; Z87.01 Personal history of pneumonia (recurrent); Z68.34 Body mass index [BMI] 34.0-34.9, adult
CPT/HCPCS: 36415; 36600; 71045; 76770; 76937; 80048; 80053; 80061; 81001; 82805; 82962; 83605; 83735; 83880; 84100; 84443; 84484; 85025; 85027; 85610; 87040; 93005; 93306; 93451; 94640; 94660; 94760; 96365; 96366; 96375; 96376; C1769; C1773; C1894; J1160; J1630; J1644; J1650; J1940; J2060; J2260; J2370; J2405; J3430; J3475; J3480; J7030; J7050; P9041; U0003; 97116-GP; 97530-GP; 99285-25; C8929; G0378

== ENCOUNTER 2021-08-15 17:06 | Inpatient (IN) | payer MEDICARE, BC ==
[~2021-08-15] VITALS: Ht 172.7 cm; Wt 113.6 kg
[~2021-08-15 17:06] MED LIST changes: +APIX5TAB PO; +LOSA-73 PO; +OLAN5TAB67 PO; +OXYC-325 PO; +OXYC1TAB15 PO; +POTA-121 PO
--- NOTE | 2021-08-15 17:35 | PHYS DOC ---
Past Medical History Past Medical History: A-Fib, CAD, CHF, COPD, Diabetes-Type II, High Fartun sterol, Hypertension, VA, Other Additional Past Medical Histor: BENIGN TUMOR LEFT EYE,SLEEP APNEA;CPAP @ 10L O2 AT [facility],[place] Past Surgical History: Coronary Bypass Surgery, Other Additional Past Surgical Histo: R lower leg skin biopsy, L knee dislocation repair Smoking Status: Current Every Day Smoker Alcohol Use: None Drug Use: None General Adult EDM: Chief Complaint: MECHANICAL FALL HPI: HPI: Patient is a 76-year-old male who presents today via [facility] from [facility] after having a fall. Patient is unable to say what h appened but he states he was standing and he fell from a standing position, EMS states that it was reported from the staff at [place] that the patient did hit the back of his head, patient is also complaining about right inner thigh pain but has no head pain or neck pain. Patient was just released here on July 2021 after having acute respiratory distress, elevated INR, and exacerbation of his COPD. Patient currently is on Eliquis for his atrial fibrillation. Review of Systems: Review of Systems: Constitutional: Denies fever or chills. [] Eyes: Denies change in visual acuity. [] HENT: Denies nasal congestion or sore throat. [] Respiratory: Denies cough or shortness of breath. [] Cardiovascular: Denies chest pain or edema. [] GI: Denies abdominal pain, nausea, vomiting, bloody stools or diarrhea. [] : Denies dysuria. [] Musculoskeletal: Right leg pain Integument: Denies rash. [] Neurologic: Denies headache, focal weakness or sensory changes. [] Endocrine: Denies polyuria or polydipsia. [] Lymphatic: Denies swollen glands. [] Psychiatric: Denies depression or anxiety. [] Heart Score: C/O Chest Pain: No Risk Factors: Risk Factors: DM, Current or recent (<one month) smoker, HTN, HLP, family history of CAD, obesity. Risk Scores: Score 0 - 3: 2.5% MACE over next 6 weeks - Discharge Home Score 4 - 6: 20.3% MACE over next 6 weeks - Admit for Clinical Observation Score 7 - 10: 72.7% MACE over next 6 weeks - Early Invasive Strategies Allergies: Allergies: Allergies Coded Allergies Type Severity Reaction Last Updated Verified Iodinated Contrast Media Adverse Reaction Intermediate "bumps on skin around IV site" 03/27/16 Yes Physical Exam: PE: Constitutional: Elderly ill-appearing obese male in no acute distress HENT: Normocephalic, atraumatic, bilateral external ears normal, oropharynx moist, no oral exudates, nose normal. [] Eyes: PERRLA, EOMI, conjunctive eye are red in the right eye, patient states that he has had the abnormal eyelid on the left eye for his entire life. Neck: Normal range of motion, no tenderness, supple, no stridor, no midline tenderness Cardiovascular:Heart rate monitor shows atrial fibrillation Lungs & Thorax: Bilateral breath sounds diminshed with wheezes noted, cough noted, patient is on 2 L per nasal cannula at home Abdomen: Bowel sounds hypoactive abdomen is rounded and firm to touch Skin: Warm, dry, no erythema, no rash. [] Back: No tenderness, no CVA tenderness. [] Extremities: Bilateral lower extremities edema noted 2+, patient having pain in the right inner thigh area down to his knee, there is no laceration, abrasions, contusions, or ecchymosis noted there is pedal pulses bilaterally are 2+, sensory is intact distal to the injury Neurologic: Alert and oriented X 2, normal motor function, normal sensory function, no focal deficits noted. [] Psychologic: Affect normal, judgement normal, mood normal. [] Current Patient Data: Labs: Laboratory Tests Test 08/15/21 17:15 White Blood Count 5.8 x10^3/uL Red Blood Count 4.37 x10^6/uL Hemoglobin 12.3 g/dL Hematocrit 38.9 % Mean Corpuscular Volume 89 fL Mean Corpuscular Hemoglobin 28 pg Mean Corpuscular Hemoglobin Concent 32 g/dL Red Cell Distribution Width 17.4 % Platelet Count 114 x10^3/uL Neutrophils (%) (Auto) 74 % Lymphocytes (%) (Auto) 13 % Monocytes (%) (Auto) 9 % Eosinophils (%) (Auto) 4 % Basophils (%) (Auto) 1 % Neutrophils # (Auto) 4.3 x10^3/uL Lymphocytes # (Auto) 0.8 x10^3/uL Monocytes # (Auto) 0.5 x10^3/uL Eosinophils # (Auto) 0.2 x10^3/uL Basophils # (Auto) 0.0 x10^3/uL Prothrombin Time 18.4 SEC Prothromb Time International Ratio 1.6 Activated Partial Thromboplast Time 40 SEC Sodium Level 143 mmol/L Potassium Level 4.9 mmol/L Chloride Level 107 mmol/L Carbon Dioxide Level 33 mmol/L Anion Gap 3 Blood Urea Nitrogen 20 mg/dL Creatinine 1.2 mg/dL Estimated GFR (Cockcroft-Gault) 71.6 BUN/Creatinine Ratio 17 Glucose Level 83 mg/dL Calcium Level 8.8 mg/dL Total Bilirubin 0.5 mg/dL Aspartate Amino Transf (AST/SGOT) 18 U/L Alanine Aminotransferase (ALT/SGPT) 19 U/L Alkaline Phosphatase 81 U/L Troponin I High Sensitivity 32 ng/L CS-Wao-C-Type Natriuretic Peptide 5894 pg/mL Total Protein 7.4 g/dL Albumin 3.5 g/dL Albumin/Globulin Ratio 0.9 Current Medications Medications (Trade) Dose Ordered Sig/Tobi Route PRN Reason Start Time Stop Time Status Last Admin Dose Admin Tramadol HCl (Ultram) 50 mg 1X ONCE PO 08/15/21 18:45 08/15/21 18:46 DC 08/15/21 18:36 Vital Signs: Vital Signs Date Time Temp Pulse Resp B/P (MAP) Pulse Ox O2 Delivery O2 Flow Rate FiO2 08/15/21 18:36 24 Nasal Cannula 4.0 08/15/21 18:15 95 25 108/67 (81) 96 Nasal Cannula 4.0 08/15/21 17:30 91 24 94 Nasal Cannula 4.0 08/15/21 17:08 98.8 96 24 124/65 (84) 95 Nasal Cannula 4.0 98.8 EKG: EKG: [] Radiology/Procedures: Radiology/Procedures: REASON: fall on anticoagulation PROCEDURE: CT HEAD AND CERVICAL SPINE WO CT HEAD AND C-SPINE WO Date: 08/15/2021 5:45 PM Clinical Indication: Reason: fall on anticoagulation / Spl. Instructions: / History: Comparison: CT head and cervical spine from 11/09/2012. Technique: 5 mm axial tomographic images were obtained of the head without contrast. These were viewed on brain and bone windows. Noncontrast CT of the cervical spine was performed. Sagittal and coronal reformats were performed and evaluated. One or more of the following dose reduction techniques were utilized: Automated exposure control (AEC), Adjustment of mA and/or kV according to patient size, Use of iterative reconstruction technique such as ASiR, CT scan done according to ALARA and image gently/image wisely HEAD FINDINGS: Moderate generalized cerebral and cerebellar volume loss. Mild nonspecific periventricular hypoattenuation, most commonly seen with chronic small vessel ischemic disease. Calcifications of the carotid siphons. No intra- or extra-axial mass or fluid collection. No acute hemorrhage. The ventricles are normal in size, shape, and morphology. The lopez-white matter junction is normal. The basilar cisterns are patent. The visualized paranasal sinuses are normal. The visualized portions of the orbits and globes are normal. The mastoid air cells are clear. No aggressive osseous lesion or fracture. Left preseptal hematoma. Left posterior scalp hematoma. No depressed calvarial or facial bone fractures. CERVICAL SPINE FINDINGS: Loss of normal cervical lordotic curvature, likely positional. The cervical spine is normally aligned. No acute fracture. No aggressive lytic or blastic osseous lesions. Mild multilevel degenerative disc space height loss. Multilevel mild spinal c anal stenosis secondary to disc protrusions and marginal osteophytes. Multilevel mild neuroforaminal narrowing secondary to uncovertebral arthrosis. Multilevel mild facet arthrosis. The thyroid gland is normal. No cervical lymphadenopathy. Bilateral carotid atherosclerosis. The visualized aerodigestive tract is normal. The visualized portions of the lungs are clear. IMPRESSION: 1. No acute intracranial process. 2. Left preorbital hematoma as well as a left posterior scalp hematoma. No evidence of depressed calvarial or facial bone fracture. 3. No evidence of fracture or traumatic spondylolisthesis of the cervical spine. Electronically signed by: Joe Albert DO (08/15/2021 6:20 PM) [facility][] REASON: fall with right leg pain PROCEDURE: FEMUR RIGHT 2 VIEW EXAMINATION: Right femur radiograph. VIEWS: 4 views COMPARISON: None INDICATION:76 years, Male, fall with right leg pain. FINDINGS: No acute fracture, dislocation or subluxation. No bone erosion or periosteal reaction. Moderate degenerative changes of the right hip. Moderate to severe tricompartmental osteoarthritis of the right knee. Soft tissues are grossly unremarkable. Extensive vascular calcifications. IMPRESSION: No acute osseous process. Electronically signed by: Joe Albert DO (08/15/2021 6:04 PM) [facility] REASON: fall on anticoagulation PROCEDURE: CT CHEST ABDOMEN PELVIS WO Exam: CT of chest, abdomen and pelvis without contrast INDICATION: Fall on anticoagulation TECHNIQUE: Sequential axial images through the chest, abdomen and pelvis obtained without IV contrast. Sagittal and coronal reformatted images were reconstructed from the axial data and reviewed. Exposure: One or more of the following in the visualized dose reduction techniques were utilized for this examination: 1. Automated exposure control 2. Adjustment of the MA and/or KV according to patient size 3. Use of iterative of reconstructive technique Comparisons: 05/17/2020 FINDINGS: Visual is portions of the thyroid are unremarkable. No enlarged mediastinal lymph nodes are identified. Heart is mildly enlarged. Moderate coronary artery calcium lesions. Thoracic aorta has a normal course and caliber. Pulmonary artery is not enlarged. Airways are patent. Mild bronchial wall thickening is noted. No consolidation or pneumothorax. Linear bandlike opacities at the lung bases. Trace left pleural effusion. Liver, spleen, pancreas, gallbladder and adrenals are unremarkable. No perinephric inflammation or hydronephrosis. No renal or ureteral calculi are identified. Bladder is partially distended and appears thin-walled. Prostate is not enlarged. Moderate amount stool noted in the colon. Appendix is normal. No free intra- abdominal air or fluid. No obstruction. Abdominal aorta has normal course and caliber. No enlarged intra-abdominal lymph nodes are identified. No suspicious osseous lesions or acute fractures. IMPRESSION: No sequela of acute traumatic injury identified within the chest, abdomen or pelvis. Trace left pleural effusion. Electronically signed by: Nito Jennings MD (08/15/2021 6:17 PM) [facility]: fall with right leg pain PROCEDURE: PORTABLE CHEST 1V EXAMINATION: Chest radiograph. VIEWS: Single AP view of chest COMPARISON: 07/18/2021 INDICATION:76 years, Male, fall with right leg pain. FINDINGS: Similar enlarged cardiomediastinal silhouette with post sternotomy changes. Central pulmonary vasculature is within normal limits. No focal airspace consolidation. No pneumothorax or sizable pleural effusion. No acute osseous abnormalities. IMPRESSION: 1. Stable enlarged cardiac silhouette. 2. No confluent airspace disease. Electronically signed by: Joe Albert DO (08/15/2021 6:01 PM) [facility] Course & Med Decision Making: Course & Med Decision Making Pertinent Labs and Imaging studies reviewed. (See chart for details) [id number] Alvarez and consulted him about this patient, he is agreeable to admitting this patient overnight for fall, left pleural effusion and exacerbation of CHF, he is also requesting that cardiology be consulted for evaluation of this patient at a later date. 1914 I reviewed radiological and laboratory results with the sister who states she is the DPOA for this patient, and informed her that of the acute findings of a left pleural effusion, and exacerbation of the C HF, she did make a request that the patient not receive any psychiatric medications she stated the last time that he was here and he received psychiatric medications she said "it messed him up" and that "she will amy the hospital" if we give him any of those medications, I reassured the sister that I will contact Dr. Alvarez regarding this request and inform him of her wishes. [address] Alvarez and passed along the information that was given to me by the sister regarding psychiatric medications. Rosmery Disclaimer: Rosmery Disclaimer: This electronic medical record was generated, in whole or in part, using a voice recognition dictation system. Departure Departure Impression: Primary Impression: Fall Qualified Codes: W19.XXXA - Unspecified fall, initial encounter Additional Impressions: Pleural effusion, left Acute exacerbation of congestive heart failure Qualified Codes: I50.43 - Acute on chronic combined systolic (congestive) and diastolic (congestive) heart failure Disposition: ADMITTED INPATIENT Admitting Physician: STEPH Condition: GUARDED Referrals: DUNIA SHRESTHA MD (PCP) DIANE LAURA APRN Aug 15, 2021 17:35
[2021-08-15 17:36] LABS: BASO % 1 % (0-3); EOS # 0.2 x10^3/uL (0.0-0.7); EOS % 4 % (0-3); HEMATOCRIT 38.9 % (39.0-53.0); HEMOGLOBIN 12.3 g/dL (13.0-17.5); LYMPH # 0.8 x10^3/uL (1.0-4.8); LYMPH % 13 % (24-48); MEAN CORPUSCULAR HEMOGLOBIN 28 pg (25-35); MEAN CORPUSCULAR HGB CONC 32 g/dL (31-37); MEAN CORPUSCULAR VOLUME 89 fL (79-100); MONO # 0.5 x10^3/uL (0.0-1.1); MONO % 9 % (0-9); NEUT # 4.3 x10^3/uL (1.8-7.7); NEUT % 74 % (31-73); PLATELET COUNT 114 x10^3/uL (140-400); RED BLOOD COUNT 4.37 x10^6/uL (4.30-5.70); RED CELL DISTRIBUTION WIDTH 17.4 % (11.5-14.5); WHITE BLOOD COUNT 5.8 x10^3/uL (4.0-11.0)
[2021-08-15 17:51] LABS: CALCIUM 8.8 mg/dL (8.5-10.1); CREATININE 1.2 mg/dL (0.7-1.3); GFR 71.6; POTASSIUM 4.9 mmol/L (3.5-5.1)
[2021-08-15 17:53] LABS: PROTHROMBIN TIME PATIENT 18.4 SEC (11.7-14.0)
[2021-08-15 17:56] LABS: ALBUMIN 3.5 g/dL (3.4-5.0); ALBUMIN/GLOBULIN RATIO 0.9 (1.0-1.7); TOTAL BILIRUBIN 0.5 mg/dL (0.2-1.0); TOTAL PROTEIN 7.4 g/dL (6.4-8.2)
--- NOTE | 2021-08-15 18:04 | RAD ---
EXAMINATION: Chest radiograph. VIEWS: Single AP view of chest COMPARISON: 07/18/2021 INDICATION:76 years, Male, fall with right leg pain. FINDINGS: Similar enlarged cardiomediastinal silhouette with post sternotomy changes. Central pulmonary vascula ture is within normal limits. No focal airspace consolidation. No pneumothorax or sizable pleural eff usion. No acute osseous abnormalities. IMPRESSION: 1. Stable enlarged cardiac silhouette. 2. No confluent airspace disease. Electronically signed by: Joe Albert DO (08/15/2021 6:01 PM) [facility]
--- NOTE | 2021-08-15 18:06 | RAD ---
EXAMINATION: Right femur radiograph. VIEWS: 4 views COMPARISON: None INDICATION:76 years, Male, fall with right leg pain. FINDINGS: No acute fracture, dislocation or subluxation. No bone erosion or periosteal reaction. Moderate degen erative changes of the right hip. Moderate to severe tricompartmental osteoarthritis of the right kne e. Soft tissues are grossly unremarkable. Extensive vascular calcifications. IMPRESSION: No acute osseous process. Electronically signed by: Joe Albert DO (08/15/2021 6:04 PM) [facility]
--- NOTE | 2021-08-15 18:19 | RAD ---
Exam: CT of chest, abdomen and pelvis without contrast INDICATION: Fall on anticoagulation TECHNIQUE: Sequential axial images through the chest, abdomen and pelvis obtained without IV contrast . Sagittal and coronal reformatted images were reconstructed from the axial data and reviewed. Exposure: One or more of the following in the visualized dose reduction techniques were utilized for this examination: 1. Automated exposure control 2. Adjustment of the MA and/or KV according to patient size 3. Use of iterative of reconstructive technique Comparisons: 05/17/2020 FINDINGS: Visual is portions of the thyroid are unremarkable. No enlarged mediastinal lymph nodes are identifie d. Heart is mildly enlarged. Moderate coronary artery calcium lesions. Thoracic aorta has a normal cours e and caliber. Pulmonary artery is not enlarged. Airways are patent. Mild bronchial wall thickening is noted. No consolidation or pneumothorax. Linear bandlike opacities at the lung bases. Trace left pleural effusion. Liver, spleen, pancreas, gallbladder and adrenals are unremarkable. No perinephric inflammation or hydronephrosis. No renal or ureteral calculi are identified. Bladder is partially distended and appears thin-walled. Prostate is not enlarged. Moderate amount stool noted in the colon. Appendix is normal. No free intra-abdominal air or fluid. N o obstruction. Abdominal aorta has normal course and caliber. No enlarged intra-abdominal lymph nodes are identified. No suspicious osseous lesions or acute fractures. IMPRESSION: No sequela of acute traumatic injury identified within the chest, abdomen or pelvis. Trace left pleural effusion. Electronically signed by: Nito Jennings MD (08/15/2021 6:17 PM) [facility]
--- NOTE | 2021-08-15 18:23 | RAD ---
CT HEAD AND C-SPINE WO Date: 08/15/2021 5:45 PM Clinical Indication: Reason: fall on anticoagulation / Spl. Instructions: / History: Comparison: CT head and cervical spine from 11/09/2012. Technique: 5 mm axial tomographic images were obtained of the head without contrast. These were view ed on brain and bone windows. Noncontrast CT of the cervical spine was performed. Sagittal and cueto l reformats were performed and evaluated. One or more of the following dose reduction techniques were utilized: Automated exposure control (AEC), Adjustment of mA and/or kV according to patient size, Us e of iterative reconstruction technique such as ASiR, CT scan done according to ALARA and image gentl y/image wisely HEAD FINDINGS: Moderate generalized cerebral and cerebellar volume loss. Mild nonspecific periventricular hypoattenu ation, most commonly seen with chronic small vessel ischemic disease. Calcifications of the carotid s iphons. No intra- or extra-axial mass or fluid collection. No acute hemorrhage. The ventricles are normal in size, shape, and morphology. The lopez-white matter junction is normal. The basilar cisterns are paten t. The visualized paranasal sinuses are normal. The visualized portions of the orbits and globes are no rmal. The mastoid air cells are clear. No aggressive osseous lesion or fracture. Left preseptal hemat yeimi. Left posterior scalp hematoma. No depressed calvarial or facial bone fractures. CERVICAL SPINE FINDINGS: Loss of normal cervical lordotic curvature, likely positional. The cervical spine is normally aligned . No acute fracture. No aggressive lytic or blastic osseous lesions. Mild multilevel degenerative disc space height loss. Multilevel mild spinal canal stenosis secondary to disc protrusions and marginal osteophytes. Multilevel mild neuroforaminal narrowing secondary to u ncovertebral arthrosis. Multilevel mild facet arthrosis. The thyroid gland is normal. No cervical lymphadenopathy. Bilateral carotid atherosclerosis. The visu alized aerodigestive tract is normal. The visualized portions of the lungs are clear. IMPRESSION: 1. No acute intracranial process. 2. Left preorbital hematoma as well as a left posterior scalp hematoma. No evidence of depressed calv arial or facial bone fracture. 3. No evidence of fracture or traumatic spondylolisthesis of the cervical spine. Electronically signed by: Joe Albert DO (08/15/2021 6:20 PM) [facility]
[2021-08-15] MEDS ORDERED: traMADol 50 MG TABLET PO ONE (18:45)
--- NOTE | 2021-08-15 18:59 | PDOC1 ---
History and Physical Date of Admission Date of Admission DATE: 08/15/21 TIME: 18:56 Identification/Chief Complaint Chief Complaint Fall at SNF Source Source: Caregiver, Chart review, Patient History of Present Illness History of Present Illness Mr Olea is a 76-year-old male w/ PMHx cardiomyopathy with an EF of 25%-30%, history of ongoing tobaccoism, suspect underlying COPD, obesity, history of CAMERON, on home CPAP with O2 bleed in 3L, left eye tumor, AFib, Coronary artery disease, type 2 diabetes, dyslipidemia and hypertension who comes to ED via EMS from SNF after he had a fall at his custodial facility struck his head with some bruising around his orbit. He is on Eliquis for A. fib. EKG on my interpretation is atrial fibrillation rate approximately 98 bpm He did hit the back of his head, patient is also complaining about right inner thigh pain but has no head pain or neck pain. He does not recall falling, but did feel unsteady and hit his head, fell backward. CT head with no intracranial hemorrhage Past Medical History Cardiovascular: AFIB, CAD, CHF, HTN, OK, Hyperlipidemia Pulmonary: COPD, Pneumonia, Other GI: No pertinent hx Heme/Onc: No pertinent hx Hepatobiliary: No pertinent hx Psych: No pertinent hx Musculoskeletal: Osteoarthritis Infectious disease: No pertinent hx Renal/: No pertinent hx Endocrine: Diabetes Past Surgical History Past Surgical History: CABG, Other Family History Family History: Diabetes, Heart Disease, Hypertension Social History Smoke: No ALCOHOL: none Drugs: None Current Medications Current Medications Current Medications Tramadol HCl (Ultram) 50 mg 1X ONCE PO Last administered on 08/15/21at 18:36; Start 08/15/21 at 18:45; Stop 08/15/21 at 18:46; Status DC Active Scripts Active Klor-Con M20 (Potassium Chloride) 20 Meq Tab.er.prt 1 Tab PO DAILY 30 Days Eliquis (Apixaban) 5 Mg Tablet 5 Mg PO BID 90 Days Olanzapine 5 Mg Tablet 5 Mg PO BID 30 Days Percocet 5-325 mg Tablet (Oxycodone HCl/Acetaminophen) 1 Each Tablet 1 Tab PO QIDPRN PRN MDD 4 Tablet(s) 5 Days Entresto 24 mg-26 mg Tablet (Sacubitril/Valsartan) 1 Each Tablet 1 Tab PO BID 30 Days Metoprolol Succinate ( Xl ) (Metoprolol Succinate) 25 Mg Tab.er.24h 25 Mg PO DAILY 30 Days Doxycycline Hyclate 100 Mg Tablet 100 Mg PO BID 4 Days Duoneb 0.5-3(2.5) Mg/3 Ml (Albuterol/Ipratropium) 3 Ml Ampul.neb 3 Ml NEB RTQID 30 Days Reported Furosemide 40 Mg Tablet 40 Mg PO DAILY Simvastatin 20 Mg Tablet 20 Mg PO HS Aspir 81 (Aspirin) 81 Mg Tablet.dr 81 Mg PO DAILY Allergies Allergies: Coded Allergies: Iodinated Contrast Media (Verified Adverse Reaction, Intermediate, "bumps on skin around IV site", 03/27/16) ROS General: YES: Fatigue, Malaise; No: Chills, Night Sweats, Appetite, Other PSYCHOLOGICAL ROS: No: Anxiety, Behavioral Disorder, Concentration difficultie, Decreased libido, Depression, Disorientation, Hallucinations, Hostility, Irritablity, Memory difficulties, Mood Swings, Obsessive thoughts, Physical abuse, Sexual abuse, Sleep disturbances, Suicidal ideation, Other Eyes: No Blurry vision, No Decreased vision, No Double vision, No Dry eyes, No Excessive tearing, No Eye Pain, No Itchy Eyes, No Loss of vision, No Photophobia, No Scotomata, No Uses contacts, No Uses glasses, No Other HEENT: No: Heacaches, Visual Changes, Hearing change, Nasal congestion, Nasal discharge, Oral lesions, Sinus pain, Sore Throat, Epistaxis, Sneezing, Snoring, Tinnitus, Vertigo, Vocal changes, Other ALLERGY AND IMMUNOLOGY: No: Hives, Insect Bite Sensitivity, Itchy/Watery Eyes, Nasal Congestion, Post Nasal Drip, Seasonal Allergies, Other Hematological and Lymphatic: No: Bleeding Problems, Blood Clots, Blood Transfusions, Brusing, Night Sweats, Pallor, Swollen Lymph Nodes, Other ENDOCRINE: No: Breast Changes, Galactorrhea, Hair Pattern Changes, Hot Flashes, Malaise/lethargy, Mood Swings, Palpitations, Polydipsia/polyuria, Skin Changes, Temperature Intolerance, Unexpected Weight Changes, Other Breast: No New/Changing Breast Lumps, No Nipple changes, No Nipple discharge, No Other Respiratory: YES: Cough, Shortness of breath, SOB with excertion; No: Hemoptysis, Orthopnea, Pleuritic Pain, Sputum Changes, Stridor, Tachypnea, Wheezing, Other Cardiovascular: yes Orthopnea, yes Paroxysmal Noc. Dyspnea, yes Edema; No Chest Pain, No Palpitations, No Lt Headedness, No Other Gastrointestinal: No Nausea, No Vomiting, No Abdominal Pain, No Diarrhea, No Constipation, No Melena, No Hematochezia, No Other Genitourinary: No Dysuria, No Frequency, No Incontinence, No Hematuria, No Retention, No Discharge, No Urgency, No Pain, No Flank Pain, No Other, No , No , No , No , No , No , No Musculoskeletal: Yes Gait Disturbance, Yes Joint Pain, Yes Joint Stiffness, Yes Joint Swelling; No Muscle Pain, No Muscular Weakness, No Pain In:, No Swelling In:, No Other Neurological: No Behavorial Changes, No Bowel/Bladder ControlChng, No Confusion, No Dizziness, No Gait Disturbance, No Headaches, No Impaired Coord/balance, No Memory Loss, No Numbness/Tingling, No Seizures, No Speech Problems, No Tremors, No Visual Changes, No Weakness, No Other Skin: No Dry Skin, No Eczema, No Hair Changes, No Lumps, No Mole Changes, No Mottling, No Nail Changes, No Pruritus, No Rash, No Skin Lesion Changes, No Other, No Acne Physical Exam General: Alert, Oriented X3, Cooperative, mild distress HEENT: PERRLA, EOMI, Mucous membr. moist/pink, Other (left supraorbital bruising) Lungs: Other (decreased bibasilar breath sounds) Heart: irregularly irregular Abdomen: Normal bowel sounds, Soft, No tenderness, No hepatosplenomegaly, No masses Rectal Exam: not examined Extremities: Other (Right lower leg tender) Skin: Other (right leg anterior bruising) Neuro: Normal speech, Strength at 5/5 X4 ext, Normal tone, Sensation intact, Cranial nerves 3-12 NL, Reflexes 2+ Psych/Mental Status: Mental status NL, Mood NL Vitals Vitals Vital Signs Date Time Temp Pulse Resp B/P (MAP) Pulse Ox O2 Delivery O2 Flow Rate FiO2 08/15/21 18:36 24 Nasal Cannula 4.0 08/15/21 18:15 95 108/67 (81) 96 08/15/21 17:08 98.8 98.8 Labs Labs Laboratory Tests Test 08/15/21 17:15 White Blood Count 5.8 x10^3/uL (4.0-11.0) Red Blood Count 4.37 x10^6/uL (4.30-5.70) Hemoglobin 12.3 g/dL (13.0-17.5) Hematocrit 38.9 % (39.0-53.0) Mean Corpuscular Volume 89 fL (79-100) Mean Corpuscular Hemoglobin 28 pg (25-35) Mean Corpuscular Hemoglobin Concent 32 g/dL (31-37) Red Cell Distribution Width 17.4 % (11.5-14.5) Platelet Count 114 x10^3/uL (140-400) Neutrophils (%) (Auto) 74 % (31-73) Lymphocytes (%) (Auto) 13 % (24-48) Monocytes (%) (Auto) 9 % (0-9) Eosinophils (%) (Auto) 4 % (0-3) Basophils (%) (Auto) 1 % (0-3) Neutrophils # (Auto) 4.3 x10^3/uL (1.8-7.7) Lymphocytes # (Auto) 0.8 x10^3/uL (1.0-4.8) Monocytes # (Auto) 0.5 x10^3/uL (0.0-1.1) Eosinophils # (Auto) 0.2 x10^3/uL (0.0-0.7) Basophils # (Auto) 0.0 x10^3/uL (0.0-0.2) Prothrombin Time 18.4 SEC (11.7-14.0) Prothromb Time International Ratio 1.6 (0.8-1.1) Activated Partial Thromboplast Time 40 SEC (24-38) Sodium Level 143 mmol/L (136-145) Potassium Level 4.9 mmol/L (3.5-5.1) Chloride Level 107 mmol/L (98-107) Carbon Dioxide Level 33 mmol/L (21-32) Anion Gap 3 (6-14) Blood Urea Nitrogen 20 mg/dL (8-26) Creatinine 1.2 mg/dL (0.7-1.3) Estimated GFR (Cockcroft-Gault) 71.6 BUN/Creatinine Ratio 17 (6-20) Glucose Level 83 mg/dL (70-99) Calcium Level 8.8 mg/dL (8.5-10.1) Total Bilirubin 0.5 mg/dL (0.2-1.0) Aspartate Amino Transf (AST/SGOT) 18 U/L (15-37) Alanine Aminotransferase (ALT/SGPT) 19 U/L (16-63) Alkaline Phosphatase 81 U/L (46-116) Troponin I High Sensitivity 32 ng/L (4-75) NW-Rzq-A-Type Natriuretic Peptide 5894 pg/mL (0-124) Total Protein 7.4 g/dL (6.4-8.2) Albumin 3.5 g/dL (3.4-5.0) Albumin/Globulin Ratio 0.9 (1.0-1.7) Laboratory Tests Test 08/15/21 17:15 White Blood Count 5.8 x10^3/uL (4.0-11.0) Red Blood Count 4.37 x10^6/uL (4.30-5.70) Hemoglobin 12.3 g/dL (13.0-17.5) Hematocrit 38.9 % (39.0-53.0) Mean Corpuscular Volume 89 fL (79-100) Mean Corpuscular Hemoglobin 28 pg (25-35) Mean Corpuscular Hemoglobin Concent 32 g/dL (31-37) Red Cell Distribution Width 17.4 % (11.5-14.5) Platelet Count 114 x10^3/uL (140-400) Neutrophils (%) (Auto) 74 % (31-73) Lymphocytes (%) (Auto) 13 % (24-48) Monocytes (%) (Auto) 9 % (0-9) Eosinophils (%) (Auto) 4 % (0-3) Basophils (%) (Auto) 1 % (0-3) Neutrophils # (Auto) 4.3 x10^3/uL (1.8-7.7) Lymphocytes # (Auto) 0.8 x10^3/uL (1.0-4.8) Monocytes # (Auto) 0.5 x10^3/uL (0.0-1.1) Eosinophils # (Auto) 0.2 x10^3/uL (0.0-0.7) Basophils # (Auto) 0.0 x10^3/uL (0.0-0.2) Prothrombin Time 18.4 SEC (11.7-14.0) Prothromb Time International Ratio 1.6 (0.8-1.1) Activated Partial Thromboplast Time 40 SEC (24-38) Sodium Level 143 mmol/L (136-145) Potassium Level 4.9 mmol/L (3.5-5.1) Chloride Level 107 mmol/L (98-107) Carbon Dioxide Level 33 mmol/L (21-32) Anion Gap 3 (6-14) Blood Urea Nitrogen 20 mg/dL (8-26) Creatinine 1.2 mg/dL (0.7-1.3) Estimated GFR (Cockcroft-Gault) 71.6 BUN/Creatinine Ratio 17 (6-20) Glucose Level 83 mg/dL (70-99) Calcium Level 8.8 mg/dL (8.5-10.1) Total Bilirubin 0.5 mg/dL (0.2-1.0) Aspartate Amino Transf (AST/SGOT) 18 U/L (15-37) Alanine Aminotransferase (ALT/SGPT) 19 U/L (16-63) Alkaline Phosphatase 81 U/L (46-116) Troponin I High Sensitivity 32 ng/L (4-75) ZB-Zia-W-Type Natriuretic Peptide 5894 pg/mL (0-124) Total Protein 7.4 g/dL (6.4-8.2) Albumin 3.5 g/dL (3.4-5.0) Albumin/Globulin Ratio 0.9 (1.0-1.7) Images Images PROCEDURE: CT HEAD AND CERVICAL SPINE WO CT HEAD AND C-SPINE WO Date: 08/15/2021 5:45 PM Clinical Indication: Reason: fall on anticoagulation / Spl. Instructions: / History: Comparison: CT head and cervical spine from 11/09/2012. Technique: 5 mm axial tomographic images were obtained of the head without contrast. These were viewed on brain and bone windows. Noncontrast CT of the cervical spine was performed. Sagittal and coronal reformats were performed and evaluated. One or more of the following dose reduction techniques were utilized: Automated exposure control (AEC), Adjustment of mA and/or kV according to patient size, Use of iterative reconstruction technique such as ASiR, CT scan done according to ALARA and image gently/image wisely HEAD FINDINGS: Moderate generalized cerebral and cerebellar volume loss. Mild nonspecific periventricular hypoattenuation, most commonly seen with chronic small vessel ischemic disease. Calcifications of the carotid siphons. No intra- or extra-axial mass or fluid collection. No acute hemorrhage. The ventricles are normal in size, shape, and morphology. The lopez-white matter junction is normal. The basilar cisterns are patent. The visualized paranasal sinuses are normal. The visualized portions of the orbits and globes are normal. The mastoid air cells are clear. No aggressive osseous lesion or fracture. Left preseptal hematoma. Left posterior scalp hematoma. No depressed calvarial or facial bone fractures. CERVICAL SPINE FINDINGS: Loss of normal cervical lordotic curvature, likely positional. The cervical spine is normally aligned. No acute fracture. No aggressive lytic or blastic osseous lesions. Mild multilevel degenerative disc space height loss. Multilevel mild spinal canal stenosis secondary to disc protrusions and marginal osteophytes. Multilevel mild neuroforaminal narrowing secondary to uncovertebral arthrosis. Multilevel mild facet arthrosis. The thyroid gland is normal. No cervical lymphadenopathy. Bilateral carotid atherosclerosis. The visualized aerodigestive tract is normal. The visualized portions of the lungs are clear. IMPRESSION: 1. No acute intracranial process. 2. Left preorbital hematoma as well as a left posterior scalp hematoma. No evidence of depressed calvarial or facial bone fracture. 3. No evidence of fracture or traumatic spondylolisthesis of the cervical spine. Electronically signed by: Joe Albert DO (08/15/2021 6:20 PM) [facility][] REASON: fall with right leg pain PROCEDURE: FEMUR RIGHT 2 VIEW EXAMINATION: Right femur radiograph. VIEWS: 4 views COMPARISON: None INDICATION:76 years, Male, fall with right leg pain. FINDINGS: No acute fracture, dislocation or subluxation. No bone erosion or periosteal reaction. Moderate degenerative changes of the right hip. Moderate to severe tricompartmental osteoarthritis of the right knee. Soft tissues are grossly unremarkable. Extensive vascular calcifications. IMPRESSION: No acute osseous process. Electronically signed by: Joe Albert DO (08/15/2021 6:04 PM) [facility] REASON: fall on anticoagulation PROCEDURE: CT CHEST ABDOMEN PELVIS WO Exam: CT of chest, abdomen and pelvis without contrast INDICATION: Fall on anticoagulation TECHNIQUE: Sequential axial images through the chest, abdomen and pelvis obtained without IV contrast. Sagittal and coronal reformatted images were reconstructed from the axial data and reviewed. Exposure: One or more of the following in the visualized dose reduction techniques were utilized for this examination: 1. Automated exposure control 2. Adjustment of the MA and/or KV according to patient size 3. Use of iterative of reconstructive technique Comparisons: 05/17/2020 FINDINGS: Visual is portions of the thyroid are unremarkable. No enlarged mediastinal lymph nodes are identified. Heart is mildly enlarged. Moderate coronary artery calcium lesions. Thoracic aorta has a normal course and caliber. Pulmonary artery is not enlarged. Airways are patent. Mild bronchial wall thickening is noted. No consolidation or pneumothorax. Linear bandlike opacities at the lung bases. Trace left pleural effusion. Liver, spleen, pancreas, gallbladder and adrenals are unremarkable. No perinephric inflammation or hydronephrosis. No renal or ureteral calculi are identified. Bladder is partially distended and appears thin-walled. Prostate is not enlarged. Moderate amount stool noted in the colon. Appendix is normal. No free intra- abdominal air or fluid. No obstruction. Abdominal aorta has normal course and caliber. No enlarged intra-abdominal lymph nodes are identified. No suspicious osseous lesions or acute fractures. IMPRESSION: No sequela of acute traumatic injury identified within the chest, abdomen or pelvis. Trace left pleural effusion. Electronically signed by: Nito Jennings MD (08/15/2021 6:17 PM) [facility] REASON: fall with right leg pain PROCEDURE: PORTABLE CHEST 1V EXAMINATION: Chest radiograph. VIEWS: Single AP view of chest COMPARISON: 07/18/2021 INDICATION:76 years, Male, fall with right leg pain. FINDINGS: Similar enlarged cardiomediastinal silhouette with post sternotomy changes. Central pulmonary vasculature is within normal limits. No focal airspace consolidation. No pneumothorax or sizable pleural effusion. No acute osseous abnormalities. IMPRESSION: 1. Stable enlarged cardiac silhouette. 2. No confluent airspace disease. Electronically signed by: Joe Albert DO (08/15/2021 6:01 PM) [facility] VTE Prophylaxis Ordered VTE Prophylaxis Devices: Yes VTE Pharmacological Prophylaxi: Yes Assessment/Plan Assessment/Plan Fall - unprovoked, no memory of event. Will check orthostatic VS. No focal neuro deficits. PT eval Right leg pain - no fracture, will obtain arterial doppler for PVD assessment. no signs of compartment syndrome Left orbit bruising - local ICE. Monitor mental status, serial head CT Shortness of breath - likely with COPD and CHF exacerbation AFib - chronic. Hold eliquis for today, monitor mental status prior to restating CHF - systolic EF 25-30% historically Left pleural effusion - likely CHF related COPD - cont home nebs Diabetes - sliding scale Hyperlipidemia - statin Hypertension - cont home meds Benign tumor of the left eye CAMERON - CPAP at home CAD - s/p coronary artery bypass surgery FEN - Cardiac ADA diet PPX - eliquis FULL CODE Dispo - inpatient Justifications for Admission Other Justification LILIYA SANCHES MD Aug 15, 2021 18:59
[2021-08-15] MEDS ORDERED: NITROGLYCERIN SUBLINGUAL 0.4 MG BOTTLE OF 25. SL PRN (19:00)
[2021-08-15] MEDS ORDERED: ALBUTEROL SULFATE 2.5 MG/3 ML NEBU. NEB PRN (19:00)
[2021-08-15] MEDS ORDERED: guaiFENesin DM 200MG/20MG 10 ML SYRUP PO PRN (19:00)
[2021-08-15] MEDS ORDERED: ONDANSETRON ODT 4 MG TAB.RAPDIS. PO PRN (19:00)
[2021-08-15] MEDS ORDERED: ONDANSETRON PF 4 MG/2 ML VIAL. IVP PRN (19:00)
[2021-08-15] MEDS ORDERED: ACETAMINOPHEN 325 MG TABLET. PO PRN (19:00)
[2021-08-15 19:47] LABS: INFLUENZA A PATIENT NEGATIVE (NEGATIVE); INFLUENZA B PATIENT NEGATIVE (NEGATIVE)
--- NOTE | 2021-08-15 20:16 | EKG ---
[facility] [address] [place] [id number] Test Date: 2021-08-15 Test Time: 18:08:20 Pat Name: SUDHIR NICOLE Department: Room: [facility] Gender: M Plate Setter: : 1945 Requested By: DIANE LAURA Order Number: [id number] Reading MD: Richy Bonilla Measurements Intervals [place] Rate: 98 P: LA: QRS: 250 QRSD: 122 T: 122 QT: 380 QTc: 487 Interpretive Statements ATRIAL FIBRILLATION ABNORMAL RIGHT SUPERIOR AXIS DEVIATION LOW LIMB LEAD VOLTAGE Electronically Signed On 08-16-2021 18:04:04 CDT by Richy Bonilla
[2021-08-15 20:20] VITALS: BP 121/77
--- NOTE | 2021-08-15 20:30 | NUR ---
The patient, SUDHIR NICOLE, 76 y/o, M admitted by LILIYA SANCHES MD, was given written information regarding hospital policies, unit procedures and contact persons. Valuables were checked and documented dr Bethea paged to restart pt home meds. pt alert and oriented at this time, call light in reach, will cont to monitor pt status and safety. pmrn .
[2021-08-15] MEDS: IPRATRPIUM/ALBUTEROL 0.5/2.5MG 3 ML NEBU. NEB SCH (21:03)
[2021-08-15] MEDS: BUDESONIDE 0.5 MG/2 ML NEBU. NEB SCH (21:03)
[2021-08-15] MEDS ORDERED: FUROSEMIDE 40 MG/4 ML VIAL. IVP ONE (21:30)
[2021-08-15 22:25] VITALS: BP 108/57
--- NOTE | 2021-08-16 01:58 | NUR ---
AT 1AM PT BED ALARM GOING OFF, PT ALERT APPEARED CONFUSED GETTING OUT OF BED W/O CALLING FOR HELP/ASSISTANCE. THE RN ASK PT WHERE HE WAS, PT VERBALIZED "AT HOME", PT REORIENTED, THEN PT HAD OXYGEN IN HIS HAND TRYING TO TEAR IT APART. PT WAS ASK NOT TO DO THAT. PT AGITATED, THIS RN CALLED HIS SISTER PATRIC, SHE SPOKE WITH PT ON PHONE SEVERAL TIMES. FAMILY STATED THEY WOULD COME IF NEEDED TO. PT ASSIST TO BED 2PA, LIGHT LEFT ON IN ROOM, PT NEAR NURSE STATION FOR FREQUENT MONITORING. OXYGEN ON AT 4L, BED ALARM ON, WILL CONT TO MONITOR PT SAFETY AND STATUS. PMRN
[2021-08-16 02:43] VITALS: BP 101/57
[2021-08-16] MEDS ORDERED: DEXTROSE 50% 25 GM / 50ML DISP.SYRIN. IV PRN (04:15)
[2021-08-16 05:24] LABS: HEMATOCRIT 37.5 % (39.0-53.0); HEMOGLOBIN 11.7 g/dL (13.0-17.5); RED BLOOD COUNT 4.21 x10^6/uL (4.30-5.70); RED CELL DISTRIBUTION WIDTH 17.4 % (11.5-14.5)
[2021-08-16 05:53] LABS: ALBUMIN 3.2 g/dL (3.4-5.0); ALBUMIN/GLOBULIN RATIO 0.8 (1.0-1.7); CALCIUM 8.8 mg/dL (8.5-10.1); CREATININE 1.1 mg/dL (0.7-1.3); GFR 79.2; POTASSIUM 4.7 mmol/L (3.5-5.1); TOTAL BILIRUBIN 0.7 mg/dL (0.2-1.0); TOTAL PROTEIN 7.3 g/dL (6.4-8.2)
[2021-08-16 07:00] VITALS: BP 95/53
[2021-08-16] MEDS: IPRATRPIUM/ALBUTEROL 0.5/2.5MG 3 ML NEBU. NEB SCH ×4 (07:18→20:00)
[2021-08-16] MEDS: BUDESONIDE 0.5 MG/2 ML NEBU. NEB SCH ×2 (07:18→20:00)
[2021-08-16] MEDS: INSULIN LISPRO 300 UNITS/3 ML VIAL. SQ SCH ×4 (07:30→21:00)
--- NOTE | 2021-08-16 08:32 | PDOC2 ---
CARDIAC CONSULT DATE OF CONSULT Date of Consult DATE: 08/16/21 TIME: 08:26 REASON FOR CONSULT Reason for Consult: AFIB, EF 25%, readmission with fall REFERRING PHYSICIAN Referring Physician: Eric SOURCE Source: Chart review, Patient HISTORY OF PRESENT ILLNESS HISTORY OF PRESENT ILLNESS This is a 76 yo male admitted for complains of fall. He is a poor historian. Poor recall of what happened but no noted passing out. He was standing and the next thing is he was falling. Denies dizziness, chest pain or palpitations. He hit the back of his head. He also has been having right inner thigh pain but no wounds. He has chronic AFIB and known cardiomyopathy. 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 Renal/: No pertinent hx Endocrine: Diabetes PAST SURGICAL HISTORY Past Surgical History CABG, Other (left knee surgery), [facility] FAMILY HISTORY Family History: Diabetes, Heart Disease SOCIAL HISTORY Social History Smoke: <1 pack per day ALCOHOL: none Drugs: None Lives: [facility]U CURRENT MEDICATIONS CURRENT MEDICATIONS Current Medications Medications (Trade) Dose Ordered Sig/Tobi Route PRN Reason Start Time Stop Time Status Last Admin Dose Admin Tramadol HCl (Ultram) 50 mg 1X ONCE PO 08/15/21 18:45 08/15/21 18:46 DC 08/15/21 18:36 Albuterol/ Ipratropium (Duoneb) 3 ml RTQID NEB 08/15/21 20:00 08/16/21 07:18 Guaifenesin (Robitussin Dm) 10 ml PRN Q6HRS PRN PO COUGH 08/15/21 19:00 08/15/21 20:29 Budesonide (Pulmicort) 0.5 mg RTBID NEB 08/15/21 20:00 08/16/21 07:18 Furosemide (Lasix) 40 mg 1X ONCE IVP 08/15/21 21:30 08/15/21 21:31 DC 08/15/21 23:35 ALLERGIES ALLERGIES: Coded Allergies: Iodinated Contrast Media (Verified Adverse Reaction, Intermediate, "bumps on skin around IV site", 03/27/16) ROS Review of System limited, poor historian PHYSICAL EXAM General: Alert, Oriented X3, Cooperative, No acute distress HEENT: Atraumatic, Mucous membr. moist/pink, Other ( left preorbital hematoma as well as a left posterior scalp hematoma) Lungs: Other (basilar crackles) Heart: Other (AFIB, distant heart sounds) Extremities: No cyanosis, Other (2-3+ bilateral LE pitting pedal edema) Skin: Other Neuro: Normal speech, Sensation intact Psych/Mental Status: Mental status NL, Mood NL MUSCULOSKELETAL: Osteoarthritic changes both hands VITALS/I&O VITALS/I&O: Vital Signs Date Time Temp Pulse Resp B/P (MAP) Pulse Ox O2 Delivery O2 Flow Rate FiO2 08/16/21 07:18 95 Nasal Cannula 5.0 08/16/21 02:43 98.1 84 19 101/57 (72) 98.1 I & O 08/15/21 08/15/21 08/16/21 15:00 23:00 07:00 Intake Total 250 ml 100 ml Balance 250 ml 100 ml LABS Lab: Laboratory Tests Test 08/15/21 17:15 08/15/21 19:10 08/15/21 21:39 08/16/21 02:43 White Blood Count 5.8 x10^3/uL (4.0-11.0) Red Blood Count 4.37 x10^6/uL (4.30-5.70) Hemoglobin 12.3 g/dL (13.0-17.5) L Hematocrit 38.9 % (39.0-53.0) L Mean Corpuscular Volume 89 fL (79-100) Mean Corpuscular Hemoglobin 28 pg (25-35) Mean Corpuscular Hemoglobin Concent 32 g/dL (31-37) Red Cell Distribution Width 17.4 % (11.5-14.5) H Platelet Count 114 x10^3/uL (140-400) L Neutrophils (%) (Auto) 74 % (31-73) H Lymphocytes (%) (Auto) 13 % (24-48) L Monocytes (%) (Auto) 9 % (0-9) Eosinophils (%) (Auto) 4 % (0-3) H Basophils (%) (Auto) 1 % (0-3) Neutrophils # (Auto) 4.3 x10^3/uL (1.8-7.7) Lymphocytes # (Auto) 0.8 x10^3/uL (1.0-4.8) L Monocytes # (Auto) 0.5 x10^3/uL (0.0-1.1) Eosinophils # (Auto) 0.2 x10^3/uL (0.0-0.7) Basophils # (Auto) 0.0 x10^3/uL (0.0-0.2) Prothrombin Time 18.4 SEC (11.7-14.0) H Prothrombin Time INR 1.6 (0.8-1.1) H Activated Partial Thromboplast Time 40 SEC (24-38) H Sodium Level 143 mmol/L (136-145) Potassium Level 4.9 mmol/L (3.5-5.1) Chloride Level 107 mmol/L (98-107) Carbon Dioxide Level 33 mmol/L (21-32) H Anion Gap 3 (6-14) L Blood Urea Nitrogen 20 mg/dL (8-26) Creatinine 1.2 mg/dL (0.7-1.3) Estimated GFR (Cockcroft-Gault) 71.6 BUN/Creatinine Ratio 17 (6-20) Glucose Level 83 mg/dL (70-99) Calcium Level 8.8 mg/dL (8.5-10.1) Total Bilirubin 0.5 mg/dL (0.2-1.0) Aspartate Amino Transferase (AST) 18 U/L (15-37) Alanine Aminotransferase (ALT) 19 U/L (16-63) Alkaline Phosphatase 81 U/L (46-116) Troponin I High Sensitivity 32 ng/L (4-75) UX-Pih-J-Type Natriuretic Peptide 5894 pg/mL (0-124) H Total Protein 7.4 g/dL (6.4-8.2) Albumin 3.5 g/dL (3.4-5.0) Albumin/Globulin Ratio 0.9 (1.0-1.7) L Influenza Type A Antigen Negative (NEGATIVE) Influenza Type B Antigen Negative (NEGATIVE) SARS-CoV-2 Antigen (Rapid) Negative (NEGATIVE) Glucose (Fingerstick) 70 mg/dL (70-99) 96 mg/dL (70-99) Test 08/16/21 05:10 08/16/21 08:05 White Blood Count 5.0 x10^3/uL (4.0-11.0) Red Blood Count 4.21 x10^6/uL (4.30-5.70) L Hemoglobin 11.7 g/dL (13.0-17.5) L Hematocrit 37.5 % (39.0-53.0) L Mean Corpuscular Volume 89 fL (79-100) Mean Corpuscular Hemoglobin 28 pg (25-35) Mean Corpuscular Hemoglobin Concent 31 g/dL (31-37) Red Cell Distribution Width 17.4 % (11.5-14.5) H Platelet Count 100 x10^3/uL (140-400) L Sodium Level 144 mmol/L (136-145) Potassium Level 4.7 mmol/L (3.5-5.1) Chloride Level 106 mmol/L (98-107) Carbon Dioxide Level 34 mmol/L (21-32) H Anion Gap 4 (6-14) L Blood Urea Nitrogen 21 mg/dL (8-26) Creatinine 1.1 mg/dL (0.7-1.3) Estimated GFR (Cockcroft-Gault) 79.2 BUN/Creatinine Ratio 19 (6-20) Glucose Level 89 mg/dL (70-99) Calcium Level 8.8 mg/dL (8.5-10.1) Total Bilirubin 0.7 mg/dL (0.2-1.0) Aspartate Amino Transferase (AST) 16 U/L (15-37) Alanine Aminotransferase (ALT) 14 U/L (16-63) L Alkaline Phosphatase 78 U/L (46-116) Total Protein 7.3 g/dL (6.4-8.2) Albumin 3.2 g/dL (3.4-5.0) L Albumin/Globulin Ratio 0.8 (1.0-1.7) L Glucose (Fingerstick) 85 mg/dL (70-99) Laboratory Tests 08/15/21 17:15 08/16/21 05:10 Laboratory Tests 08/15/21 17:15 08/16/21 05:10 ECHOCARDIOGRAM ECHOCARDIOGRAM <Conclusion> The ejection fraction is severely impaired. EF 30-35% There is severe global hypokinesis of the left ventricle. The right ventricle is moderate to severely dilated. Doppler and Color Flow revealed trace tricuspid regurgitation. Estimated PAP 67 mmHg. DATE: 07/16/21 1525 HEART CATH HEART CATH Conclusion RHC 1. Acute biventricular pressure overload 2. Severe pulmonary hypertension, secondary to left heart failure 3. Low cardiac output Recommendations 1. Continue milrinone and diuretic therapy. DATE: 07/19/21 1158 ASSESSMENT/PLAN ASSESSMENT/PLAN 1. Traumatic mechanical fall; noted with left preorbital hematoma as well as a left posterior scalp hematoma. Not associated with syncope 2. Chronic AFIB: rate controlled 3. Chronic HFrEF: NYHA2 appeasr compensated 4. HTN: controlled 5. HLP 6. ICM: EF remains about the same at 30-35% compensated 7. CAD: Past CABG 8. COPD 9. PAD: to RLE: duplex revealed monophasic waveforms at the right lower extremity, may indicate proximal stenosis. Recommendations 1. HF optimization. Lasix therapy. Entresto 2. Continue secondary prevention measures 3. 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 Continue eliquis for stroke prevention 5. Will consider for outpt ischemic workup and also aortogram to further asses LE PAD ANASTACIA PARR APRN Aug 16, 2021 08:32
[2021-08-16] MEDS: SACUBITRIL/VALSARTAN 24/26MG TABLET. PO SCH ×2 (08:38→21:00)
[2021-08-16] MEDS: METOPROLOL SUCC 24HR ER 25 MG TAB.ER.24H. PO SCH ×2 (08:39→13:06)
[2021-08-16] MEDS: FUROSEMIDE 40 MG TABLET. PO SCH (08:40)
[2021-08-16] MEDS: POTASSIUM CHLORIDE 20 MEQ TABLET.ER. PO SCH (08:51)
[2021-08-16] MEDS: ASPIRIN ENTERIC COATED 81 MG TABLET.DR. PO SCH (08:51)
--- NOTE | 2021-08-16 09:18 | RAD ---
US RIGHT LOWER EXTREMITY ARTERIAL DUPLEX EVAL Indication: Reason: Pain, decreased pulses, concern for possible occlusive disease vs compartme / Spl . Instructions: / History: Comparison: None. Procedure: Real-time grayscale, color flow Doppler, and Doppler spectral waveform analysis of the art erial system of the lower extremity is performed. Findings: Moderate atheromatous plaque. Monophasic waveforms throughout the right lower extremity. No significa nt velocity elevation. No occlusion. IMPRESSION: 1. Monophasic waveforms at the right lower extremity, may indicate proximal stenosis. CT angiogram c an further assess. 2. Moderate atheromatous plaque. Electronically signed by: Andrew Moreno DO (08/16/2021 8:55 AM) [id number]
[2021-08-16 11:00] VITALS: BP 122/75
--- NOTE | 2021-08-16 11:37 | CONS ---
DATE OF CONSULTATION: 08/16/2021 PULMONARY CONSULTATION ATTENDING PHYSICIAN: Iam Reyes MD REASON FOR CONSULTATION: Encephalopathy, pleural effusion, status post fall. HISTORY OF PRESENT ILLNESS: The patient is a 76-year-old obese male with a BMI of 38.9. The patient has multiple chronic medical conditions including cardiomyopathy with an EF of 25-30%. History of ongoing tobaccoism and likely underlying COPD along with obesity and suspected CAMERON with obesity hypoventilation syndrome. The patient has been on home CPAP with oxygen 3 liters bleed in. He also has atrial fibrillation, left eye tumor. He was brought into the hospital after he reportedly had fallen at the skilled care facility. He struck his head and some bruising around the orbit area. He is on Eliquis for atrial fibrillation. The patient underwent CT chest. I have reviewed CT chest. There is a tiny amount of left pleural effusion. There are no traumatic injury within the left chest. When I interviewed the patient, he appears to be dosing in between conversation. He is unable to give any history. I have ordered arterial blood gases to rule out hypercapnia. The patient's CT head did not show any acute intracranial process. He did have a left periorbital hematoma as well as left posterior scalp hematoma. A consultation requested for further evaluation and management. PAST MEDICAL HISTORY: History of atrial fibrillation, history of cardiomyopathy with an EF of 25-30%, history of ongoing tobaccoism, likely underlying COPD, history of CAMERON and suspected OHS. He is on home CPAP with 3 liters oxygen. History of left eye tumor. Atrial fibrillation, coronary artery disease, type 2 diabetes, dyslipidemia, hypertension. PAST SURGICAL HISTORY: CABG. FAMILY HISTORY: Diabetes and hypertension. SOCIAL HISTORY: Reported history of tobaccoism. ALLERGIES: IV DYE. MEDICATIONS: Reviewed as listed in the MRAD. REVIEW OF SYSTEMS: Unable to obtain due to the patient's condition. PHYSICAL EXAMINATION: VITAL SIGNS: Reviewed. Blood pressure 95 systolic. Afebrile, pulse ox 95% on 5 liters. NECK: Supple. LUNGS: With diminished breath sounds. CARDIOVASCULAR: With a regular rate. ABDOMEN: Soft, nontender. EXTREMITIES: With 2+ pitting edema bilaterally. LABORATORY DATA: Reviewed. BUN is 21, creatinine 1.1. His influenza negative. COVID negative. BUN 21, a creatinine of 2.1. White cell count 5.0, hemoglobin 11.7, platelets are 100. INR 1.6. IMPRESSION: 1. Acute encephalopathy. Needs to rule out hypercarbia. CT head without any intracranial process. 2. Status post fall with no evidence of traumatic injury in the chest. There is a tiny left pleural effusion. This is not of much clinical significance. He may have a left periorbital hematoma and left posterior scalp hematoma. 3. History of tobaccoism and underlying chronic obstructive pulmonary disease. 4. History of obstructive sleep apnea/component of obesity hypoventilation syndrome. Arterial blood gases have been ordered. RECOMMENDATIONS: 1. Discussed with RN. We will obtain ABGs and make necessary recommendations. He may need BiPAP. 2. Avoid any sedatives. 3. No intervention needed from a pulmonary standpoint at present, except awaiting blood gases. 4. Continue bronchodilators. 5. We will follow along with you. [facility] [place] DR: Ann-Marie TID: [id number]
[2021-08-16] MEDS ORDERED: ANTI-COAG MONITOR BY PHARMACY. MC PRN (14:45)
--- NOTE | 2021-08-16 14:52 | PDOC ---
[employer] PROGRESS NOTE Date of Service DOS: DATE: 08/16/21 TIME: 14:51 Chief Complaint Chief Complaint Fall - unprovoked, no memory of event. Will check orthostatic VS. No focal neuro deficits. PT eval Right leg pain - no fracture, will obtain arterial doppler for PVD assessment. no signs of compartment syndrome Left orbit bruising - local ICE. Monitor mental status, serial head CT Shortness of breath - likely with COPD and CHF exacerbation AFib - chronic. Hold eliquis for today, monitor mental status prior to restating CHF - systolic EF 25-30% historically Left pleural effusion - likely CHF related COPD - cont home nebs Diabetes - sliding scale Hyperlipidemia - statin Hypertension - cont home meds Benign tumor of the left eye CAMERON - CPAP at home CAD - s/p coronary artery bypass surgery History of Present Illness History of Present Illness 08/16: Patient seen and evaluated. He is resting comfortably. BiPAP on, we will continue to diurese. All medications have been resumed. Discussed with RN. Vitals/I&O Vitals/I&O: Vital Signs Date Time Temp Pulse Resp B/P (MAP) Pulse Ox O2 Delivery O2 Flow Rate FiO2 08/16/21 13:06 96 122/75 08/16/21 11:49 94 Nasal Cannula 5.0 08/16/21 11:00 97.5 20 97.5 I & O 08/15/21 08/15/21 08/16/21 15:00 23:00 07:00 Intake Total 250 ml 100 ml Balance 250 ml 100 ml Physical Exam General: Alert, Oriented X3, Cooperative, No acute distress Heart: Other (AFIB, distant heart sounds) Lungs: Clear Abdomen: Normal bowel sounds, Soft, No tenderness, No hepatosplenomegaly, No masses Extremities: No cyanosis, Other (2-3+ bilateral LE pitting pedal edema) Skin: Other Labs Labs: Laboratory Tests Test 08/15/21 17:15 08/15/21 19:10 08/15/21 21:39 08/16/21 02:43 White Blood Count 5.8 x10^3/uL (4.0-11.0) Red Blood Count 4.37 x10^6/uL (4.30-5.70) Hemoglobin 12.3 g/dL (13.0-17.5) Hematocrit 38.9 % (39.0-53.0) Mean Corpuscular Volume 89 fL (79-100) Mean Corpuscular Hemoglobin 28 pg (25-35) Mean Corpuscular Hemoglobin Concent 32 g/dL (31-37) Red Cell Distribution Width 17.4 % (11.5-14.5) Platelet Count 114 x10^3/uL (140-400) Neutrophils (%) (Auto) 74 % (31-73) Lymphocytes (%) (Auto) 13 % (24-48) Monocytes (%) (Auto) 9 % (0-9) Eosinophils (%) (Auto) 4 % (0-3) Basophils (%) (Auto) 1 % (0-3) Neutrophils # (Auto) 4.3 x10^3/uL (1.8-7.7) Lymphocytes # (Auto) 0.8 x10^3/uL (1.0-4.8) Monocytes # (Auto) 0.5 x10^3/uL (0.0-1.1) Eosinophils # (Auto) 0.2 x10^3/uL (0.0-0.7) Basophils # (Auto) 0.0 x10^3/uL (0.0-0.2) Prothrombin Time 18.4 SEC (11.7-14.0) Prothromb Time International Ratio 1.6 (0.8-1.1) Activated Partial Thromboplast Time 40 SEC (24-38) Sodium Level 143 mmol/L (136-145) Potassium Level 4.9 mmol/L (3.5-5.1) Chloride Level 107 mmol/L (98-107) Carbon Dioxide Level 33 mmol/L (21-32) Anion Gap 3 (6-14) Blood Urea Nitrogen 20 mg/dL (8-26) Creatinine 1.2 mg/dL (0.7-1.3) Estimated GFR (Cockcroft-Gault) 71.6 BUN/Creatinine Ratio 17 (6-20) Glucose Level 83 mg/dL (70-99) Calcium Level 8.8 mg/dL (8.5-10.1) Total Bilirubin 0.5 mg/dL (0.2-1.0) Aspartate Amino Transf (AST/SGOT) 18 U/L (15-37) Alanine Aminotransferase (ALT/SGPT) 19 U/L (16-63) Alkaline Phosphatase 81 U/L (46-116) Troponin I High Sensitivity 32 ng/L (4-75) RK-Qnw-[id number]-Type Natriuretic Peptide 5894 pg/mL (0-124) Total Protein 7.4 g/dL (6.4-8.2) Albumin 3.5 g/dL (3.4-5.0) Albumin/Globulin Ratio 0.9 (1.0-1.7) Influenza Type A Antigen Negative (NEGATIVE) Influenza Type B Antigen Negative (NEGATIVE) SARS-CoV-2 Antigen (Rapid) Negative (NEGATIVE) Glucose (Fingerstick) 70 mg/dL (70-99) 96 mg/dL (70-99) Test 08/16/21 05:10 08/16/21 08:05 08/16/21 11:33 White Blood Count 5.0 x10^3/uL (4.0-11.0) Red Blood Count 4.21 x10^6/uL (4.30-5.70) Hemoglobin 11.7 g/dL (13.0-17.5) Hematocrit 37.5 % (39.0-53.0) Mean Corpuscular Volume 89 fL (79-100) Mean Corpuscular Hemoglobin 28 pg (25-35) Mean Corpuscular Hemoglobin Concent 31 g/dL (31-37) Red Cell Distribution Width 17.4 % (11.5-14.5) Platelet Count 100 x10^3/uL (140-400) Sodium Level 144 mmol/L (136-145) Potassium Level 4.7 mmol/L (3.5-5.1) Chloride Level 106 mmol/L (98-107) Carbon Dioxide Level 34 mmol/L (21-32) Anion Gap 4 (6-14) Blood Urea Nitrogen 21 mg/dL (8-26) Creatinine 1.1 mg/dL (0.7-1.3) Estimated GFR (Cockcroft-Gault) 79.2 BUN/Creatinine Ratio 19 (6-20) Glucose Level 89 mg/dL (70-99) Calcium Level 8.8 mg/dL (8.5-10.1) Total Bilirubin 0.7 mg/dL (0.2-1.0) Aspartate Amino Transf (AST/SGOT) 16 U/L (15-37) Alanine Aminotransferase (ALT/SGPT) 14 U/L (16-63) Alkaline Phosphatase 78 U/L (46-116) Total Protein 7.3 g/dL (6.4-8.2) Albumin 3.2 g/dL (3.4-5.0) Albumin/Globulin Ratio 0.8 (1.0-1.7) Glucose (Fingerstick) 85 mg/dL (70-99) 82 mg/dL (70-99) Assessment and Plan Assessmemt and Plan Problems Medical Problems: (1) Acute exacerbation of congestive heart failure Status: Acute (2) Fall Status: Acute (3) Pleural effusion, left Status: Acute Comment Review of Relevant I have reviewed the following items cynthia (where applicable) has been applied. Medications: Current Medications Medications (Trade) Dose Ordered Sig/Tobi Route PRN Reason Start Time Stop Time Status Last Admin Dose Admin Tramadol HCl (Ultram) 50 mg 1X ONCE PO 08/15/21 18:45 08/15/21 18:46 DC 08/15/21 18:36 Albuterol/ Ipratropium (Duoneb) 3 ml RTQID NEB 08/15/21 20:00 08/16/21 11:49 Guaifenesin (Robitussin Dm) 10 ml PRN Q6HRS PRN PO COUGH 08/15/21 19:00 08/15/21 20:29 Budesonide (Pulmicort) 0.5 mg RTBID NEB 08/15/21 20:00 08/16/21 07:18 Furosemide (Lasix) 40 mg 1X ONCE IVP 08/15/21 21:30 08/15/21 21:31 DC 08/15/21 23:35 Aspirin (Ecotrin) 81 mg DAILY08 PO 08/16/21 08:00 08/16/21 08:51 Metoprolol Succinate (Toprol Xl) 25 mg DAILY PO 08/16/21 09:00 08/16/21 13:06 Potassium Chloride (Klor-Con) 20 meq DAILY PO 08/16/21 09:00 08/16/21 08:51 Justifications for Admission Other Justification THOMAS FORTE MD Aug 16, 2021 14:52
[2021-08-16 15:00] VITALS: BP 100/59
[2021-08-16 18:27] LABS: BASE EXCESS ABG 4 mmol/L (-3-3); FIO2 ABG 5L/NC; HCO3 ABG 33 mmol/L (21-28); PCO2 ABG 69 mmHg (35-46); PO2 ABG 64 mmHg (65-108); SAT O2 ABG 91 % (92-99)
[2021-08-16 19:00] VITALS: BP 90/54
[2021-08-16] MEDS: SIMVASTATIN 20 MG TABLET PO SCH (21:00)
[2021-08-16 23:00] VITALS: BP 123/62
[2021-08-17 03:00] VITALS: BP 105/62
[2021-08-17] MEDS: ALPRAZolam 0.25 MG TABLET PO PRN ×2 (05:51→15:03)
[2021-08-17 07:00] VITALS: BP 100/58
[2021-08-17] MEDS: IPRATRPIUM/ALBUTEROL 0.5/2.5MG 3 ML NEBU. NEB SCH ×4 (07:01→20:23)
[2021-08-17] MEDS: INSULIN LISPRO 300 UNITS/3 ML VIAL. SQ SCH ×4 (07:30→21:00)
[2021-08-17] MEDS: POTASSIUM CHLORIDE 20 MEQ TABLET.ER. PO SCH (08:06)
[2021-08-17] MEDS: SACUBITRIL/VALSARTAN 24/26MG TABLET. PO SCH ×2 (08:06→21:44)
[2021-08-17] MEDS: APIXABAN 5 MG TABLET. PO SCH ×2 (08:07→21:42)
[2021-08-17] MEDS: ASPIRIN ENTERIC COATED 81 MG TABLET.DR. PO SCH (08:07)
[2021-08-17] MEDS: METOPROLOL SUCC 24HR ER 25 MG TAB.ER.24H. PO SCH (08:07)
[2021-08-17] MEDS: FUROSEMIDE 40 MG TABLET. PO SCH (08:07)
--- NOTE | 2021-08-17 08:27 | PDOC ---
[employer] PROGRESS NOTE Date of Service DOS: DATE: 08/17/21 TIME: 08:23 Chief Complaint Chief Complaint Fall - unprovoked, no memory of event. Will check orthostatic VS. No focal neuro deficits. PT eval Right leg pain - no fracture, will obtain arterial doppler for PVD assessment. no signs of compartment syndrome Left orbit bruising - local ICE. Monitor mental status, serial head CT Shortness of breath - likely with COPD and CHF exacerbation AFib - chronic. Hold eliquis for today, monitor mental status prior to restating CHF - systolic EF 25-30% historically Left pleural effusion - likely CHF related COPD - cont home nebs Diabetes - sliding scale Hyperlipidemia - statin Hypertension - cont home meds Benign tumor of the left eye CAMERON - CPAP at home CAD - s/p coronary artery bypass surgery History of Present Illness History of Present Illness 08/17: Patient seen and evaluated. Patient denies any shortness of breath on 5 L nasal cannula. Family at bedside notes inconsistent use of home O2, and states he would likely benefit from an oxygen concentrator; will discuss with medical social worker on Thursday. Blood glucose not significantly elevated; will check hem oglobin A1c and stop serial CBGs if he is not meet criteria for diabetes. ABG yesterday showed PCO2 69, he was placed on BiPAP. Currently on 4 L nasal cannula, baseline O2 requirement 3 L. Work with PT yesterday, recommending SNU. Continue bronchodilators. 08/16: Patient seen and evaluated. He is resting comfortably. BiPAP on, we will continue to diurese. All medications have been resumed. Discussed with RN. Vitals/I&O Vitals/I&O: Vital Signs Date Time Temp Pulse Resp B/P (MAP) Pulse Ox O2 Delivery O2 Flow Rate FiO2 08/17/21 08:07 90 105/62 08/17/21 07:05 98 Nasal Cannula 4.0 08/17/21 03:00 97.8 17 97.8 I & O 08/16/21 08/16/21 08/17/21 15:00 23:00 07:00 Intake Total 300 ml Output Total 550 ml Balance -550 ml 300 ml Physical Exam General: Alert, Oriented X3, Cooperative, No acute distress Heart: Other (AFIB, distant heart sounds) Lungs: Clear Abdomen: Normal bowel sounds, Soft, No tenderness, No hepatosplenomegaly, No masses Extremities: No cyanosis, Other (2-3+ bilateral LE pitting pedal edema) Skin: Other Labs Labs: Laboratory Tests Test 08/16/21 11:33 08/16/21 11:40 08/16/21 16:21 08/16/21 21:07 Glucose (Fingerstick) 82 mg/dL (70-99) 70 mg/dL (70-99) 104 mg/dL (70-99) O2 Saturation 91 % (92-99) Arterial Blood pH 7.30 (7.35-7.45) Arterial Blood pCO2 at Patient Temp 69 mmHg (35-46) Arterial Blood pO2 at Patient Temp 64 mmHg (65-108) Arterial Blood HCO3 33 mmol/L (21-28) Arterial Blood Base Excess 4 mmol/L (-3-3) FiO2 5l/nc Test 08/17/21 07:31 Glucose (Fingerstick) 97 mg/dL (70-99) Assessment and Plan Assessmemt and Plan Problems Medical Problems: (1) Acute exacerbation of congestive heart failure Status: Acute (2) Fall Status: Acute (3) Pleural effusion, left Status: Acute Comment Review of Relevant I have reviewed the following items cynthia (where applicable) has been applied. Medications: Current Medications Medications (Trade) Dose Ordered Sig/Tobi Route PRN Reason Start Time Stop Time Status Last Admin Dose Admin Metoprolol Succinate (Toprol Xl) 25 mg DAILY PO 08/16/21 09:00 08/17/21 08:07 Potassium Chloride (Klor-Con) 20 meq DAILY PO 08/16/21 09:00 08/17/21 08:06 Sacubitril/ Valsartan (Entresto 24 Mg-26 Mg) 1 tab BID PO 08/16/21 09:00 08/17/21 08:06 Simvastatin (Zocor) 20 mg HS PO 08/16/21 21:00 08/16/21 21:00 Furosemide (Lasix) 40 mg DAILY PO 08/16/21 09:00 08/17/21 08:07 Apixaban (Eliquis) 5 mg BID PO 08/17/21 09:00 08/17/21 08:07 Alprazolam (Xanax) 0.25 mg PRN Q8HRS PRN PO ANXIETY / AGITATION 08/17/21 00:00 08/17/21 05:51 Justifications for Admission Other Justification THOMAS FORTE MD Aug 17, 2021 08:27
[2021-08-17] MEDS: traMADol 50 MG TABLET PO PRN ×2 (09:22→15:28)
--- NOTE | 2021-08-17 09:43 | PDOC ---
PULMONARY PROGRESS NOTES DATE: 08/17/21 TIME: 09:42 Subjective Patient was hypercapnic yesterday. He was placed on BiPAP overnight. He is more awake and following commands. Off the BiPAP. Vitals Vital Signs Date Time Temp Pulse Resp B/P (MAP) Pulse Ox O2 Delivery O2 Flow Rate FiO2 08/17/21 09:22 20 98 Nasal Cannula 4.0 08/17/21 08:07 90 105/62 08/17/21 07:00 97.5 97.5 General: Alert, No acute distress Lungs: Clear Cardiovascular: S1 Abdomen: Soft, Non-tender, Other Neuro Exam: Alert Extremities: Other (2+ edema and signs of venous stasis.) Labs Laboratory Tests Test 08/15/21 17:15 08/15/21 19:10 08/15/21 21:39 08/16/21 02:43 White Blood Count 5.8 x10^3/uL (4.0-11.0) Red Blood Count 4.37 x10^6/uL (4.30-5.70) Hemoglobin 12.3 g/dL (13.0-17.5) Hematocrit 38.9 % (39.0-53.0) Mean Corpuscular Volume 89 fL (79-100) Mean Corpuscular Hemoglobin 28 pg (25-35) Mean Corpuscular Hemoglobin Concent 32 g/dL (31-37) Red Cell Distribution Width 17.4 % (11.5-14.5) Platelet Count 114 x10^3/uL (140-400) Neutrophils (%) (Auto) 74 % (31-73) Lymphocytes (%) (Auto) 13 % (24-48) Monocytes (%) (Auto) 9 % (0-9) Eosinophils (%) (Auto) 4 % (0-3) Basophils (%) (Auto) 1 % (0-3) Neutrophils # (Auto) 4.3 x10^3/uL (1.8-7.7) Lymphocytes # (Auto) 0.8 x10^3/uL (1.0-4.8) Monocytes # (Auto) 0.5 x10^3/uL (0.0-1.1) Eosinophils # (Auto) 0.2 x10^3/uL (0.0-0.7) Basophils # (Auto) 0.0 x10^3/uL (0.0-0.2) Prothrombin Time 18.4 SEC (11.7-14.0) Prothromb Time International Ratio 1.6 (0.8-1.1) Activated Partial Thromboplast Time 40 SEC (24-38) Sodium Level 143 mmol/L (136-145) Potassium Level 4.9 mmol/L (3.5-5.1) Chloride Level 107 mmol/L (98-107) Carbon Dioxide Level 33 mmol/L (21-32) Anion Gap 3 (6-14) Blood Urea Nitrogen 20 mg/dL (8-26) Creatinine 1.2 mg/dL (0.7-1.3) Estimated GFR (Cockcroft-Gault) 71.6 BUN/Creatinine Ratio 17 (6-20) Glucose Level 83 mg/dL (70-99) Calcium Level 8.8 mg/dL (8.5-10.1) Total Bilirubin 0.5 mg/dL (0.2-1.0) Aspartate Amino Transf (AST/SGOT) 18 U/L (15-37) Alanine Aminotransferase (ALT/SGPT) 19 U/L (16-63) Alkaline Phosphatase 81 U/L (46-116) Troponin I High Sensitivity 32 ng/L (4-75) GI-Eie-H-Type Natriuretic Peptide 5894 pg/mL (0-124) Total Protein 7.4 g/dL (6.4-8.2) Albumin 3.5 g/dL (3.4-5.0) Albumin/Globulin Ratio 0.9 (1.0-1.7) Influenza Type A Antigen Negative (NEGATIVE) Influenza Type B Antigen Negative (NEGATIVE) SARS-CoV-2 Antigen (Rapid) Negative (NEGATIVE) Glucose (Fingerstick) 70 mg/dL (70-99) 96 mg/dL (70-99) Test 08/16/21 05:10 08/16/21 08:05 08/16/21 11:33 08/16/21 11:40 White Blood Count 5.0 x10^3/uL (4.0-11.0) Red Blood Count 4.21 x10^6/uL (4.30-5.70) Hemoglobin 11.7 g/dL (13.0-17.5) Hematocrit 37.5 % (39.0-53.0) Mean Corpuscular Volume 89 fL (79-100) Mean Corpuscular Hemoglobin 28 pg (25-35) Mean Corpuscular Hemoglobin Concent 31 g/dL (31-37) Red Cell Distribution Width 17.4 % (11.5-14.5) Platelet Count 100 x10^3/uL (140-400) Sodium Level 144 mmol/L (136-145) Potassium Level 4.7 mmol/L (3.5-5.1) Chloride Level 106 mmol/L (98-107) Carbon Dioxide Level 34 mmol/L (21-32) Anion Gap 4 (6-14) Blood Urea Nitrogen 21 mg/dL (8-26) Creatinine 1.1 mg/dL (0.7-1.3) Estimated GFR (Cockcroft-Gault) 79.2 BUN/Creatinine Ratio 19 (6-20) Glucose Level 89 mg/dL (70-99) Calcium Level 8.8 mg/dL (8.5-10.1) Total Bilirubin 0.7 mg/dL (0.2-1.0) Aspartate Amino Transf (AST/SGOT) 16 U/L (15-37) Alanine Aminotransferase (ALT/SGPT) 14 U/L (16-63) Alkaline Phosphatase 78 U/L (46-116) Total Protein 7.3 g/dL (6.4-8.2) Albumin 3.2 g/dL (3.4-5.0) Albumin/Globulin Ratio 0.8 (1.0-1.7) Glucose (Fingerstick) 85 mg/dL (70-99) 82 mg/dL (70-99) O2 Saturation 91 % (92-99) Arterial Blood pH 7.30 (7.35-7.45) Arterial Blood pCO2 at Patient Temp 69 mmHg (35-46) Arterial Blood pO2 at Patient Temp 64 mmHg (65-108) Arterial Blood HCO3 33 mmol/L (21-28) Arterial Blood Base Excess 4 mmol/L (-3-3) FiO2 5l/nc Test 08/16/21 16:21 08/16/21 21:07 08/17/21 07:31 Glucose (Fingerstick) 70 mg/dL (70-99) 104 mg/dL (70-99) 97 mg/dL (70-99) Laboratory Tests Test 08/16/21 11:33 08/16/21 11:40 08/16/21 16:21 08/16/21 21:07 Glucose (Fingerstick) 82 mg/dL (70-99) 70 mg/dL (70-99) 104 mg/dL (70-99) O2 Saturation 91 % (92-99) Arterial Blood pH 7.30 (7.35-7.45) Arterial Blood pCO2 at Patient Temp 69 mmHg (35-46) Arterial Blood pO2 at Patient Temp 64 mmHg (65-108) Arterial Blood HCO3 33 mmol/L (21-28) Arterial Blood Base Excess 4 mmol/L (-3-3) FiO2 5l/nc Test 08/17/21 07:31 Glucose (Fingerstick) 97 mg/dL (70-99) Medications Active Scripts Medications Dose Route/Sig Max Daily Dose Days Date Category Klor-Con M20 (Potassium Chloride) 20 Meq Tab.er.prt 1 Tab PO DAILY 30 07/26/21 Rx Eliquis (Apixaban) 5 Mg Tablet 5 Mg PO BID 90 07/26/21 Rx Olanzapine 5 Mg Tablet 5 Mg PO BID 30 07/26/21 Rx Percocet 5-325 mg Tablet (Oxycodone HCl/Acetaminophen) 1 Each Tablet 1 Tab PO QIDPRN PRN MDD 4 Tablet(s) 5 07/26/21 Rx Entresto 24 mg-26 mg Tablet (Sacubitril/Valsartan) 1 Each Tablet 1 Tab PO BID 30 03/18/19 Rx Metoprolol Succinate ( Xl ) (Metoprolol Succinate) 25 Mg Tab.er.24h 25 Mg PO DAILY 30 03/18/19 Rx Duoneb 0.5-3(2.5) Mg/3 Ml (Albuterol/Ipratropium) 3 Ml Ampul.neb 3 Ml NEB RTQID 30 03/18/19 Rx Furosemide 40 Mg Tablet 40 Mg PO DAILY 03/15/19 Reported Simvastatin 20 Mg Tablet 20 Mg PO HS 03/27/16 Reported Aspir 81 (Aspirin) 81 Mg Tablet.dr 81 Mg PO DAILY 03/27/16 Reported Impression . 1. Acute encephalopathy. Contributed by hypercapnia. Treated with BiPAP. Now clinically improved. 2. Status post fall with no evidence of traumatic injury in the chest. There is a tiny left pleural effusion. This is not of much clinical significance. He may have a left periorbital hematoma and left posterior scalp hematoma. 3. History of tobaccoism and underlying chronic obstructive pulmonary disease. 4. History of obstructive sleep apnea/component of obesity hypoventilation syndrome. 5. Acute on chronic hypercapnic respiratory failure. Plan . RECOMMENDATIONS: 1. Discussed with RN. Patient responded to BiPAP. Currently on nasal cannula. 2. Avoid any sedatives. 3. Monitor him clinically. 4. Continue bronchodilators. 5. We will follow along with you. 6. Improving pulmonary status DENNISE ORDONEZ MD Aug 17, 2021 09:43
[2021-08-17 11:00] VITALS: BP 111/55
[2021-08-17] MEDS: BUDESONIDE 0.5 MG/2 ML NEBU. NEB SCH ×2 (11:32→20:23)
--- NOTE | 2021-08-17 11:58 | PDOC ---
CARDIOLOGY PROGRESS NOTE SUBJECTIVE: More alert today. Denies any chest pain. Dyspnea persists. Family at bedside. Used bipap overnight. Seen by pulmonary service. OBJECTIVE: Vital Signs/I&O: Vital Signs Date Time Temp Pulse Resp B/P (MAP) Pulse Ox O2 Delivery O2 Flow Rate FiO2 08/17/21 11:35 94 Nasal Cannula 4.0 08/17/21 11:00 97.2 75 17 111/55 (73) 97.2 I & O 08/16/21 08/16/21 08/17/21 15:00 23:00 07:00 Intake Total 300 ml Output Total 550 ml Balance -550 ml 300 ml Objective: GEN.: No apparent distress. Alert and oriented. HEENT: Head is normocephalic, atraumatic NECK: Supple. LUNGS: Clear to auscultation. HEART: irr irr, S1, S2 present. Peripheral pulses intact ABDOMEN: Soft, nontender. Positive bowel sounds. EXTREMITIES: Without any cyanosis. NEUROLOGIC: Normal speech, normal tone PSYCHIATRIC: Normal affect, normal mood. SKIN: No ulcerations CURRENT MEDICATIONS: meds reviewed DIAGNOSTIC TESTING: labs reviewed Labs: Laboratory Tests Test 08/16/21 16:21 08/16/21 21:07 08/17/21 07:31 08/17/21 11:27 Glucose (Fingerstick) 70 mg/dL (70-99) 104 mg/dL (70-99) H 97 mg/dL (70-99) 106 mg/dL (70-99) H ASSESSMENT: 1. Fall of unclear etiology - probably multifactorial 2. 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 Acute on chronic resp failure with hypercapnia 4. Prior CAD and CABG 5. Chronic atrial fibrillation 6. Acute on chronic systolic HF PLAN: 1. Continue asa, statin, toprol XL and entresto. Continue lasix. 2. Plan for outpt right and left heart cath and addition of fred and jardiance in 1-2 weeks. 3. Will ultimately need an ICD after treatment with GDMT based on pt. wishes. Patient is still a bit confused. Sisters at bedside report that he is not following home diet and meds. Justicifation of Admission Dx: Justifications for Admission: Justification of Admission Dx: Yes MARCELINA BLANCO MD Aug 17, 2021 11:58
[2021-08-17] MEDS ORDERED: NICOTINE 14MG PATCH. TD PRN (13:15)
[2021-08-17 15:00] VITALS: BP 112/59
[2021-08-17 19:13] VITALS: BP 98/63
[2021-08-17] MEDS ORDERED: ALPRAZolam 0.25 MG TABLET PO PRN (21:00)
[2021-08-17] MEDS: OLANZapine 5 MG TABLET PO SCH (21:42)
[2021-08-17] MEDS: SIMVASTATIN 20 MG TABLET PO SCH (21:44)
[2021-08-17 23:04] VITALS: BP 98/62
[2021-08-18 03:20] VITALS: BP 91/55
[2021-08-18 05:14] LABS: CREATININE 1.2 mg/dL (0.7-1.3); GFR 71.6
[2021-08-18 05:26] LABS: POTASSIUM 5.3 mmol/L (3.5-5.1)
[2021-08-18 05:43] LABS: HEMOGLOBIN A1C 6.1 % (4.8-5.6)
[2021-08-18] MEDS: POTASSIUM CHLORIDE 20 MEQ TABLET.ER. PO SCH (07:30)
[2021-08-18] MEDS: INSULIN LISPRO 300 UNITS/3 ML VIAL. SQ SCH ×4 (07:30→21:00)
[2021-08-18] MEDS: BUDESONIDE 0.5 MG/2 ML NEBU. NEB SCH ×2 (07:46→20:19)
[2021-08-18] MEDS: IPRATRPIUM/ALBUTEROL 0.5/2.5MG 3 ML NEBU. NEB SCH ×4 (07:46→20:19)
[2021-08-18] MEDS: ASPIRIN ENTERIC COATED 81 MG TABLET.DR. PO SCH (08:06)
[2021-08-18] MEDS: SACUBITRIL/VALSARTAN 24/26MG TABLET. PO SCH ×2 (08:07→21:40)
[2021-08-18] MEDS: OLANZapine 5 MG TABLET PO SCH ×2 (08:07→21:40)
[2021-08-18] MEDS: FUROSEMIDE 40 MG TABLET. PO SCH (08:07)
[2021-08-18] MEDS: METOPROLOL SUCC 24HR ER 25 MG TAB.ER.24H. PO SCH (08:08)
[2021-08-18] MEDS: APIXABAN 5 MG TABLET. PO SCH ×2 (08:08→21:40)
--- NOTE | 2021-08-18 09:23 | PDOC ---
PULMONARY PROGRESS NOTES DATE: 08/18/21 TIME: 09:22 Subjective Patient remains confused. Vitals Vital Signs Date Time Temp Pulse Resp B/P (MAP) Pulse Ox O2 Delivery O2 Flow Rate FiO2 08/18/21 08:08 87 105/55 08/18/21 07:53 96 Nasal Cannula 5.0 08/18/21 07:00 97.5 17 97.5 General: No acute distress, Lethargic Lungs: Clear Cardiovascular: S1 Abdomen: Soft, Non-tender, Other Neuro Exam: Alert Extremities: Other (2+ edema and signs of venous stasis.) Labs Laboratory Tests Test 08/16/21 11:33 08/16/21 11:40 08/16/21 16:21 08/16/21 21:07 Glucose (Fingerstick) 82 mg/dL (70-99) 70 mg/dL (70-99) 104 mg/dL (70-99) O2 Saturation 91 % (92-99) Arterial Blood pH 7.30 (7.35-7.45) Arterial Blood pCO2 at Patient Temp 69 mmHg (35-46) Arterial Blood pO2 at Patient Temp 64 mmHg (65-108) Arterial Blood HCO3 33 mmol/L (21-28) Arterial Blood Base Excess 4 mmol/L (-3-3) FiO2 5l/nc Test 08/17/21 07:31 08/17/21 09:23 08/17/21 11:27 08/17/21 16:52 Glucose (Fingerstick) 97 mg/dL (70-99) 106 mg/dL (70-99) 88 mg/dL (70-99) Hemoglobin A1c 6.1 % (4.8-5.6) Test 08/17/21 21:17 08/18/21 04:00 08/18/21 06:35 08/18/21 07:35 Glucose (Fingerstick) 78 mg/dL (70-99) 76 mg/dL (70-99) 65 mg/dL (70-99) Sodium Level 142 mmol/L (136-145) Potassium Level 5.3 mmol/L (3.5-5.1) Chloride Level 106 mmol/L (98-107) Carbon Dioxide Level 32 mmol/L (21-32) Anion Gap 4 (6-14) Blood Urea Nitrogen 25 mg/dL (8-26) Creatinine 1.2 mg/dL (0.7-1.3) Estimated GFR (Cockcroft-Gault) 71.6 Glucose Level 68 mg/dL (70-99) Calcium Level 9.0 mg/dL (8.5-10.1) Test 08/18/21 08:23 Glucose (Fingerstick) 93 mg/dL (70-99) Laboratory Tests Test 08/17/21 09:23 08/17/21 11:27 08/17/21 16:52 08/17/21 21:17 Hemoglobin A1c 6.1 % (4.8-5.6) Glucose (Fingerstick) 106 mg/dL (70-99) 88 mg/dL (70-99) 78 mg/dL (70-99) Test 08/18/21 04:00 08/18/21 06:35 08/18/21 07:35 08/18/21 08:23 Sodium Level 142 mmol/L (136-145) Potassium Level 5.3 mmol/L (3.5-5.1) Chloride Level 106 mmol/L (98-107) Carbon Dioxide Level 32 mmol/L (21-32) Anion Gap 4 (6-14) Blood Urea Nitrogen 25 mg/dL (8-26) Creatinine 1.2 mg/dL (0.7-1.3) Estimated GFR (Cockcroft-Gault) 71.6 Glucose Level 68 mg/dL (70-99) Calcium Level 9.0 mg/dL (8.5-10.1) Glucose (Fingerstick) 76 mg/dL (70-99) 65 mg/dL (70-99) 93 mg/dL (70-99) Medications Active Scripts Medications Dose Route/Sig Max Daily Dose Days Date Category Klor-Con M20 (Potassium Chloride) 20 Meq Tab.er.prt 1 Tab PO DAILY 30 07/26/21 Rx Eliquis (Apixaban) 5 Mg Tablet 5 Mg PO BID 90 07/26/21 Rx Olanzapine 5 Mg Tablet 5 Mg PO BID 30 07/26/21 Rx Percocet 5-325 mg Tablet (Oxycodone HCl/Acetaminophen) 1 Each Tablet 1 Tab PO QIDPRN PRN MDD 4 Tablet(s) 5 07/26/21 Rx Entresto 24 mg-26 mg Tablet (Sacubitril/Valsartan) 1 Each Tablet 1 Tab PO BID 30 03/18/19 Rx Metoprolol Succinate ( Xl ) (Metoprolol Succinate) 25 Mg Tab.er.24h 25 Mg PO DAILY 30 03/18/19 Rx Duoneb 0.5-3(2.5) Mg/3 Ml (Albuterol/Ipratropium) 3 Ml Ampul.neb 3 Ml NEB RTQID 30 03/18/19 Rx Furosemide 40 Mg Tablet 40 Mg PO DAILY 03/15/19 Reported Simvastatin 20 Mg Tablet 20 Mg PO HS 03/27/16 Reported Aspir 81 (Aspirin) 81 Mg Tablet.dr 81 Mg PO DAILY 03/27/16 Reported Impression . 1. Acute encephalopathy. Contributed by hypercapnia. Treated with BiPAP. 2. Status post fall with no evidence of traumatic injury in the chest. There is a tiny left pleural effusion. This is not of much clinical significance. He may have a left periorbital hematoma and left posterior scalp hematoma. 3. History of tobaccoism and underlying chronic obstructive pulmonary disease. 4. History of obstructive sleep apnea/component of obesity hypoventilation syndrome. 5. Acute on chronic hypercapnic respiratory failure. Plan . RECOMMENDATIONS: 1. Discussed with RN. Patient is now DNR. Patient is considering home hospice 2. As needed sedatives. 3. Monitor him clinically. 4. Continue bronchodilators. 5. We will follow along with you. 6. We will see as needed. DENNISE ORDONEZ MD August 18, 2021 09:23
--- NOTE | 2021-08-18 09:38 | PDOC ---
[employer] PROGRESS NOTE Date of Service DOS: DATE: 08/18/21 TIME: 09:35 Chief Complaint Chief Complaint Fall - unprovoked, no memory of event. Will check orthostatic VS. No focal neuro deficits. PT eval Right leg pain - no fracture, will obtain arterial doppler for PVD assessment. no signs of compartment syndrome Left orbit bruising - local ICE. Monitor mental status, serial head CT Shortness of breath - likely with COPD and CHF exacerbation AFib - chronic. Hold eliquis for today, monitor mental status prior to restating CHF - systolic EF 25-30% historically Left pleural effusion - likely CHF related COPD - cont home nebs Diabetes - sliding scale Hyperlipidemia - statin Hypertension - cont home meds Benign tumor of the left eye CAMERON - CPAP at home CAD - s/p coronary artery bypass surgery History of Present Illness History of Present Illness 08/18: Afebrile, breathing on 5 L nasal cannula. A1c 6.1, with no significantly elevated blood sugars. We can stop regular sugar checks. Not much net fluid off yesterday, 250 mL. Continue with daily Lasix. Per discussion with daughter yesterday patient is now DNR. After discussion with daughter today, she is agreeable to [facility], as no one is at home to help care for him. Encouraged continued wearing of BiPAP as this did help with his confusion 2 days prior. Advance Care Planning: Total time spent [id number] with patient 16 minutes in discussion with goals of care, comfort care, end-of-life care, pain management, code status; patient names his daughter as surrogate decision-maker. 08/17: Patient seen and evaluated. Patient denies any shortness of breath on 5 L nasal cannula. Family at bedside notes inconsistent use of home O2, and states he would likely benefit from an oxygen concentrator; will discuss with social work program coordinator on Thursday. Blood glucose not significantly elevated; will check hemoglobin A1c and stop serial CBGs if he is not meet criteria for diabetes. ABG yesterday showed PCO2 69, he was placed on BiPAP. Currently on 4 L nasal cannula, baseline O2 requirement 3 L. Work with PT yesterday, recommending SNU. Continue bronchodilators. 08/16: Patient seen and evaluated. He is resting comfortably. BiPAP on, we will continue to diurese. All medications have been resumed. Discussed with RN. Vitals/I&O Vitals/I&O: Vital Signs Date Time Temp Pulse Resp B/P (MAP) Pulse Ox O2 Delivery O2 Flow Rate FiO2 08/18/21 08:08 87 105/55 08/18/21 08:00 Nasal Cannula 5.0 08/18/21 07:53 96 08/18/21 07:00 97.5 17 97.5 I & O 08/17/21 08/17/21 08/18/21 15:00 23:00 07:00 Intake Total 550 ml 120 ml Output Total 650 ml 0 ml Balance 550 ml -530 ml 0 ml Physical Exam General: Alert, Oriented X3, Cooperative, No acute distress Heart: Other (AFIB, distant heart sounds) Lungs: Clear Abdomen: Normal bowel sounds, Soft, No tenderness, No hepatosplenomegaly, No masses Extremities: No cyanosis, Other (2-3+ bilateral LE pitting pedal edema) Skin: Other Labs Labs: Laboratory Tests Test 08/17/21 11:27 08/17/21 16:52 08/17/21 21:17 08/18/21 04:00 Glucose (Fingerstick) 106 mg/dL (70-99) 88 mg/dL (70-99) 78 mg/dL (70-99) Sodium Level 142 mmol/L (136-145) Potassium Level 5.3 mmol/L (3.5-5.1) Chloride Level 106 mmol/L (98-107) Carbon Dioxide Level 32 mmol/L (21-32) Anion Gap 4 (6-14) Blood Urea Nitrogen 25 mg/dL (8-26) Creatinine 1.2 mg/dL (0.7-1.3) Estimated GFR (Cockcroft-Gault) 71.6 Glucose Level 68 mg/dL (70-99) Calcium Level 9.0 mg/dL (8.5-10.1) Test 08/18/21 06:35 08/18/21 07:35 08/18/21 08:23 Glucose (Fingerstick) 76 mg/dL (70-99) 65 mg/dL (70-99) 93 mg/dL (70-99) Assessment and Plan Assessmemt and Plan Problems Medical Problems: (1) Acute exacerbation of congestive heart failure Status: Acute (2) Fall Status: Acute (3) Pleural effusion, left Status: Acute Comment Review of Relevant I have reviewed the following items cynthia (where applicable) has been applied. Medications: Current Medications Medications (Trade) Dose Ordered Sig/Tobi Route PRN Reason Start Time Stop Time Status Last Admin Dose Admin Olanzapine (ZyPREXA) 5 mg BID PO 08/17/21 21:00 08/18/21 08:07 Justifications for Admission Other Justification THOMAS FORTE MD August 18, 2021 09:38
--- NOTE | 2021-08-18 17:54 | NUR ---
PATIENT MOVED TO ROOM 430. FAMILY ACCOMPANIED TO ROOM 430. SISTER CORNELIA HAS PATIENT'S CELL PHONE AND EYE GLASSES.
[2021-08-18 19:00] VITALS: BP 129/98
[2021-08-18] MEDS ORDERED: ZIPRASIDONE IM 20 MG VIAL. IM ONE (19:00)
--- NOTE | 2021-08-18 19:37 | PDOC ---
CARDIOLOGY PROGRESS NOTE SUBJECTIVE: No new events. Still confused. O: No new changes to exam. Obese male in no distress Bilateral rhonchi 1+ LE edema. Labs/meds reviewed. ASSESSMENT: 1. Fall of unclear etiology - probably multifactorial 2. 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 Acute on chronic resp failure with hypercapnia 4. Prior CAD and CABG 5. Chronic atrial fibrillation 6. Acute on chronic systolic HF PLAN: 1. Continue asa, statin, toprol XL and entresto. Continue lasix. 2. Plan for outpt right and left heart cath and addition of fred and jardiance in 1-2 weeks. 3. Will ultimately need an ICD after treatment with GDMT based on pt. wishes. OBJECTIVE: Vital Signs/I&O: Vital Signs Date Time Temp Pulse Resp B/P (MAP) Pulse Ox O2 Delivery O2 Flow Rate FiO2 08/18/21 15:00 97.5 85 17 92 Nasal Cannula 5.0 97.5 08/18/21 08:08 105/55 I & O0 08/17/21 08/17/21 08/18/21 14:59 22:59 06:59 Intake Total 550 ml 120 ml Output Total 650 ml 0 ml Balance 550 ml -530 ml 0 ml CURRENT MEDICATIONS: Current Medications Medications (Trade) Dose Ordered Sig/Tobi Route PRN Reason Start Time Stop Time Status Last Admin Dose Admin Alprazolam (Xanax) 0.25 mg PRN Q6HRS PRN PO ANXIETY / AGITATION 08/17/21 21:00 08/18/21 18:16 Olanzapine (ZyPREXA) 5 mg BID PO 08/17/21 21:00 08/18/21 08:07 DIAGNOSTIC TESTING: Labs: Laboratory Tests 08/18/21 04:00 Laboratory Tests Test 08/17/21 21:17 08/18/21 04:00 08/18/21 06:35 08/18/21 07:35 Glucose (Fingerstick) 78 mg/dL (70-99) 76 mg/dL (70-99) 65 mg/dL (70-99) L Sodium Level 142 mmol/L (136-145) Potassium Level 5.3 mmol/L (3.5-5.1) H Chloride Level 106 mmol/L (98-107) Carbon Dioxide Level 32 mmol/L (21-32) Anion Gap 4 (6-14) L Blood Urea Nitrogen 25 mg/dL (8-26) Creatinine 1.2 mg/dL (0.7-1.3) Estimated GFR (Cockcroft-Gault) 71.6 Glucose Level 68 mg/dL (70-99) L Calcium Level 9.0 mg/dL (8.5-10.1) Test 08/18/21 08:23 08/18/21 11:02 Glucose (Fingerstick) 93 mg/dL (70-99) 85 mg/dL (70-99) Justicifation of Admission Dx: Justifications for Admission: Justification of Admission Dx: Yes MARCELINA BLANCO MD August 18, 2021 19:37
[2021-08-18] MEDS: SIMVASTATIN 20 MG TABLET PO SCH (21:40)
[2021-08-18] MEDS: traMADol 50 MG TABLET PO PRN (21:42)
[2021-08-18 23:00] VITALS: BP 140/97
--- NOTE | 2021-08-18 23:10 | NUR ---
AFTER PATIENT TRANSFER TO [facility], PT CONTINUES TO BE CONFUSED, REMOVING NASAL CANNULA FREQUENTLY. PER RN PATIENT HAS FINALLY CALMED DOWN AND RN WANTS ME TO PLACE BIPAP ON HIM TO REDUCE CONFUSION. INFORMED RN THAT PATIENT HAS REFUSED BIPAP ADAMANTLY FOR SEVERAL DAYS NOW, HE ONLY WORE IF FOR ABOUT AN HOUR ORIGINALLY UPON ADMISSION. FOR THIS REASON, BIPAP WAS NOT BROUGHT TO HIS ROOM. I DO NOT WANT TO FORCE OR COERCE THIS PATIENT TO WEAR BIPAP SINCE HE IS NOW DNR. PATIENT DOES HAVE A HOME BIPAP, HE HAS TOLD ME IN THE PAST, DURING HIS LUCID MOMENTS THAT HE PREFERS HIS HOME MACHINE BECAUSE HE USES NASAL PILLOWS. HE FEELS THAT THE INTERFACE WE USE IN THE HOSPITAL IS TOO UNCOMFORTABLE FOR HIM TO TOLERATE.
[2021-08-19 07:00] VITALS: BP 106/42
[2021-08-19] MEDS: BUDESONIDE 0.5 MG/2 ML NEBU. NEB SCH ×2 (07:18→20:23)
[2021-08-19] MEDS: IPRATRPIUM/ALBUTEROL 0.5/2.5MG 3 ML NEBU. NEB SCH ×4 (07:18→20:24)
[2021-08-19] MEDS: INSULIN LISPRO 300 UNITS/3 ML VIAL. SQ SCH ×4 (07:30→21:00)
[2021-08-19] MEDS: ASPIRIN ENTERIC COATED 81 MG TABLET.DR. PO SCH (08:00)
[2021-08-19] MEDS: FUROSEMIDE 40 MG TABLET. PO SCH (09:00)
[2021-08-19] MEDS: SACUBITRIL/VALSARTAN 24/26MG TABLET. PO SCH ×2 (09:00→21:00)
[2021-08-19] MEDS: APIXABAN 5 MG TABLET. PO SCH ×2 (09:00→21:00)
[2021-08-19] MEDS: METOPROLOL SUCC 24HR ER 25 MG TAB.ER.24H. PO SCH (09:00)
[2021-08-19] MEDS: OLANZapine 5 MG TABLET PO SCH ×2 (09:00→21:00)
--- NOTE | 2021-08-19 09:53 | PDOC ---
GREGG SAM APRN 08/19/21 0953: CARDIO Progress Notes Date and Time Date of Service 08/19/21 Time of Evaluation 0945 Subjective Subjective: Other (somnolent ) Vitals Vitals Vital Signs Date Time Temp Pulse Resp B/P (MAP) Pulse Ox O2 Delivery O2 Flow Rate FiO2 08/19/21 07:19 98 Nasal Cannula 4.0 08/19/21 07:00 100 18 106/42 (63) 08/18/21 23:00 97.5 97.5 Weight Weight [ ] Input and Output Intake and Output Intake and Output 08/19/21 07:00 Intake Total 300 ml Output Total 0 ml Balance 300 ml Intake Oral 300 ml Output Urine Total 0 ml # Voids 6 Laboratory Labs Laboratory Tests Test 08/18/21 11:02 08/19/21 08:35 Glucose (Fingerstick) 85 mg/dL (70-99) 59 mg/dL (70-99) Physical Exam HEENT: Neck Supple W Full Motion Chest: Symmetric LUNGS: Other (diminished bases) Heart: irregularly irregular (heart tones irregular- not on tele ) Abdomen: Soft N/T Extremities: Other (1+ bilateral LE edema ) Neurology: other (sleeping ) Assessment Assessment 1. Traumatic mechanical fall; noted with left preorbital hematoma as well as a left posterior scalp hematoma. Etiology unclear. Not associated with syncope 2. Chronic AFIB: rate controlled 3. 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 Acute on chronic systolic CHF; s/p IV Lasix 5. CAD; s/p past CABG 6. Hyperlipidemia 7. Acute on chronic resp failure with hypercapnia, COPD- would not wear BiPAP 8. PAD: to RLE: duplex revealed monophasic waveforms at the right lower extremity, may indicate proximal stenosis. No critical limb ischemia 9. Encephalopathy; agitated- received Ativan Recommendations HF optimization Oral Lasix therapy- additional PRN Secondary prevention measures ASA, statin therapy Patient now DNR Considering Hospice Supportive care Justicifation of Admission Dx: Justifications for Admission: Justification of Admission Dx: Yes MARCELINA BLANCO MD 08/20/21 0857: CARDIO Progress Notes Plan Plan Late entry for 08/19/2021 Patient seen and examined. I agree with above nurse practitioner note Patient is more somnolent. No clear evidence of heart failure but suspect metabolic derangements GREGG SAM APRN August 19, 2021 09:53 MARCELINA BLANCO MD August 20, 2021 08:57
[2021-08-19 11:00] VITALS: BP 119/42
[2021-08-19] MEDS: IV DEXTROSE 5% 250 ML BAG. IV PRN ×2 (12:05→17:07)
--- NOTE | 2021-08-19 12:58 | NUR ---
GROANING AND RESTLESS. TAKING OFF O2 AND PULLING OFF GOWN. ATIVAN IV GIVEN. CONT. MONITOR.
--- NOTE | 2021-08-19 14:47 | PDOC ---
[employer] PROGRESS NOTE Date of Service DOS: DATE: 08/19/21 TIME: 14:32 Chief Complaint Chief Complaint Fall - unprovoked, no memory of event. Will check orthostatic VS. No focal neuro deficits. PT/OT Right leg pain - no fracture, will obtain arterial doppler for PVD assessment --> possible distal disease Left orbit bruising - local ICE. Monitor mental status, serial head CT Shortness of breath - likely with COPD and CHF exacerbation AFib -continue home Eliquis CHF - systolic EF 25-30% historically Left pleural effusion - likely CHF related COPD - cont home nebs Diabetes - sliding scale Hyperlipidemia - statin Hypertension - cont home meds Benign tumor of the left eye CAMERON - CPAP at home CAD - s/p coronary artery bypass surgery History of Present Illness History of Present Illness 08/19 Patient evaluated examined at bedside. Confused unable to follow any commands. Would not open eyes when evaluated. Easily agitated however as well. Will perform basic infectious work-up given change in clinical status. Patient also did not wear BiPAP last night and based on review looks like he will be confused days after he does not wear BiPAP. Family bringing home BiPAP to see if more comfortable. We will follow-up on work-up. Discussed with cardiology. 08/18: Afebrile, breathing on 5 L nasal cannula. A1c 6.1, with no significantly elevated blood sugars. We can stop regular sugar checks. Not much net fluid o ff yesterday, 250 mL. Continue with daily Lasix. Per discussion with daughter yesterday patient is now DNR. After discussion with daughter today, she is agreeable to [facility], as no one is at home to help care for him. Encouraged continued wearing of BiPAP as this did help with his confusion 2 days prior. Advance Care Planning: Total time spent [id number] with patient 16 minutes in discussion with goals of care, comfort care, end-of-life care, pain management, code status; patient names his daughter as surrogate decision-maker. 08/17: Patient seen and evaluated. Patient denies any shortness of breath on 5 L nasal cannula. Family at bedside notes inconsistent use of home O2, and states he would likely benefit from an oxygen concentrator; will discuss with social services assistant on Thursday. Blood glucose not significantly elevated; will check hemoglobin A1c and stop serial CBGs if he is not meet criteria for diabetes. ABG yesterday showed PCO2 69, he was placed on BiPAP. Currently on 4 L nasal cannula, baseline O2 requirement 3 L. Work with PT yesterday, recommending SNU. Continue bronchodilators. 08/16: Patient seen and evaluated. He is resting comfortably. BiPAP on, we will continue to diurese. All medications have been resumed. Discussed with RN. Vitals/I&O Vitals/I&O: Vital Signs Date Time Temp Pulse Resp B/P (MAP) Pulse Ox O2 Delivery O2 Flow Rate FiO2 08/19/21 11:18 98 Nasal Cannula 4.0 08/19/21 11:00 102 16 119/42 (67) 08/18/21 23:00 97.5 97.5 I & O 08/18/21 08/18/21 08/19/21 15:00 23:00 07:00 Intake Total 200 ml 100 ml Output Total 0 ml Balance 200 ml 100 ml Physical Exam General: Alert, Oriented X3, Cooperative, No acute distress Heart: Other (AFIB, distant heart sounds) Lungs: Clear Abdomen: Normal bowel sounds, Soft, No tenderness, No hepatosplenomegaly, No masses Extremities: No cyanosis, Other (2-3+ bilateral LE pitting pedal edema) Skin: Other Labs Labs: Laboratory Tests Test 08/19/21 08:35 08/19/21 11:43 Glucose (Fingerstick) 59 mg/dL (70-99) 57 mg/dL (70-99) Assessment and Plan Assessmemt and Plan Problems Medical Problems: (1) Acute exacerbation of congestive heart failure Status: Acute (2) Fall Status: Acute (3) Pleural effusion, left Status: Acute Comment Review of Relevant I have reviewed the following items cynthia (where applicable) has been applied. Medications: Current Medications Medications (Trade) Dose Ordered Sig/Tobi Route PRN Reason Start Time Stop Time Status Last Admin Dose Admin Ziprasidone (Geodon Im) 20 mg 1X ONCE IM 08/18/21 19:00 08/18/21 19:01 DC 08/18/21 19:42 Lorazepam (Ativan Inj) 1 mg PRN Q2HR PRN IVP ANXIETY / AGITATION 08/19/21 00:30 08/19/21 12:53 Justifications for Admission Other Justification LILIYA OLIVA MD August 19, 2021 14:47
[2021-08-19 15:00] VITALS: BP 120/51
[2021-08-19 15:06] LABS: BASO % 1 % (0-3); EOS # 0.1 x10^3/uL (0.0-0.7); EOS % 1 % (0-3); HEMATOCRIT 42.4 % (39.0-53.0); HEMOGLOBIN 13.4 g/dL (13.0-17.5); LYMPH # 0.5 x10^3/uL (1.0-4.8); LYMPH % 7 % (24-48); MEAN CORPUSCULAR HEMOGLOBIN 28 pg (25-35); MEAN CORPUSCULAR HGB CONC 32 g/dL (31-37); MEAN CORPUSCULAR VOLUME 90 fL (79-100); MONO # 0.5 x10^3/uL (0.0-1.1); MONO % 7 % (0-9); NEUT # 6.1 x10^3/uL (1.8-7.7); NEUT % 84 % (31-73); PLATELET COUNT 100 x10^3/uL (140-400); RED BLOOD COUNT 4.72 x10^6/uL (4.30-5.70); RED CELL DISTRIBUTION WIDTH 17.3 % (11.5-14.5); WHITE BLOOD COUNT 7.3 x10^3/uL (4.0-11.0)
[2021-08-19 15:13] LABS: BASE EXCESS ABG 2 mmol/L (-3-3); HCO3 ABG 31 mmol/L (21-28); PCO2 ABG 68 mmHg (35-46); PO2 ABG 29 mmHg (65-108)
[2021-08-19 15:14] LABS: FIO2 ABG 36%/4LNC; SAT O2 ABG 46 % (92-99)
--- NOTE | 2021-08-19 15:51 | RAD ---
XR CHEST 1V INDICATION: sob, ams COMPARISON STUDY: 08/15/2021. FINDINGS: Lungs: Normal lung volume. Increasing central vascular indistinctness. Pleura: No pleural effusion or pneumothorax. Heart and Mediastinum: Stable cardiomediastinal silhouette and great vessels. Bones and Soft Tissues: Stable regional skeleton and soft tissues. IMPRESSION: Increasing central vascular indistinctness, which may reflect interstitial edema. Electronically signed by: Jonnie Orozco MD (08/19/2021 3:48 PM) [id number]
[2021-08-19 15:54] LABS: ALBUMIN 3.2 g/dL (3.4-5.0); ALBUMIN/GLOBULIN RATIO 0.7 (1.0-1.7); CALCIUM 9.1 mg/dL (8.5-10.1); GFR 88.4; POTASSIUM 5.6 mmol/L (3.5-5.1); TOTAL BILIRUBIN 1.2 mg/dL (0.2-1.0); TOTAL PROTEIN 7.8 g/dL (6.4-8.2)
[2021-08-19 19:00] VITALS: BP 130/54
--- NOTE | 2021-08-19 19:11 | NUR ---
Pt screaming out "Grandpa" then mumbling, and swing arms around. Ativan IV given. Attempted to orientate. Cont. monitor.
[2021-08-19] MEDS: SIMVASTATIN 20 MG TABLET PO SCH (21:00)
[2021-08-19 23:55] VITALS: BP 80/55
[2021-08-20] VITALS (17 sets, daily range): BP systolic 90–113; BP diastolic 47–66
[2021-08-20] MEDS: IV DEXTROSE 10% 1,000 ML IV SCH (05:56)
--- NOTE | 2021-08-20 06:15 | NUR ---
Patient transferred from [facility]. Patient BP stable upon arrival. RT placed patient on bipap. Ingram catheter was inserted. Blood sugar low at 62, amp of dextrose given. Received orders from Dr. Williamson for Dextrose 10% for continuous low blood sugars. Updated sisters Pramod [phone], they are appreciative of the update and agree with current plan of care. They would like to remain aggressive with care and respect patient's DNR.
[2021-08-20] MEDS: IPRATRPIUM/ALBUTEROL 0.5/2.5MG 3 ML NEBU. NEB SCH ×4 (07:11→20:37)
[2021-08-20] MEDS: BUDESONIDE 0.5 MG/2 ML NEBU. NEB SCH ×2 (07:11→20:37)
[2021-08-20] MEDS: INSULIN LISPRO 300 UNITS/3 ML VIAL. SQ SCH ×4 (07:30→21:00)
[2021-08-20] MEDS: ASPIRIN ENTERIC COATED 81 MG TABLET.DR. PO SCH (08:00)
[2021-08-20] MEDS: FUROSEMIDE 40 MG TABLET. PO SCH (09:00)
[2021-08-20] MEDS: SACUBITRIL/VALSARTAN 24/26MG TABLET. PO SCH ×2 (09:00→21:00)
[2021-08-20] MEDS: METOPROLOL SUCC 24HR ER 25 MG TAB.ER.24H. PO SCH (09:00)
--- NOTE | 2021-08-20 09:18 | PDOC ---
ANASTACIA PARR ELECTRON[employer] MECH[employer]IC 08/20/21 0918: CARDIO Progress Notes Date and Time Date of Service 08/20/2021 Time of Evaluation 0900 Subjective Subjective: Other (somnolent ) Vitals Vitals Vital Signs Date Time Temp Pulse Resp B/P (MAP) Pulse Ox O2 Delivery O2 Flow Rate FiO2 08/20/21 08:09 100 BiPAP/CPAP 08/20/21 06:00 81 23 104/57 (73) 08/20/21 04:30 98.0 98.0 08/20/21 03:00 3.0 Weight Weight [ ] Input and Output Intake and Output Intake and Output 08/20/21 07:00 Intake Total 0 ml Output Total 400 ml Balance -400 ml Intake Oral 0 ml Tube Feeding 0 ml Output Urine Total 400 ml # Voids 2 Laboratory Labs Laboratory Tests Test 08/19/21 11:43 08/19/21 14:55 08/19/21 15:10 08/19/21 16:57 Glucose (Fingerstick) 57 mg/dL (70-99) 56 mg/dL (70-99) White Blood Count 7.3 x10^3/uL (4.0-11.0) Red Blood Count 4.72 x10^6/uL (4.30-5.70) Hemoglobin 13.4 g/dL (13.0-17.5) Hematocrit 42.4 % (39.0-53.0) Mean Corpuscular Volume 90 fL (79-100) Mean Corpuscular Hemoglobin 28 pg (25-35) Mean Corpuscular Hemoglobin Concent 32 g/dL (31-37) Red Cell Distribution Width 17.3 % (11.5-14.5) Platelet Count 100 x10^3/uL (140-400) Neutrophils (%) (Auto) 84 % (31-73) Lymphocytes (%) (Auto) 7 % (24-48) Monocytes (%) (Auto) 7 % (0-9) Eosinophils (%) (Auto) 1 % (0-3) Basophils (%) (Auto) 1 % (0-3) Neutrophils # (Auto) 6.1 x10^3/uL (1.8-7.7) Lymphocytes # (Auto) 0.5 x10^3/uL (1.0-4.8) Monocytes # (Auto) 0.5 x10^3/uL (0.0-1.1) Eosinophils # (Auto) 0.1 x10^3/uL (0.0-0.7) Basophils # (Auto) 0.0 x10^3/uL (0.0-0.2) Sodium Level 141 mmol/L (136-145) Potassium Level 5.6 mmol/L (3.5-5.1) Chloride Level 104 mmol/L (98-107) Carbon Dioxide Level 32 mmol/L (21-32) Anion Gap 5 (6-14) Blood Urea Nitrogen 28 mg/dL (8-26) Creatinine 1.0 mg/dL (0.7-1.3) Estimated GFR (Cockcroft-Gault) 88.4 BUN/Creatinine Ratio 28 (6-20) Glucose Level 71 mg/dL (70-99) Lactic Acid Level 0.8 mmol/L (0.4-2.0) Calcium Level 9.1 mg/dL (8.5-10.1) Total Bilirubin 1.2 mg/dL (0.2-1.0) Aspartate Amino Transf (AST/SGOT) 17 U/L (15-37) Alanine Aminotransferase (ALT/SGPT) 8 U/L (16-63) Alkaline Phosphatase 80 U/L (46-116) Total Protein 7.8 g/dL (6.4-8.2) Albumin 3.2 g/dL (3.4-5.0) Albumin/Globulin Ratio 0.7 (1.0-1.7) O2 Saturation 46 % (92-99) Arterial Blood pH 7.28 (7.35-7.45) Arterial Blood pCO2 at Patient Temp 68 mmHg (35-46) Arterial Blood pO2 at Patient Temp 29 mmHg (65-108) Arterial Blood HCO3 31 mmol/L (21-28) Arterial Blood Base Excess 2 mmol/L (-3-3) FiO2 36%/4lnc Test 08/19/21 17:57 08/19/21 20:03 08/20/21 03:57 08/20/21 04:30 Glucose (Fingerstick) 73 mg/dL (70-99) 72 mg/dL (70-99) 62 mg/dL (70-99) 88 mg/dL (70-99) Test 08/20/21 05:24 08/20/21 06:10 Glucose (Fingerstick) 68 mg/dL (70-99) 94 mg/dL (70-99) Physical Exam HEENT: Neck Supple W Full Motion Chest: Symmetric LUNGS: Other (diminished bases) Heart: irregularly irregular (AFIB) Abdomen: Soft N/T Extremities: Other (1+ bilateral LE edema ) Neurology: other (restless, mittens in place) Assessment Assessment 1. Traumatic mechanical fall; noted with left preorbital hematoma as well as a left posterior scalp hematoma. Etiology unclear. Not associated with syncope 2. Chronic AFIB: rate controlled 3. 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 Acute on chronic systolic CHF 5. CAD; s/p past CABG 6. Hyperlipidemia 7. Acute on chronic resp failure with hypercapnia, COPD- BiPAP in place 8. PAD: to RLE: duplex revealed monophasic waveforms at the right lower extremity, may indicate proximal stenosis. No critical limb ischemia 9. Encephalopathy; restless 10. Gross hematuria: post murcia Recommendations HF optimization Lasix therapy Secondary prevention measures ASA, statin therapy. Dig IV PRN Patient now DNR, transitioning to hospice Stop eliquis for now Justicifation of Admission Dx: Justifications for Admission: Justification of Admission Dx: Yes MARCELINA BLANCO MD 08/20/21 1449: CARDIO Progress Notes Plan Plan The patient was seen and interviewed as well as examined at the bedside. The chart was reviewed. The case was discussed. Agree with the plan of care. ANASTACIA PARR APRN August 20, 2021 09:18 MARCELINA BLANCO MD August 20, 2021 14:49
[2021-08-20] MEDS ORDERED: FUROSEMIDE 20 MG/2 ML VIAL. IVP ONE (09:30)
[2021-08-20] MEDS: OLANZapine IM 10 MG VIAL. IM SCH (09:31)
--- NOTE | 2021-08-20 10:55 | PDOC ---
[employer] PROGRESS NOTE Date of Service DOS: DATE: 08/20/21 TIME: 10:52 Chief Complaint Chief Complaint Fall - unprovoked, no memory of event. Will check orthostatic VS. No focal neuro deficits. PT/OT Right leg pain - no fracture, will obtain arterial doppler for PVD assessment --> possible distal disease Left orbit bruising - local ICE. Monitor mental status, serial head CT Shortness of breath - likely with COPD and CHF exacerbation AFib -continue home Eliquis CHF - systolic EF 25-30% historically Left pleural effusion - likely CHF related COPD - cont home nebs Diabetes - sliding scale Hyperlipidemia - statin Hypertension - cont home meds Benign tumor of the left eye CAMERON - CPAP at home CAD - s/p coronary artery bypass surgery History of Present Illness History of Present Illness 08/20/2021 Patient seen and examined in the ICU He had to be transferred down last night due to worsening hypotension Currently on 10% dextrose drip Has mitts on for his safety Discussed with case management Discussed with RN We are hoping to get him to [place] with hospice later today if family agrees 08/19 Patient evaluated examined at bedside. Confused unable to follow any commands. Would not open eyes when evaluated. Easily agitated however as well. Will perform basic infectious work-up given change in clinical status. Patient also did not wear BiPAP last night and based on review looks like he will be confused days after he does not wear BiPAP. Family bringing home BiPAP to see if more comfortable. We will follow-up on work-up. Discussed with cardiology. 08/18: Afebrile, breathing on 5 L nasal cannula. A1c 6.1, with no significantly elevated blood sugars. We can stop regular sugar checks. Not much net fluid off yesterday, 250 mL. Continue with daily Lasix. Per discussion with daughter yesterday patient is now DNR. After discussion with daughter today, she is agreeable to [place] hospice, as no one is at home to help care for him. Encouraged continued wearing of BiPAP as this did help with his confusion 2 days prior. Advance Care Planning: Total time spent [id number] with patient 16 minutes in discussion with goals of care, comfort care, end-of-life care, pain management, code status; patient names his daughter as surrogate decision-maker. 08/17: Patient seen and evaluated. Patient denies any shortness of breath on 5 L nasal cannula. Family at bedside notes inconsistent use of home O2, and states he would likely benefit from an oxygen concentrator; will discuss with social sciences department chair on Thursday. Blood glucose not significantly elevated; will check hemoglobin A1c and stop serial CBGs if he is not meet criteria for diabetes. ABG yesterday showed PCO2 69, he was placed on BiPAP. Currently on 4 L nasal cannula, baseline O2 requirement 3 L. Work with PT yesterday, recommending SNU. Continue bronchodilators. 08/16: Patient seen and evaluated. He is resting comfortably. BiPAP on, we will continue to diurese. All medications have been resumed. Discussed with RN. Vitals/I&O Vitals/I&O: Vital Signs Date Time Temp Pulse Resp B/P (MAP) Pulse Ox O2 Delivery O2 Flow Rate FiO2 08/20/21 08:09 100 BiPAP/CPAP 08/20/21 06:00 81 23 104/57 (73) 08/20/21 04:30 98.0 98.0 08/20/21 03:00 3.0 I & O 08/19/21 08/19/21 08/20/21 15:00 23:00 07:00 Intake Total 0 ml 0 ml Output Total 400 ml Balance 0 ml 0 ml -400 ml Physical Exam General: No acute distress Heart: Other (AFIB, distant heart sounds) Lungs: Clear Abdomen: Normal bowel sounds, Soft, No tenderness, No hepatosplenomegaly, No masses Extremities: No cyanosis, Other (2-3+ bilateral LE pitting pedal edema) Skin: Other Labs Labs: Laboratory Tests Test 08/19/21 11:43 08/19/21 14:55 08/19/21 15:10 08/19/21 16:57 Glucose (Fingerstick) 57 mg/dL (70-99) 56 mg/dL (70-99) White Blood Count 7.3 x10^3/uL (4.0-11.0) Red Blood Count 4.72 x10^6/uL (4.30-5.70) Hemoglobin 13.4 g/dL (13.0-17.5) Hematocrit 42.4 % (39.0-53.0) Mean Corpuscular Volume 90 fL (79-100) Mean Corpuscular Hemoglobin 28 pg (25-35) Mean Corpuscular Hemoglobin Concent 32 g/dL (31-37) Red Cell Distribution Width 17.3 % (11.5-14.5) Platelet Count 100 x10^3/uL (140-400) Neutrophils (%) (Auto) 84 % (31-73) Lymphocytes (%) (Auto) 7 % (24-48) Monocytes (%) (Auto) 7 % (0-9) Eosinophils (%) (Auto) 1 % (0-3) Basophils (%) (Auto) 1 % (0-3) Neutrophils # (Auto) 6.1 x10^3/uL (1.8-7.7) Lymphocytes # (Auto) 0.5 x10^3/uL (1.0-4.8) Monocytes # (Auto) 0.5 x10^3/uL (0.0-1.1) Eosinophils # (Auto) 0.1 x10^3/uL (0.0-0.7) Basophils # (Auto) 0.0 x10^3/uL (0.0-0.2) Sodium Level 141 mmol/L (136-145) Potassium Level 5.6 mmol/L (3.5-5.1) Chloride Level 104 mmol/L (98-107) Carbon Dioxide Level 32 mmol/L (21-32) Anion Gap 5 (6-14) Blood Urea Nitrogen 28 mg/dL (8-26) Creatinine 1.0 mg/dL (0.7-1.3) Estimated GFR (Cockcroft-Gault) 88.4 BUN/Creatinine Ratio 28 (6-20) Glucose Level 71 mg/dL (70-99) Lactic Acid Level 0.8 mmol/L (0.4-2.0) Calcium Level 9.1 mg/dL (8.5-10.1) Total Bilirubin 1.2 mg/dL (0.2-1.0) Aspartate Amino Transf (AST/SGOT) 17 U/L (15-37) Alanine Aminotransferase (ALT/SGPT) 8 U/L (16-63) Alkaline Phosphatase 80 U/L (46-116) Total Protein 7.8 g/dL (6.4-8.2) Albumin 3.2 g/dL (3.4-5.0) Albumin/Globulin Ratio 0.7 (1.0-1.7) O2 Saturation 46 % (92-99) Arterial Blood pH 7.28 (7.35-7.45) Arterial Blood pCO2 at Patient Temp 68 mmHg (35-46) Arterial Blood pO2 at Patient Temp 29 mmHg (65-108) Arterial Blood HCO3 31 mmol/L (21-28) Arterial Blood Base Excess 2 mmol/L (-3-3) FiO2 36%/4lnc Test 08/19/21 17:57 08/19/21 20:03 08/20/21 03:57 08/20/21 04:30 Glucose (Fingerstick) 73 mg/dL (70-99) 72 mg/dL (70-99) 62 mg/dL (70-99) 88 mg/dL (70-99) Test 08/20/21 05:24 08/20/21 06:10 08/20/21 09:37 Glucose (Fingerstick) 68 mg/dL (70-99) 94 mg/dL (70-99) 72 mg/dL (70-99) Assessment and Plan Assessmemt and Plan Problems Medical Problems: (1) Acute exacerbation of congestive heart failure Status: Acute (2) Fall Status: Acute (3) Pleural effusion, left Status: Acu Respiratory failure Hypotension Failure to thrive A. fib CHF COPD Diabetes Hyperlipidemia Hypertension Benign tumor of the eye CAMERON CAD with history of bypass Plan We are hoping to get him back to [place] with hospice later today I will call the family and update them For now continue supportive care Prognosis appears terminal Comment Review of Relevant I have reviewed the following items cynthia (where applicable) has been applied. Medications: Current Medications Medications (Trade) Dose Ordered Sig/Tobi Route PRN Reason Start Time Stop Time Status Last Admin Dose Admin Dextrose 1,000 ml @ 50 mls/hr Q20H IV 08/20/21 06:00 08/20/21 05:56 Furosemide (Lasix) 20 mg 1X ONCE IVP 08/20/21 09:30 08/20/21 09:31 DC 08/20/21 09:30 Olanzapine (ZyPREXA IM) 10 mg DAILY IM 08/20/21 10:00 08/20/21 09:31 Justifications for Admission Other Justification ABIGAIL CHICAS III DO August 20, 2021 10:55
--- NOTE | 2021-08-20 11:09 | PDOC ---
PULMONARY PROGRESS NOTES DATE: 08/20/21 TIME: 11:09 Subjective Patient remains confused. Vitals Vital Signs Date Time Temp Pulse Resp B/P (MAP) Pulse Ox O2 Delivery O2 Flow Rate FiO2 08/20/21 08:09 100 BiPAP/CPAP 08/20/21 06:00 81 23 104/57 (73) 08/20/21 04:30 98.0 98.0 08/20/21 03:00 3.0 General: No acute distress, Lethargic Lungs: Clear Cardiovascular: S1 Abdomen: Soft, Non-tender, Other Neuro Exam: Alert Extremities: Other (2+ edema and signs of venous stasis.) Labs Laboratory Tests Test 08/19/21 08:35 08/19/21 11:43 08/19/21 14:55 08/19/21 15:10 Glucose (Fingerstick) 59 mg/dL (70-99) 57 mg/dL (70-99) White Blood Count 7.3 x10^3/uL (4.0-11.0) Red Blood Count 4.72 x10^6/uL (4.30-5.70) Hemoglobin 13.4 g/dL (13.0-17.5) Hematocrit 42.4 % (39.0-53.0) Mean Corpuscular Volume 90 fL (79-100) Mean Corpuscular Hemoglobin 28 pg (25-35) Mean Corpuscular Hemoglobin Concent 32 g/dL (31-37) Red Cell Distribution Width 17.3 % (11.5-14.5) Platelet Count 100 x10^3/uL (140-400) Neutrophils (%) (Auto) 84 % (31-73) Lymphocytes (%) (Auto) 7 % (24-48) Monocytes (%) (Auto) 7 % (0-9) Eosinophils (%) (Auto) 1 % (0-3) Basophils (%) (Auto) 1 % (0-3) Neutrophils # (Auto) 6.1 x10^3/uL (1.8-7.7) Lymphocytes # (Auto) 0.5 x10^3/uL (1.0-4.8) Monocytes # (Auto) 0.5 x10^3/uL (0.0-1.1) Eosinophils # (Auto) 0.1 x10^3/uL (0.0-0.7) Basophils # (Auto) 0.0 x10^3/uL (0.0-0.2) Sodium Level 141 mmol/L (136-145) Potassium Level 5.6 mmol/L (3.5-5.1) Chloride Level 104 mmol/L (98-107) Carbon Dioxide Level 32 mmol/L (21-32) Anion Gap 5 (6-14) Blood Urea Nitrogen 28 mg/dL (8-26) Creatinine 1.0 mg/dL (0.7-1.3) Estimated GFR (Cockcroft-Gault) 88.4 BUN/Creatinine Ratio 28 (6-20) Glucose Level 71 mg/dL (70-99) Lactic Acid Level 0.8 mmol/L (0.4-2.0) Calcium Level 9.1 mg/dL (8.5-10.1) Total Bilirubin 1.2 mg/dL (0.2-1.0) Aspartate Amino Transf (AST/SGOT) 17 U/L (15-37) Alanine Aminotransferase (ALT/SGPT) 8 U/L (16-63) Alkaline Phosphatase 80 U/L (46-116) Total Protein 7.8 g/dL (6.4-8.2) Albumin 3.2 g/dL (3.4-5.0) Albumin/Globulin Ratio 0.7 (1.0-1.7) O2 Saturation 46 % (92-99) Arterial Blood pH 7.28 (7.35-7.45) Arterial Blood pCO2 at Patient Temp 68 mmHg (35-46) Arterial Blood pO2 at Patient Temp 29 mmHg (65-108) Arterial Blood HCO3 31 mmol/L (21-28) Arterial Blood Base Excess 2 mmol/L (-3-3) FiO2 36%/4lnc Test 08/19/21 16:57 08/19/21 17:57 08/19/21 20:03 08/20/21 03:57 Glucose (Fingerstick) 56 mg/dL (70-99) 73 mg/dL (70-99) 72 mg/dL (70-99) 62 mg/dL (70-99) Test 08/20/21 04:30 08/20/21 05:24 08/20/21 06:10 08/20/21 09:37 Glucose (Fingerstick) 88 mg/dL (70-99) 68 mg/dL (70-99) 94 mg/dL (70-99) 72 mg/dL (70-99) Laboratory Tests Test 08/19/21 11:43 08/19/21 14:55 08/19/21 15:10 08/19/21 16:57 Glucose (Fingerstick) 57 mg/dL (70-99) 56 mg/dL (70-99) White Blood Count 7.3 x10^3/uL (4.0-11.0) Red Blood Count 4.72 x10^6/uL (4.30-5.70) Hemoglobin 13.4 g/dL (13.0-17.5) Hematocrit 42.4 % (39.0-53.0) Mean Corpuscular Volume 90 fL (79-100) Mean Corpuscular Hemoglobin 28 pg (25-35) Mean Corpuscular Hemoglobin Concent 32 g/dL (31-37) Red Cell Distribution Width 17.3 % (11.5-14.5) Platelet Count 100 x10^3/uL (140-400) Neutrophils (%) (Auto) 84 % (31-73) Lymphocytes (%) (Auto) 7 % (24-48) Monocytes (%) (Auto) 7 % (0-9) Eosinophils (%) (Auto) 1 % (0-3) Basophils (%) (Auto) 1 % (0-3) Neutrophils # (Auto) 6.1 x10^3/uL (1.8-7.7) Lymphocytes # (Auto) 0.5 x10^3/uL (1.0-4.8) Monocytes # (Auto) 0.5 x10^3/uL (0.0-1.1) Eosinophils # (Auto) 0.1 x10^3/uL (0.0-0.7) Basophils # (Auto) 0.0 x10^3/uL (0.0-0.2) Sodium Level 141 mmol/L (136-145) Potassium Level 5.6 mmol/L (3.5-5.1) Chloride Level 104 mmol/L (98-107) Carbon Dioxide Level 32 mmol/L (21-32) Anion Gap 5 (6-14) Blood Urea Nitrogen 28 mg/dL (8-26) Creatinine 1.0 mg/dL (0.7-1.3) Estimated GFR (Cockcroft-Gault) 88.4 BUN/Creatinine Ratio 28 (6-20) Glucose Level 71 mg/dL (70-99) Lactic Acid Level 0.8 mmol/L (0.4-2.0) Calcium Level 9.1 mg/dL (8.5-10.1) Total Bilirubin 1.2 mg/dL (0.2-1.0) Aspartate Amino Transf (AST/SGOT) 17 U/L (15-37) Alanine Aminotransferase (ALT/SGPT) 8 U/L (16-63) Alkaline Phosphatase 80 U/L (46-116) Total Protein 7.8 g/dL (6.4-8.2) Albumin 3.2 g/dL (3.4-5.0) Albumin/Globulin Ratio 0.7 (1.0-1.7) O2 Saturation 46 % (92-99) Arterial Blood pH 7.28 (7.35-7.45) Arterial Blood pCO2 at Patient Temp 68 mmHg (35-46) Arterial Blood pO2 at Patient Temp 29 mmHg (65-108) Arterial Blood HCO3 31 mmol/L (21-28) Arterial Blood Base Excess 2 mmol/L (-3-3) FiO2 36%/4lnc Test 08/19/21 17:57 08/19/21 20:03 08/20/21 03:57 08/20/21 04:30 Glucose (Fingerstick) 73 mg/dL (70-99) 72 mg/dL (70-99) 62 mg/dL (70-99) 88 mg/dL (70-99) Test 08/20/21 05:24 08/20/21 06:10 08/20/21 09:37 Glucose (Fingerstick) 68 mg/dL (70-99) 94 mg/dL (70-99) 72 mg/dL (70-99) Medications Active Scripts Medications Dose Route/Sig Max Daily Dose Days Date Category Klor-Con M20 (Potassium Chloride) 20 Meq Tab.er.prt 1 Tab PO DAILY 30 07/26/21 Rx Eliquis (Apixaban) 5 Mg Tablet 5 Mg PO BID 90 07/26/21 Rx Olanzapine 5 Mg Tablet 5 Mg PO BID 30 07/26/21 Rx Percocet 5-325 mg Tablet (Oxycodone HCl/Acetaminophen) 1 Each Tablet 1 Tab PO QIDPRN PRN MDD 4 Tablet(s) 5 07/26/21 Rx Entresto 24 mg-26 mg Tablet (Sacubitril/Valsartan) 1 Each Tablet 1 Tab PO BID 30 03/18/19 Rx Metoprolol Succinate ( Xl ) (Metoprolol Succinate) 25 Mg Tab.er.24h 25 Mg PO DAILY 30 03/18/19 Rx Duoneb 0.5-3(2.5) Mg/3 Ml (Albuterol/Ipratropium) 3 Ml Ampul.neb 3 Ml NEB RTQID 30 03/18/19 Rx Furosemide 40 Mg Tablet 40 Mg PO DAILY 03/15/19 Reported Simvastatin 20 Mg Tablet 20 Mg PO HS 03/27/16 Reported Aspir 81 (Aspirin) 81 Mg Tablet.dr 81 Mg PO DAILY 03/27/16 Reported Impression . 1. Acute encephalopathy. Contributed by hypercapnia. Treated with BiPAP. 2. Status post fall with no evidence of traumatic injury in the chest. There is a tiny left pleural effusion. This is not of much clinical significance. He may have a left periorbital hematoma and left posterior scalp hematoma. 3. History of tobaccoism and underlying chronic obstructive pulmonary disease. 4. History of obstructive sleep apnea/component of obesity hypoventilation syndrome. 5. Acute on chronic hypercapnic respiratory failure. Plan . RECOMMENDATIONS: 1. Discussed with RN. Patient is now DNR. Patient is considering home hospice 2. As needed sedatives. 3. Monitor him clinically. 4. Continue bronchodilators. 5. We will follow along with you. 6. We will see as needed. SHANTANU SIMS MD August 20, 2021 11:09
--- NOTE | 2021-08-20 11:17 | PDOC ---
PULMONARY PROGRESS NOTES DATE: 08/20/21 TIME: 11:07 Subjective Patient remains confused. Vitals Vital Signs Date Time Temp Pulse Resp B/P (MAP) Pulse Ox O2 Delivery O2 Flow Rate FiO2 08/20/21 08:09 100 BiPAP/CPAP 08/20/21 06:00 81 23 104/57 (73) 08/20/21 04:30 98.0 98.0 08/20/21 03:00 3.0 General: No acute distress, Lethargic Lungs: Clear Cardiovascular: S1 Abdomen: Soft, Non-tender, Other Neuro Exam: Alert Extremities: Other (2+ edema and signs of venous stasis.) Labs Laboratory Tests Test 08/19/21 08:35 08/19/21 11:43 08/19/21 14:55 08/19/21 15:10 Glucose (Fingerstick) 59 mg/dL (70-99) 57 mg/dL (70-99) White Blood Count 7.3 x10^3/uL (4.0-11.0) Red Blood Count 4.72 x10^6/uL (4.30-5.70) Hemoglobin 13.4 g/dL (13.0-17.5) Hematocrit 42.4 % (39.0-53.0) Mean Corpuscular Volume 90 fL (79-100) Mean Corpuscular Hemoglobin 28 pg (25-35) Mean Corpuscular Hemoglobin Concent 32 g/dL (31-37) Red Cell Distribution Width 17.3 % (11.5-14.5) Platelet Count 100 x10^3/uL (140-400) Neutrophils (%) (Auto) 84 % (31-73) Lymphocytes (%) (Auto) 7 % (24-48) Monocytes (%) (Auto) 7 % (0-9) Eosinophils (%) (Auto) 1 % (0-3) Basophils (%) (Auto) 1 % (0-3) Neutrophils # (Auto) 6.1 x10^3/uL (1.8-7.7) Lymphocytes # (Auto) 0.5 x10^3/uL (1.0-4.8) Monocytes # (Auto) 0.5 x10^3/uL (0.0-1.1) Eosinophils # (Auto) 0.1 x10^3/uL (0.0-0.7) Basophils # (Auto) 0.0 x10^3/uL (0.0-0.2) Sodium Level 141 mmol/L (136-145) Potassium Level 5.6 mmol/L (3.5-5.1) Chloride Level 104 mmol/L (98-107) Carbon Dioxide Level 32 mmol/L (21-32) Anion Gap 5 (6-14) Blood Urea Nitrogen 28 mg/dL (8-26) Creatinine 1.0 mg/dL (0.7-1.3) Estimated GFR (Cockcroft-Gault) 88.4 BUN/Creatinine Ratio 28 (6-20) Glucose Level 71 mg/dL (70-99) Lactic Acid Level 0.8 mmol/L (0.4-2.0) Calcium Level 9.1 mg/dL (8.5-10.1) Total Bilirubin 1.2 mg/dL (0.2-1.0) Aspartate Amino Transf (AST/SGOT) 17 U/L (15-37) Alanine Aminotransferase (ALT/SGPT) 8 U/L (16-63) Alkaline Phosphatase 80 U/L (46-116) Total Protein 7.8 g/dL (6.4-8.2) Albumin 3.2 g/dL (3.4-5.0) Albumin/Globulin Ratio 0.7 (1.0-1.7) O2 Saturation 46 % (92-99) Arterial Blood pH 7.28 (7.35-7.45) Arterial Blood pCO2 at Patient Temp 68 mmHg (35-46) Arterial Blood pO2 at Patient Temp 29 mmHg (65-108) Arterial Blood HCO3 31 mmol/L (21-28) Arterial Blood Base Excess 2 mmol/L (-3-3) FiO2 36%/4lnc Test 08/19/21 16:57 08/19/21 17:57 08/19/21 20:03 08/20/21 03:57 Glucose (Fingerstick) 56 mg/dL (70-99) 73 mg/dL (70-99) 72 mg/dL (70-99) 62 mg/dL (70-99) Test 08/20/21 04:30 08/20/21 05:24 08/20/21 06:10 08/20/21 09:37 Glucose (Fingerstick) 88 mg/dL (70-99) 68 mg/dL (70-99) 94 mg/dL (70-99) 72 mg/dL (70-99) Laboratory Tests Test 08/19/21 11:43 08/19/21 14:55 08/19/21 15:10 08/19/21 16:57 Glucose (Fingerstick) 57 mg/dL (70-99) 56 mg/dL (70-99) White Blood Count 7.3 x10^3/uL (4.0-11.0) Red Blood Count 4.72 x10^6/uL (4.30-5.70) Hemoglobin 13.4 g/dL (13.0-17.5) Hematocrit 42.4 % (39.0-53.0) Mean Corpuscular Volume 90 fL (79-100) Mean Corpuscular Hemoglobin 28 pg (25-35) Mean Corpuscular Hemoglobin Concent 32 g/dL (31-37) Red Cell Distribution Width 17.3 % (11.5-14.5) Platelet Count 100 x10^3/uL (140-400) Neutrophils (%) (Auto) 84 % (31-73) Lymphocytes (%) (Auto) 7 % (24-48) Monocytes (%) (Auto) 7 % (0-9) Eosinophils (%) (Auto) 1 % (0-3) Basophils (%) (Auto) 1 % (0-3) Neutrophils # (Auto) 6.1 x10^3/uL (1.8-7.7) Lymphocytes # (Auto) 0.5 x10^3/uL (1.0-4.8) Monocytes # (Auto) 0.5 x10^3/uL (0.0-1.1) Eosinophils # (Auto) 0.1 x10^3/uL (0.0-0.7) Basophils # (Auto) 0.0 x10^3/uL (0.0-0.2) Sodium Level 141 mmol/L (136-145) Potassium Level 5.6 mmol/L (3.5-5.1) Chloride Level 104 mmol/L (98-107) Carbon Dioxide Level 32 mmol/L (21-32) Anion Gap 5 (6-14) Blood Urea Nitrogen 28 mg/dL (8-26) Creatinine 1.0 mg/dL (0.7-1.3) Estimated GFR (Cockcroft-Gault) 88.4 BUN/Creatinine Ratio 28 (6-20) Glucose Level 71 mg/dL (70-99) Lactic Acid Level 0.8 mmol/L (0.4-2.0) Calcium Level 9.1 mg/dL (8.5-10.1) Total Bilirubin 1.2 mg/dL (0.2-1.0) Aspartate Amino Transf (AST/SGOT) 17 U/L (15-37) Alanine Aminotransferase (ALT/SGPT) 8 U/L (16-63) Alkaline Phosphatase 80 U/L (46-116) Total Protein 7.8 g/dL (6.4-8.2) Albumin 3.2 g/dL (3.4-5.0) Albumin/Globulin Ratio 0.7 (1.0-1.7) O2 Saturation 46 % (92-99) Arterial Blood pH 7.28 (7.35-7.45) Arterial Blood pCO2 at Patient Temp 68 mmHg (35-46) Arterial Blood pO2 at Patient Temp 29 mmHg (65-108) Arterial Blood HCO3 31 mmol/L (21-28) Arterial Blood Base Excess 2 mmol/L (-3-3) FiO2 36%/4lnc Test 08/19/21 17:57 08/19/21 20:03 08/20/21 03:57 08/20/21 04:30 Glucose (Fingerstick) 73 mg/dL (70-99) 72 mg/dL (70-99) 62 mg/dL (70-99) 88 mg/dL (70-99) Test 08/20/21 05:24 08/20/21 06:10 08/20/21 09:37 Glucose (Fingerstick) 68 mg/dL (70-99) 94 mg/dL (70-99) 72 mg/dL (70-99) Medications Active Scripts Medications Dose Route/Sig Max Daily Dose Days Date Category Klor-Con M20 (Potassium Chloride) 20 Meq Tab.er.prt 1 Tab PO DAILY 30 07/26/21 Rx Eliquis (Apixaban) 5 Mg Tablet 5 Mg PO BID 90 07/26/21 Rx Olanzapine 5 Mg Tablet 5 Mg PO BID 30 07/26/21 Rx Percocet 5-325 mg Tablet (Oxycodone HCl/Acetaminophen) 1 Each Tablet 1 Tab PO QIDPRN PRN MDD 4 Tablet(s) 5 07/26/21 Rx Entresto 24 mg-26 mg Tablet (Sacubitril/Valsartan) 1 Each Tablet 1 Tab PO BID 30 03/18/19 Rx Metoprolol Succinate ( Xl ) (Metoprolol Succinate) 25 Mg Tab.er.24h 25 Mg PO DAILY 30 03/18/19 Rx Duoneb 0.5-3(2.5) Mg/3 Ml (Albuterol/Ipratropium) 3 Ml Ampul.neb 3 Ml NEB RTQID 30 03/18/19 Rx Furosemide 40 Mg Tablet 40 Mg PO DAILY 03/15/19 Reported Simvastatin 20 Mg Tablet 20 Mg PO HS 03/27/16 Reported Aspir 81 (Aspirin) 81 Mg Tablet. 81 Mg PO DAILY 03/27/16 Reported Impression . 1. Acute encephalopathy. Multifactorial 2. Status post fall with no evidence of traumatic injury in the chest. There is a tiny left pleural effusion. This is not of much clinical significance. He may have a left periorbital hematoma and left posterior scalp hematoma. 3. History of tobaccoism and underlying chronic obstructive pulmonary disease. 4. History of obstructive sleep apnea/component of obesity hypoventilation syndrome. 5. Acute on chronic hypercapnic respiratory failure. 6. Hypotension, suspect hypovolemia, 7. Chronic A. fib 8. Ischemic cardiomyopathy ejection fraction 30 to 35% 9. Acute on chronic systolic heart failure Plan . Patient continues to pull on tubes and wires, requiring mittens patient transferred to ICU as result of low blood pressure Given some IV fluids, never required pressors Dr. Bullard to discuss with family, possible transition to hospice, palliative care Prognosis is poor, continue current BiPAP settings Patient DNR Total critical care time of 30 minutes RECOMMENDATIONS: 1. Discussed with RN. Patient is now DNR. Patient is considering home hospice 2. As needed sedatives. 3. Monitor him clinically. 4. Continue bronchodilators. 5. We will follow along with you. 6. We will see as needed. SHANTANU SIMS MD August 20, 2021 11:17
[2021-08-20] MEDS ORDERED: ALPR0.254 PO (11:21)
[2021-08-20] MEDS ORDERED: ONDA4TAB12 PO (11:21)
--- NOTE | 2021-08-20 11:22 | SNU/HH DC ---
DISCHARGE ORDERS DISCHARGE INFORMATION: FINAL DIAGNOSIS Problems Medical Problems: (1) Acute exacerbation of congestive heart failure Status: Acute (2) Fall Status: Acute (3) Pleural effusion, left Status: Acute CONDITION ON DISCHARGE: Stable CODE STATUS: Code Status: DNR/DNI LONG-TERM: SNF STAY <30 DAYS: No HOSPICE: HOSPICE: Yes HOSPICE EVAL & TREAT: Yes LTAC: ADMIT TO LTAC: No POST DISCHARGE ORDERS: ACTIVITY ORDERS: No restrictions WEIGHT BEARING STATUS: No restrictions, As tolerated DIET AFTER DISCHARGE: Cardiac WOUND/INCISION CARE: No wound care needed CHECKS AFTER DISCHARGE: CHECKS AFTER DISCHARGE: Check blood press - daily, Check your Temp as needed, Weigh Yourself Daily TREATMENT/EQUIPMENT ORDERS: ADAPTIVE EQUIPMENT NEEDED: None RESPIRATORY EQUIPMENT NEEDED: Oxygen DISCHARGE MEDICATIONS: Home Meds Active Scripts Ondansetron (ONDANSETRON ODT) 4 Mg Tab.rapdis, 4 MG PO PRN Q4HRS PRN for NAUSEA for 10 Days, #20 TAB Prov:CASTLE,NIAL K III DO 08/20/21 Alprazolam (ALPRAZOLAM) 0.25 Mg Tablet, 0.25 MG PO PRN Q6HRS PRN for ANXIETY / AGITATION for 14 Days, #20 TAB Prov:CASTLE,NIAL K III DO 08/20/21 Potassium Chloride (KLOR-CON M20) 20 Meq Tab.er.prt, 1 TAB PO DAILY for . for 30 Days, #30 TAB 0 Refills Prov:CASTLE,NIAL K III DO 07/26/21 Apixaban (ELIQUIS) 5 Mg Tablet, 5 MG PO BID for . for 90 Days, #180 TAB Prov:CASTLE,NIAL K III DO 07/26/21 Olanzapine (OLANZAPINE) 5 Mg Tablet, 5 MG PO BID for . for 30 Days, #60 TAB Prov:CASTLE,NIAL K III DO 07/26/21 Oxycodone HCl/Acetaminophen (Percocet 5-325 mg Tablet) 1 Each Tablet, 1 TAB PO QIDPRN PRN for . MDD 4 Tablet(s) for 5 Days, #20 TAB 0 Refills Prov:CASTLE,NIAL K III DO 07/26/21 Sacubitril/Valsartan (Entresto 24 mg-26 mg Tablet) 1 Each Tablet, 1 TAB PO BID for CHF EF 30% for 30 Days, #60 TAB 2 Refills Prov:LILIYA SANCHES MD 03/18/19 Metoprolol Succinate (METOPROLOL SUCCINATE ( XL )) 25 Mg Tab.er.24h, 25 MG PO DAILY for CHF EF 30% for 30 Days, #30 TAB.SR 2 Refills Prov:LILIYA SANCHES MD 03/18/19 Ipratropium/Albuterol Sulfate (DUONEB 0.5-3(2.5) MG/3 ML) 3 Ml Ampul.neb, 3 ML NEB RTQID for COPD for 30 Days, #120 EACH 2 Refills Prov:LILIYA SANCHES MD 03/18/19 Reported Medications Furosemide (FUROSEMIDE) 40 Mg Tablet, 40 MG PO DAILY for diuresis, TAB 03/15/19 Simvastatin (SIMVASTATIN) 20 Mg Tablet, 20 MG PO HS for FOR CHOLESTEROL, #30 TAB 0 Refills 03/27/16 Aspirin (ASPIR 81) 81 Mg Tablet., 81 MG PO DAILY, TAB 03/27/16 ABIGAIL CHICAS III DO August 20, 2021 11:22
[2021-08-20] MEDS ORDERED: HALOPERIDOL LACTATE 5 MG/ML VIAL. IVP PRN (12:45)
[2021-08-20] MEDS: MORPHINE SULFATE 2 MG/ML INJ. IVP PRN ×4 (14:40→23:30)
--- NOTE | 2021-08-20 14:41 | NUR ---
SS following up with discharge planning. SS reviewed pt chart and discussed with program services planner, Bhavya. Pt is skilled resident from [facility], ; fax [phone]. Pt DNR. Pt's family wanting hospice services through [facility], ; fax [phone]. Bhavya sent referrals yesterday. Lien unwilling to accept back without second payor source. Maddy from [facility] met with family in the ICU waiting room and provided information on hospice. Pt's family unable to private pay for room and board at facility. Pt's family provided with information on Medicaid and [employer] portal. Pt's family working to complete Medicaid application online for potential Medicaid pending placement. Pt's family considering assessment for GIP but have no decided at this time. Per RN returns supervisor, Marcelle, pt's family declining BIPAP and pt now on nasal canula oxygen. SS will continue to follow for discharge planning.
[2021-08-20] MEDS ORDERED: MINERAL OIL/PETROLATUM,WHITE OPHTH OINT 3.5GM TUBE. OU PRN (14:45)
[2021-08-20] MEDS: ZIPRASIDONE IM 20 MG VIAL. IM PRN ×2 (15:53→23:47)
--- NOTE | 2021-08-20 19:35 | NUR ---
PATIENT TRANSFERRED FROM ICU. PATIENT SETTLED IN ROOM, VS STABLE. ORDERS CONTINUED, PT MADE COMFORTABLE. PT ON 4L NC. PATIENT CALM AND COOPERATIVE AT THIS TIME. WILL CONTINUE TO ASSESS AND MAKE COMFORTABLE SHIFT CONTINUES.
[2021-08-20] MEDS: SIMVASTATIN 20 MG TABLET PO SCH (21:00)
[2021-08-21 03:00] VITALS: BP 100/57
[2021-08-21] MEDS: IV DEXTROSE 10% 1,000 ML IV SCH ×2 (03:05→23:03)
[2021-08-21] MEDS: IPRATRPIUM/ALBUTEROL 0.5/2.5MG 3 ML NEBU. NEB SCH ×4 (07:04→20:39)
[2021-08-21] MEDS: INSULIN LISPRO 300 UNITS/3 ML VIAL. SQ SCH ×4 (07:30→21:00)
[2021-08-21] MEDS: BUDESONIDE 0.5 MG/2 ML NEBU. NEB SCH ×2 (07:39→20:39)
[2021-08-21 07:45] VITALS: BP 107/60
[2021-08-21] MEDS: ASPIRIN ENTERIC COATED 81 MG TABLET.DR. PO SCH (08:00)
[2021-08-21] MEDS: SACUBITRIL/VALSARTAN 24/26MG TABLET. PO SCH ×2 (08:27→21:00)
--- NOTE | 2021-08-21 08:27 | PDOC ---
[employer] PROGRESS NOTE Date of Service DOS: DATE: 08/21/21 TIME: 08:25 Chief Complaint Chief Complaint Respiratory failure Hypotension Failure to thrive A. fib CHF COPD Diabetes Hyperlipidemia Hypertension Benign tumor of the eye CAMERON CAD with history of bypass History of Present Illness History of Present Illness 08/21/2021 Patient seen and examined He has O2 per nasal cannula Mitts on for patient safety Has Ingram to bedside drainage Getting IV dextrose 10% at 50 cc an hour Discussed with RN I am hoping to discharge to [facility] with hospice perhaps today? 08/20/2021 Patient seen and examined in the ICU He had to be transferred down last night due to worsening hypotension Currently on 10% dextrose drip Has mitts on for his safety Discussed with case management Discussed with RN We are hoping to get him to [facility] with hospice later today if family agrees 08/19 Patient evaluated examined at bedside. Confused unable to follow any commands. Would not open eyes when evaluated. Easily agitated however as well. Will perform basic infectious work-up given change in clinical status. Patient also did not wear BiPAP last night and based on review looks like he will be confused days after he does not wear BiPAP. Family bringing home BiPAP to see if more comfortable. We will follow-up on work-up. Discussed with cardiology. 08/18: Afebrile, breathing on 5 L nasal cannula. A1c 6.1, with no significantly elevated blood sugars. We can stop regular sugar checks. Not much net fluid off yesterday, 250 mL. Continue with daily Lasix. Per discussion with daughter yesterday patient is now DNR. After discussion with daughter today, she is agreeable to [facility] hospice, as no one is at home to help care for him. Encouraged continued wearing of BiPAP as this did help with his confusion 2 days prior. Advance Care Planning: Total time spent [id number] with patient 16 minutes in discussion with goals of care, comfort care, end-of-life care, pain management, code status; patient names his daughter as surrogate decision-maker. 08/17: Patient seen and evaluated. Patient denies any shortness of breath on 5 L nasal cannula. Family at bedside notes inconsistent use of home O2, and states he would likely benefit from an oxygen concentrator; will discuss with psychiatric social worker supervisor on Thursday. Blood glucose not significantly elevated; will check hemoglobin A1c and stop serial CBGs if he is not meet criteria for diabetes. ABG yesterday showed PCO2 69, he was placed on BiPAP. Currently on 4 L nasal cannula, baseline O2 requirement 3 L. Work with PT yesterday, recommending SNU. Continue bronchodilators. 08/16: Patient seen and evaluated. He is resting comfortably. BiPAP on, we will continue to diurese. All medications have been resumed. Discussed with RN. Vitals/I&O Vitals/I&O: Vital Signs Date Time Temp Pulse Resp B/P (MAP) Pulse Ox O2 Delivery O2 Flow Rate FiO2 08/21/21 07:45 97.0 96 14 107/60 (76) 91 Nasal Cannula 4.0 97.0 I & O 08/20/21 08/20/21 08/21/21 15:00 23:00 07:00 Intake Total 594 ml 0 ml Output Total 1000 ml 100 ml Balance -406 ml -100 ml Physical Exam General: No acute distress Heart: Other (AFIB, distant heart sounds) Lungs: Clear Abdomen: Normal bowel sounds, Soft, No tenderness, No hepatosplenomegaly, No masses Extremities: No cyanosis, Other (2-3+ bilateral LE pitting pedal edema) Skin: Other Labs Labs: Laboratory Tests Test 08/20/21 09:37 08/20/21 17:29 08/20/21 21:24 08/21/21 03:09 Glucose (Fingerstick) 72 mg/dL (70-99) 98 mg/dL (70-99) 102 mg/dL (70-99) 112 mg/dL (70-99) Test 08/21/21 08:00 Glucose (Fingerstick) 113 mg/dL (70-99) Assessment and Plan Assessmemt and Plan Problems Medical Problems: (1) Acute exacerbation of congestive heart failure Status: Acute (2) Fall Status: Acute (3) Pleural effusion, left Status: Acute Respiratory failure Hypotension Failure to thrive A. 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 with hospice later today For now continue supportive care Prognosis appears terminal Appreciate pulmonary input Comment Review of Relevant I have reviewed the following items cynthia (where applicable) has been applied. Medications: Current Medications Medications (Trade) Dose Ordered Sig/Tobi Route PRN Reason Start Time Stop Time Status Last Admin Dose Admin Furosemide (Lasix) 20 mg 1X ONCE IVP 08/20/21 09:30 08/20/21 09:31 DC 08/20/21 09:30 Olanzapine (ZyPREXA IM) 10 mg DAILY IM 08/20/21 10:00 08/20/21 09:31 Haloperidol Lactate (Haldol Inj) 5 mg PRN Q6HRS PRN IVP AGITATION 08/20/21 12:45 08/20/21 12:36 Ziprasidone (Geodon Im) 20 mg PRN Q6HRS PRN IM ANXIETY / AGITATION 08/20/21 14:30 08/20/21 23:47 Morphine Sulfate (Morphine Sulfate) 2 mg PRN Q1HR PRN IVP PAIN 08/20/21 14:30 08/20/21 23:30 Multi-Ingred Cream/Lotion/Oil/ Oint (Artificial Tears Eye Ointment) 1 thony PRN Q1HR PRN OU DRY EYE 08/20/21 14:45 08/20/21 17:39 Justifications for Admission Other Justification ABIGAIL CHICAS III DO August 21, 2021 08:27
[2021-08-21] MEDS: METOPROLOL SUCC 24HR ER 25 MG TAB.ER.24H. PO SCH (08:28)
[2021-08-21] MEDS: FUROSEMIDE 40 MG TABLET. PO SCH (08:28)
[2021-08-21] MEDS: ZIPRASIDONE IM 20 MG VIAL. IM PRN ×3 (08:30→23:36)
--- NOTE | 2021-08-21 10:28 | PDOC ---
PULMONARY PROGRESS NOTES DATE: 08/21/21 TIME: 10:27 Subjective Patient remains confused. Vitals Vital Signs Date Time Temp Pulse Resp B/P (MAP) Pulse Ox O2 Delivery O2 Flow Rate FiO2 08/21/21 08:00 4.0 08/21/21 08:00 Nasal Cannula 08/21/21 07:45 97.0 96 14 107/60 (76) 91 97.0 General: No acute distress, Lethargic Lungs: Clear Cardiovascular: S1 Abdomen: Soft, Non-tender, Other Neuro Exam: Alert Extremities: Other (2+ edema and signs of venous stasis.) Labs Laboratory Tests Test 08/19/21 11:43 08/19/21 14:55 08/19/21 15:10 08/19/21 16:57 Glucose (Fingerstick) 57 mg/dL (70-99) 56 mg/dL (70-99) White Blood Count 7.3 x10^3/uL (4.0-11.0) Red Blood Count 4.72 x10^6/uL (4.30-5.70) Hemoglobin 13.4 g/dL (13.0-17.5) Hematocrit 42.4 % (39.0-53.0) Mean Corpuscular Volume 90 fL (79-100) Mean Corpuscular Hemoglobin 28 pg (25-35) Mean Corpuscular Hemoglobin Concent 32 g/dL (31-37) Red Cell Distribution Width 17.3 % (11.5-14.5) Platelet Count 100 x10^3/uL (140-400) Neutrophils (%) (Auto) 84 % (31-73) Lymphocytes (%) (Auto) 7 % (24-48) Monocytes (%) (Auto) 7 % (0-9) Eosinophils (%) (Auto) 1 % (0-3) Basophils (%) (Auto) 1 % (0-3) Neutrophils # (Auto) 6.1 x10^3/uL (1.8-7.7) Lymphocytes # (Auto) 0.5 x10^3/uL (1.0-4.8) Monocytes # (Auto) 0.5 x10^3/uL (0.0-1.1) Eosinophils # (Auto) 0.1 x10^3/uL (0.0-0.7) Basophils # (Auto) 0.0 x10^3/uL (0.0-0.2) Sodium Level 141 mmol/L (136-145) Potassium Level 5.6 mmol/L (3.5-5.1) Chloride Level 104 mmol/L (98-107) Carbon Dioxide Level 32 mmol/L (21-32) Anion Gap 5 (6-14) Blood Urea Nitrogen 28 mg/dL (8-26) Creatinine 1.0 mg/dL (0.7-1.3) Estimated GFR (Cockcroft-Gault) 88.4 BUN/Creatinine Ratio 28 (6-20) Glucose Level 71 mg/dL (70-99) Lactic Acid Level 0.8 mmol/L (0.4-2.0) Calcium Level 9.1 mg/dL (8.5-10.1) Total Bilirubin 1.2 mg/dL (0.2-1.0) Aspartate Amino Transf (AST/SGOT) 17 U/L (15-37) Alanine Aminotransferase (ALT/SGPT) 8 U/L (16-63) Alkaline Phosphatase 80 U/L (46-116) Total Protein 7.8 g/dL (6.4-8.2) Albumin 3.2 g/dL (3.4-5.0) Albumin/Globulin Ratio 0.7 (1.0-1.7) O2 Saturation 46 % (92-99) Arterial Blood pH 7.28 (7.35-7.45) Arterial Blood pCO2 at Patient Temp 68 mmHg (35-46) Arterial Blood pO2 at Patient Temp 29 mmHg (65-108) Arterial Blood HCO3 31 mmol/L (21-28) Arterial Blood Base Excess 2 mmol/L (-3-3) FiO2 36%/4lnc Test 08/19/21 17:57 08/19/21 20:03 08/20/21 03:57 08/20/21 04:30 Glucose (Fingerstick) 73 mg/dL (70-99) 72 mg/dL (70-99) 62 mg/dL (70-99) 88 mg/dL (70-99) Test 08/20/21 05:24 08/20/21 06:10 08/20/21 09:37 08/20/21 17:29 Glucose (Fingerstick) 68 mg/dL (70-99) 94 mg/dL (70-99) 72 mg/dL (70-99) 98 mg/dL (70-99) Test 08/20/21 21:24 08/21/21 03:09 08/21/21 08:00 Glucose (Fingerstick) 102 mg/dL (70-99) 112 mg/dL (70-99) 113 mg/dL (70-99) Laboratory Tests Test 08/20/21 17:29 08/20/21 21:24 08/21/21 03:09 08/21/21 08:00 Glucose (Fingerstick) 98 mg/dL (70-99) 102 mg/dL (70-99) 112 mg/dL (70-99) 113 mg/dL (70-99) Medications Active Scripts Medications Dose Route/Sig Max Daily Dose Days Date Category Klor-Con M20 (Potassium Chloride) 20 Meq Tab.er.prt 1 Tab PO DAILY 30 07/26/21 Rx Eliquis (Apixaban) 5 Mg Tablet 5 Mg PO BID 90 07/26/21 Rx Olanzapine 5 Mg Tablet 5 Mg PO BID 30 07/26/21 Rx Percocet 5-325 mg Tablet (Oxycodone HCl/Acetaminophen) 1 Each Tablet 1 Tab PO QIDPRN PRN MDD 4 Tablet(s) 07/26/21 Rx Entresto 24 mg-26 mg Tablet (Sacubitril/Valsartan) 1 Each Tablet 1 Tab PO BID 03/18/19 Rx Metoprolol Succinate ( Xl ) (Metoprolol Succinate) 25 Mg Tab.er.24h 25 Mg PO DAILY 30 03/18/19 Rx Duoneb 0.5-3(2.5) Mg/3 Ml (Albuterol/Ipratropium) 3 Ml Ampul.neb 3 Ml NEB RTQID 03/18/19 Rx Furosemide 40 Mg Tablet 40 Mg PO DAILY 03/15/19 Reported Simvastatin 20 Mg Tablet 20 Mg PO HS 03/27/16 Reported Aspir 81 (Aspirin) 81 Mg Tablet.dr 81 Mg PO DAILY 03/27/16 Reported Impression . 1. Acute encephalopathy. Multifactorial 2. Status post fall with no evidence of traumatic injury in the chest. There is a tiny left pleural effusion. This is not of much clinical significance. He may have a left periorbital hematoma and left posterior scalp hematoma. 3. History of tobaccoism and underlying chronic obstructive pulmonary disease. 4. History of obstructive sleep apnea/component of obesity hypoventilation syndrome. 5. Acute on chronic hypercapnic respiratory failure. 6. Hypotension, suspect hypovolemia, 7. Chronic A. fib 8. Ischemic cardiomyopathy ejection fraction 30 to 35% 9. Acute on chronic systolic heart failure Plan . Updated 08/21 patient continues to pull on tubes and wires, requiring mittens Receiving dextrose Currently on nasal cannula, as needed BiPAP Dr. Bullard to discuss with family, possible transition to hospice, palliative care Prognosis is poor, Patient DNR SHANTANU SIMS MD August 21, 2021 10:28
[2021-08-21 12:00] VITALS: BP 131/65
[2021-08-21] MEDS: OLANZapine IM 10 MG VIAL. IM SCH (12:23)
[2021-08-21] MEDS: MORPHINE SULFATE 2 MG/ML INJ. IVP PRN ×4 (12:32→23:14)
[2021-08-21 15:55] VITALS: BP 119/63
[2021-08-21 20:00] VITALS: BP 103/55
[2021-08-21] MEDS: SIMVASTATIN 20 MG TABLET PO SCH (21:00)
[2021-08-22] VITALS: BP 80/55
[2021-08-22] MEDS: MORPHINE SULFATE 2 MG/ML INJ. IVP PRN ×5 (03:11→20:44)
[2021-08-22 03:45] VITALS: BP 92/46
[2021-08-22 07:00] VITALS: BP 109/76
[2021-08-22] MEDS: BUDESONIDE 0.5 MG/2 ML NEBU. NEB SCH ×2 (07:19→20:21)
[2021-08-22] MEDS: IPRATRPIUM/ALBUTEROL 0.5/2.5MG 3 ML NEBU. NEB SCH ×4 (07:19→20:21)
[2021-08-22] MEDS: INSULIN LISPRO 300 UNITS/3 ML VIAL. SQ SCH ×4 (07:30→21:00)
[2021-08-22] MEDS: ASPIRIN ENTERIC COATED 81 MG TABLET.DR. PO SCH (07:51)
[2021-08-22] MEDS: SACUBITRIL/VALSARTAN 24/26MG TABLET. PO SCH ×2 (07:52→20:23)
[2021-08-22] MEDS: FUROSEMIDE 40 MG TABLET. PO SCH (07:53)
[2021-08-22] MEDS: METOPROLOL SUCC 24HR ER 25 MG TAB.ER.24H. PO SCH (07:53)
[2021-08-22] MEDS: OLANZapine IM 10 MG VIAL. IM SCH (08:15)
--- NOTE | 2021-08-22 09:55 | PDOC ---
[employer] PROGRESS NOTE Date of Service DOS: DATE: 08/22/21 TIME: 09:54 Chief Complaint Chief Complaint Respiratory failure Hypotension Failure to thrive A. fib CHF COPD Diabetes Hyperlipidemia Hypertension Benign tumor of the eye CAMERON CAD with history of bypass History of Present Illness History of Present Illness 08/22/2021 Patient seen and examined He is snoring will not wake up On O2 per nasal cannula at 4 L Mitts are on for his safety Has a Ingram bedside drainage Getting IV dextrose at 50 cc an hour I spoke with case management and the nurses I suspect we should move towards inpatient hospice 08/21/2021 Patient seen and examined He has O2 per nasal cannula Mitts on for patient safety Has Ingram to bedside drainage Getting IV dextrose 10% at 50 cc an hour Discussed with RN I am hoping to discharge to [place] with hospice perhaps today? 08/20/2021 Patient seen and examined in the ICU He had to be transferred down last night due to worsening hypotension Currently on 10% dextrose drip Has mitts on for his safety Discussed with case management Discussed with RN We are hoping to get him to [place] [facility] [place] with hospice later today if family agrees 08/19 Patient evaluated examined at bedside. Confused unable to follow any commands. Would not open eyes when evaluated. Easily agitated however as well. Will perform basic infectious work-up given change in clinical status. Patient also did not wear BiPAP last night and based on review looks like he will be confused days after he does not wear BiPAP. Family bringing home BiPAP to see if more comfortable. We will follow-up on work-up. Discussed with cardiology. 08/18: Afebrile, breathing on 5 L nasal cannula. A1c 6.1, with no significantly elevated blood sugars. We can stop regular sugar checks. Not much net fluid off yesterday, 250 mL. Continue with daily Lasix. Per discussion with daughter yesterday patient is now DNR. After discussion with daughter today, she is agreeable to [facility], as no one is at home to help care for him. Encouraged continued wearing of BiPAP as this did help with his confusion 2 days prior. Advance Care Planning: Total time spent [id number] with patient 16 minutes in discussion with goals of care, comfort care, end-of-life care, pain management, code status; patient names his daughter as surrogate decision-maker. 08/17: Patient seen and evaluated. Patient denies any shortness of breath on 5 L nasal cannula. Family at bedside notes inconsistent use of home O2, and states he would likely benefit from an oxygen concentrator; will discuss with social services analyst on Thursday. Blood glucose not significantly elevated; will check hemoglobin A1c and stop serial CBGs if he is not meet criteria for diabetes. ABG yesterday showed PCO2 69, he was placed on BiPAP. Currently on 4 L nasal cannula, baseline O2 requirement 3 L. Work with PT yesterday, recommending SNU. Continue bronchodilators. 08/16: Patient seen and evaluated. He is resting comfortably. BiPAP on, we will continue to diurese. All medications have been resumed. Discussed with RN. Vitals/I&O Vitals/I&O: Vital Signs Date Time Temp Pulse Resp B/P (MAP) Pulse Ox O2 Delivery O2 Flow Rate FiO2 08/22/21 08:43 16 96 Nasal Cannula 4.0 08/22/21 07:00 97.8 89 109/76 (87) 97.8 I & O 08/21/21 08/21/21 08/22/21 15:00 23:00 07:00 Output Total 0 ml 150 ml Balance 0 ml -150 ml Physical Exam General: No acute distress, Other (Snoring will wake up) Heart: Other (AFIB, distant heart sounds) Lungs: Clear Abdomen: Normal bowel sounds, Soft, No tenderness, No hepatosplenomegaly, No masses Extremities: No cyanosis, Other (2-3+ bilateral LE pitting pedal edema) Skin: Other Labs Labs: Laboratory Tests Test 08/21/21 12:03 08/21/21 16:58 08/21/21 19:36 08/22/21 07:39 Glucose (Fingerstick) 124 mg/dL (70-99) 107 mg/dL (70-99) 123 mg/dL (70-99) 114 mg/dL (70-99) Assessment and Plan Assessmemt and Plan Problems Medical Problems: (1) Acute exacerbation of congestive heart failure Status: Acute (2) Fall Status: Acute (3) Pleural effusion, left Status: Acute Respiratory failure Hypotension Failure to thrive A. fib CHF COPD Diabetes Hyperlipidemia Hypertension Benign tumor of the eye CAMERON CAD with history of bypass Plan We will go ahead and discharge to inpatient hospice if it can be arranged For now continue comfort care Prognosis appears terminal Appreciate pulmonary input Comment Review of Relevant I have reviewed the following items cynthia (where applicable) has been applied. Justifications for Admission Other Justification ABIGAIL CHICAS III DO August 22, 2021 09:55
--- NOTE | 2021-08-22 10:33 | PDOC ---
PULMONARY PROGRESS NOTES DATE: 08/22/21 TIME: 10:32 Subjective Patient remains confused. Less responsive today. Currently on morphine as needed. Vitals Vital Signs Date Time Temp Pulse Resp B/P (MAP) Pulse Ox O2 Delivery O2 Flow Rate FiO2 08/22/21 08:43 16 96 Nasal Cannula 4.0 08/22/21 07:00 97.8 89 109/76 (87) 97.8 General: No acute distress, Lethargic Lungs: Clear Cardiovascular: S1 Abdomen: Soft, Non-tender, Other Neuro Exam: Alert Extremities: Other (2+ edema and signs of venous stasis.) Labs Laboratory Tests Test 08/20/21 17:29 08/20/21 21:24 08/21/21 03:09 08/21/21 08:00 Glucose (Fingerstick) 98 mg/dL (70-99) 102 mg/dL (70-99) 112 mg/dL (70-99) 113 mg/dL (70-99) Test 08/21/21 12:03 08/21/21 16:58 08/21/21 19:36 08/22/21 07:39 Glucose (Fingerstick) 124 mg/dL (70-99) 107 mg/dL (70-99) 123 mg/dL (70-99) 114 mg/dL (70-99) Laboratory Tests Test 08/21/21 12:03 08/21/21 16:58 08/21/21 19:36 08/22/21 07:39 Glucose (Fingerstick) 124 mg/dL (70-99) 107 mg/dL (70-99) 123 mg/dL (70-99) 114 mg/dL (70-99) Medications Active Scripts Medications Dose Route/Sig Max Daily Dose Days Date Category Klor-Con M20 (Potassium Chloride) 20 Meq Tab.er.prt 1 Tab PO DAILY 30 07/26/21 Rx Eliquis (Apixaban) 5 Mg Tablet 5 Mg PO BID 90 07/26/21 Rx Olanzapine 5 Mg Tablet 5 Mg PO BID 30 07/26/21 Rx Percocet 5-325 mg Tablet (Oxycodone HCl/Acetaminophen) 1 Each Tablet 1 Tab PO QIDPRN PRN MDD 4 Tablet(s) 07/26/21 Rx Entresto 24 mg-26 mg Tablet (Sacubitril/Valsartan) 1 Each Tablet 1 Tab PO BID 30 03/18/19 Rx Metoprolol Succinate ( Xl ) (Metoprolol Succinate) 25 Mg Tab.er.24h 25 Mg PO DAILY 30 03/18/19 Rx Duoneb 0.5-3(2.5) Mg/3 Ml (Albuterol/Ipratropium) 3 Ml Ampul.neb 3 Ml NEB RTQID 30 03/18/19 Rx Furosemide 40 Mg Tablet 40 Mg PO DAILY 03/15/19 Reported Simvastatin 20 Mg Tablet 20 Mg PO HS 03/27/16 Reported Aspir 81 (Aspirin) 81 Mg Tablet.dr 81 Mg PO DAILY 03/27/16 Reported Impression . 1. Acute encephalopathy. Multifactorial 2. Status post fall with no evidence of traumatic injury in the chest. There is a tiny left pleural effusion. This is not of much clinical significance. He may have a left periorbital hematoma and left posterior scalp hematoma. 3. History of tobaccoism and underlying chronic obstructive pulmonary disease. 4. History of obstructive sleep apnea/component of obesity hypoventilation syndrome. 5. Acute on chronic hypercapnic respiratory failure. 6. Hypotension, suspect hypovolemia, 7. Chronic A. fib 8. Ischemic cardiomyopathy ejection fraction 30 to 35% 9. Acute on chronic systolic heart failure Plan . Patient is less responsive. Currently getting as needed morphine. Patient is now palliative care and will be transitioning to hospice care. Discussed with RN. Not much to add. We will sign off. DENNISE ORDONEZ MD August 22, 2021 10:33
[2021-08-22 11:00] VITALS: BP 112/64
--- NOTE | 2021-08-22 15:43 | NUR ---
Head to toe charted at 1543 was charted on incorrect pt.
[2021-08-22] MEDS: IV DEXTROSE 10% 1,000 ML IV SCH (18:08)
[2021-08-22 20:00] VITALS: BP 144/73
[2021-08-22] MEDS: SIMVASTATIN 20 MG TABLET PO SCH (20:23)
[2021-08-22 23:55] VITALS: BP 96/48
[2021-08-23 07:00] VITALS: BP 129/68
[2021-08-23] MEDS: MORPHINE SULFATE 2 MG/ML INJ. IVP PRN ×3 (07:18→18:07)
[2021-08-23] MEDS: IPRATRPIUM/ALBUTEROL 0.5/2.5MG 3 ML NEBU. NEB SCH ×4 (07:29→20:00)
[2021-08-23] MEDS: BUDESONIDE 0.5 MG/2 ML NEBU. NEB SCH ×2 (07:29→20:00)
[2021-08-23] MEDS: INSULIN LISPRO 300 UNITS/3 ML VIAL. SQ SCH ×4 (07:30→21:00)
[2021-08-23] MEDS: ASPIRIN ENTERIC COATED 81 MG TABLET.DR. PO SCH (08:00)
[2021-08-23] MEDS: FUROSEMIDE 40 MG TABLET. PO SCH (08:05)
[2021-08-23] MEDS: METOPROLOL SUCC 24HR ER 25 MG TAB.ER.24H. PO SCH (08:05)
[2021-08-23] MEDS: SACUBITRIL/VALSARTAN 24/26MG TABLET. PO SCH ×2 (08:05→21:00)
[2021-08-23] MEDS: OLANZapine IM 10 MG VIAL. IM SCH (09:16)
--- NOTE | 2021-08-23 10:48 | PDOC ---
[employer] PROGRESS NOTE Date of Service DOS: DATE: 08/23/21 TIME: 10:46 Chief Complaint Chief Complaint Respiratory failure Hypotension Failure to thrive A. fib CHF COPD Diabetes Hyperlipidemia Hypertension Benign tumor of the eye CAMERON CAD with history of bypass History of Present Illness History of Present Illness 08/23/2021 Patient seen and examined Discussed with RN Chart reviewed He is still unresponsive Has mitts on for his safety Has O2 per nasal cannula at 4 L We are hoping to get him to long-term care with hospice but for now we are doing comfort meds/care 08/22/2021 Patient seen and examined He is snoring will not wake up On O2 per nasal cannula at 4 L Mitts are on for his safety Has a Ingram bedside drainage Getting IV dextrose at 50 cc an hour I spoke with case management and the nurses I suspect we should move towards inpatient hospice 08/21/2021 Patient seen and examined He has O2 per nasal cannula Mitts on for patient safety Has Ingram to bedside drainage Getting IV dextrose 10% at 50 cc an hour Discussed with RN I am hoping to discharge to [facility] with hospice perhaps today? 08/20/2021 Patient seen and examined in the ICU He had to be transferred down last night due to worsening hypotension Currently on 10% dextrose drip Has mitts on for his safety Discussed with case management Discussed with RN We are hoping to get him to [facility] with hospice later today if family agrees 08/19 Patient evaluated examined at bedside. Confused unable to follow any commands. Would not open eyes when evaluated. Easily agitated however as well. Will perform basic infectious work-up given change in clinical status. Patient also did not wear BiPAP last night and based on review looks like he will be confused days after he does not wear BiPAP. Family bringing home BiPAP to see if more comfortable. We will follow-up on work-up. Discussed with cardiology. 08/18: Afebrile, breathing on 5 L nasal cannula. A1c 6.1, with no significantly elevated blood sugars. We can stop regular sugar checks. Not much net fluid off yesterday, 250 mL. Continue with daily Lasix. Per discussion with daughter yesterday patient is now DNR. After discussion with daughter today, she is agreeable to [facility] hospice, as no one is at home to help care for him. Encouraged continued wearing of BiPAP as this did help with his confusion 2 days prior. Advance Care Planning: Total time spent [id number] with patient 16 minutes in discussion with goals of care, comfort care, end-of-life care, pain management, code status; patient names his daughter as surrogate decision-maker. 08/17: Patient seen and evaluated. Patient denies any shortness of breath on 5 L nasal cannula. Family at bedside notes inconsistent use of home O2, and states he would likely benefit from an oxygen concentrator; will discuss with social and human services assistant on Thursday. Blood glucose not significantly elevated; will check hemoglobin A1c and stop serial CBGs if he is not meet criteria for diabetes. ABG yesterday showed PCO2 69, he was placed on BiPAP. Currently on 4 L nasal cannula, baseline O2 requirement 3 L. Work with PT yesterday, recommending SNU. Continue bronchodilators. 08/16: Patient seen and evaluated. He is resting comfortably. BiPAP on, we will continue to diurese. All medications have been resumed. Discussed with RN. Vitals/I&O Vitals/I&O: Vital Signs Date Time Temp Pulse Resp B/P (MAP) Pulse Ox O2 Delivery O2 Flow Rate FiO2 08/23/21 07:33 96 Nasal Cannula 4.0 08/23/21 07:00 98.1 97 20 129/68 (88) 98.1 I & O 08/22/21 08/22/21 08/23/21 15:00 23:00 07:00 Intake Total 0 ml Balance 0 ml Physical Exam General: No acute distress, Other (Snoring will wake up) Heart: Other (AFIB, distant heart sounds) Lungs: Clear Abdomen: Normal bowel sounds, Soft, No tenderness, No hepatosplenomegaly, No masses Extremities: No cyanosis, Other (2-3+ bilateral LE pitting pedal edema) Skin: Other Labs Labs: Laboratory Tests Test 08/22/21 11:38 08/23/21 07:33 Glucose (Fingerstick) 100 mg/dL (70-99) 86 mg/dL (70-99) Assessment and Plan Assessmemt and Plan Problems Medical Problems: (1) Acute exacerbation of congestive heart failure Status: Acute (2) Fall Status: Acute (3) Pleural effusion, left Status: Acute Respiratory failure Hypotension Failure to thrive A. fib CHF COPD Diabetes Hyperlipidemia Hypertension Benign tumor of the eye CAMERON CAD with history of bypass Plan We would like to get him to long-term care with hospice but the family is having problems arranging that For now continue the following; Comfort care with morphine and Ativan O2 per nasal cannula Prognosis appears terminal Appreciate pulmonary input Comment Review of Relevant I have reviewed the following items cynthia (where applicable) has been applied. Justifications for Admission Other Justification ABIGAIL CHICAS III DO August 23, 2021 10:48
[2021-08-23 11:00] VITALS: BP 120/66
[2021-08-23] MEDS: IV DEXTROSE 10% 1,000 ML IV SCH ×2 (14:00→18:13)
[2021-08-23 15:00] VITALS: BP 103/43
[2021-08-23 20:00] VITALS: BP 78/34
[2021-08-23] MEDS: SIMVASTATIN 20 MG TABLET PO SCH (21:00)
[2021-08-24] MEDS: BUDESONIDE 0.5 MG/2 ML NEBU. NEB SCH ×2 (07:19→20:37)
[2021-08-24] MEDS: IPRATRPIUM/ALBUTEROL 0.5/2.5MG 3 ML NEBU. NEB SCH ×4 (07:19→20:37)
[2021-08-24] MEDS: INSULIN LISPRO 300 UNITS/3 ML VIAL. SQ SCH ×4 (07:30→21:00)
[2021-08-24 07:55] VITALS: BP 111/68
[2021-08-24] MEDS: ASPIRIN ENTERIC COATED 81 MG TABLET.DR. PO SCH (08:00)
[2021-08-24] MEDS: SACUBITRIL/VALSARTAN 24/26MG TABLET. PO SCH ×2 (09:00→21:00)
[2021-08-24] MEDS: METOPROLOL SUCC 24HR ER 25 MG TAB.ER.24H. PO SCH (09:00)
[2021-08-24] MEDS: FUROSEMIDE 40 MG TABLET. PO SCH (09:00)
[2021-08-24] MEDS: OLANZapine IM 10 MG VIAL. IM SCH (09:42)
[2021-08-24 11:30] VITALS: BP 90/52
--- NOTE | 2021-08-24 11:51 | PDOC ---
[employer] PROGRESS NOTE Date of Service DOS: DATE: 08/24/21 TIME: 11:50 Chief Complaint Chief Complaint Respiratory failure Hypotension Failure to thrive A. fib CHF COPD Diabetes Hyperlipidemia Hypertension Benign tumor of the eye CAMERON CAD with history of bypass History of Present Illness History of Present Illness 08/24/2021 Patient seen and examined He is unresponsive Still on O2 per nasal cannula at 3 L Has dextrose running at 50 cc an hour Mitts on for his safety Blood pressure currently 90/52 08/23/2021 Patient seen and examined Discussed with RN Chart reviewed He is still unresponsive Has mitts on for his safety Has O2 per nasal cannula at 4 L We are hoping to get him to long-term care with hospice but for now we are doing comfort meds/care 08/22/2021 Patient seen and examined He is snoring will not wake up On O2 per nasal cannula at 4 L Mitts are on for his safety Has a Ingram bedside drainage Getting IV dextrose at 50 cc an hour I spoke with case management and the nurses I suspect we should move towards inpatient hospice 08/21/2021 Patient seen and examined He has O2 per nasal cannula Mitts on for patient safety Has Ingram to bedside drainage Getting IV dextrose 10% at 50 cc an hour Discussed with RN I am hoping to discharge to [facility] with hospice perhaps today? 08/20/2021 Patient seen and examined in the ICU He had to be transferred down last night due to worsening hypotension Currently on 10% dextrose drip Has mitts on for his safety Discussed with case management Discussed with RN We are hoping to get him to [place] with hospice later today if family agrees 08/19 Patient evaluated examined at bedside. Confused unable to follow any commands. Would not open eyes when evaluated. Easily agitated however as well. Will perform basic infectious work-up given change in clinical status. Patient also did not wear BiPAP last night and based on review looks like he will be confused days after he does not wear BiPAP. Family bringing home BiPAP to see if more comfortable. We will follow-up on work-up. Discussed with cardiology. 08/18: Afebrile, breathing on 5 L nasal cannula. A1c 6.1, with no significantly elevated blood sugars. We can stop regular sugar checks. Not much net fluid off yesterday, 250 mL. Continue with daily Lasix. Per discussion with daughter yesterday patient is now DNR. After discussion with daughter today, she is agreeable to [facility], as no one is at home to help care for him. Encouraged continued wearing of BiPAP as this did help with his confusion 2 days prior. Advance Care Planning: Total time spent [id number] with patient 16 minutes in discussion with goals of care, comfort care, end-of-life care, pain management, code status; patient names his daughter as surrogate decision-maker. 08/17: Patient seen and evaluated. Patient denies any shortness of breath on 5 L nasal cannula. Family at bedside notes inconsistent use of home O2, and states he would likely benefit from an oxygen concentrator; will discuss with social media sr strategy manager on Thursday. Blood glucose not significantly elevated; will check hemoglobin A1c and stop serial CBGs if he is not meet criteria for diabetes. ABG yesterday showed PCO2 69, he was placed on BiPAP. Currently on 4 L nasal cannula, baseline O2 requirement 3 L. Work with PT yesterday, recommending SNU. Continue bronchodilators. 08/16: Patient seen and evaluated. He is resting comfortably. BiPAP on, we will continue to diurese. All medications have been resumed. Discussed with RN. Vitals/I&O Vitals/I&O: Vital Signs Date Time Temp Pulse Resp B/P (MAP) Pulse Ox O2 Delivery O2 Flow Rate FiO2 08/24/21 11:13 93 Nasal Cannula 3.0 08/24/21 09:00 75 111/68 08/24/21 07:55 96.1 20 96.1 I & O 08/23/21 08/23/21 08/24/21 15:00 23:00 07:00 Output Total 400 ml 450 ml Balance -400 ml -450 ml Physical Exam General: No acute distress, Other (Snoring will wake up) Heart: Other (AFIB, distant heart sounds) Lungs: Clear Abdomen: Normal bowel sounds, Soft, No tenderness, No hepatosplenomegaly, No masses Extremities: No cyanosis, Other (2-3+ bilateral LE pitting pedal edema) Skin: Other Labs Labs: Laboratory Tests Test 08/23/21 19:20 08/23/21 20:53 08/24/21 07:28 08/24/21 11:42 Glucose (Fingerstick) 76 mg/dL (70-99) 94 mg/dL (70-99) 86 mg/dL (70-99) 84 mg/dL (70-99) Assessment and Plan Assessmemt and Plan Problems Medical Problems: (1) Acute exacerbation of congestive heart failure Status: Acute (2) Fall Status: Acute (3) Pleural effusion, left Status: Acute Respiratory failure Hypotension Failure to thrive A. fib CHF COPD Diabetes Hyperlipidemia Hypertension Benign tumor of the eye CAMERON CAD with history of bypass Plan We would like to get him to long-term care with hospice but the family is having problems arranging that For now continue the following; Comfort care with morphine and Ativan O2 per nasal cannula Prognosis appears terminal Appreciate pulmonary input Comment Review of Relevant I have reviewed the following items cynthia (where applicable) has been applied. Justifications for Admission Other Justification ABIGAIL CHICAS III DO August 24, 2021 11:51
[2021-08-24] MEDS: MORPHINE SULFATE 2 MG/ML INJ. IVP PRN ×2 (13:12→16:14)
--- NOTE | 2021-08-24 14:30 | NUR ---
Pt's sisters Irina and Joe in to see pt. They stated they would like for info be sent to [facility] located at [address] [place] [address]. .
[2021-08-24] MEDS: IV DEXTROSE 10% 1,000 ML IV SCH (16:15)
[2021-08-24 19:58] VITALS: BP 95/59
[2021-08-24] MEDS: SIMVASTATIN 20 MG TABLET PO SCH (21:00)
[2021-08-24 23:00] VITALS: BP 85/43
[2021-08-25 03:00] VITALS: BP 83/53
[2021-08-25] MEDS: INSULIN LISPRO 300 UNITS/3 ML VIAL. SQ SCH ×4 (07:30→21:00)
[2021-08-25] MEDS: IPRATRPIUM/ALBUTEROL 0.5/2.5MG 3 ML NEBU. NEB SCH ×4 (07:46→20:03)
[2021-08-25] MEDS: BUDESONIDE 0.5 MG/2 ML NEBU. NEB SCH ×2 (07:46→20:03)
[2021-08-25] MEDS: ASPIRIN ENTERIC COATED 81 MG TABLET.DR. PO SCH (08:00)
[2021-08-25] MEDS: SACUBITRIL/VALSARTAN 24/26MG TABLET. PO SCH ×2 (08:39→21:00)
[2021-08-25] MEDS: METOPROLOL SUCC 24HR ER 25 MG TAB.ER.24H. PO SCH (08:39)
[2021-08-25] MEDS: FUROSEMIDE 40 MG TABLET. PO SCH (08:39)
[2021-08-25] MEDS: OLANZapine IM 10 MG VIAL. IM SCH (08:56)
[2021-08-25] MEDS: MORPHINE SULFATE 2 MG/ML INJ. IVP PRN ×4 (10:18→19:21)
[2021-08-25 11:30] VITALS: BP 96/54
--- NOTE | 2021-08-25 12:44 | PDOC ---
[employer] PROGRESS NOTE Date of Service DOS: DATE: 08/25/21 TIME: 12:43 Chief Complaint Chief Complaint Respiratory failure Hypotension Failure to thrive A. fib CHF COPD Diabetes Hyperlipidemia Hypertension Benign tumor of the eye CAMERON CAD with history of bypass History of Present Illness History of Present Illness 08/25/2021 Patient seen and examined He is currently on oxygen per nasal cannula Mitts are on for his safety Still has dextrose hanging He awakens a little bit mumbles and then go back to sleep Discussed with RN Chart reviewed 08/24/2021 Patient seen and examined He is unresponsive Still on O2 per nasal cannula at 3 L Has dextrose running at 50 cc an hour Mitts on for his safety Blood pressure currently 90/52 08/23/2021 Patient seen and examined Discussed with RN Chart reviewed He is still unresponsive Has mitts on for his safety Has O2 per nasal cannula at 4 L We are hoping to get him to long-term care with hospice but for now we are doing comfort meds/care 08/22/2021 Patient seen and examined He is snoring will not wake up On O2 per nasal cannula at 4 L Mitts are on for his safety Has a Ingram bedside drainage Getting IV dextrose at 50 cc an hour I spoke with case management and the nurses I suspect we should move towards inpatient hospice 08/21/2021 Patient seen and examined He has O2 per nasal cannula Mitts on for patient safety Has Ingram to bedside drainage Getting IV dextrose 10% at 50 cc an hour Discussed with RN I am hoping to discharge to [place] with hospice perhaps today? 08/20/2021 Patient seen and examined in the ICU He had to be transferred down last night due to worsening hypotension Currently on 10% dextrose drip Has mitts on for his safety Discussed with case management Discussed with RN We are hoping to get him to [place] with hospice later today if family agrees 08/19 Patient evaluated examined at bedside. Confused unable to follow any commands. Would not open eyes when evaluated. Easily agitated however as well. Will perform basic infectious work-up given change in clinical status. Patient also did not wear BiPAP last night and based on review looks like he will be confused days after he does not wear BiPAP. Family bringing home BiPAP to see if more comfortable. We will follow-up on work-up. Discussed with cardiology. 08/18: Afebrile, breathing on 5 L nasal cannula. A1c 6.1, with no significantly elevated blood sugars. We can stop regular sugar checks. Not much net fluid off yesterday, 250 mL. Continue with daily Lasix. Per discussion with daughter yesterday patient is now DNR. After discussion with daughter today, she is agreeable to [facility], as no one is at home to help care for him. Encouraged continued wearing of BiPAP as this did help with his confusion 2 days prior. Advance Care Planning: Total time spent [id number] with patient 16 minutes in discussion with goals of care, comfort care, end-of-life care, pain management, code status; patient names his daughter as surrogate decision-maker. 08/17: Patient seen and evaluated. Patient denies any shortness of breath on 5 L nasal cannula. Family at bedside notes inconsistent use of home O2, and states he would likely benefit from an oxygen concentrator; will discuss with drug abuse social worker on Thursday. Blood glucose not significantly elevated; will check hemoglobin A1c and stop serial CBGs if he is not meet criteria for diabetes. ABG yesterday showed PCO2 69, he was placed on BiPAP. Currently on 4 L nasal cannula, baseline O2 requirement 3 L. Work with PT yesterday, recommending SNU. Continue bronchodilators. 08/16: Patient seen and evaluated. He is resting comfortably. BiPAP on, we will continue to diurese. All medications have been resumed. Discussed with RN. Vitals/I&O Vitals/I&O: Vital Signs Date Time Temp Pulse Resp B/P (MAP) Pulse Ox O2 Delivery O2 Flow Rate FiO2 08/25/21 12:12 Nasal Cannula 4.0 08/25/21 11:30 96.5 117 20 96/54 (68) 95 96.5 I & O 08/24/21 08/24/21 08/25/21 15:00 23:00 07:00 Output Total 600 ml 300 ml Balance -600 ml -300 ml Physical Exam General: No acute distress, Other (Snoring will wake up) Heart: Other (AFIB, distant heart sounds) Lungs: Clear Abdomen: Normal bowel sounds, Soft, No tenderness, No hepatosplenomegaly, No masses Extremities: No cyanosis, Other (2-3+ bilateral LE pitting pedal edema) Skin: Other Labs Labs: Laboratory Tests Test 08/24/21 17:01 08/24/21 20:36 08/25/21 07:55 08/25/21 11:56 Glucose (Fingerstick) 94 mg/dL (70-99) 92 mg/dL (70-99) 72 mg/dL (70-99) 91 mg/dL (70-99) Assessment and Plan Assessmemt and Plan Problems Medical Problems: (1) Acute exacerbation of congestive heart failure Status: Acute (2) Fall Status: Acute (3) Pleural effusion, left Status: Acute Respiratory failure Hypotension Failure to thrive A. fib CHF COPD Diabetes Hyperlipidemia Hypertension Benign tumor of the eye CAMERON CAD with history of bypass Plan We would like to get him to long-term care with hospice but the family is having problems arranging that For now continue the following; Comfort care with morphine and Ativan We are using BiPAP at night O2 per nasal cannula Prognosis appears terminal Appreciate pulmonary input Comment Review of Relevant I have reviewed the following items cynthia (where applicable) has been applied. Justifications for Admission Other Justification ABIGAIL CHICAS III DO August 25, 2021 12:44
[2021-08-25] MEDS: IV DEXTROSE 10% 1,000 ML IV SCH (15:24)
[2021-08-25 16:00] VITALS: BP 92/65
[2021-08-25 19:00] VITALS: BP 121/89
[2021-08-25] MEDS: SIMVASTATIN 20 MG TABLET PO SCH (21:00)
[2021-08-26 03:26] VITALS: BP 84/60
[2021-08-26] MEDS: BUDESONIDE 0.5 MG/2 ML NEBU. NEB SCH ×2 (07:29→20:08)
[2021-08-26] MEDS: IPRATRPIUM/ALBUTEROL 0.5/2.5MG 3 ML NEBU. NEB SCH ×4 (07:29→20:08)
[2021-08-26] MEDS: INSULIN LISPRO 300 UNITS/3 ML VIAL. SQ SCH ×4 (07:30→21:00)
[2021-08-26 07:39] VITALS: BP 107/65
[2021-08-26] MEDS: ASPIRIN ENTERIC COATED 81 MG TABLET.DR. PO SCH (07:58)
[2021-08-26] MEDS: SACUBITRIL/VALSARTAN 24/26MG TABLET. PO SCH ×2 (07:58→21:00)
[2021-08-26] MEDS: METOPROLOL SUCC 24HR ER 25 MG TAB.ER.24H. PO SCH (07:59)
[2021-08-26] MEDS: FUROSEMIDE 40 MG TABLET. PO SCH (07:59)
[2021-08-26] MEDS: OLANZapine IM 10 MG VIAL. IM SCH (08:10)
[2021-08-26] MEDS: IV DEXTROSE 10% 1,000 ML IV SCH (09:43)
--- NOTE | 2021-08-26 10:25 | PDOC ---
[employer] PROGRESS NOTE Date of Service DOS: DATE: 08/26/21 TIME: 10:24 Chief Complaint Chief Complaint Respiratory failure Hypotension Failure to thrive A. fib CHF COPD Diabetes Hyperlipidemia Hypertension Benign tumor of the eye CAMERON CAD with history of bypass History of Present Illness History of Present Illness 08/26/2021 Patient seen and examined He is still mostly unresponsive slightly opens his eyes for a brief second but then closes them again Discussed with case management Discussed with RN Chart reviewed He is still on D10 at 50 cc an hour Has oxygen at 4 L per nasal cannula Still has mitts on for his safety 08/25/2021 Patient seen and examined He is currently on oxygen per nasal cannula Mitts are on for his safety Still has dextrose hanging He awakens a little bit mumbles and then go back to sleep Discussed with RN Chart reviewed 08/24/2021 Patient seen and examined He is unresponsive Still on O2 per nasal cannula at 3 L Has dextrose running at 50 cc an hour Mitts on for his safety Blood pressure currently 90/52 08/23/2021 Patient seen and examined Discussed with RN Chart reviewed He is still unresponsive Has mitts on for his safety Has O2 per nasal cannula at 4 L We are hoping to get him to long-term care with hospice but for now we are doing comfort meds/care 08/22/2021 Patient seen and examined He is snoring will not wake up On O2 per nasal cannula at 4 L Mitts are on for his safety Has a Ingram bedside drainage Getting IV dextrose at 50 cc an hour I spoke with case management and the nurses I suspect we should move towards inpatient hospice 08/21/2021 Patient seen and examined He has O2 per nasal cannula Mitts on for patient safety Has Ingram to bedside drainage Getting IV dextrose 10% at 50 cc an hour Discussed with RN I am hoping to discharge to [place] with hospice perhaps today? 08/20/2021 Patient seen and examined in the ICU He had to be transferred down last night due to worsening hypotension Currently on 10% dextrose drip Has mitts on for his safety Discussed with case management Discussed with RN We are hoping to get him to [place] with hospice later today if family agrees 08/19 Patient evaluated examined at bedside. Confused unable to follow any commands. Would not open eyes when evaluated. Easily agitated however as well. Will perform basic infectious work-up given change in clinical status. Patient also did not wear BiPAP last night and based on review looks like he will be confused days after he does not wear BiPAP. Family bringing home BiPAP to see if more comfortable. We will follow-up on work-up. Discussed with cardiology. 08/18: Afebrile, breathing on 5 L nasal cannula. A1c 6.1, with no significantly elevated blood sugars. We can stop regular sugar checks. Not much net fluid off yesterday, 250 mL. Continue with daily Lasix. Per discussion with daughter yesterday patient is now DNR. After discussion with daughter today, she is agreeable to [facility], as no one is at home to help care for him. Encouraged continued wearing of BiPAP as this did help with his confusion 2 days prior. Advance Care Planning: Total time spent [id number] with patient 16 minutes in discussion with goals of care, comfort care, end-of-life care, pain management, code status; patient names his daughter as surrogate decision-maker. 08/17: Patient seen and evaluated. Patient denies any shortness of breath on 5 L nasal cannula. Family at bedside notes inconsistent use of home O2, and states he would likely benefit from an oxygen concentrator; will discuss with social sciences professor on Thursday. Blood glucose not significantly elevated; will check hemoglobin A1c and stop serial CBGs if he is not meet criteria for diabetes. ABG yesterday showed PCO2 69, he was placed on BiPAP. Currently on 4 L nasal cannula, baseline O2 requirement 3 L. Work with PT yesterday, recommending SNU. Continue bronchodilators. 08/16: Patient seen and evaluated. He is resting comfortably. BiPAP on, we will continue to diurese. All medications have been resumed. Discussed with RN. Vitals/I&O Vitals/I&O: Vital Signs Date Time Temp Pulse Resp B/P (MAP) Pulse Ox O2 Delivery O2 Flow Rate FiO2 08/26/21 07:45 Nasal Cannula 4.0 08/26/21 07:39 98.2 106 22 107/65 (79) 100 98.2 I & O 08/25/21 08/25/21 08/26/21 15:00 23:00 07:00 Output Total 150 ml 300 ml Balance -150 ml -300 ml Physical Exam General: No acute distress, Other (Snoring will wake up) Heart: Other (AFIB, distant heart sounds) Lungs: Clear Abdomen: Normal bowel sounds, Soft, No tenderness, No hepatosplenomegaly, No masses Extremities: No cyanosis, Other (2-3+ bilateral LE pitting pedal edema) Skin: Other Labs Labs: Laboratory Tests Test 08/25/21 11:56 08/25/21 16:55 08/25/21 20:39 08/26/21 07:09 Glucose (Fingerstick) 91 mg/dL (70-99) 108 mg/dL (70-99) 108 mg/dL (70-99) 98 mg/dL (70-99) Assessment and Plan Assessmemt and Plan KProblems Medical Problems: (1) Acute exacerbation of congestive heart failure Status: Acute (2) Fall Status: Acute (3) Pleural effusion, left Status: Acute Respiratory failure Hypotension Failure to thrive A. fib CHF COPD Diabetes Hyperlipidemia Hypertension Benign tumor of the eye CAMERON CAD with history of bypass Plan Family now would like to get him to a hospice house Management working on arrangements to get him to a hospice house For now continue the following; Comfort care with morphine and Ativan We are using BiPAP at night O2 per nasal cannula Prognosis appears terminal Appreciate pulmonary input Comment Review of Relevant I have reviewed the following items cynthia (where applicable) has been applied. Justifications for Admission Other Justification ABIGAIL CHICAS III DO August 26, 2021 10:25
[2021-08-26 11:01] VITALS: BP 92/54
[2021-08-26 15:02] VITALS: BP 90/60
[2021-08-26 19:00] VITALS: BP 93/66
[2021-08-26] MEDS: SIMVASTATIN 20 MG TABLET PO SCH (21:00)
[2021-08-26 23:00] VITALS: BP 89/58
[2021-08-27 03:00] VITALS: BP 102/53
[2021-08-27] MEDS: ASPIRIN ENTERIC COATED 81 MG TABLET.DR. PO SCH (06:45)
[2021-08-27] MEDS: SACUBITRIL/VALSARTAN 24/26MG TABLET. PO SCH (06:46)
[2021-08-27] MEDS: METOPROLOL SUCC 24HR ER 25 MG TAB.ER.24H. PO SCH (06:46)
[2021-08-27] MEDS: FUROSEMIDE 40 MG TABLET. PO SCH (06:46)
[2021-08-27] MEDS: BUDESONIDE 0.5 MG/2 ML NEBU. NEB SCH (07:06)
[2021-08-27] MEDS: IPRATRPIUM/ALBUTEROL 0.5/2.5MG 3 ML NEBU. NEB SCH ×2 (07:06→11:42)
[2021-08-27 07:15] VITALS: BP 117/58
[2021-08-27] MEDS: INSULIN LISPRO 300 UNITS/3 ML VIAL. SQ SCH ×2 (07:30→11:08)
[2021-08-27] MEDS: OLANZapine IM 10 MG VIAL. IM SCH (07:45)
[2021-08-27] MEDS: IV DEXTROSE 10% 1,000 ML IV SCH (08:02)
--- NOTE | 2021-08-27 09:46 | PDOC ---
[employer] PROGRESS NOTE Date of Service DOS: DATE: 08/27/21 TIME: 09:45 Chief Complaint Chief Complaint Respiratory failure Hypotension Failure to thrive A. fib CHF COPD Diabetes Hyperlipidemia Hypertension Benign tumor of the eye CAMERON CAD with history of bypass History of Present Illness History of Present Illness 08/27/2021 's patient seen and examined Discussed with RN Chart reviewed He has been accepted at [facility] house will discharge this morning 08/26/2021 Patient seen and examined He is still mostly unresponsive slightly opens his eyes for a brief second but then closes them again Discussed with case management Discussed with RN Chart reviewed He is still on D10 at 50 cc an hour Has oxygen at 4 L per nasal cannula Still has mitts on for his safety 08/25/2021 Patient seen and examined He is currently on oxygen per nasal cannula Mitts are on for his safety Still has dextrose hanging He awakens a little bit mumbles and then go back to sleep Discussed with RN Chart reviewed 08/24/2021 Patient seen and examined He is unresponsive Still on O2 per nasal cannula at 3 L Has dextrose running at 50 cc an hour Mitts on for his safety Blood pressure currently 90/52 08/23/2021 Patient seen and examined Discussed with RN Chart reviewed He is still unresponsive Has mitts on for his safety Has O2 per nasal cannula at 4 L We are hoping to get him to long-term care with hospice but for now we are doing comfort meds/care 08/22/2021 Patient seen and examined He is snoring will not wake up On O2 per nasal cannula at 4 L Mitts are on for his safety Has a Ingram bedside drainage Getting IV dextrose at 50 cc an hour I spoke with case management and the nurses I suspect we should move towards inpatient hospice 08/21/2021 Patient seen and examined He has O2 per nasal cannula Mitts on for patient safety Has Ingram to bedside drainage Getting IV dextrose 10% at 50 cc an hour Discussed with RN I am hoping to discharge to [place] with hospice perhaps today? 08/20/2021 Patient seen and examined in the ICU He had to be transferred down last night due to worsening hypotension Currently on 10% dextrose drip Has mitts on for his safety Discussed with case management Discussed with RN We are hoping to get him to [place] with hospice later today if family agrees 08/19 Patient evaluated examined at bedside. Confused unable to follow any commands. Would not open eyes when evaluated. Easily agitated however as well. Will perform basic infectious work-up given change in clinical status. Patient also did not wear BiPAP last night and based on review looks like he will be confused days after he does not wear BiPAP. Family bringing home BiPAP to see if more comfortable. We will follow-up on work-up. Discussed with cardiology. 08/18: Afebrile, breathing on 5 L nasal cannula. A1c 6.1, with no significantly elevated blood sugars. We can stop regular sugar checks. Not much net fluid off yesterday, 250 mL. Continue with daily Lasix. Per discussion with daughter yesterday patient is now DNR. After discussion with daughter today, she is agreeable to [facility], as no one is at home to help care for him. Encouraged continued wearing of BiPAP as this did help with his confusion 2 days prior. Advance Care Planning: Total time spent [id number] with patient 16 minutes in discussion with goals of care, comfort care, end-of-life care, pain management, code status; patient names his daughter as surrogate decision-maker. 08/17: Patient seen and evaluated. Patient denies any shortness of breath on 5 L nasal cannula. Family at bedside notes inconsistent use of home O2, and states he would likely benefit from an oxygen concentrator; will discuss with health care social worker on Thursday. Blood glucose not significantly elevated; will check hemoglobin A1c and stop serial CBGs if he is not meet criteria for diabetes. ABG yesterday showed PCO2 69, he was placed on BiPAP. Currently on 4 L nasal cannula, baseline O2 requirement 3 L. Work with PT yesterday, recommending SNU. Continue bronchodilators. 08/16: Patient seen and evaluated. He is resting comfortably. BiPAP on, we will continue to diurese. All medications have been resumed. Discussed with RN. Vitals/I&O Vitals/I&O: Vital Signs Date Time Temp Pulse Resp B/P (MAP) Pulse Ox O2 Delivery O2 Flow Rate FiO2 08/27/21 07:22 Nasal Cannula 4.0 08/27/21 07:15 97.8 95 22 117/58 (77) 99 97.8 I & O 08/26/21 08/26/21 08/27/21 15:00 23:00 07:00 Output Total 300 ml 400 ml Balance -300 ml -400 ml Physical Exam General: No acute distress, Other (Snoring will wake up) Heart: Other (AFIB, distant heart sounds) Lungs: Clear Abdomen: Normal bowel sounds, Soft, No tenderness, No hepatosplenomegaly, No masses Extremities: No cyanosis, Other (2-3+ bilateral LE pitting pedal edema) Skin: Other Labs Labs: Laboratory Tests Test 08/26/21 11:30 08/26/21 17:00 08/26/21 21:07 08/27/21 07:31 Glucose (Fingerstick) 90 mg/dL (70-99) 95 mg/dL (70-99) 86 mg/dL (70-99) 88 mg/dL (70-99) Assessment and Plan Assessmemt and Plan Problems Medical Problems: (1) Acute exacerbation of congestive heart failure Status: Acute (2) Fall Status: Acute (3) Pleural effusion, left Status: Acute Respiratory failure Hypotension Failure to thrive A. fib CHF COPD Diabetes Hyperlipidemia Hypertension Benign tumor of the eye CAMERON CAD with history of bypass Plan Discharge to [facility] house later today For now continue the following; Comfort care with morphine and Ativan We are using BiPAP O2 per nasal cannula Prognosis appears terminal Appreciate pulmonary input Comment Review of Relevant I have reviewed the following items cynthia (where applicable) has been applied. Justifications for Admission Other Justification ABIGAIL CHICAS III DO August 27, 2021 09:46
--- NOTE | 2021-08-27 09:48 | SNU/HH DC ---
DISCHARGE ORDERS DISCHARGE INFORMATION: FINAL DIAGNOSIS Problems Medical Problems: (1) Acute exacerbation of congestive heart failure Status: Acute (2) Fall Status: Acute (3) Pleural effusion, left Status: Acute CONDITION ON DISCHARGE: Stable CODE STATUS: Code Status: DNR/DNI HOSPICE: HOSPICE: Yes HOSPICE EVAL & TREAT: Yes LTAC: ADMIT TO LTAC: No POST DISCHARGE ORDERS: ACTIVITY ORDERS: No restrictions WEIGHT BEARING STATUS: No restrictions, As tolerated DIET AFTER DISCHARGE: Cardiac WOUND/INCISION CARE: No wound care needed OTHER ORDERS: Hospice team to assume comfort meds please CHECKS AFTER DISCHARGE: CHECKS AFTER DISCHARGE: Check blood press - daily, Check your Temp as needed, Weigh Yourself Daily TREATMENT/EQUIPMENT ORDERS: ADAPTIVE EQUIPMENT NEEDED: None RESPIRATORY EQUIPMENT NEEDED: Oxygen DISCHARGE MEDICATIONS: Home Meds Active Scripts Ondansetron (ONDANSETRON ODT) 4 Mg Tab.rapdis, 4 MG PO PRN Q4HRS PRN for NAUSEA for 10 Days, #20 TAB Prov:CASTLE,NIAL K III DO 08/20/21 Alprazolam (ALPRAZOLAM) 0.25 Mg Tablet, 0.25 MG PO PRN Q6HRS PRN for ANXIETY / AGITATION for 14 Days, #20 TAB Prov:CASTLE,NIAL K III DO 08/20/21 Potassium Chloride (KLOR-CON M20) 20 Meq Tab.er.prt, 1 TAB PO DAILY for . for 30 Days, #30 TAB 0 Refills Prov:CASTLE,NIAL K III DO 07/26/21 Apixaban (ELIQUIS) 5 Mg Tablet, 5 MG PO BID for . for 90 Days, #180 TAB Prov:CASTLE,NIAL K III DO 07/26/21 Olanzapine (OLANZAPINE) 5 Mg Tablet, 5 MG PO BID for . for 30 Days, #60 TAB Prov:CASTLE,NIAL K III DO 07/26/21 Oxycodone HCl/Acetaminophen (Percocet 5-325 mg Tablet) 1 Each Tablet, 1 TAB PO QIDPRN PRN for . MDD 4 Tablet(s) for 5 Days, #20 TAB 0 Refills Prov:CASTLE,NIAL K III DO 07/26/21 Sacubitril/Valsartan (Entresto 24 mg-26 mg Tablet) 1 Each Tablet, 1 TAB PO BID for CHF EF 30% for 30 Days, #60 TAB 2 Refills Prov:LILIYA SANCHES MD 03/18/19 Metoprolol Succinate (METOPROLOL SUCCINATE ( XL )) 25 Mg Tab.er.24h, 25 MG PO DAILY for CHF EF 30% for 30 Days, #30 TAB.SR 2 Refills Prov:LILIYA SANCHES MD 03/18/19 Ipratropium/Albuterol Sulfate (DUONEB 0.5-3(2.5) MG/3 ML) 3 Ml Ampul.neb, 3 ML NEB RTQID for COPD for 30 Days, #120 EACH 2 Refills Prov:LILIYA SANCHES MD 03/18/19 Reported Medications Furosemide (FUROSEMIDE) 40 Mg Tablet, 40 MG PO DAILY for diuresis, TAB 03/15/19 Simvastatin (SIMVASTATIN) 20 Mg Tablet, 20 MG PO HS for FOR CHOLESTEROL, #30 TAB 0 Refills 03/27/16 Aspirin (ASPIR 81) 81 Mg Tablet., 81 MG PO DAILY, TAB 03/27/16 ABIGAIL CHICAS III DO August 27, 2021 09:48
[2021-08-27 11:15] VITALS: BP 110/66
--- NOTE | 2021-08-27 12:03 | NUR ---
Discharge Note: SUDHIR NICOLE [address] Discharge instructions and discharge home medications reviewed with Other facility and a copy given. All questions have been answered and understanding verbalized. Report given to JAZLYN De León at [facility]. The following instructions and handouts were given: diet, activity, medications, skin assessment, murcia, history. Discontinued lines and drains: IV in right hand removed, catheter tip intact. Patient discharged to [facility] with EMS transport, stretcher used for transport to discharge vehicle.
[2021-08-28 17:06] LABS: BASE EXCESS COOX 4 mmol/L (-3-3); HCO3 COOX 33 mmol/L (21-28); PCO2 COOX 69 mmHg (35-46); PO2 COOX 64 mmHg (65-108); SAT O2 COOX 91 % (92-99)
--- NOTE | 2021-08-28 21:21 | DS ---
DATE OF DISCHARGE: 08/27/2021 ADMISSION DIAGNOSES: Fall, respiratory failure, right leg pain, orbital bruising, shortness of breath, history of chronic obstructive pulmonary disease, atrial fibrillation, pleural effusion on the left, diabetes, hyperlipidemia, hypertension, benign tumor of the eye, obstructive sleep apnea and coronary artery disease. DISCHARGE DIAGNOSES: Persistent and progressive fulminant respiratory failure (he has been discharged with hospice). HOSPITAL COURSE: The patient is a pleasant elderly male, who presented with fall and he had multiple comorbidities including COPD and CHF. We did consult Cardiology and Pulmonary Medicine. We did physical therapy and occupational therapy, but the patient's symptoms seemed to progress. He was then placed on p.r.n. BiPAP and he became mostly unresponsive. Over the past few days, he slowly deteriorated. The family has decided on hospice house. We are discharging to hospice house. DISPOSITION: Hospice house. ACTIVITY: Bed rest. DIET: N.p.o. MEDICATIONS: P.r.n. comfort meds. TOTAL TIME: 32 minutes. MELECIO/GINI/TONG DR: Candace TID: [id number]
== END 2021-08-27 12:02 | disposition hospice, inpatient (51) | DRG 291 ==
LOC: ER 17:06 → 6 SOUTH 18:38 → 4 NORTH 08-18 19:04 → 1 WEST ICU 08-20 04:20 → 4 NORTH 08-20 20:40
PROVIDERS: ADMIT Internal Medicine; ATTEND Internal Medicine
PROC: 5A09357 Assistance with Respiratory Ventilation, Less than 24 Consecutive Hours, Continuous Positive Airway Pressure (ICD-10-PCS; 2021-08-19)
PROC: 5A09357 Assistance with Respiratory Ventilation, Less than 24 Consecutive Hours, Continuous Positive Airway Pressure (ICD-10-PCS; 2021-08-20)
PROC: 5A09357 Assistance with Respiratory Ventilation, Less than 24 Consecutive Hours, Continuous Positive Airway Pressure (ICD-10-PCS; 2021-08-21)
PROC: 5A09357 Assistance with Respiratory Ventilation, Less than 24 Consecutive Hours, Continuous Positive Airway Pressure (ICD-10-PCS; 2021-08-25)
PROC: 5A09357 Assistance with Respiratory Ventilation, Less than 24 Consecutive Hours, Continuous Positive Airway Pressure (ICD-10-PCS; 2021-08-26)
PROC: 5A09357 Assistance with Respiratory Ventilation, Less than 24 Consecutive Hours, Continuous Positive Airway Pressure (ICD-10-PCS; principal; 2021-08-27)
DX: I11.0 Hypertensive heart disease with heart failure (principal); J96.22 Acute and chronic respiratory failure with hypercapnia; I50.43 Acute on chronic combined systolic (congestive) and diastolic (congestive) heart failure; G93.40 Encephalopathy, unspecified; J90 Pleural effusion, not elsewhere classified; I48.20 Chronic atrial fibrillation, unspecified; S00.12XA Contusion of left eyelid and periocular area, initial encounter; S00.03XA Contusion of scalp, initial encounter; I25.5 Ischemic cardiomyopathy; R62.7 Adult failure to thrive; D31 Benign neoplasm of eye and adnexa; E78.00 Pure hypercholesterolemia, unspecified; E78.5 Hyperlipidemia, unspecified; F17.210 Nicotine dependence, cigarettes, uncomplicated; G47.33 Obstructive sleep apnea (adult) (pediatric); I25.10 Atherosclerotic heart disease of native coronary artery without angina pectoris; R31.0 Gross hematuria; Z51.5 Encounter for palliative care; Z68.38 Body mass index [BMI] 38.0-38.9, adult; Z82.49 Family history of ischemic heart disease and other diseases of the circulatory system; Z83.3 Family history of diabetes mellitus; Z95.1 Presence of aortocoronary bypass graft; M19.90 Unspecified osteoarthritis, unspecified site; W18.39XA Other fall on same level, initial encounter; Y93.89 Activity, other specified; Y92.89 Other specified places as the place of occurrence of the external cause; Y99.8 Other external cause status; J44.9 Chronic obstructive pulmonary disease, unspecified; Z20.822 Contact with and (suspected) exposure to COVID-19
CPT/HCPCS: 36415; 36600; 70450; 71045; 71250; 72125; 73552; 74176; 80048; 80053; 82805; 82962; 83036; 83605; 83880; 84484; 85025; 85027; 85610; 85730; 87428; 93005; 93926; 94640; 94660; 94760; J1630; J1815; J1940; J2060; J2270; J3486; J3490; J7060; 97530-GP; 99285-25; G0378; J7626